=== PATIENT | female | born 1955 | race Caucasian/White ===

== ENCOUNTER 2020-02-24 15:19 | Outpatient (CLI) | payer MEDICARE, SELFPAY ==
--- NOTE | ~2020-02-24 | CT_ITS ---
EXAMINATION: CTA brain DATE: 02/24/2020 16:06 INDICATION: Headache. TECHNIQUE: Computed tomographic angiography (CTA) of the head was performed without and with 100 mL O mnipaque-350 intravenous contrast. Automated exposure control and iterative reconstruction technique were employed. The dose-length product was 1124.14 mGy-cm. Maximum intensity projection 3D reconstru ctions were created. Volume-rendered 3D reconstructions of the intracranial arteries were created by the technologist on a separate workstation. COMPARISON: CTA head 10/06/2018 FINDINGS: There is chronic encephalomalacia in right temporal occipital region. There is an old lacun ar infarct in left caudate nucleus. There is a right-sided ventriculostomy tube with tip in body of l eft lateral ventricle. There is chronic encephalomalacia in right parietal lobe along the catheter. T here is no intracranial hemorrhage, acute infarction, or abnormal intracranial mass lesion. There is ex vacuo dilatation of right lateral ventricle. There is mild mucosal thickening in the paranasal sin uses. The orbits are normal. The mastoid air cells are normal. Left vertebral artery is dominant. The re is no significant stenosis of basilar artery. 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 There are changes of right-sided craniotomy. There is n o significant stenosis of the intracranial internal carotid arteries. There is a 3 mm saccular aneury sm of the cavernous portion of left internal carotid artery directed medially. There is a 5 mm saccul ar aneurysm of left middle cerebral artery. There is no significant stenosis of the anterior cerebral arteries. Anterior communicating artery is normal. Posterior communicating arteries are not identifi ed. IMPRESSION: 1. 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 2. 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 3. 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 4. Chronic encephalomalacia in right temporal occipital region and right parietal lobe. Old lacunar i nfarct in left caudate nucleus. Reviewed, dictated and finalized at location A. IMPRESSION: 1. 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 2. 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 3. 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 4. Chronic encephalomalacia in right temporal occipital region and right pariet al lobe. Old lacunar infarct in left caudate nucleus.
[2020-02-24 15:56] LABS: Estimated Glomerular Filt Rate > 60
== END 2020-02-24 15:20 | disposition home or self-care (01) ==
PROVIDERS: PCP Family Medicine; Visit Provider Psychiatry & Neurology Neurology
DX: R51.9 Headache, unspecified (principal); I67.1 Cerebral aneurysm, nonruptured
CPT/HCPCS: 70496; Q9967

== ENCOUNTER 2020-07-03 07:09 | Outpatient (CLI) | payer MEDICARE, SELFPAY ==
[2020-07-03 07:38] LABS: Basophils Percent Auto 0.6 % (0.2-1.2); Eosinophils Absolute Auto 0.2 K/mm3 (0-0.3); Eosinophils Percent Auto 3.6 % (0-4.4); Hematocrit 42.2 % (37.0-47.0); Hemoglobin 14.6 g/dL (12.0-15.0); Immature Granulocyte Absolute 0.01 K/mm3 (0.00-0.031); Immature Granulocyte Percent A 0.2 % (0-0.5); Lymphocytes Absolute Auto 1.67 K/mm3 (0.9-3.2); Lymphocytes Percent Auto 35.5 % (18.3-44.2); Mean Corpuscular HGB Conc 34.6 g/dl (32-36); Mean Corpuscular Hemoglobin 37.2 pg (26-34); Mean Corpuscular Volume 107.4 fl (80-100); Mean Platelet Volume 9.3 fl (7.4-10.4); Monocytes Absolute Auto 0.5 K/mm3 (0.1-0.6); Monocytes Percent Auto 11.1 % (2.6-8.5); Neutrophils Absolute Auto 2.3 K/mm3 (1.3-6.7); Platelet Count Result 121 k/mm3 (150-375); Red Blood Count 3.93 M/mm3 (4.2-5.4); Red Cell Distribution Width 12.8 % (11.5-14.5); White Blood Count 4.7 K/mm3 (4.5-10.0)
[2020-07-03 08:41] LABS: Alanine Aminotransferase 9 U/L (4-35); Alkaline Phosphatase 90 U/L (38-126); Anion Gap 2 mmol/L (8-16); Aspartate Amino Transferase 27 U/L (14-36); Bilirubin,Total 0.4 mg/dL (0.2-1.3); Blood Urea Nitrogen 17 mg/dL (7-17); Calcium 9.4 mg/dL (8.4-10.2); Carbon Dioxide 29 mmol/L (22-30); Chloride 111 mmol/L (98-107); Cholesterol 170 mg/dL (0-200); Estimated Glomerular Filt Rate > 60; Glucose 92 mg/dL (65-105); HDL Direct 65 mg/dL; Potassium 4.4 mmol/L (3.4-5.0); Sodium 142 mmol/L (137-145); Triglycerides 77 mg/dL (<150)
[2020-07-03 08:53] LABS: LDL Cholesterol Direct 83 mg/dL
== END 2020-07-03 07:10 | disposition home or self-care (01) ==
PROVIDERS: PCP Family Medicine; Visit Provider Family Medicine
DX: E78.5 Hyperlipidemia, unspecified (principal); I10 Essential (primary) hypertension; Z00.00 Encounter for general adult medical examination without abnormal findings
CPT/HCPCS: 36415; 80053; 80061; 84443; 85025

== ENCOUNTER → 2020-08-11 01:51 | Outpatient (CLI) | payer MEDICARE, SELFPAY ==
[2020-08-11 19:28] LABS: SARS-CoV-2 RNA PCR Negative
== END ==
PROVIDERS: PCP Family Medicine; Visit Provider Internal Medicine Gastroenterology
DX: Z01.812 Encounter for preprocedural laboratory examination (principal); Z20.822 Contact with and (suspected) exposure to COVID-19
CPT/HCPCS: C9803; U0003; U0005

== ENCOUNTER 2020-08-14 01:47 | Day surgery (SDC) | payer MEDICARE, SELFPAY ==
[2020-08-01 12:50] VITALS: BMI 18.8
--- NOTE | 2020-08-04 08:17 | SUR.PREOP ---
Spoke with Dr Storm and Dr De Leon about this patients health history. Both MD okayed for procedure. Spoke with patient- instructed to stop Plavix 5 days before.
[2020-08-14 09:22] VITALS: BP 147/71; PULSE 62; RESP 18; TEMP 36.3; O2SAT 97
[2020-08-14] MEDS: LACTATED RINGERS 1,000 ML 150 ML IV CONT (09:34)
--- NOTE | 2020-08-14 10:03 | WPDANESEPPF ---
Anes - Initial Pre Proc Eval Procedure: Operation Date: 08/14/20 10:30 Proposed Procedures p Screening Colonoscopy - Kendrick Storm MD Date/Time: 08/14/20 10:03 Surgeon: Kendrick Storm MD Pre Op Diagnosis: Neoplasm Screening Patient Data Age: 65 Gender: F Height: 5 ft 6 in Weight: 53.2 kg Last Vital Signs Temp 97.4 F L 08/14/20 09:22 Pulse 62 08/14/20 09:22 Resp 18 08/14/20 09:22 BP 147/71 H 08/14/20 09:22 Pulse Ox 97 08/14/20 09:22 Allergies Allergy/AdvReac Type Severity Reaction Status Date / Time prednisone Allergy Severe Dyspnea / Verified 08/14/20 09:20 SOB adhesive tape Allergy Unknown unknown Verified 08/14/20 09:20 latex Allergy Unknown Unknown Verified 08/14/20 09:20 Penicillins Allergy Unknown Unknown Verified 08/14/20 09:20 warfarin Allergy Unknown HEMMRHAGE Verified 08/14/20 09:20 ibuprofen AdvReac Unknown SHAKY Verified 08/14/20 09:20 Mushroom Allergy Mild HIVES Uncoded 06/07/20 14:16 Home Medications Medication Instructions Recorded Confirmed Type clopidogrel 75 mg tablet See Rx Instructions .ROUTE 09/13/19 08/14/20 Rx .COMPLEX #90 tablet simvastatin 80 mg tablet See Rx Instructions .ROUTE 03/20/20 08/01/20 Rx .COMPLEX #90 tablet losartan 25 mg tablet 25 mg PO DAILY 06/07/20 08/01/20 History sertraline 50 mg tablet 50 mg PO DAILY #90 tablet 07/19/20 08/01/20 Rx metoprolol succinate 25 mg PO DAILY 08/01/20 08/01/20 History umeclidinium 62.5 mcg/actuation See Rx Instructions .ROUTE 08/07/20 08/14/20 Rx blister powder for inhalation .COMPLEX #30 ea Patient hx anesthesia problems: none Family hx anesthesia problems: none PMFSH Past Medical History Medical History CAD in [place] artery Cerebral aneurysm Cerebrovascular accident (CVA) Chronic obstructive pulmonary disease (COPD) Depression Dyslipidemia Essential (primary) hypertension Heart attack History of hydrocephalus Lumbar spondylosis PAD (peripheral artery disease) Right renal artery stenosis Stroke Surgical History Surgical History Femoral-femoral bypass graft thrombosis, left 06/1997 H/O cerebral aneurysm repair (~10/2016) History of aortic valve replacement 1994 and 1997 History of appendectomy History of cerebral aneurysm repair 2016 History of coronary artery bypass graft 1994 History of hysterectomy 1980s S/P aorto-bifemoral bypass surgery 08/1997 S/P ACID BLOWER shunt 2016 Family History Family History Other Diabetes mellitus Family history of coronary artery disease Social History Social History Smoking packs per day: 39 Smoking cigarettes per day: 780.0 Years smoked: 46 Smoking pack-years: 1794.00 Smoking status: Current every day smoker Tobacco type: cigarettes Second hand tobacco smoke exposure: No Smoking end date: 05/26/16 Alcohol intake: never Substance use: current Living arrangements: with family Spiritual care concerns: No Anes - Eval Final PreProcedure Day of Procedure 08/14/20 10:03 Patient weight: normal Heart: regular rate and rhythm Lungs: clear to auscultation Airway: Mallampati scale class II Neurological: alert and oriented Last oral intake: >/= 8 hours ASA classification: IV Emergent: no Anesthetic plan: proceed Anesthesia type and monitoring: general GIVS and standard monitoring Informed Consent: The patient's anesthetic plan and its attendant risks and benefits were discussed with the patient/family/POA. Questions were solicited and answers provided to the satisfaction of the patient/family/POA.
--- NOTE | 2020-08-14 10:25 | PM.HPGS ---
History of Present Illness History of Present Illness Consent: Risks, benefits, and alternatives have been discussed and questions answered. Patient agrees to proceed with procedure. Chief complaint: Neoplasm Screening Narrative: Shobha Keita is a 65 year old female referred for colon cancer screening Review of Systems Review of Systems: All systems reviewed & are unremarkable except as noted in HPI and below PMFSH Past Medical History Medical History CAD in [place] artery Cerebral aneurysm Cerebrovascular accident (CVA) Chronic obstructive pulmonary disease (COPD) Depression Dyslipidemia Essential (primary) hypertension Heart attack History of hydrocephalus Lumbar spondylosis PAD (peripheral artery disease) Right renal artery stenosis Stroke Surgical History Surgical History Femoral-femoral bypass graft thrombosis, left 06/1997 H/O cerebral aneurysm repair (~10/2016) History of aortic valve replacement 1994 and 1997 History of appendectomy History of cerebral aneurysm repair 2016 History of coronary artery bypass graft 1994 History of hysterectomy 1980s S/P aorto-bifemoral bypass surgery 08/1997 S/P RIPPLER shunt 2016 Family History Family History Other Diabetes mellitus Family history of coronary artery disease Social History Social History (Updated 08/14/20 @ 10:26 by Kendrick Storm MD) Smoking packs per day: 1 Smoking cigarettes per day: 20.0 Years smoked: 46 Smoking pack-years: 46.00 Smoking status: Current every day smoker Tobacco type: cigarettes Second hand tobacco smoke exposure: No Smoking end date: 05/26/16 Alcohol intake: never Substance use: current Living arrangements: with family Spiritual care concerns: No Meds Home Medications and Allergies Home Medications Medication Instructions Recorded Confirmed Type clopidogrel 75 mg tablet See Rx Instructions .ROUTE 09/13/19 08/14/20 Rx .COMPLEX #90 tablet simvastatin 80 mg tablet See Rx Instructions .ROUTE 03/20/20 08/01/20 Rx .COMPLEX #90 tablet losartan 25 mg tablet 25 mg PO DAILY 06/07/20 08/01/20 History sertraline 50 mg tablet 50 mg PO DAILY #90 tablet 07/19/20 08/01/20 Rx metoprolol succinate 25 mg PO DAILY 08/01/20 08/01/20 History umeclidinium 62.5 mcg/actuation See Rx Instructions .ROUTE 08/07/20 08/14/20 Rx blister powder for inhalation .COMPLEX #30 ea Allergies Allergy/AdvReac Type Severity Reaction Status Date / Time prednisone Allergy Severe Dyspnea / Verified 08/14/20 09:20 SOB adhesive tape Allergy Unknown unknown Verified 08/14/20 09:20 latex Allergy Unknown Unknown Verified 08/14/20 09:20 Penicillins Allergy Unknown Unknown Verified 08/14/20 09:20 warfarin Allergy Unknown HEMMRHAGE Verified 08/14/20 09:20 ibuprofen AdvReac Unknown SHAKY Verified 08/14/20 09:20 Mushroom Allergy Mild HIVES Uncoded 06/07/20 14:16 Vital Signs Vital Signs - 24 hr 08/14/20 09:22 Temperature 36.3 C L Pulse Rate 62 Respiratory Rate 18 Blood Pressure 147/71 H Pulse Oximetry 97 Exam Resp: Auscultation: clear to auscultation bilaterally Cardio: Rate: regular rate Rhythm: regular rhythm GI: GI Palp: Yes Soft to palpation and No Tenderness to palpation present (GI) Assessment and Plan Assessment and plan (1) Colon cancer screening: Code(s): Z12.11 - Encounter for screening for malignant neoplasm of colon Status: Acute Assessment and Plan: Colonoscopy with possible biopsy or polypectomy or cautery or injection of substances.
[2020-08-14 11:00] VITALS: BP 122/71; PULSE 60; RESP 18; O2SAT 96
[2020-08-14 11:10] VITALS: BP 117/70; PULSE 58; RESP 20; O2SAT 95
[2020-08-14 11:20] VITALS: BP 136/78; PULSE 54; RESP 19; O2SAT 97
== END 2020-08-14 11:31 | disposition home or self-care (01) ==
PROVIDERS: PCP Family Medicine; Visit Provider Internal Medicine Gastroenterology
PROC: 0DJD8ZZ Inspection of Lower Intestinal Tract, Via Natural or Artificial Opening Endoscopic (ICD-10-PCS; CPT 45378; principal; 2020-08-14 10:30)
DX: Z12.11 Encounter for screening for malignant neoplasm of colon (principal); D12.4 Benign neoplasm of descending colon; D12.5 Benign neoplasm of sigmoid colon; I25.10 Atherosclerotic heart disease of native coronary artery without angina pectoris; J44.9 Chronic obstructive pulmonary disease, unspecified; I73.9 Peripheral vascular disease, unspecified; I25.2 Old myocardial infarction; I70.1 Atherosclerosis of renal artery; E78.5 Hyperlipidemia, unspecified; M47.816 Spondylosis without myelopathy or radiculopathy, lumbar region; F17.210 Nicotine dependence, cigarettes, uncomplicated; F32.9 Major depressive disorder, single episode, unspecified; Z95.2 Presence of prosthetic heart valve; Z86.73 Personal history of transient ischemic attack (TIA), and cerebral infarction without residual deficits; Z95.1 Presence of aortocoronary bypass graft
CPT/HCPCS: 45385; 88305; C9803; J2704; J3370; J7120; U0003; U0005

== ENCOUNTER 2021-07-30 07:03 | Outpatient (CLI) | payer MEDICARE, SELFPAY ==
--- NOTE | ~2021-07-30 | CT_ITS ---
EXAMINATION: CT lung screening DATE: 07/30/2021 07:41 INDICATION: Personal history of nicotine dependence, current smoker with 30 pack year history TECHNIQUE: Computed tomography (CT) of the chest was performed without intravenous contrast. The dose -length product (DLP) was 61.43 mGy-cm. Automated exposure control and iterative reconstruction techn Vigiglobeue were employed. COMPARISON: 07/01/2018 FINDINGS: There is mild emphysema. There are nodules measuring up to 2 mm in the right upper lobe. Th ere is scarring in the lung apices. No acute airspace opacities are identified. The heart size is nor mal. There are changes of prior cardiac surgery. Bilateral breast implants are noted. There is chroni c scarring in the left lower lobe. There are no pathologically enlarged thoracic lymph nodes. Punctat e calcifications of the pancreas are consistent with chronic pancreatitis. A ventricular shunt cathet er ends with its tip at the superior cavoatrial junction. There is mild thoracic spondylosis. IMPRESSION: 1. Lung-RADS category 2: Benign appearance or behavior. Continue annual screening with noncontrast lo w-dose chest CT in 12 months. Reviewed, dictated and finalized at location B. NCT HISTORY INSTRUCTOR IMPRESSION: 1. Lung-RADS category 2: Benign appearance or behavior. Continue annual screeni ng with noncontrast low-dose chest CT in 12 months.
== END 2021-07-30 07:04 | disposition home or self-care (01) ==
PROVIDERS: PCP Family Medicine; Visit Provider Family Medicine
DX: J44.9 Chronic obstructive pulmonary disease, unspecified (principal); Z12.2 Encounter for screening for malignant neoplasm of respiratory organs; Z87.891 Personal history of nicotine dependence
CPT/HCPCS: 71271

== ENCOUNTER 2021-10-18 09:41 | Observation (INO) | payer MEDICARE, SELFPAY ==
[2021-10-18] VITALS (56 sets, daily range): BP systolic 118–152; BP diastolic 29–95; PULSE 39–78; RESP 11–25; TEMP 36.2–36.8; O2SAT 89–97; BMI 17.6; BMI 17.9
--- NOTE | ~2021-10-18 | XR_ITS ---
EXAMINATION: XR chest 1V portable DATE: 10/18/2021 10:02 INDICATION: Chest pain TECHNIQUE: frontal view of the chest was obtained. COMPARISON: Chest radiograph dated 02/15/[address] dated 08/09/2021 FINDINGS: Mild right apical pleural-parenchymal scarring. Hyperexpansion of lungs, right greater than left with relative elevation of left hemidiaphragm. Increased lucency and some architectural distortion in the mid to upper lungs consistent with emphysema better appreciated on prior CT. No focal airspace opaci ties, pulmonary edema, pleural effusion or pneumothorax. The cardiomediastinal silhouette is normal. Median sternotomy wires, ostial markers and mediastinal surgical clips consistent with prior coronary artery bypass grafting. Bilateral breast implants. IMPRESSION: 1. Emphysema. No acute cardiopulmonary disease. Reviewed, dictated and finalized at location B.
--- NOTE | 2021-10-18 09:50 | ECG_ITS ---
Measurements Intervals [place] Rate: 62 P: 78 IA: 135 QRS: 47 QRSD: 101 T: 229 QT: 435 QTc: 443 Interpretive Statements SINUS RHYTHM POSSIBLE LEFT ATRIAL ENLARGEMENT LEFT VENTRICULAR HYPERTROPHY AND ST-T CHANGE ST-T WAVE ABNORMALITY IN ANTEROLAT/INF LEADS- CONSIDER ISCHEMIA BASELINE ARTIFACT- I, II, III, AVR, AVL, AVF, V3-V4 ABNORMAL ECG Electronically Signed On 10-18-2021 10:55:26 CDT by Conrad Fritz D.O.
[2021-10-18 10:19] LABS: Basophils Percent Auto 0.7 % (0.2-1.2); Eosinophils Absolute Auto 0.2 K/mm3 (0-0.3); Eosinophils Percent Auto 3.3 % (0-4.4); Hematocrit 35.9 % (37.0-47.0); Hemoglobin 12.2 g/dL (12.0-15.0); Immature Granulocyte Absolute 0.01 K/mm3 (0.00-0.031); Immature Granulocyte Percent A 0.2 % (0-0.5); Lymphocytes Absolute Auto 1.43 K/mm3 (0.9-3.2); Lymphocytes Percent Auto 31.5 % (18.3-44.2); Mean Corpuscular Hemoglobin 36.2 pg (26-34); Mean Corpuscular Volume 106.5 fl (80-100); Mean Platelet Volume 9.1 fl (7.4-10.4); Monocytes Absolute Auto 0.4 K/mm3 (0.1-0.6); Monocytes Percent Auto 9.3 % (2.6-8.5); Neutrophils Absolute Auto 2.5 K/mm3 (1.3-6.7); Platelet Count Result 130 k/mm3 (150-375); Red Blood Count 3.37 M/mm3 (4.2-5.4); Red Cell Distribution Width 13.3 % (11.5-14.5); White Blood Count 4.5 K/mm3 (4.5-10.0)
[2021-10-18] MEDS: ONDANSETRON INJ 4 MG/2 ML VIAL IV PUSH (10:19)
[2021-10-18] MEDS: MORPHINE SULFATE (*CRX) 2 MG/ML INJ IV PUSH (10:19)
[2021-10-18 10:31] LABS: INR 1.1; Prothrombin Time 13.5 Seconds (11.1-14.7)
[2021-10-18 10:41] LABS: Alanine Aminotransferase 9 U/L (6-35); Alkaline Phosphatase 81 U/L (38-126); Anion Gap 7 mmol/L (8-16); Aspartate Amino Transferase 28 U/L (14-36); Bilirubin,Total 0.4 mg/dL (0.2-1.3); Blood Urea Nitrogen 10 mg/dL (7-17); Calcium 9.1 mg/dL (8.4-10.2); Carbon Dioxide 23 mmol/L (22-30); Chloride 108 mmol/L (98-107); Estimated CRCL calculation 46 ml/min; Estimated Glomerular Filt Rate > 60; Glucose 123 mg/dL (65-110); Sodium 138 mmol/L (137-145)
[2021-10-18 10:51] LABS: Appearance Urine Clear (Clear); Bilirubin Urine Negative (Negative); Color Urine Yellow (Yellow); Glucose Urine UA Negative (Negative); Ketones Urine Negative (Negative); Leukocyte Esterase Ur Negative LEU/UL (Negative); Nitrate Urine Negative (Negative); Protein Urine Negative (Negative); Urobilinogen Urine 0.2 mg/dL (<2.0); pH Urine 6.5 (5.0-9.0)
[2021-10-18 10:53] LABS: NT Pro B Type Natriuretic Pept 1260 pg/mL (5-100); Troponin I < 0.012 ng/mL (0.000-0.034)
[2021-10-18 10:58] LABS: Bacteria Urine Trace /hpf; RBC Urine 0-2 /hpf (0-2); WBC Urine 0-3 /hpf
[2021-10-18 11:04] LABS: Add Urine Microscopic? YES; Blood Urine Trace-Intact (Negative)
--- NOTE | 2021-10-18 11:52 | ECG_ITS ---
Measurements Intervals [place] Rate: 46 P: 80 AL: 134 QRS: 49 QRSD: 102 T: 234 QT: 547 QTc: 479 Interpretive Statements SINUS BRADYCARDIA LEFT VENTRICULAR HYPERTROPHY WITH ST-T CHANGE ST-T WAVE ABNORMALITY IN ANTEROLAT/INF LEADS- CONSIDER ISCHEMIA BASELINE ARTIFACT- I, II, III, AVR, AVL, AVF ABNORMAL ECG Electronically Signed On 10-18-2021 11:59:17 CDT by Conrad Fritz D.O.
[2021-10-18 13:16] LABS: Troponin I 0.014 ng/mL (0.000-0.034)
--- NOTE | 2021-10-18 14:45 | ED.CHESTPAIN ---
HPI - Chest Pain General Chief Complaint: Chest Pain Stated Complaint: chest pain Time Seen by Provider: 10/18/21 09:42 Source: patient Mode of arrival: EMS Limitations: no limitations History of Present Illness HPI narrative: 66-year-old with aortic valve replacement, hypertension, CAD , CVA ,COPD here with complaints of left-sided chest pain from the time she woke up. Patient states that pain is pretty much confined to the left precordial area. She denies any shortness of breath, nausea or vomiting or diaphoresis with the pain. No history of fever or chills or cough. She states that she is scheduled to see Dr. Gold. complaint: chest pain Pertinent past history: coronary artery disease Onset (ago): day(s) (1) Timing of current episode: now resolved Prior episodes: Yes Onset: during rest Pain location: left chest Pain radiation: none Quality: heaviness Relieving factors: nitroglycerin Exacerbating factors: nothing Risk Factors Coronary artery disease risk factors: hypertension Thoracic aortic dissection risk factors: none Related Data Home Medications Medication Instructions Recorded Confirmed losartan 25 mg tablet 25 mg PO DAILY 06/07/20 07/03/21 clopidogrel 75 mg tablet 75 mg PO DAILY 12/26/20 07/03/21 bupropion HCl 150 mg tablet,12 hr 150 mg PO BID 07/03/21 07/03/21 sustained-release Allergies Allergy/AdvReac Type Severity Reaction Status Date / Time prednisone Allergy Severe Dyspnea / Verified 10/18/21 09:53 SOB adhesive tape Allergy Unknown unknown Verified 10/18/21 09:53 latex Allergy Unknown Unknown Verified 10/18/21 09:53 Penicillins Allergy Unknown Unknown Verified 10/18/21 09:53 warfarin Allergy Unknown HEMMRHAGE Verified 10/18/21 09:53 ibuprofen AdvReac Unknown SHAKY Verified 10/18/21 09:53 Mushroom Allergy Mild HIVES Uncoded 10/18/21 09:53 Review of Systems Review of Systems: All systems reviewed & are unremarkable except as noted in HPI and below Constitutional: Constitutional: Reports no additional constitutional complaints Eyes: Eyes: Reports no additional eye complaints ENT: Reports system reviewed and no additional complaints, except as documented Cardiovascular: Cardiovascular: Reports as per HPI Respiratory: Respiratory: Reports no additional respiratory complaints Gastrointestinal: Gastrointestinal: Reports no additional gastrointestinal complaints Musculoskeletal: Musculoskeletal: Reports no additional musculoskeletal complaints Integumentary/Breasts: Skin/Breast: Reports system reviewed and no additional complaints, except as docu Neurologic: Reports system reviewed and no additional complaints, except as documented [facility] Past Medical History Medical History CAD in [place] artery Cerebral aneurysm Cerebrovascular accident (CVA) Chronic obstructive pulmonary disease (COPD) Depression Dyslipidemia Essential (primary) hypertension Heart attack History of hydrocephalus Lumbar spondylosis OAB (overactive bladder) PAD (peripheral artery disease) Right renal artery stenosis Stroke Surgical History Surgical History Femoral-femoral bypass graft thrombosis, left 06/1997 H/O cerebral aneurysm repair (~10/2016) History of aortic valve replacement 1994 and 1997 History of appendectomy History of cerebral aneurysm repair 2016 History of coronary artery bypass graft 1994 History of hysterectomy 1980s S/P aorto-bifemoral bypass surgery 08/1997 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
[2021-10-18] MEDS: SODIUM CHLORIDE 0.9% IV 1,000 ML 75 ML IV CONT (15:18)
[2021-10-18 15:29] LABS: Magnesium 2.1 mg/dL (1.6-2.3)
--- NOTE | 2021-10-18 16:00 | PM.IMHP ---
H&P: HPI History of Present Illness Date/Time: Patient was placed observation status for expected length of stay less than 23 hours for management, will plan to re-evaluate tomorrow for improvement. 10/18/21 16:00 Chief Complaint: Chest pain Narrative: Ms. Keita is a 66-year-old female who presented emergency room with complaints of chest discomfort that occurred this morning. Patient states that she woke up and got out of bed and was walking to the kitchen noticed a squeezing sensation under her left breast that radiated up into her left jaw. Patient states that she did feel mildly short of breath and nauseated. Patient states her noticed that she is clammy, but she did not feel she was diaphoretic. Patient states that walking, deep breathing, and movement of her arms made the pain worse. Patient states that resting made the pain better. Patient denies any lightheadedness, dizziness, syncopal, or near syncopal episodes. Patient denies any vomiting. Patient states the pain is reproducible with palpation under her left breast. Upon evaluation in emergency room patient had 2 negative troponins and was going to go home, but it was also noted the patient had a heart rate in the 30s and 40s consistently. Patient denies any lightheadedness or dizziness upon standing. Patient does have a known history of hypertension, dyslipidemia, coronary artery disease, aortic valve replacement with porcine valve x2, peripheral treatable disease, CVA with residual right-sided blindness, repairs cerebral aneurysm, history of hydro fistula status post LATHE MACHINE OPERATOR shunt placement, and COPD. Patient does have a significant history of peripheral arterial disease with a history of fem-fem bypass with graft thrombus of the left and then aortobifemoral bypass. She does continue to smoke but she is cutting back. Review of Systems Review of Systems: A 12 point review of systems was completed patient all pertinent positive and negative per HPI the remainder are unremarkable. [facility] Past Medical History Medical History CAD in [place] artery Cerebral aneurysm Cerebrovascular accident (CVA) Chronic obstructive pulmonary disease (COPD) Depression Dyslipidemia Essential (primary) hypertension Heart attack History of hydrocephalus Lumbar spondylosis OAB (overactive bladder) PAD (peripheral artery disease) Right renal artery stenosis Stroke Surgical History Surgical History Femoral-femoral bypass graft thrombosis, left 06/1997 H/O cerebral aneurysm repair (~10/2016) History of aortic valve replacement 1994 and 1997 History of appendectomy History of cerebral aneurysm repair 2016 History of coronary artery bypass graft 1994 History of hysterectomy 1980s S/P aorto-bifemoral bypass surgery 08/1997 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 Family History Family History Other Diabetes mellitus Family history of coronary artery disease Social History Social History Smoking packs per day: 1 Smoking cigarettes per day: 20.0 Years smoked: 46 Smoking pack-years: 46.00 Tobacco type: cigarettes Second hand tobacco smoke exposure: No Smoking end date: 05/26/16 Alcohol intake: never Substance use: current Spiritual care concerns: No Meds Home Medications and Allergies Home Medications Medication Instructions Recorded Confirmed Type losartan 25 mg tablet 25 mg PO DAILY 06/07/20 07/03/21 History ipratropium 0.5 mg-albuterol 3 mg 3 ml inhalation Q4H PRN shortness 08/21/20 07/03/21 Rx (2.5 mg base)/3 mL nebulization of breath or wheezing #180 mL soln clopidogrel 75 mg tablet 75 mg PO DAILY 12/26/20 07/03/21 History oxybutynin chloride 10 mg 10 mg PO DAILY #90 tabs 05/21/21 07/03/21 Rx tablet,extended release 24 hr sertralin
--- NOTE | 2021-10-18 16:55 | ADMGEN ---
This patient, Shobha Keita, was admitted to IMU Room 213-01. Patient/family oriented to hospital policies and general routines including ID bracelet, bed and alarms, visiting hours, pain management, procedures, bathroom and other care routines, personal items, smoking policy, room service/diet, and visiting hours. Information on how to activate the Rapid Response Team has been discussed. Patient/Family are encouraged to report perceived risks to care and to ask questions if they do not understand what they are told or what they should do.
[2021-10-18] MEDS: ACETAMINOPHEN 325 MG TABLET 650 MG PO (18:07)
[2021-10-18 22:01] LABS: Troponin I 0.016 ng/mL (0.000-0.034)
[2021-10-19] VITALS (13 sets, daily range): BP systolic 134–167; BP diastolic 68–101; PULSE 39–70; RESP 18–20; TEMP 35.9–36.9; O2SAT 91–98; BMI 17.9
[2021-10-19] MEDS: SODIUM CHLORIDE 0.9% IV 1,000 ML 75 ML IV CONT (04:10)
[2021-10-19] MEDS: ACETAMINOPHEN 325 MG TABLET 650 MG PO ×2 (04:10)
[2021-10-19 05:02] LABS: Basophils Absolute Auto 0.1 K/mm3 (0.0-0.1); Basophils Percent Auto 0.9 % (0.2-1.2); Eosinophils Absolute Auto 0.2 K/mm3 (0-0.3); Eosinophils Percent Auto 2.9 % (0-4.4); Hematocrit 35.1 % (37.0-47.0); Hemoglobin 11.6 g/dL (12.0-15.0); Immature Granulocyte Absolute 0.01 K/mm3 (0.00-0.031); Immature Granulocyte Percent A 0.2 % (0-0.5); Immature Platelet Fraction Pct 3.3 % (0.9-11.2); Lymphocytes Absolute Auto 1.61 K/mm3 (0.9-3.2); Lymphocytes Percent Auto 29.2 % (18.3-44.2); Mean Corpuscular Hemoglobin 35.8 pg (26-34); Mean Corpuscular Volume 108.3 fl (80-100); Mean Platelet Volume 9.6 fl (7.4-10.4); Monocytes Absolute Auto 0.5 K/mm3 (0.1-0.6); Monocytes Percent Auto 9.8 % (2.6-8.5); Neutrophils Absolute Auto 3.1 K/mm3 (1.3-6.7); Platelet Count Result 139 k/mm3 (150-375); Red Blood Count 3.24 M/mm3 (4.2-5.4); Red Cell Distribution Width 13.2 % (11.5-14.5); White Blood Count 5.5 K/mm3 (4.5-10.0)
[2021-10-19 05:13] LABS: Anion Gap 5 mmol/L (8-16); Blood Urea Nitrogen 13 mg/dL (7-17); Calcium 8.4 mg/dL (8.4-10.2); Carbon Dioxide 22 mmol/L (22-30); Chloride 112 mmol/L (98-107); Estimated CRCL calculation 41 ml/min; Estimated Glomerular Filt Rate 56; Glucose 77 mg/dL (65-110); Potassium 4.4 mmol/L (3.4-5.0); Sodium 139 mmol/L (137-145)
[2021-10-19] MEDS: SIMVASTATIN 20 MG TABLET 80 MG PO (09:01)
[2021-10-19] MEDS: SERTRALINE HCL 50 MG TABLET PO (09:01)
[2021-10-19] MEDS: CLOPIDOGREL BISULFATE 75 MG TABLET PO (09:01)
[2021-10-19] MEDS: LOSARTAN POTASSIUM 25 MG TABLET PO (09:01)
[2021-10-19] MEDS: ENOXAPARIN 40 MG/0.4 ML SYRINGE SUB-Q (09:02)
[2021-10-19] MEDS: MORPHINE SULFATE (*CRX) 4 MG/ML INJ IV PUSH (09:08)
--- NOTE | 2021-10-19 11:02 | PM.CNCAR ---
Assessment and Plan Assessment and plan (1) Chest pain: Code(s): R07.9 - Chest pain, unspecified Status: Acute Plan This is a 66-year-old lady with extensive vascular and coronary disease as described above. She also has 2 previous aortic valve replacements in [place]. She entered the hospital with some chest pain that understandably created some concern. Acute coronary syndrome has been ruled out and now she is asymptomatic. She does have follow-up scheduled with my partner who sees her next week. I would have agreed with the plans yesterday afternoon to release her from the emergency room but because at times seeing her to become sinus bradycardic she was admitted to the hospital overnight. On telemetry there have been no arrhythmias of any clinical concern so I believe it is fine to release her at this time she will follow with my partner. She will likely be arranged for an ischemic workup probably with nuclear stress testing in the office as an outpatient. As she is clinically stable and there is no evidence of ACS she does not have to be kept in the hospital for this. Jerome Lindsay MD [facility] History of Present Illness History of Present Illness Consult date/time: 10/19/21 11:02 Consult reason: chest pain Reason For Visit: Chest Pain and Bradycardia Narrative: This is a 66-year-old woman who is unknown to me prior to this encounter. She is known to and follows with Dr. Gold in our office. He has been seeing this lady for several years. She apparently has a long history of coronary and vascular disease as well as valvular heart disease. She came to the emergency room here yesterday because of some chest discomfort. She was in her usual state of health home when in a sedentary state she began to experience some left inframammary pain that was mild in intensity it had a dull aching quality to it it then had some radiation up into the left side of the neck. She stated she has never experienced his symptoms like this in the past and given her history understandably she became concerned and came to the emergency room for evaluation. In the emergency department her electrocardiogram was found does show a sinus mechanism with some nonspecific ST and T-wave abnormalities. She was evaluated with several troponin level in the emergency room which were unremarkable. She was given a nitroglycerin tablet in the ambulance on the way to the hospital which alleviated her symptoms. She has not had any more symptoms since that time. The initial plan was to add allow the patient to go home from the hospital follow-up with my partner in the office where she has an appointment next week. Because she was at times bradycardic the ED staff were not comfortable discharging her and so she was thusly admitted. I have reviewed the electrocardiograms in the rhythm strips. When she was bradycardic her heart rate was in the 40s but the rhythm was normal without any evidence of AV node dysfunction. She has never had a history of syncope she has some occasional positional lightheadedness that has not been much of a problem for her. She is not having any exertional chest pain orthopnea or PND. She has an extensive history of coronary disease apparently dating back to 1994 when she underwent a 2 vessel coronary bypass operation as well as an aortic valve replacement in [place]. I do not have the details of surgical grafts. She had a 25 mm aortic valve bioprosthesis placed. Because of what she describes is leaking of the prosthesis she had a 2nd aortic valve replacement done in April of 2020 await that was a 23 mm [employer] bioprosthesis. She has done relatively well since then. This care was delivered in [place] in 2018 she moved to this area and became established with our practice. She also has a history of significant peripheral vascular disease having undergone aortic and aortobifem revascularization in [place]. She follows with the vas
--- NOTE | 2021-10-19 12:18 | PC.NURSE ---
Pt heart rate dropped fo low 40's, when to room to assess pt. Pt reports she is feeling short of breath. Reports she was short of breath when she first arrived but then was feeling better. Pt reports shortness of breath has just started. Miroslava RN notified. Dr. Lindsay to be notified of change in pt condition.
--- NOTE | 2021-10-19 16:51 | PM.DS ---
DS: Admitting Diagnosis Discharge Date 10/19/2021 Admitting Diagnosis Chest pain DS: Discharge Diagnosis Discharge Diagnosis (1) Chest pain: Code(s): R07.9 - Chest pain, unspecified Status: Acute Assessment and Plan: Patient's chest pain does have some typical and atypical features. Patient's pain is reproducible with palpation. Patient has had 2 negative troponins. Will have a 3rd 1 drawn. Cardiology has been consult and appreciate further recommendations. (2) Sinus bradycardia: Code(s): R00.1 - Bradycardia, unspecified Status: Acute Assessment and Plan: Patient's EKG does show sinus bradycardia and I do not have an old EKG to compare this to. Will have lying and standing blood pressure and heart rates performed to ensure the patient's heart rate does increase with standing. Patient may also benefit from ambulation to ensure that she does have increased heart rate with activity. Will also have a TSH with reflex checked. Patient is denying any signs or symptoms with her bradycardia. (3) Essential (primary) hypertension: Code(s): I10 - Essential (primary) hypertension Status: Acute Assessment and Plan: Will resume patient's home medications once verified home medication list and adjust medications accordingly for optimal blood pressure control. (4) Chronic obstructive pulmonary disease (COPD): Qualifiers: COPD type: unspecified COPD Qualified Code(s): J44.9 - Chronic obstructive pulmonary disease, unspecified Code(s): J44.9 - Chronic obstructive pulmonary disease, unspecified Status: Acute Assessment and Plan: Will resume patient's home COPD medications will to verified home medication list. DS: Summary Hospital Course Reason for hospitalization: Chest pain Narrative: Ms. Keita is a 66-year-old female who presented emergency room with complaints of chest discomfort that occurred this morning.? Patient states that she woke up and got out of bed and was walking to the kitchen noticed a squeezing sensation under her left breast that radiated up into her left jaw.? Patient states that she did feel mildly short of breath and nauseated.? Patient states her noticed that she is clammy, but she did not feel she was diaphoretic.? Patient states that walking, deep breathing, and movement of her arms made the pain worse.? Patient states that resting made the pain better.? Patient denies any lightheadedness, dizziness, syncopal, or near syncopal episodes.? Patient denies any vomiting.? Patient states the pain is reproducible with palpation under her left breast.? Upon evaluation in emergency room patient had 2 negative troponins and was going to go home, but it was also noted the patient had a heart rate in the 30s and 40s consistently.? Patient denies any lightheadedness or dizziness upon standing. Patient does have a known history of hypertension, dyslipidemia, coronary artery disease, aortic valve replacement with porcine valve x2, peripheral treatable disease, CVA with residual right-sided blindness, repairs cerebral aneurysm, history of hydro fistula status post [employer] shunt placement, and COPD.? Patient does have a significant history of peripheral arterial disease with a history of fem-fem bypass with graft thrombus of the left and then aortobifemoral bypass.? She does continue to smoke but she is cutting back. Hospital Course: patient was seen by Cardiology as patient has history of coronary artery disease and stent, acute coronary syndrome was ruled out and patient's symptom had resolved and clinically stable, airborne electronics analyst recommended to discharge the patient to follow up as outpatient in their clinic, patient remains clinically stable will discharge the patient today Time Spent with Patient Time attestation: Total time spent providing and/or coordinating discharge services: Patient was seen and examined at the time of the discharge Condition at disch
== END 2021-10-19 18:32 | disposition home or self-care (01) ==
LOC: ANHED 14:56 → ANHIMU 15:33
PROVIDERS: Nurse Practitioner Adult Health; Admitting Provider Internal Medicine; Emergency Provider Family Medicine; PCP Family Medicine; Visit Provider Family Medicine
DX: R07.9 Chest pain, unspecified (principal); R00.1 Bradycardia, unspecified; I10 Essential (primary) hypertension; I25.10 Atherosclerotic heart disease of native coronary artery without angina pectoris; J44.9 Chronic obstructive pulmonary disease, unspecified; E78.5 Hyperlipidemia, unspecified; F32.A Depression, unspecified; F17.210 Nicotine dependence, cigarettes, uncomplicated; Z95.2 Presence of prosthetic heart valve
CPT/HCPCS: 36415; 71045; 80048; 80053; 81001; 83735; 83880; 84443; 84484; 85025; 85055; 85610; 93005; 96361; 96372; 96374; 96375; 96376; 99285; A9270; G0378; J1650; J2270; J2405; J7030

== ENCOUNTER 2021-12-04 06:50 | Outpatient (CLI) | payer MEDICARE, SELFPAY ==
--- NOTE | ~2021-12-04 | CT_ITS ---
EXAMINATION: CTA abd aorta runoff DATE: 12/04/2021 08:03 INDICATION: Peripheral arterial disease. TECHNIQUE: Computed tomographic angiography (CTA) of the abdominal, pelvis, and both lower extremitie s was performed with 150 mL Omnipaque-350 intravenous contrast. Automated exposure control and iterat shreya reconstruction technique were employed. The dose-length product was 495.60 mGy-cm. Maximum intens ity projection 3D-reconstructions of the arteries were created by the technologist on a separate work station. COMPARISON: CTA 04/02/2018 FINDINGS: ABDOMINAL AORTA AND ITS BRANCHES: There is moderate stenosis of celiac axis and mild stenosis of superior mesenteric artery. There is m ild stenosis of the renal arteries and inferior mesenteric artery. There is mild stenosis of abdomina l aorta. PELVIC VASCULATURE: There is total occlusion of the pala common and external iliac arteries. There is an aortobifem byp ass graft with total occlusion of the right side of the graft. In the left inguinal region, there is a 4.9 x 4.1 cm hematoma around the graft. A patent graft extends from the left external iliac portion of this graft to the right side to the right superficial femoral artery. There is an old thrombosed femorofemoral bypass graft. RIGHT LOWER EXTREMITY VASCULATURE: There is total occlusion of origin of right profunda femoris. There is reconstitution of small arteri es in the profunda femoris distribution. There is no significant stenosis of right superficial femora l artery. There is mild stenosis of right popliteal artery. There is no significant stenosis of tibio peroneal trunk. There is mild stenosis of proximal right anterior tibial artery. There is 3 vessel ru noff on the right. LEFT LOWER EXTREMITY VASCULATURE: There is total occlusion of the origin of left profunda femoris with reconstitution. There is mild st enosis of distal superficial femoral artery. There is no significant stenosis of popliteal artery or tibioperoneal trunk. There is mild stenosis of proximal anterior tibial artery. There is three-vessel runoff on the left. ADDITIONAL FINDINGS: Breast implants are noted. The visualized portions of the lung bases demonstrate emphysema and mild a telectasis. No pleural effusion. The heart size is normal. No pericardial effusion. The liver, gallbl adder, spleen, and adrenal glands are normal. There are calcifications in the pancreas, consistent wi th chronic pancreatitis. There is cortical thinning of the kidneys. There are no dilated loops of bow el. There are no pathologically enlarged lymph nodes. There is no free intraperitoneal fluid. There i s mild lumbar spondylosis. IMPRESSION: 1. Patent grafts from abdominal aorta to the bilateral superficial femoral arteries. Total occlusion of the pala arteries bypassed by these grafts. Bilateral three-vessel runoff. 2. 4.9 x 4.1 cm hematoma around the graft in left inguinal region. Reviewed, dictated and finalized at location A. IMPRESSION: 1. Patent grafts from abdominal aorta to the bilateral superficial femoral art eries. Total occlusion of the pala arteries bypassed by these grafts. Bilater al three-vessel runoff. 2. 4.9 x 4.1 cm hematoma around the graft in left inguinal region.
[2021-12-04 07:29] LABS: Estimated Glomerular Filt Rate 56
== END 2021-12-04 06:51 | disposition home or self-care (01) ==
PROVIDERS: PCP Family Medicine; Visit Provider Internal Medicine Cardiovascular Disease
DX: I73.9 Peripheral vascular disease, unspecified (principal); S30.1XXA Contusion of abdominal wall, initial encounter
CPT/HCPCS: 75635; Q9967

== ENCOUNTER 2022-01-01 10:46 | Outpatient (CLI) | payer MEDICARE, SELFPAY ==
[2022-01-01 19:03] LABS: Basophils Absolute Auto 0.1 K/mm3 (0.0-0.1); Basophils Percent Auto 0.9 % (0.2-1.2); Eosinophils Absolute Auto 0.3 K/mm3 (0-0.3); Eosinophils Percent Auto 4.3 % (0-4.4); Hematocrit 40.1 % (37.0-47.0); Hemoglobin 13.1 g/dL (12.0-15.0); Immature Granulocyte Absolute 0.01 K/mm3 (0.00-0.031); Immature Granulocyte Percent A 0.2 % (0-0.5); Lymphocytes Percent Auto 34.2 % (18.3-44.2); Mean Corpuscular HGB Conc 32.7 g/dl (32-36); Mean Corpuscular Hemoglobin 35.7 pg (26-34); Mean Corpuscular Volume 109.3 fl (80-100); Mean Platelet Volume 9.7 fl (7.4-10.4); Monocytes Absolute Auto 0.7 K/mm3 (0.1-0.6); Monocytes Percent Auto 11.6 % (2.6-8.5); Neutrophils Absolute Auto 2.9 K/mm3 (1.3-6.7); Neutrophils Percent Auto 48.8 % (45.5-73.1); Platelet Count Result 127 k/mm3 (150-375); Red Blood Count 3.67 M/mm3 (4.2-5.4); Red Cell Distribution Width 13.6 % (11.5-14.5); White Blood Count 5.8 K/mm3 (4.5-10.0)
[2022-01-01 19:26] LABS: Alanine Aminotransferase 13 U/L (6-35); Albumin Level 4.3 g/dL (3.5-5.1); Alkaline Phosphatase 88 U/L (38-126); Anion Gap 7 mmol/L (8-16); Aspartate Amino Transferase 44 U/L (14-36); Bilirubin,Total 0.4 mg/dL (0.2-1.3); Blood Urea Nitrogen 9 mg/dL (7-17); Calcium 9.2 mg/dL (8.4-10.2); Carbon Dioxide 29 mmol/L (22-30); Chloride 105 mmol/L (98-107); Estimated Glomerular Filt Rate > 60; Glucose 102 mg/dL (65-110); Potassium 4.5 mmol/L (3.4-5.0); Sodium 141 mmol/L (137-145)
[2022-01-01 20:22] LABS: Acanthocytes 2+ (NORMAL); Platelet Estimate Decreased (Adequate)
[2022-01-01 20:23] LABS: Vitamin D 25 Hydroxy 80.2 ng/mL
== END 2022-01-01 10:47 | disposition home or self-care (01) ==
LOC: ANHGOSHLAB 10:47
PROVIDERS: PCP Family Medicine; Visit Provider Family Medicine
DX: F32.9 Major depressive disorder, single episode, unspecified (principal); E78.5 Hyperlipidemia, unspecified; I10 Essential (primary) hypertension; E55.9 Vitamin D deficiency, unspecified
CPT/HCPCS: 36415; 80053; 82306; 85025

== ENCOUNTER 2022-01-10 11:29 | Outpatient (CLI) | payer MEDICARE, SELFPAY ==
[2022-01-10 11:53] LABS: Basophils Percent Auto 0.5 % (0.2-1.2); Eosinophils Absolute Auto 0.3 K/mm3 (0-0.3); Eosinophils Percent Auto 4.8 % (0-4.4); Hematocrit 37.9 % (37.0-47.0); Hemoglobin 12.8 g/dL (12.0-15.0); Immature Granulocyte Absolute 0.01 K/mm3 (0.00-0.031); Immature Granulocyte Percent A 0.2 % (0-0.5); Lymphocytes Absolute Auto 1.74 K/mm3 (0.9-3.2); Mean Corpuscular HGB Conc 33.8 g/dl (32-36); Mean Corpuscular Hemoglobin 36.3 pg (26-34); Mean Corpuscular Volume 107.4 fl (80-100); Mean Platelet Volume 9.7 fl (7.4-10.4); Monocytes Absolute Auto 0.6 K/mm3 (0.1-0.6); Monocytes Percent Auto 10.1 % (2.6-8.5); Neutrophils Absolute Auto 3.5 K/mm3 (1.3-6.7); Neutrophils Percent Auto 56.4 % (45.5-73.1); Platelet Count Result 121 k/mm3 (150-375); Red Blood Count 3.53 M/mm3 (4.2-5.4); Red Cell Distribution Width 13.6 % (11.5-14.5); White Blood Count 6.2 K/mm3 (4.5-10.0)
[2022-01-10 12:04] LABS: Alanine Aminotransferase 11 U/L (6-35); Albumin Level 4.4 g/dL (3.5-5.1); Alkaline Phosphatase 97 U/L (38-126); Anion Gap 7 mmol/L (8-16); Aspartate Amino Transferase 31 U/L (14-36); Bilirubin,Total 0.4 mg/dL (0.2-1.3); Blood Urea Nitrogen 11 mg/dL (7-17); Calcium 9.3 mg/dL (8.4-10.2); Carbon Dioxide 29 mmol/L (22-30); Chloride 103 mmol/L (98-107); Estimated Glomerular Filt Rate 50; Glucose 103 mg/dL (65-110); Potassium 4.2 mmol/L (3.4-5.0); Sodium 139 mmol/L (137-145)
[2022-01-10 12:45] VITALS: PULSE 60; O2SAT 95
[2022-01-10 12:50] VITALS: PULSE 72; O2SAT 87
[2022-01-10 12:55] VITALS: PULSE 74; O2SAT 88
[2022-01-10 13:00] VITALS: PULSE 74; O2SAT 91
[2022-01-10 13:15] VITALS: PULSE 62; O2SAT 95
--- NOTE | 2022-01-10 13:31 | HOMEO2EVAL ---
Evaluation was performed at [facility] Home Oxygen Evaluation RC: Home Oxygen (O2) Evaluation Start: 01/10/22 13:28 Freq: Status: Active Protocol: RPE Activity Type Activity Date Activity User E-sign Co-sign Detail Recorded Client Recorded Date Recorded By Document 01/10/22 12:45 DJO [email or web address] 01/10/22 13:31 DJO Document 01/10/22 12:50 [email or web address] [email or web address] 01/10/22 13:31 DJO Document 01/10/22 12:55 [email or web address] [email or web address] 01/10/22 13:31 DJO Document 01/10/22 13:00 [email or web address] [email or web address] 01/10/22 13:31 DJO Document 01/10/22 13:15 [email or web address] [email or web address] 01/10/22 13:31 DJO 01/10/22 01/10/22 01/10/22 12:45 12:50 12:55 Home O2 Evaluation Test Phase Resting Exercise Exercise Oxygen Delivery Room Air Room Air Nasal Cannula Oxygen Flow Rate (L/min) 1 Pulse Oximetry (90-100 %) 95 87 L 88 L Pulse Rate (60-100 beats/min) 60 72 74 Activity Tolerance Rating of Perceived Dyspnea (PD) Ambulation Distance (feet) Ambulation Distance (meters) Treatment Charges O2 Evaluation - Outpatient 01/10/22 01/10/22 13:00 13:15 Home O2 Evaluation Test Phase Exercise Resting Oxygen Delivery Nasal Cannula Room Air Oxygen Flow Rate (L/min) 2 Pulse Oximetry (90-100 %) 91 95 Pulse Rate (60-100 beats/min) 74 62 Activity Tolerance Fair Rating of Perceived Dyspnea (PD) +3 Moderate Difficulty, But Can Continue Ambulation Distance (feet) 750 Ambulation Distance (meters) 228.58 Treatment Charges
--- NOTE | 2022-01-11 11:03 | P.PCNPFT_ITS ---
PFT Procedure Performed PFT Procedure Performed Spirometry with Pre/Post Bronchodilator Plethysmography (Lung Vol) Diffusing Cap (DLCO) Flow Vol Loop PFT Interpretation Lung volumes were measured with the body plethysmography method. The elevated FRC and RV are indicative of air trapping. The remaining lung volumes are unremarkable. Spirometry showed diminished expiratory flow rates and a diminished FEV1 to FVC ratio 54%, consistent with obstructive airway disease. Following administration of a bronchodilator, there was no significant increase in the expiratory flow rates. Lung diffusion capacity is severely reduced at 42% predicted. The flow-volume loop is consistent with obstructive airway disea se. Impression: Moderate obstructive airway disease with evidence of air trapping and no response to bronchodilators on this testing. Severely reduced lung diffusion capacity.
== END 2022-01-10 11:30 | disposition home or self-care (01) ==
PROVIDERS: PCP Family Medicine; Visit Provider Internal Medicine Pulmonary Disease
DX: Z01.812 Encounter for preprocedural laboratory examination (principal); R07.9 Chest pain, unspecified; R06.02 Shortness of breath; J44.9 Chronic obstructive pulmonary disease, unspecified; R06.00 Dyspnea, unspecified
CPT/HCPCS: 36415; 80053; 85025; 94060; 94618; 94726; 94729

== ENCOUNTER 2022-02-10 17:42 | Observation (INO) | payer MEDICARE, SELFPAY ==
[2022-02-10] VITALS (22 sets, daily range): BP systolic 130–168; BP diastolic 54–91; PULSE 50–71; RESP 16–21; TEMP 36.4–36.7; O2SAT 93–100; BMI 16.5
--- NOTE | ~2022-02-10 | XR_ITS ---
EXAMINATION: XR chest 1V portable Exam Date/Time: 02/10/2022 18:40 CDT HISTORY: CP, EXTENSIVE CARDIAC HX, HX COPD, HX HTN, CONFUSION Comparison: 10/18/2021. RESULT: Lines, tubes, and devices: Fractured small presumed old sternotomy wire. Remaining sternotomy wires are intact. Mediastinal vascular clips. Ostial markers. Bilateral breast augmentation. Lungs and pleura: Clear. Cardiomediastinal silhouette: Stable. Other: No acute osseous or upper abdominal finding. IMPRESSION: No acute cardiopulmonary process. Reviewed, dictated and finalized at location K.
--- NOTE | ~2022-02-10 | CT_ITS ---
EXAMINATION: CT brain wo con DATE: 02/10/2022 18:51 INDICATION: R facial numbness for 9 hours . TECHNIQUE: Computed tomography (CT) of the head was performed without intravenous contrast. The mA wa s adjusted according to patient size. Iterative reconstruction technique was employed. The dose-lengt h product was 681.00 mGy-cm. COMPARISON: 02/24/2020 FINDINGS: No acute intracranial hemorrhage or extra-axial fluid collection. No hydrocephalus, mass, or herniation. No acute ischemic infarct. Unremarkable dural venous sinus attenuation. No acute osseous abnormality. Right temporoparietal craniotomy. Right parietal approach DISTRIBUTOR CLEANER shunt, wit h expected catheter tract encephalomalacia, tip terminates in the left lateral ventricle body. Stable right mastoid fluid, remaining aerated spaces are clear. Stable postsurgical change in the right temporal lobe with surrounding encephalomalacia and ventricul omegaly. Old left caudate head lacunar infarct. Atherosclerotic intracranial calcification. Right-valerie ed aneurysm clip. IMPRESSION: No acute intracranial process. Reviewed, dictated and finalized at location K.
--- NOTE | ~2022-02-10 | XR_ITS ---
EXAMINATION: XR esophogram water soluble DATE: 02/11/2022 11:15 CDT INDICATION: Dysphagia TECHNIQUE: Thick barium contrast with gas effervescent crystals were administered orally. Fluoroscop ic images of the esophagus were obtained in various projections. The hypopharynx was also examined. T hereafter, overhead images of the thoracic esophagrus were performed. Fluroscopy time 0.5 minutes.Dap 0.702 FINDINGS: There is a possible filling defect in the region of the laryngopharynx near the piriform si nus. There is a Zenker's diverticulum. There is no hiatal hernia. No discreet episode of gastroesoph ageal reflux is seen during the course of this study. IMPRESSION: 1. Possible filling defect in the laryngopharynx near the piriform sinus. Recommend correlation with modified barium swallow or direct visualization.No significant obstruction to flow of contrast. 2: Small Zenker's diverticulum. Reviewed, dictated and finalized at location A. IMPRESSION: 1. Possible filling defect in the laryngopharynx near the piriform sinus. Juan mmend correlation with modified barium swallow or direct visualization.No signi ficant obstruction to flow of contrast. 2: Small Zenker's diverticulum.
--- NOTE | 2022-02-10 17:50 | ED.CHESTPAIN ---
HPI - Chest Pain General Chief Complaint: Chest Pain Stated Complaint: CP Time Seen by Provider: 02/10/22 17:45 History of Present Illness HPI narrative: Patient is a 66-year-old female with a history of CAD status post CABG, CVA, hyperlipidemia, hypertension, PVD status post multiple bypasses presenting with chest pain. Patient states that she woke up this morning and felt diaphoretic and short of breath. She initially did not think anything of it and was able to go to [employer] with her . While there, she felt like the left side of her face started to become numb. Several hours later, she developed substernal chest pressure. States that it feels like a squeezing pain. States that she is scheduled to get a heart cath in several weeks. Patient called EMS and was given aspirin and nitro. States she developed a headache following the nitro. She denies recent fevers, weakness, palpitations, abdominal pain, nausea or vomiting, diarrhea, leg swelling, dysuria. Related Data Home Medications Medication Instructions Recorded Confirmed clopidogrel 75 mg tablet 75 mg PO DAILY 12/26/20 02/10/22 carvedilol 12.5 mg tablet 12.5 mg PO Q12H 12/24/21 02/10/22 rosuvastatin 40 mg tablet 40 mg PO DAILY 12/24/21 02/10/22 umeclidinium 62.5 mcg-vilanterol 1 inh inhalation DAILY PRN 01/01/22 02/10/22 25 mcg/actuation powdr for Shortness Of Breath inhalation (Anoro Ellipta) cilostazol 100 mg tablet 100 mg PO BID 02/10/22 02/10/22 losartan 100 mg tablet 100 mg PO DAILY 02/10/22 02/10/22 Allergies Allergy/AdvReac Type Severity Reaction Status Date / Time prednisone Allergy Severe Dyspnea / Verified 02/10/22 18:08 SOB mushroom Allergy Mild Hives Verified 02/12/22 10:48 adhesive tape Allergy Unknown unknown Verified 02/10/22 18:08 latex Allergy Unknown Unknown Verified 02/10/22 18:08 Penicillins Allergy Unknown Unknown Verified 02/10/22 18:08 warfarin Allergy Unknown HEMMRHAGE Verified 02/10/22 18:08 ibuprofen AdvReac Unknown SHAKY Verified 02/10/22 18:08 Review of Systems Review of Systems: All systems reviewed & are unremarkable except as noted in HPI and below PMFSH Past Medical History Medical History (Updated 02/12/22 @ 11:40 by Austin Gonzalez MD) CAD in [place] artery Cerebral aneurysm Cerebrovascular accident (CVA) Chronic obstructive pulmonary disease (COPD) Depression Dyslipidemia Essential (primary) hypertension Heart attack History of hydrocephalus Lumbar spondylosis Non-cardiac chest pain Overactive bladder Peripheral arterial disease Right renal artery stenosis Vitamin D deficiency Surgical History Surgical History Femoral-femoral bypass graft thrombosis, left (06/1997) History of aortic valve replacement 1994 and 1997 History of aorto-femoral bypass (08/2017) History of appendectomy History of cerebral aneurysm repair (10/2016) History of coronary artery bypass graft (1994) History of hysterectomy 1980s History of ventriculoperitoneal shunting (2016) Family History Family History Mother Diabetes mellitus Family history of coronary artery disease CAD (coronary artery disease) Sibling CAD (coronary artery disease) Sibling Diabetes mellitus Sibling Cerebrovascular accident Social History Social History Social History: Surrogate medical decision maker: Saeid Keita, spouse. Code status: Full code. Smoking packs per day: 1 Smoking cigarettes per day: 20.0 Years smoked: 10 Smoking pack-years: 10.00 Smoking status: Current every day smoker Tobacco type: cigarettes Second hand tobacco smoke exposure: Yes Smoking end date: 05/26/16 Additional smoking assessment comments: Currently smokes 3 cigarettes a day. smokes. Alcohol intake: never Substance use: never Spiritual care concerns: No
--- NOTE | 2022-02-10 18:05 | ECG_ITS ---
Measurements Intervals [place] Rate: 58 P: 50 CO: 110 QRS: 62 QRSD: 110 T: -87 QT: 488 QTc: 482 Interpretive Statements SINUS BRADYCARDIA WITH SHORT CO INTERVAL VENTRICULAR PREMATURE COMPLEX INTRAVENTRICULAR CONDUCTION DELAY LEFT VENTRICULAR HYPERTROPHY AND ST-T CHANGE ST-T WAVE ABNORMALITY IN INF/LAT LEADS- CONSIDER ISCHEMIA BASELINE ARTIFACT- I, II, III, AVR, AVL, AVF, V1, V4 ABNORMAL ECG COMPARED TO ECG 10/18/2021 11:50:28 NO SIGNIFICANT CHANGES Electronically Signed On 02-11-2022 13:42:25 CDT by Conrad Fritz D.O.
[2022-02-10] MEDS: MORPHINE SULFATE (*CRX) 4 MG/ML INJ IV PUSH (19:22)
[2022-02-10 19:45] LABS: Basophils Percent Auto 0.7 % (0.2-1.2); Eosinophils Absolute Auto 0.2 K/mm3 (0-0.3); Hematocrit 33.6 % (37.0-47.0); Hemoglobin 11.8 g/dL (12.0-15.0); Immature Granulocyte Absolute 0.01 K/mm3 (0.00-0.031); Immature Granulocyte Percent A 0.2 % (0-0.5); Lymphocytes Absolute Auto 1.69 K/mm3 (0.9-3.2); Lymphocytes Percent Auto 38.7 % (18.3-44.2); Mean Corpuscular HGB Conc 35.1 g/dl (32-36); Mean Corpuscular Hemoglobin 36.6 pg (26-34); Mean Corpuscular Volume 104.3 fl (80-100); Mean Platelet Volume 9.2 fl (7.4-10.4); Monocytes Absolute Auto 0.5 K/mm3 (0.1-0.6); Monocytes Percent Auto 10.3 % (2.6-8.5); Neutrophils Percent Auto 45.1 % (45.5-73.1); Platelet Count Result 119 k/mm3 (150-375); Red Blood Count 3.22 M/mm3 (4.2-5.4); Red Cell Distribution Width 13.9 % (11.5-14.5); White Blood Count 4.4 K/mm3 (4.5-10.0)
[2022-02-10 19:55] LABS: Alanine Aminotransferase 16 U/L (6-35); Albumin Level 4.2 g/dL (3.5-5.1); Alkaline Phosphatase 98 U/L (38-126); Anion Gap 8 mmol/L (8-16); Aspartate Amino Transferase 31 U/L (14-36); Bilirubin,Total 0.6 mg/dL (0.2-1.3); Blood Urea Nitrogen 11 mg/dL (7-17); Calcium 9.3 mg/dL (8.4-10.2); Carbon Dioxide 24 mmol/L (22-30); Chloride 109 mmol/L (98-107); Estimated CRCL calculation 44 ml/min; Estimated Glomerular Filt Rate > 60; Glucose 108 mg/dL (65-110); Potassium 3.4 mmol/L (3.4-5.0); Prothrombin Time 12.9 Seconds (11.1-14.7); Sodium 141 mmol/L (137-145)
[2022-02-10 19:56] LABS: Partial Thromboplastin Time 29.8 SECONDS (22.3-36.8)
[2022-02-10 20:06] LABS: NT Pro B Type Natriuretic Pept 767 pg/mL (5-100); Troponin I 0.013 ng/mL (0.000-0.034)
--- NOTE | 2022-02-10 21:30 | PM.IMHP ---
H&P: HPI History of Present Illness Date/Time: 02/10/22 21:20 Chief Complaint: Chest pain. Narrative: This is a pleasant 66-year-old female smoker with a longstanding history of coronary and vascular disease, valvular heart disease, hypertension, dyslipidemia, COPD, and other comorbidities who presented to the ED via EMS from home for evaluation of chest pain. Upon waking this morning she was feeling nauseated, hot, and ?clammy? which she initially attributed to possible heartburn. Though symptoms improved and she went on about her day. She spent the afternoon running errands and while standing in the aisle at a local store she developed substernal chest pressure radiating somewhat to the left side of her chest accompanied by mild shortness of breath. She also had some numbness in her neck and face however that has since resolved. EMS was summoned and she was given aspirin and nitroglycerin on their arrival which seems to have helped somewhat. On arrival to the emergency department her troponin was within normal limits and has remained so. She is not having any significant discomfort at this time however she does mention that she has been having issues with swallowing and she wonders if her symptoms today are related to indigestion. She has been having issues swallowing both liquids and solids, occasionally coughing with swallowing though she has no concerns for aspiration. Of note she has been seeing Dr. Gold in the office for ongoing anginal symptoms and a fairly recent stress test with MPI showed a large area of ischemia for which she had a cardiac catheterization on 02/10/2022 (severe [place] multivessel coronary artery disease, bypass grafts not visualized, 70% stenosis in mid LAD at origin of diagonal, chronic total occlusion of mid left circumflex with collaterals). subsequent coronary CTA showed no patent bypass grafts. She has a cardiac catheterization scheduled for February for PCI of the mid LAD. Review of Systems Review of Systems: Twelve systems were reviewed. No syncope or near syncope. She has been having issues with dysphagia as detailed above, occasionally coughing with food and liquids. She does not have any concerns for aspiration. She has not had any nausea or vomiting. No pleuritic pain. No sensations of racing heart. No claudication. No vomiting. No melena or hematochezia. Except as documented, all other systems were reviewed and are negative. [facility] Past Medical History Medical History (Updated 02/11/22 @ 16:31 by Bita Barahona PA-C) CAD in [place] artery Cerebral aneurysm Cerebrovascular accident (CVA) Chronic obstructive pulmonary disease (COPD) Depression Dyslipidemia Essential (primary) hypertension Heart attack History of hydrocephalus Lumbar spondylosis Overactive bladder Peripheral arterial disease Right renal artery stenosis Vitamin D deficiency Surgical History Surgical History (Updated 02/11/22 @ 16:31 by Bita Barahona PA-C) Femoral-femoral bypass graft thrombosis, left (06/1997) History of aortic valve replacement 1994 and 1997 History of aorto-femoral bypass (08/2017) History of appendectomy History of cerebral aneurysm repair (10/2016) History of coronary artery bypass graft (1994) History of hysterectomy 1980s History of ventriculoperitoneal shunting (2016) Family History Family History Mother Diabetes mellitus Family history of coronary artery disease CAD (coronary artery disease) Sibling CAD (coronary artery disease) Sibling Diabetes mellitus Sibling Cerebrovascular accident Social History Social History Social History: Surrogate medical decision maker: Saeid Bossman, spouse. Code status: Full code. Smoking packs per day: 1 Smoking cigarettes per day: 20.0 Years smoked: 10 Smoking pack-years: 10.00 Smoking status: Current every d
--- NOTE | 2022-02-10 21:40 | PC.NURSE ---
This patient, Shobha Keita, was admitted to IMU Room 200-01 at 2130. Patient/family oriented to hospital policies and general routines including ID bracelet, bed and alarms, visiting hours, pain management, procedures, bathroom and other care routines, personal items, smoking policy, room service/diet, and visiting hours. Information on how to activate the Rapid Response Team has been discussed. Patient/Family are encouraged to report perceived risks to care and to ask questions if they do not understand what they are told or what they should do.
[2022-02-10 21:42] LABS: Troponin I 0.013 ng/mL (0.000-0.034)
[2022-02-11] VITALS (14 sets, daily range): BP systolic 111–154; BP diastolic 57–80; PULSE 50–82; RESP 14–20; TEMP 36.4–37.1; O2SAT 90–98
[2022-02-11 01:42] LABS: Troponin I 0.018 ng/mL (0.000-0.034)
[2022-02-11 02:29] LABS: Iron 103 ug/dL (37-170)
[2022-02-11 02:39] LABS: Percent Iron Saturation 37 % (20-50)
[2022-02-11 03:35] LABS: Free T4 Free Thyroxine Reflex 1.63 ng/dL (0.78-2.19)
[2022-02-11 03:40] LABS: Folic Acid 12.1 ng/mL (2.76->20)
[2022-02-11 04:17] LABS: Total Triiodothyronine (T3) 1.34 NG/ML (0.97-1.69)
[2022-02-11 05:47] LABS: Hematocrit 32.9 % (37.0-47.0); Hemoglobin 11.2 g/dL (12.0-15.0); Mean Corpuscular Hemoglobin 36.2 pg (26-34); Mean Corpuscular Volume 106.5 fl (80-100); Mean Platelet Volume 9.4 fl (7.4-10.4); Platelet Count Result 110 k/mm3 (150-375); Red Blood Count 3.09 M/mm3 (4.2-5.4); Red Cell Distribution Width 13.8 % (11.5-14.5); White Blood Count 4.2 K/mm3 (4.5-10.0)
[2022-02-11 05:55] LABS: Anion Gap 7 mmol/L (8-16); Blood Urea Nitrogen 9 mg/dL (7-17); Calcium 8.9 mg/dL (8.4-10.2); Carbon Dioxide 25 mmol/L (22-30); Chloride 108 mmol/L (98-107); Estimated CRCL calculation 47 ml/min; Estimated Glomerular Filt Rate > 60; Glucose 81 mg/dL (65-110); Potassium 3.1 mmol/L (3.4-5.0); Sodium 140 mmol/L (137-145)
[2022-02-11] MEDS: cilostazoL 100 MG TABLET PO ×2 (06:06→15:43)
[2022-02-11] MEDS: UMECLIDINIUM/VILANTEROL 62.5-25 MCG ELLIPTA 1 PUFF INHALATION (08:55)
[2022-02-11] MEDS: carvediloL 12.5 MG TABLET PO ×2 (09:59→19:59)
[2022-02-11] MEDS: ISOSORBIDE MONONITRATE 30 MG TAB.ER.24H PO ×2 (10:00→11:23)
[2022-02-11] MEDS: ROSUVASTATIN 10 MG TABLET 40 MG PO (10:00)
[2022-02-11] MEDS: LOSARTAN POTASSIUM 100 MG TABLET PO (10:00)
[2022-02-11] MEDS: SERTRALINE HCL 50 MG TABLET PO (10:00)
[2022-02-11] MEDS: CHOLECALCIFEROL 1,000 UNITS TABLET 2000 UNITS PO (10:00)
[2022-02-11] MEDS: CLOPIDOGREL BISULFATE 75 MG TABLET PO (10:00)
--- NOTE | 2022-02-11 11:01 | PM.CNCAR ---
Assessment and Plan Assessment and plan (1) Chest pain: Code(s): R07.9 - Chest pain, unspecified Status: Acute (2) Tobacco abuse: Code(s): Z72.0 - Tobacco use Status: Acute (3) Cerebrovascular accident (CVA): Qualifiers: CVA mechanism: unspecified Qualified Code(s): I63.9 - Cerebral infarction, unspecified Code(s): I63.9 - Cerebral infarction, unspecified Status: Acute (4) PAD (peripheral artery disease): Code(s): I73.9 - Peripheral vascular disease, unspecified Status: Acute (5) CAD in [place] artery: Code(s): I25.10 - Atherosclerotic heart disease of [place] coronary artery without angina pectoris Status: Acute (6) Dyslipidemia: Code(s): E78.5 - Hyperlipidemia, unspecified Status: Acute (7) Essential (primary) hypertension: Code(s): I10 - Essential (primary) hypertension Status: Acute (8) Chronic obstructive pulmonary disease (COPD): Qualifiers: COPD type: unspecified COPD Qualified Code(s): J44.9 - Chronic obstructive pulmonary disease, unspecified Code(s): J44.9 - Chronic obstructive pulmonary disease, unspecified Status: Acute (9) History of aortic valve replacement: Code(s): Z95.2 - Presence of prosthetic heart valve Status: Acute (10) History of coronary artery bypass graft: Code(s): Z95.1 - Presence of aortocoronary bypass graft Status: Acute (11) S/P aorto-bifemoral bypass surgery: Code(s): Z95.828 - Presence of other vascular implants and grafts Status: Acute Plan Start aspirin 81 mg, continue with Plavix and cilostazol. Up titrate Imdur for antianginal relief as tolerated. Continue statin. Continue beta-terry and losartan. Ambulate patient and assess for chest pain. Patient already has scheduled follow-up with Dr. Gold in [facility]iology [facility], with plans for staged PCI. History of Present Illness History of Present Illness Consult date/time: 02/11/22 11:01 Requesting physician: Kira Jackson MD Consult reason: chest pain Reason For Visit: chest pain Narrative: Patient is a 66-year-old female with a history of complex cardiovascular history. She has a history of bioprosthetic aortic valve replacement (#25 mm on 05-14-1995), with redo bioprosthetic aortic valve replacement with #23 mm [employer] on 05/11/2008, coronary artery disease status post CABG in 1994, peripheral vascular disease status post aorto bi femoral bypass, history of CVA, history of hydrocephalus status post ENGINE CLEANER shunt, cerebral aneurysm status post surgical repair complicated by vision loss, COPD, and tobacco dependence. Patient follows with Dr. Gold in Cardiology Clinic. Last seen in clinic on January 30, 2022. Due to an MPI showing a large area of ischemia, patient underwent cardiac catheterization on January 10, 2022 which showed severe [place] multivessel CAD, bypass grafts were not visualized, about 70% stenosis in the mid LAD at the origin of the diagonal branch, chronic total occlusion the mid left circumflex with left to left and [id number] collaterals. She then underwent coronary CTA which showed no patent bypass grafts. Patient has a follow-up appointment with Dr. Gold scheduled on February 20 and is scheduled for PCI of the mid LAD on February 28. Patient states that she was walking at [employer] yesterday when she developed substernal chest pressure around 10:00 a.m.. Chest pain lasted for few minutes before resolving and then had chest pain again when coming to the ED. Patient currently denies chest pain. Reports issues with difficulty swallowing. Patient reports full compliance with her medications as outpatient. Troponins have been negative thus far. ECG without ischemic changes. Review of Systems Review of Systems: All systems reviewed & are unremarkable except as noted in HPI and below [facility] Past Medical History Medical History (Reviewed 02/11/22
[2022-02-11] MEDS: ASPIRIN 81 MG ENTERIC TABLET PO (11:23)
--- NOTE | 2022-02-11 11:29 | ECG_ITS ---
Measurements Intervals Marine Rate: 53 P: 70 MI: 117 QRS: 25 QRSD: 108 T: 198 QT: 510 QTc: 480 Interpretive Statements SINUS BRADYCARDIA WITH SHORT MI INTERVAL VENTRICULAR PREMATURE COMPLEX ST-T WAVE ABNORMALITY IN ANTEROLAT/INF LEADS- CONSIDER ISCHEMIA BASELINE ARTIFACT- I, II, III, AVR, AVL, AVF, V3 ABNORMAL ECG COMPARED TO ECG 02/10/2022 18:05:33 NO SIGNIFICANT CHANGES Electronically Signed On 02-11-2022 16:53:53 CDT by Conrad Fritz D.O.
--- NOTE | 2022-02-11 11:33 | PM.IMPN ---
Progress Note: A&P Assessment and Plan (1) Chest pain: Qualifiers: Chest pain type: precordial pain Qualified Code(s): R07.2 - Precordial pain Code(s): R07.9 - Chest pain, unspecified Status: Acute Assessment and Plan: Known CAD disease with plans for coronary angiogram on 02/28/22 at [facility]. Serial troponin negative. Cardiology consulted and appreciate recommendations. Plan to optimize medical management and continue outpatient procedure. Continue plavix, statin, losartan and coreg. Increase Imdur to 60 mg daily. Add aspirin 81 mg daily (2) Dysphagia: Qualifiers: Dysphagia type: unspecified Qualified Code(s): R13.10 - Dysphagia, unspecified Code(s): R13.10 - Dysphagia, unspecified Status: Acute Assessment and Plan: c/o globus sensation. Esophagram abnormal. consult GI for evaluation Add protonix daily (3) Tobacco abuse: Code(s): Z72.0 - Tobacco use Status: Chronic Assessment and Plan: counseled to quit smoking. (4) Essential (primary) hypertension: Code(s): I10 - Essential (primary) hypertension Status: Chronic Assessment and Plan: Chronic, stable, coreg and losartan (5) Chronic obstructive pulmonary disease (COPD): Qualifiers: COPD type: unspecified COPD Qualified Code(s): J44.9 - Chronic obstructive pulmonary disease, unspecified Code(s): J44.9 - Chronic obstructive pulmonary disease, unspecified Status: Chronic Assessment and Plan: Not in acute exacerbation. continue PRN oxygen Continue anoro Ellipta Add mucinex and PRN duonebs. (6) Macrocytic anemia: Code(s): D53.9 - Nutritional anemia, unspecified Status: Chronic Assessment and Plan: B12 313, folate 12; Hgb 11.2 Add B12 supplement daily Iron panel within normal limits (7) PAD (peripheral artery disease): Code(s): I73.9 - Peripheral vascular disease, unspecified Status: Chronic Assessment and Plan: s/p aorto-fem bypass, L thrombosed fem-fem bypass Followed by vascular outpatient. Continue aspirin, plavix, cilostazole, statin, and antihypertensives. Counseled to quit smoking. Time Spent With Patient Time with patient: 15 - 25 minutes Subjective Date/time seen: 02/11/22 11:33 Patient is a 66 yo female with CAD s/p CABG and known blocked bypass grafts, PAD, stroke, and COPD. She presented to the ED for evaluation of chest pain, jaw numbness and globus sensation. She was admitted for cardiology and GI evaluation. She denies chest pain, jaw pain, abd pain, nausea, vomiting or dizziness. She reports her pain occurred yesterday after working in her garden. She thinks she over did it. She is a patient of Dr. Gandhi and has scheduled follow-up next week and plans for coronary angiogram on 02/28/22 at [facility]. Review of Systems Review of Systems: All systems reviewed & are unremarkable except as noted in HPI and below Exam Narrative: General: No acute distress. chronically-ill appearing adult female. O2 per nasal cannula. HEENT: Normocephalic, atraumatic. PERRL, EOMI. Sclera anicteric. Oral mucosa moist. Oropharynx clear. Neck: Supple. Bilateral bruits versus transmitted murmur. Respiratory: Respirations are nonlabored and she is speaking in full sentences. Lung sounds are diminished at the bases with scattered expiratory wheezing and rhonchi. Cardiovascular: Bradycardic with S1-S2. 2/6 systolic murmur heard throughout the precordium, best at the upper sternal borders radiating to the carotids. No tenderness to palpation over the chest wall. Gastrointestinal: Abdomen soft, nontender, and nondistended with positive bowel sounds. +bruit, no pulsations. Genitourinary: left groin protruding aneurysm +bruit and pulsations. Skin: Warm and dry. No rash or lesions on limited exam. Extremities: No cyanosis, clubbing, or casi
[2022-02-11] MEDS: diphenhydrAMINE HCl CAP 25 MG CAPSULE PO (19:59)
[2022-02-11] MEDS: ACETAMINOPHEN 325 MG TABLET PO (19:59)
[2022-02-12] VITALS (12 sets, daily range): BP systolic 109–153; BP diastolic 53–86; PULSE 70–89; RESP 18–20; TEMP 36.4–37.5; O2SAT 94–99; BMI 16.5
[2022-02-12 05:09] LABS: Hematocrit 32.2 % (37.0-47.0); Immature Platelet Fraction Pct 3.1 % (0.9-11.2); Mean Corpuscular HGB Conc 34.2 g/dl (32-36); Mean Corpuscular Hemoglobin 36.2 pg (26-34); Mean Corpuscular Volume 105.9 fl (80-100); Mean Platelet Volume 9.5 fl (7.4-10.4); Platelet Count Result 147 k/mm3 (150-375); Red Blood Count 3.04 M/mm3 (4.2-5.4); Red Cell Distribution Width 13.5 % (11.5-14.5); White Blood Count 8.6 K/mm3 (4.5-10.0)
[2022-02-12 05:13] LABS: Anion Gap 8 mmol/L (8-16); Blood Urea Nitrogen 14 mg/dL (7-17); Calcium 8.8 mg/dL (8.4-10.2); Carbon Dioxide 25 mmol/L (22-30); Chloride 104 mmol/L (98-107); Estimated CRCL calculation 35 ml/min; Estimated Glomerular Filt Rate 50; Glucose 108 mg/dL (65-110); Potassium 3.4 mmol/L (3.4-5.0); Sodium 137 mmol/L (137-145)
[2022-02-12] MEDS: cilostazoL 100 MG TABLET PO (05:20)
[2022-02-12 05:25] LABS: INR 1.2; Prothrombin Time 14.5 Seconds (11.1-14.7)
[2022-02-12 05:26] LABS: Partial Thromboplastin Time 30.7 SECONDS (22.3-36.8)
[2022-02-12] MEDS: UMECLIDINIUM/VILANTEROL 62.5-25 MCG ELLIPTA 1 PUFF INHALATION (08:06)
--- NOTE | 2022-02-12 09:39 | WPDANESEPPF ---
Anes - Initial Pre Proc Eval Procedure: Operation Date: 02/12/22 11:30 Proposed Procedures p Esophagogastroduodenoscopy - Austin Gonzalez MD Date/Time: 02/12/22 09:39 Surgeon: Ke Zapata MD Pre Op Diagnosis: chest pain Patient Data Age: 66 Gender: F Height: 1.7 m Weight: 48 kg Last Vital Signs Temp 36.9 C 02/12/22 08:24 Pulse 80 02/12/22 08:24 Resp 18 02/12/22 08:24 BP 129/75 02/12/22 08:24 Pulse Ox 95 02/12/22 08:24 O2 Del Method Nasal Cannula 02/12/22 08:08 O2 Flow Rate 2 02/12/22 08:08 Allergies Allergy/AdvReac Type Severity Reaction Status Date / Time prednisone Allergy Severe Dyspnea / Verified 02/10/22 18:08 SOB adhesive tape Allergy Unknown unknown Verified 02/10/22 18:08 latex Allergy Unknown Unknown Verified 02/10/22 18:08 Penicillins Allergy Unknown Unknown Verified 02/10/22 18:08 warfarin Allergy Unknown HEMMRHAGE Verified 02/10/22 18:08 ibuprofen AdvReac Unknown SHAKY Verified 02/10/22 18:08 Mushroom Allergy Mild HIVES Uncoded 02/10/22 18:08 Home Medications Medication Instructions Recorded Confirmed Type clopidogrel 75 mg tablet 75 mg PO DAILY 12/26/20 02/10/22 History sertraline 50 mg tablet 50 mg PO DAILY #90 tabs 05/21/21 02/10/22 Rx carvedilol 12.5 mg tablet 12.5 mg PO Q12H 12/24/21 02/10/22 History rosuvastatin 40 mg tablet 40 mg PO DAILY 12/24/21 02/10/22 History umeclidinium 62.5 mcg-vilanterol 1 inh inhalation DAILY PRN 01/01/22 02/10/22 History 25 mcg/actuation powdr for Shortness Of Breath inhalation (Anoro Ellipta) cholecalciferol (vitamin D3) 50 50 mcg PO DAILY #90 tabs 01/03/22 02/10/22 Rx mcg (2,000 unit) tablet cilostazol 100 mg tablet 100 mg PO BID 02/10/22 02/10/22 History isosorbide mononitrate 30 mg 30 mg PO DAILY 02/10/22 02/10/22 History tablet,extended release 24 hr losartan 100 mg tablet 100 mg PO DAILY 02/10/22 02/10/22 History Laboratory Tests 02/12/22 02/12/22 02/12/22 04:32 04:32 04:32 WBC 8.6 K/mm3 K/mm3 (4.5-10.0) RBC 3.04 M/mm3 L M/mm3 (4.2-5.4) Hgb 11.0 g/dL L g/dL (12.0-15.0) Hct 32.2 % L % (37.0-47.0) MCV 105.9 fl H fl (80-100) MCH 36.2 pg H pg (26-34) MCHC 34.2 g/dl g/dl (32-36) RDW 13.5 % % (11.5-14.5) Plt Count 147 k/mm3 L k/mm3 (150-375) MPV 9.5 fl fl (7.4-10.4) % Immature Plt Fraction 3.1 % % (0.9-11.2) PT 14.5 Seconds Seconds (11.1-14.7) INR 1.2 APTT 30.7 SECONDS SECONDS (22.3-36.8) Sodium 137 mmol/L mmol/L (137-145) Potassium 3.4 mmol/L mmol/L (3.4-5.0) Chloride 104 mmol/L mmol/L (98-107) Carbon Dioxide 25 mmol/L mmol/L (22-30) Anion Gap 8 mmol/L mmol/L (8-16) BUN 14 mg/dL D mg/dL (7-17) Creatinine 1.10 mg/dL H mg/dL (0.7-1.0) Estim Creat Clear Calc 35 ml/min ml/min Estimated GFR 50 L (59 - ) Glucose 108 mg/dL mg/dL (65-110) Calcium 8.8 mg/dL mg/dL (8.4-10.2) Patient hx anesthesia problems: none Family hx anesthesia problems: none Results Review: All pre-operative results and documents have been reviewed as part of the pre-operative evaluation. [facility] Past Medical History Medical History CAD in [place] artery Cerebral aneurysm Cerebrovascular accident (CVA) Chronic obstructive pulmonary disease (COPD) Depression Dyslipidemia Essential (primary) hypertension Heart attack History of hydrocephalus Lumbar spondylosis Overactive bladder Peripheral arterial disease Right renal artery stenosis Vitamin D deficiency Surgical History Surgical History Femoral-femoral bypass graft thrombosis, left (06/1997) History of aortic valve replacement 1994 and 1997 History of a
--- NOTE | 2022-02-12 09:42 | SUR.PREOP ---
Do not infuse IV potassium per Dr Sims. Orders to start post procedure.
[2022-02-12] MEDS: LACTATED RINGERS 1,000 ML 150 ML IV CONT (09:44)
--- NOTE | 2022-02-12 10:09 | SUR.PREOP ---
No antibiotics for heart valve replacement per Dr Hubbard.
--- NOTE | 2022-02-12 10:11 | WPDGICN ---
Assessment and Plan Assessment and plan (1) Dysphagia: Qualifiers: Dysphagia type: unspecified Qualified Code(s): R13.10 - Dysphagia, unspecified Code(s): R13.10 - Dysphagia, unspecified Status: Acute Assessment and Plan: will assess with egd given abnormal esophagram, if egd unremarkable probably she will need to see ENT as outpatient to assess oropharynx (2) CAD in [place] artery: Code(s): I25.10 - Atherosclerotic heart disease of [place] coronary artery without angina pectoris Status: Acute Assessment and Plan: seeing by cardiology (3) Chronic obstructive pulmonary disease (COPD): Qualifiers: COPD type: unspecified COPD Qualified Code(s): J44.9 - Chronic obstructive pulmonary disease, unspecified Code(s): J44.9 - Chronic obstructive pulmonary disease, unspecified Status: Chronic Assessment and Plan: unchanged (4) Non-cardiac chest pain: Code(s): R07.89 - Other chest pain Status: Acute Assessment and Plan: will do egd (5) Tobacco abuse: Code(s): Z72.0 - Tobacco use Status: Chronic Assessment and Plan: recently quit smoking (6) Peripheral arterial disease: Code(s): I73.9 - Peripheral vascular disease, unspecified Status: Acute GI Consult Note Consult date/time: 02/12/22 10:11 Reason for consult: dysphagia HPI: Shobha Keita is a 66 year old female with ?history of smoking with a longstanding history of COPD, coronary and vascular disease, valvular heart disease, hypertension, dyslipidemia here for chest pain after presented to the ED for evaluation of chest pain, jaw numbness and globus sensation. She was admitted for cardiology. She also has been dealing with dysphagia for almost 3 months, feeling like have to spit up saliva, never had EGD. No weight loss. Had esophagram that showed possible filling defect in the region of the laryngopharynx near the piriform sinus. There is a Zenker's diverticulum. There is no hiatal hernia Review of Systems Review of Systems: Twelve systems were reviewed. No syncope or near syncope. She has been having issues with dysphagia as detailed above, occasionally coughing with food and liquids. She does not have any concerns for aspiration. She has not had any nausea or vomiting. No pleuritic pain. No sensations of racing heart. No claudication. No vomiting. No melena or hematochezia. Except as documented, all other systems were reviewed and are negative. Constitutional: Constitutional: Denies fatigue Eyes: Eyes: Denies blurry vision ENT: Reports Normal hearing present Musculoskeletal: Musculoskeletal: Denies arthralgias Psychiatric: Psychiatric: Denies behavioral changes [facility] Past Medical History Medical History (Updated 02/12/22 @ 11:40 by Austin Gonzalez MD) CAD in [place] artery Cerebral aneurysm Cerebrovascular accident (CVA) Chronic obstructive pulmonary disease (COPD) Depression Dyslipidemia Essential (primary) hypertension Heart attack History of hydrocephalus Lumbar spondylosis Non-cardiac chest pain Overactive bladder Peripheral arterial disease Right renal artery stenosis Vitamin D deficiency Surgical History Surgical History Femoral-femoral bypass graft thrombosis, left (06/1997) History of aortic valve replacement 1994 and 1997 History of aorto-femoral bypass (08/2017) History of appendectomy History of cerebral aneurysm repair (10/2016) History of coronary artery bypass graft (1994) History of hysterectomy 1980s History of ventriculoperitoneal shunting (2016) Family History Family History Mother Diabetes mellitus Family history of coronary artery disease CAD (coronary artery disease) Sibling CAD (coronary artery disease) Sibling Diabetes mellitus Sibling Cerebrovascular accident So
[2022-02-12] MEDS: POTASSIUM CHLORIDE INJ 40 MEQ in SODIUM CHLORIDE 0.9% IV 500 ML 130 MEQ IVPB (12:00)
[2022-02-12] MEDS: carvediloL 12.5 MG TABLET PO (12:01)
[2022-02-12] MEDS: CLOPIDOGREL BISULFATE 75 MG TABLET PO (12:01)
[2022-02-12] MEDS: SERTRALINE HCL 50 MG TABLET PO (12:01)
[2022-02-12] MEDS: POTASSIUM CHLORIDE 20 MEQ PACKET (FOR LIQUID) 40 MEQ PO (12:01)
[2022-02-12] MEDS: PANTOPRAZOLE SODIUM IV 40 MG VIAL IV PUSH (12:02)
[2022-02-12] MEDS: LOSARTAN POTASSIUM 100 MG TABLET PO (12:02)
[2022-02-12] MEDS: ISOSORBIDE MONONITRATE 60 MG TAB.ER.24H PO (12:02)
[2022-02-12] MEDS: CHOLECALCIFEROL 1,000 UNITS TABLET 2000 UNITS PO (12:03)
[2022-02-12] MEDS: ASPIRIN 81 MG ENTERIC TABLET PO (12:03)
[2022-02-12] MEDS: ROSUVASTATIN 10 MG TABLET 40 MG PO (12:03)
--- NOTE | 2022-02-12 13:15 | PM.DS ---
DS: Admitting Diagnosis Discharge Date 02/12/2022 1448 Admitting Diagnosis Chest pain H/O CAD with CABG Dysphagia Tobacco dependence Hypertension, chronic DS: Discharge Diagnosis Discharge Diagnosis (1) Chest pain: Qualifiers: Chest pain type: precordial pain Qualified Code(s): R07.2 - Precordial pain Code(s): R07.9 - Chest pain, unspecified Status: Inactive Assessment and Plan: Known CAD disease with plans for coronary angiogram on 02/28/22 at [facility]. Serial troponin negative. Chest pain resolved. Cardiology consulted and no intervention this hospital stay recommended as patient needs specialized equipment not available at our facility. Plan to optimize medical management and continue outpatient procedure - Continue plavix, statin, losartan and coreg. Increase Imdur to 60 mg daily. Add aspirin 81 mg daily (2) Dysphagia: Qualifiers: Dysphagia type: unspecified Qualified Code(s): R13.10 - Dysphagia, unspecified Code(s): R13.10 - Dysphagia, unspecified Status: Acute Assessment and Plan: c/o globus sensation. Esophagram abnormal. GI consulted and EGD negative for stricture or stenosis. Continue protonix therapy (3) Tobacco abuse: Code(s): Z72.0 - Tobacco use Status: Chronic Assessment and Plan: counseled to quit smoking. (4) Essential (primary) hypertension: Code(s): I10 - Essential (primary) hypertension Status: Chronic Assessment and Plan: Chronic, stable, coreg and losartan (5) Chronic obstructive pulmonary disease (COPD): Qualifiers: COPD type: unspecified COPD Qualified Code(s): J44.9 - Chronic obstructive pulmonary disease, unspecified Code(s): J44.9 - Chronic obstructive pulmonary disease, unspecified Status: Chronic Assessment and Plan: Not in acute exacerbation. continue PRN oxygen Continue anoro Ellipta Added mucinex and PRN duonebs. (6) Macrocytic anemia: Code(s): D53.9 - Nutritional anemia, unspecified Status: Chronic Assessment and Plan: B12 313, folate 12; Hgb 11.2, MCV 106.5 and noted to be chronically elevated. Added B12 1000 mcg supplement daily Iron panel within normal limits (7) PAD (peripheral artery disease): Code(s): I73.9 - Peripheral vascular disease, unspecified Status: Chronic Assessment and Plan: s/p aorto-fem bypass, L thrombosed fem-fem bypass, no claudication Followed by vascular outpatient. Continue aspirin, plavix, cilostazole, statin, and antihypertensives. Counseled to quit smoking. (8) Aneurysm of left groin artery: Status: Chronic Assessment and Plan: pulsatile, +bruit, followed by Vascular Surgery, monitored without change DS: Summary Hospital Course Reason for hospitalization: chest pain Hospital Course: Shobha Keita is a 66-year-old female smoker with a longstanding history of coronary and peripheral artery disease, valvular heart disease, hypertension, dyslipidemia, COPD, and stroke, presented to the ED via EMS from home for evaluation of chest pain. Upon waking the morning of admission, she felt nauseated, hot, and ?clammy? which she initially attributed to possible heartburn. Though symptoms improved and she went on about her day, she spent the afternoon running errands and while standing in the aisle at a local store she developed substernal chest pressure radiating to the left side of her chest accompanied by mild shortness of breath and some facial/neck numbness, which resolved.? EMS gave her aspirin and nitroglycerin on their arrival. On arrival to the emergency department her troponin was within normal limits. She also reported having issues with swallowing. She was concerned her symptoms were related to indigestion, as well. She reported issues swallowing both liquids and solids, occasionally coughing with swallowing though she
--- NOTE | 2022-02-12 14:06 | PM.PNCARD ---
Progress Note: A&P Assessment and Plan (1) Peripheral arterial disease: Code(s): I73.9 - Peripheral vascular disease, unspecified Status: Acute (2) S/P aorto-bifemoral bypass surgery: Code(s): Z95.828 - Presence of other vascular implants and grafts Status: Acute (3) History of coronary artery bypass graft: Onset Date: 1994 Code(s): Z95.1 - Presence of aortocoronary bypass graft Status: Acute (4) History of aortic valve replacement: Code(s): Z95.2 - Presence of prosthetic heart valve Status: Acute (5) Chest pain: Qualifiers: Chest pain type: precordial pain Qualified Code(s): R07.2 - Precordial pain Code(s): R07.9 - Chest pain, unspecified Status: Acute (6) CAD in [place] artery: Code(s): I25.10 - Atherosclerotic heart disease of [place] coronary artery without angina pectoris Status: Acute (7) Cerebrovascular accident (CVA): Qualifiers: CVA mechanism: unspecified Qualified Code(s): I63.9 - Cerebral infarction, unspecified Code(s): I63.9 - Cerebral infarction, unspecified Status: Acute (8) Dyslipidemia: Code(s): E78.5 - Hyperlipidemia, unspecified Status: Acute (9) Essential (primary) hypertension: Code(s): I10 - Essential (primary) hypertension Status: Chronic (10) Chronic obstructive pulmonary disease (COPD): Qualifiers: COPD type: unspecified COPD Qualified Code(s): J44.9 - Chronic obstructive pulmonary disease, unspecified Code(s): J44.9 - Chronic obstructive pulmonary disease, unspecified Status: Chronic Plan Patient doing well without any further episodes of chest pain. Troponins were negative x 3, and ECGs without any ischemic changes. Patient tolerating increased dose of Imdur. -Continue DAPT (ASA + Plavix) -Continue beta terry -Continue Cilostazol -Continue Losartan -Continue high-intensity statin -Continue Imdur No further inpatient cardiac needs at this time. Okay for discharge from a cardiac standpoint. Patient to follow-up with Dr. Gold as scheduled. Subjective Date/time seen: 02/12/22 14:06 Interval history: Patient seen and examined this afternoon. No further episodes of chest pain. Ambulated around her room yesterday and did not get recurrence of chest pain. Review of Systems Review of Systems: All systems reviewed & are unremarkable except as noted in HPI and below Exam Const: General: comfortable and no acute distress Neck: Neck: no JVD Resp: Effort & Inspection: normal respiratory effort Auscultation: diminished lung sounds Cardio: Rate: regular rate Rhythm: regular rhythm Heart sounds: no murmurs Neuro: Speech: normal speech Psych: Mental Status: mental status grossly normal Objective Data Vital Signs Vital Signs: Vital Signs - 24 hr 02/11/22 16:00 02/11/22 16:00 02/11/22 19:59 Temperature 36.4 C L Pulse Rate 54 L 54 L 65 Respiratory Rate 16 Blood Pressure 112/64 Pulse Oximetry 95 Oxygen Delivery Oxygen Flow Rate 02/11/22 20:00 02/11/22 20:23 02/11/22 20:00 Temperature 36.5 C Pulse Rate 65 66 59 L Respiratory Rate 16 20 Blood Pressure 111/57 L Pulse Oximetry 95 94 Oxygen Delivery Nasal Cannula Oxygen Flow Rate 3 02/12/22 00:00 02/12/22 04:00 02/12/22 05:00 Temperature 37.5 C Pulse Rate 70 71 72 Respiratory Rate 20 Blood Pressure 109/53 L Pulse Oximetry 96 Oxygen Delivery Oxygen Flow Rate 02/12/22 08:08 02/12/22 08:24 02/12/22 09:40 Temperature 36.9 C 36.4 C Pulse Rate 89 80 71 Respiratory Rate 18 18 Blood Pressure 129/75 136/75 Pulse Oximetry 94 95 96 Oxygen Delivery Nasal Cannula Nasal Cannula Oxygen Flow Rate 2 2 02/12/22 08:00 02/12/22 10:19 02/12/22 10:29 Temperature Pulse Rate 72 86 76 Respiratory Rate 20 20 Blood Pressure 153/86 H 112/67 Pulse Oximetry 99 98 Oxygen Delivery Nasal Cannula Nasal
--- NOTE | 2022-02-12 14:29 | PCNSR ---
On 02/12/22, the student, Kaden Bacon, provided care and completed [employer] documentation on this patient. I have reviewed the student's documentation and agree with the findings.
--- NOTE | 2022-02-13 07:30 | WPDANESPN ---
Anes - Prog Note Post-Op Date/Time: 02/13/22 07:30 Cardiovascular status: normal Respiratory status: normal Airway patency: baseline Vital Signs: Last Vital Signs Temp 97.6 F 02/12/22 09:40 Pulse 75 02/12/22 12:01 Resp 20 02/12/22 10:39 BP 125/76 02/12/22 10:39 Pulse Ox 98 02/12/22 10:39 O2 Del Method Nasal Cannula 02/12/22 10:39 O2 Flow Rate 3 02/12/22 10:39 Pain Score (VAS): 0 I/O: Intake & Output 02/12/22 02/12/22 02/13/22 15:59 23:59 07:59 Intake Total 0 Balance 0 Laboratory Tests 02/12/22 04:32 02/12/22 04:32 Patient Feedback: Patient satisfied with anesthetic care.
== END 2022-02-12 16:30 | disposition home or self-care (01) ==
LOC: ANHED 20:55 → ANHIMU 02-11 00:46
PROVIDERS: Internal Medicine Gastroenterology; Physician Assistant; Admitting Provider Internal Medicine; Emergency Provider Emergency Medicine; PCP Family Medicine; Visit Provider Nurse Practitioner Family
PROC: 0DJ08ZZ Inspection of Upper Intestinal Tract, Via Natural or Artificial Opening Endoscopic (ICD-10-PCS; CPT 43235; principal; 2022-02-12 11:30)
DX: R07.9 Chest pain, unspecified (principal); R13.10 Dysphagia, unspecified; F17.210 Nicotine dependence, cigarettes, uncomplicated; J44.9 Chronic obstructive pulmonary disease, unspecified; D53.9 Nutritional anemia, unspecified; I73.9 Peripheral vascular disease, unspecified; I72.8 Aneurysm of other specified arteries; I25.10 Atherosclerotic heart disease of native coronary artery without angina pectoris; Z95.1 Presence of aortocoronary bypass graft; E78.5 Hyperlipidemia, unspecified; Z95.820 Peripheral vascular angioplasty status with implants and grafts; Z86.69 Personal history of other diseases of the nervous system and sense organs; Z98.2 Presence of cerebrospinal fluid drainage device; I10 Essential (primary) hypertension; I25.2 Old myocardial infarction; F32.A Depression, unspecified; I49.3 Ventricular premature depolarization; I45.4 Nonspecific intraventricular block; K22.5 Diverticulum of esophagus, acquired; Z95.2 Presence of prosthetic heart valve; R94.31 Abnormal electrocardiogram [ECG] [EKG]; Z86.73 Personal history of transient ischemic attack (TIA), and cerebral infarction without residual deficits; Z79.02 Long term (current) use of antithrombotics/antiplatelets; Z79.51 Long term (current) use of inhaled steroids; Z79.899 Other long term (current) drug therapy
CPT/HCPCS: 43239; 36415; 70450; 71045; 74220; 80048; 80053; 82607; 82728; 82746; 83540; 83550; 83735; 83880; 84439; 84443; 84480; 84484; 85025; 85027; 85055; 85610; 85730; 88305; 93005; 94640; 96374; 99285; A9270; C9113; G0378; J2001; J2270; J2704; J3480; J7040; J7120

== ENCOUNTER → 2022-02-25 00:04 | Outpatient (CLI) | payer MEDICARE, SELFPAY ==
[2022-02-25 11:56] LABS: SARS-CoV-2 RNA PCR Negative
== END ==
PROVIDERS: PCP Family Medicine; Visit Provider Internal Medicine Cardiovascular Disease
DX: R09.89 Other specified symptoms and signs involving the circulatory and respiratory systems (principal); Z20.822 Contact with and (suspected) exposure to COVID-19
CPT/HCPCS: C9803; U0003; U0005

== ENCOUNTER 2022-02-25 07:29 | Outpatient (CLI) | payer MEDICARE, SELFPAY ==
[2022-02-25 08:02] LABS: Basophils Percent Auto 0.6 % (0.2-1.2); Eosinophils Absolute Auto 0.2 K/mm3 (0-0.3); Eosinophils Percent Auto 4.7 % (0-4.4); Hematocrit 32.9 % (37.0-47.0); Hemoglobin 11.1 g/dL (12.0-15.0); Immature Granulocyte Absolute 0.01 K/mm3 (0.00-0.031); Immature Granulocyte Percent A 0.2 % (0-0.5); Lymphocytes Absolute Auto 1.51 K/mm3 (0.9-3.2); Lymphocytes Percent Auto 29.4 % (18.3-44.2); Mean Corpuscular HGB Conc 33.7 g/dl (32-36); Mean Corpuscular Hemoglobin 36.4 pg (26-34); Mean Corpuscular Volume 107.9 fl (80-100); Monocytes Absolute Auto 0.6 K/mm3 (0.1-0.6); Monocytes Percent Auto 10.7 % (2.6-8.5); Neutrophils Absolute Auto 2.8 K/mm3 (1.3-6.7); Neutrophils Percent Auto 54.4 % (45.5-73.1); Platelet Count Result 156 k/mm3 (150-375); Red Blood Count 3.05 M/mm3 (4.2-5.4); Red Cell Distribution Width 14.2 % (11.5-14.5); White Blood Count 5.1 K/mm3 (4.5-10.0)
[2022-02-25 08:06] LABS: Alanine Aminotransferase 16 U/L (6-35); Albumin Level 4.1 g/dL (3.5-5.1); Alkaline Phosphatase 90 U/L (38-126); Anion Gap 7 mmol/L (8-16); Aspartate Amino Transferase 31 U/L (14-36); Bilirubin,Total 0.4 mg/dL (0.2-1.3); Blood Urea Nitrogen 10 mg/dL (7-17); Calcium 9.2 mg/dL (8.4-10.2); Carbon Dioxide 26 mmol/L (22-30); Chloride 108 mmol/L (98-107); Estimated Glomerular Filt Rate 56; Glucose 124 mg/dL (65-110); Sodium 141 mmol/L (137-145)
[2022-02-25 08:44] LABS: Anisocytosis 1+ (NORMAL); Platelet Estimate Adequate (Adequate); Poikilocytosis 2+ (NORMAL)
[2022-02-25 08:45] LABS: Atypical Lymphocytes Present; Schistocytes 1+ (NORMAL)
== END 2022-02-25 07:30 | disposition home or self-care (01) ==
PROVIDERS: PCP Family Medicine; Visit Provider Internal Medicine Cardiovascular Disease
DX: R07.89 Other chest pain (principal)
CPT/HCPCS: 36415; 80053; 85025; C9803; U0003; U0005

== ENCOUNTER 2022-04-04 09:49 | Outpatient (CLI) | payer MEDICARE, SELFPAY ==
[2022-04-04 10:48] LABS: Alanine Aminotransferase 15 U/L (6-35); Albumin Level 4.4 g/dL (3.5-5.1); Alkaline Phosphatase 87 U/L (38-126); Anion Gap 8 mmol/L (8-16); Aspartate Amino Transferase 36 U/L (14-36); Bilirubin,Total 0.6 mg/dL (0.2-1.3); Blood Urea Nitrogen 8 mg/dL (7-17); Calcium 9.2 mg/dL (8.4-10.2); Carbon Dioxide 27 mmol/L (22-30); Chloride 103 mmol/L (98-107); Estimated Glomerular Filt Rate > 60; Glucose 109 mg/dL (65-110); Potassium 3.5 mmol/L (3.4-5.0); Sodium 138 mmol/L (137-145)
[2022-04-04 10:57] LABS: NT Pro B Type Natriuretic Pept 1340 pg/mL (5-100)
== END 2022-04-04 09:50 | disposition home or self-care (01) ==
PROVIDERS: PCP Family Medicine; Visit Provider Internal Medicine Cardiovascular Disease
DX: R06.02 Shortness of breath (principal); R60.9 Edema, unspecified
CPT/HCPCS: 36415; 80053; 83880

== ENCOUNTER 2022-05-03 13:03 | Outpatient (CLI) | payer MEDICARE, SELFPAY ==
[2022-05-03 14:26] LABS: Influenza A QL RT-PCR Negative (Negative); Influenza B QL RT-PCR Negative (Negative); RSV RNA, RT-PCR Negative (Negative); SARS-CoV-2 RNA PCR Positive
== END 2022-05-03 13:04 | disposition home or self-care (01) ==
PROVIDERS: PCP Family Medicine; Visit Provider Nurse Practitioner
DX: U07.1 COVID-19 (principal); R68.89 Other general symptoms and signs
CPT/HCPCS: 87637

== ENCOUNTER 2022-09-18 12:45 | Outpatient (CLI) | payer MEDICARE, SELFPAY ==
--- NOTE | ~2022-09-18 | CT_ITS ---
CT Scan of the Chest without Contrast: Clinical Indication: Lung cancer screening, current smoker Technique: Contiguous sections were acquired throughout the chest without intravenous contrast. Dose reduction technique was used on this scan by utilizing automated exposure control and iterative recon struction technique. The dose-length product (DLP) was 67.40 mGy-cm. COMPARISON: 07/30/2021, 07/01/2018 Findings: There is no evidence of any significant mediastinal, hilar or axillary lymphadenopathy. Small calcifi ed right paratracheal stripe lymph nodes are present. There is severe atherosclerotic calcifications of the aorta and coronary vessels. There is no evidence of pleural or pericardial effusion. Mild to moderate emphysema.. No pulmonary nodules or infiltrates are noted. Mild left basilar scarrin g is unchanged. Images through the upper abdomen reveal calcifications of the pancreatic head, consistent with chroni c pancreatitis. Impression: Lung RADS 1: Negative. 12 month follow-up screening CT advised. Mild to moderate emphysema. Extensive atherosclerotic calcifications, as above. Reviewed, dictated and finalized at location M. Impression: Lung RADS 1: Negative. 12 month follow-up screening CT advised. Mild to moderate emphysema. Extensive atherosclerotic calcifications, as above.
== END 2022-09-18 12:46 | disposition home or self-care (01) ==
PROVIDERS: PCP Family Medicine; Visit Provider Internal Medicine Pulmonary Disease
DX: Z12.2 Encounter for screening for malignant neoplasm of respiratory organs (principal); F17.210 Nicotine dependence, cigarettes, uncomplicated; J43.9 Emphysema, unspecified; I70.0 Atherosclerosis of aorta
CPT/HCPCS: 71271

== ENCOUNTER 2022-12-31 13:54 | Observation (INO) | payer MEDICARE, SELFPAY ==
[2022-12-31] VITALS (26 sets, daily range): BP systolic 130–194; BP diastolic 98–124; PULSE 62–93; RESP 15–28; TEMP 36.4–36.6; O2SAT 78–99; BMI 16.9
--- NOTE | ~2022-12-31 | CT_ITS ---
EXAMINATION: CT brain wo con DATE: 12/31/2022 14:58 INDICATION: Left hemiparesis. Headache. TECHNIQUE: Computed tomography (CT) of the head was performed without intravenous contrast. The mA wa s adjusted according to patient size. Iterative reconstruction technique was employed. The dose-lengt h product was 681.00 mGy-cm. COMPARISON: Head CT 02/10/2022 FINDINGS: There is chronic encephalomalacia in right temporal occipital region. There is a surgical c lip in right temporal occipital region. There are changes of right-sided craniotomy. There is a right parietal ventriculostomy catheter with tip in anterior body of left lateral ventricle. There is sash clamp operator pretty encephalomalacia in right parietal lobe around the catheter. There are old lacunar infarcts in th e left basal ganglia. There is an old infarct in the right thalamus. There is no intracranial hemorrh age, acute infarction, or abnormal intracranial mass lesion. There is ex vacuo dilatation of right la teral ventricle. There is a small osteoma in left ethmoid sinus. The orbits are normal. There is a sm all right mastoid effusion. IMPRESSION: 1. Chronic encephalomalacia involving the right temporo-occipital region and right parietal lobe. 2. Old infarcts involving the left basal ganglia and right thalamus. Reviewed, dictated and finalized at location A. IMPRESSION: 1. Chronic encephalomalacia involving the right temporo-occipital region and ri ght parietal lobe. 2. Old infarcts involving the left basal ganglia and right thalamus.
--- NOTE | ~2022-12-31 | CT_ITS ---
EXAMINATION: CTA brain carotid DATE: 12/31/2022 15:12 INDICATION: Left hemiparesis. TECHNIQUE: Computed tomographic angiography (CTA) of the head was performed with 100 mL Omnipaque-350 intravenous contrast. CTA of the neck was performed with intravenous contrast. Automated exposure co ntrol and iterative reconstruction technique were employed. The dose-length product was 1393.09 mGy-c m. Maximum intensity projection and volume rendered 3D-reconstructions were created by the [employer] on a separate workstation. COMPARISON: Head CT 02/10/2022, CTA head 02/24/2020 FINDINGS: HEAD CTA: There is chronic encephalomalacia in right temporal occipital region. There are changes of right-sided craniotomy. There is a right parietal ventriculostomy catheter with tip in anterior body of left lateral ventricle. There is chronic encephalomalacia in right parietal lobe around the cathet er. There are old lacunar infarcts in the left basal ganglia. There is an old infarct in the right th alamus. There is no intracranial hemorrhage, acute infarction, or abnormal intracranial mass lesion. There is ex vacuo dilatation of right lateral ventricle. There is a small osteoma in left ethmoid sin us. The orbits are normal. There is a small right mastoid effusion. Left vertebral artery is dominant . There is no significant stenosis of basilar artery or the posterior cerebral arteries. There is a s urgical clip adjacent to right posterior cerebral artery. There is a 6 x 4 mm residual aneurysm of ri ght posterior cerebral artery. There is a 3 mm aneurysm of the cavernous left internal carotid artery on its right side. There is no significant stenosis of the anterior or middle cerebral arteries. Ant erior communicating artery is normal. There is a 5 x 3 mm saccular aneurysm of left middle cerebral a rtery. Posterior communicating arteries are not identified. NECK CTA: Breast implants are noted. There is mild emphysema. There is mild scarring at the lung apic es. There are no pathologically enlarged lymph nodes. The shunt catheter enters right internal jugula r vein. 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 The shunt catheter tip is at the superior cavoatrial junction. There are calcifications around the catheter. There is no signific ant stenosis of the vertebral arteries. There is plaque in the proximal internal carotid arteries. Th ere is 0% stenosis of the proximal right internal carotid artery relative to normal distal artery lum en diameter (NASCET criteria). There is 0% stenosis of the proximal left internal carotid artery rela tive to normal distal artery lumen diameter. There is mild cervical and thoracic spondylosis. IMPRESSION: 1. Chronic encephalomalacia involving the right temporo-occipital region and right parietal lobe. 2. Old infarcts involving the left basal ganglia and right thalamus. 3. 6 x 4 mm residual aneurysm of right posterior cerebral artery, stable from 02/24/2020. 4. 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 5. 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 6. 0% stenosis of the proximal internal carotid arteries relative to normal distal artery lumen diam eters (NASCET criteria). Reviewed, dictated and finalized at location A. IMPRESSION: 1. Chronic encephalomalacia involving the right temporo-occipital region and ri ght parietal lobe. 2. Old infarcts involving the left basal ganglia and right thalamus. 3. 6 x 4 mm residual aneurysm of right posterior cerebral artery, stable from 1 . 4. 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 5. 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 6. 0% stenosis of the pr
--- NOTE | ~2022-12-31 | CT_ITS ---
EXAMINATION: CT brain wo con DATE: 01/03/2023 10:10 INDICATION: Stroke TECHNIQUE: Computed tomography (CT) of the head was performed without intravenous contrast. Sagittal and coronal reconstructions were performed. Automated exposure control and iterative reconstruction t echnique were employed. The dose-length product was 681.00 mGy-cm. COMPARISON: head CT and CT angiogram dated 12/31/[address] dated 08/17/2018 FINDINGS: Again seen is a region of encephalomalacia involving portions of the right temporal and occipital lob es which underlies a chronic left temporoparietal craniotomy with plate and screw fixation. Within th e region of encephalomalacia is a surgical clip. There is also small amount of encephalomalacia along the tract of a right parietal ventriculostomy catheter which crosses the septum pellucidum with dist al tip in the anterior body of the left lateral ventricle. Small old lacunar infarcts at the head of the left caudate nucleus and at the right thalamus. No acute intracranial hemorrhage, acute infarctio n or abnormal extra axial fluid collection. Ex vacuo dilation of the right lateral ventricle which ap pears unchanged since 08/17/2018. No mass/mass effect. Intracranial calcified cerebral atherosclerosis is noted. The orbits and mastoid air cells are normal. Small osteoma at the left ethmoid sinus. IMPRESSION: 1. Chronic right temporal occipital encephalomalacia with postoperative changes of a right temporopar ietal craniotomy and likely aneurysm clip within the region of encephalomalacia in the region of the right posterior cerebral artery. 2. Small old lacunar infarcts at the right thalamus and left basal ganglia. 3. Right parietal ventriculostomy catheter with distal tip in the anterior body of the left lateral v entricle. Reviewed, dictated and finalized at location B. IMPRESSION: 1. Chronic right temporal occipital encephalomalacia with postoperative changes of a right temporoparietal craniotomy and likely aneurysm clip within the flaquita on of encephalomalacia in the region of the right posterior cerebral artery. 2. Small old lacunar infarcts at the right thalamus and left basal ganglia. 3. Right parietal ventriculostomy catheter with distal tip in the anterior body of the left lateral ventricle.
--- NOTE | ~2022-12-31 | XR_ITS ---
EXAMINATION: XR chest 1V portable DATE: 12/31/2022 15:31 INDICATION: Left hemiparesis. TECHNIQUE: A single frontal view of the chest was obtained. COMPARISON: Chest single view 02/10/2022 FINDINGS: The lungs demonstrate lucencies and interstitial opacities, consistent with emphysema. No p leural effusion or pneumothorax. Cardiomegaly is noted. Median sternotomy wires and mediastinal surgi mariela clips are seen, likely from prior coronary artery bypass grafting. There is a ventriculoatrial sh unt with tip at superior cavoatrial junction. IMPRESSION: 1. Emphysema. 2. Cardiomegaly. Reviewed, dictated and finalized at location A.
--- NOTE | 2022-12-31 13:56 | ECG_ITS ---
Measurements Intervals [place] Rate: 68 P: 81 IL: 128 QRS: 28 QRSD: 116 T: 234 QT: 454 QTc: 485 Interpretive Statements SINUS RHYTHM WITH FREQUENT VENTRICULAR PREMATURE COMPLEXES POSSIBLE LEFT ATRIAL ENLARGEMENT [-0.1mV P WAVE IN V1/V2] MODERATE INTRAVENTRICULAR CONDUCTION DELAY [105+ ms QRS DURATION, 80+ ms Q/S IN V1/V2, NO Q AND 60+ ms R IN I/aVL/V5/V6] ST DEVIATION AND MODERATE T-WAVE ABNORMALITY, CONSIDER LATERAL ISCHEMIA [-0.1+ mV T WAVE IN I/aVL/V5/V6] ST DEVIATION AND MODERATE T-WAVE ABNORMALITY, CONSIDER INFERIOR ISCHEMIA [-0.1+ mV T WAVE IN II/aVF] ABNORMAL ECG COMPARED TO ECG 02/11/2022 13:11:47 SINUS RHYTHM NOW PRESENT INTRAVENTRICULAR CONDUCTION DELAY NOW PRESENT Electronically Signed On 12-31-2022 16:05:02 CDT by Ney Pickett M.D.
[2022-12-31 14:18] LABS: Basophils Absolute Auto 0.1 K/mm3 (0.0-0.1); Basophils Percent Auto 1.1 % (0.2-1.2); Eosinophils Absolute Auto 0.1 K/mm3 (0-0.3); Eosinophils Percent Auto 2.9 % (0-4.4); Hemoglobin 14.1 g/dL (12.0-15.0); Immature Granulocyte Absolute 0.02 K/mm3 (0.00-0.031); Immature Granulocyte Percent A 0.4 % (0-0.5); Immature Platelet Fraction Pct 5.3 % (0.9-11.2); Lymphocytes Absolute Auto 1.72 K/mm3 (0.9-3.2); Lymphocytes Percent Auto 37.7 % (18.3-44.2); Mean Corpuscular HGB Conc 33.6 g/dl (32-36); Mean Corpuscular Hemoglobin 36.3 pg (26-34); Mean Corpuscular Volume 108.2 fl (80-100); Mean Platelet Volume 9.9 fl (7.4-10.4); Monocytes Absolute Auto 0.5 K/mm3 (0.1-0.6); Monocytes Percent Auto 9.9 % (2.6-8.5); Neutrophils Absolute Auto 2.2 K/mm3 (1.3-6.7); Platelet Count Result 119 k/mm3 (150-375); Red Blood Count 3.88 M/mm3 (4.2-5.4); Red Cell Distribution Width 13.5 % (11.5-14.5); White Blood Count 4.6 K/mm3 (4.5-10.0)
[2022-12-31 14:28] LABS: Prothrombin Time 13.3 Seconds (11.1-14.7)
[2022-12-31 14:29] LABS: Partial Thromboplastin Time 25.9 SECONDS (22.3-36.8)
[2022-12-31 14:35] LABS: Alanine Aminotransferase 21 U/L (6-35); Albumin Level 4.3 g/dL (3.5-5.1); Alkaline Phosphatase 97 U/L (38-126); Anion Gap 4 mmol/L (8-16); Aspartate Amino Transferase 36 U/L (14-36); Bilirubin,Total 0.5 mg/dL (0.2-1.3); Blood Urea Nitrogen 13 mg/dL (7-17); Calcium 9.6 mg/dL (8.4-10.2); Carbon Dioxide 27 mmol/L (22-30); Chloride 104 mmol/L (98-107); Estimated CRCL calculation 46 ml/min; Estimated Glomerular Filt Rate > 60; Glucose 114 mg/dL (65-110); Lipase 134 U/L (23-300); Sodium 135 mmol/L (137-145)
[2022-12-31 14:41] LABS: Potassium 4.6 mmol/L (3.4-5.0); Troponin I 0.015 ng/mL (0.000-0.034)
--- NOTE | 2022-12-31 14:49 | ED.NEUROSD ---
HPI - Neuro Symptoms/Deficit General Chief Complaint: Neuro Symptoms/Deficit Stated Complaint: hypertension Time Seen by Provider: 12/31/22 14:47 History of Present Illness HPI Narrative: Patient is a 67-year-old female with history of CVA, cerebral aneurysm, hyperlipidemia presenting with left-sided weakness. Patient was made a stroke alert upon my evaluation. Patient reports that she was at her ENT around 1 PM today and they checked her blood pressure which was elevated. States that she noticed that she had some tingling around the right side of her mouth at this time. She was advised to come to the ER which she did. States that over the last hour she has noticed the left side of her body is weaker than normal. Last known normal approximately 1:30 PM. Reports a frontal headache but denies pain anywhere else. No vision or speech changes. Related Data Home Medications Medication Instructions Recorded Confirmed clopidogrel 75 mg tablet 75 mg PO DAILY 12/26/20 12/31/22 carvedilol 12.5 mg tablet 12.5 mg PO Q12H 12/24/21 12/31/22 rosuvastatin 40 mg tablet 40 mg PO DAILY 12/24/21 12/31/22 albuterol sulfate 90 mcg/actuation 2 inh inhalation Q4-6H PRN SOB 12/04/22 12/31/22 aerosol inhaler isosorbide mononitrate 60 mg 60 mg PO DAILY 12/04/22 12/31/22 tablet,extended release 24 hr Allergies Allergy/AdvReac Type Severity Reaction Status Date / Time Penicillins Allergy Severe SOB Verified 12/31/22 13:09 prednisone Allergy Severe Dyspnea / Verified 12/31/22 13:09 SOB adhesive tape Allergy Intermediate blisters Verified 12/31/22 13:09 latex Allergy Intermediate BLISTERS Verified 12/31/22 13:09 mushroom Allergy Mild Hives Verified 12/31/22 13:09 warfarin Allergy Unknown HEMMRHAGE Verified 12/31/22 13:09 ibuprofen AdvReac Intermediate SHAKY Verified 12/31/22 13:09 Review of Systems Review of Systems: All systems reviewed & are unremarkable except as noted in HPI and below PMFSH Past Medical History Medical History Cerebral aneurysm Cerebrovascular accident (CVA) Chronic obstructive pulmonary disease (COPD) Coronary artery disease Depression Dyslipidemia Essential (primary) hypertension Hydrocephalus Lumbar spondylosis Osteopenia Overactive bladder Peripheral vascular disease Right renal artery stenosis Tobacco dependence Vitamin D deficiency Surgical History Surgical History Femoral-femoral bypass graft thrombosis, left (06/1997) History of aortic valve replacement 1994 and 1997 History of aorto-femoral bypass (08/2017) History of appendectomy History of cerebral aneurysm repair (10/2016) History of coronary artery bypass graft (1994) History of coronary artery stent placement History of hysterectomy 1980s History of ventriculoperitoneal shunting (2016) Family History Family History Mother Diabetes mellitus Family history of coronary artery disease CAD (coronary artery disease) Sibling CAD (coronary artery disease) Sibling Diabetes mellitus Sibling Cerebrovascular accident Social History Social History Social History: Surrogate medical decision maker: Saeid Keita, spouse. Code status: Full code. Smoking packs per day: 1 Smoking cigarettes per day: 20.0 Years smoked: 50 Smoking pack-years: 50.00 Smoking status: Current every day smoker Tobacco type: cigarettes Second hand tobacco smoke exposure: Yes Smoking end date: 05/26/16 Additional smoking assessment comments: CURRENTLY SMOKES 2-3 A DAY DEPENDING ON HOW DEPRESSED SHE IS Alcohol intake: never Substance use: never Substance use type: does not use Lack of Transportation: No Lack of Food: Never True Current Housing: I Have Housing Concerned About Future Housing: No Difficulty Paying Gas/Electric
[2022-12-31 15:04] LABS: Glucose Point of Care 110 mg/dl (65-105)
--- NOTE | 2022-12-31 17:10 | PM.IMHP ---
H&P: HPI History of Present Illness Date/Time: 12/31/22 17:10 Chief Complaint: Elevated blood pressure, neurologic symptoms. Narrative: This is a 67-year-old female with history of stroke, cerebral aneurysms, coronary artery disease, peripheral vascular disease, hypertension, and hyperlipidemia who presented to the emergency department via private vehicle for evaluation of elevated blood pressure and neurologic symptoms. The patient provides the following history. She had appointment with ENT at 13:00 today and when she had her vitals checked her blood pressure was elevated though she could not recall the exact numbers. Sometime during the appointment she started to have tingling on the right side of her mouth and she was told to come to the ER for evaluation. Not long thereafter she developed weakness and ?heaviness? in the left leg. She reports having a mild frontal headache but has no other complaints. She specifically denies vertigo, visual changes, facial droop, and slurred speech however reports that her speech seemed a bit slurred yesterday. The tingling around the mouth has since resolved but the left leg still feels heavy. In the ED: Blood pressure has been as high as 194/110. Her remaining vital signs have been stable. Labs were significant for an MCV of 108.2, platelets 119, sodium 135, potassium 4.6, normal LFTs. Brain CT showed chronic encephalomalacia involving the right temporal occipital region and right parietal lobe and old infarcts involving the left basal ganglia and right thalamus. CTA of the head and neck showed 0% stenosis of the proximal internal carotid arteries bilaterally chronic encephalomalacia, old infarcts, and stable aneurysms compared to imaging from 02/24/2020. ED physician spoke with on-call neurologist. She is not a candidate for tPA due to her aneurysms. She requested the patient be admitted for observation and brain MRI. Review of Systems Review of Systems: Twelve systems were reviewed. She has had intermittent issues with dysphagia, mainly breads and meats, over the last couple of years. Last year it sounds as though she had an esophageal dilatation and more recently she has been having problems again. She was referred to ENT as it was not felt that her symptoms were due to a GI origin. Do she has a chronic cough related to COPD. No chest pain, palpitations, or sensations of racing heart. Except as documented, all other systems were reviewed and are negative. [facility] Past Medical History Medical History (Updated 12/31/22 @ 20:59 by Bita Barahona PA-C) Cerebral aneurysm Cerebrovascular accident (CVA) Chronic obstructive pulmonary disease (COPD) Coronary artery disease Depression Dyslipidemia Essential (primary) hypertension Hydrocephalus Lumbar spondylosis Osteopenia Overactive bladder Peripheral vascular disease Right renal artery stenosis Tobacco dependence Vitamin D deficiency Surgical History Surgical History (Updated 12/31/22 @ 17:19 by Bita Barahona PA-C) Femoral-femoral bypass graft thrombosis, left (06/1997) History of aortic valve replacement 1994 and 1997 History of aorto-femoral bypass (08/2017) History of appendectomy History of cerebral aneurysm repair (10/2016) History of coronary artery bypass graft (1994) History of coronary artery stent placement History of hysterectomy 1980s History of ventriculoperitoneal shunting (2016) Family History Family History Mother Diabetes mellitus Family history of coronary artery disease CAD (coronary artery disease) Sibling CAD (coronary artery disease) Sibling Diabetes mellitus Sibling Cerebrovascular accident Social History Social History Social History: Surrogate medical decision maker: Saeid Keita, spouse. Code status: Full code. Smoking packs per day: 1 Smoking cigarettes per day:
--- NOTE | 2022-12-31 18:34 | ADMGEN ---
This patient, Shobha Keita, was admitted to Medical Room 256-. Patient/family oriented to hospital policies and general routines including ID bracelet, bed and alarms, visiting hours, pain management, procedures, bathroom and other care routines, personal items, smoking policy, room service/diet, and visiting hours. Information on how to activate the Rapid Response Team has been discussed. Patient/Family are encouraged to report perceived risks to care and to ask questions if they do not understand what they are told or what they should do.
[2022-12-31 21:00] LABS: Troponin I 0.031 ng/mL (0.000-0.034)
[2022-12-31] MEDS: carvediloL 12.5 MG TABLET PO (22:39)
[2023-01-01] VITALS (13 sets, daily range): BP systolic 134–166; BP diastolic 86–95; PULSE 54–76; RESP 16–18; TEMP 36.1–37.2; O2SAT 94–97; BMI 17.1
--- NOTE | 2023-01-01 | ECHO_ITS ---
Patient Info Name: Shobha Keita Age: 67 years : 1955 Gender: Female Ht: 67 in Wt: 109 lbs BSA: 1.51 m2 HR: 73 bpm Heart Rhythm: Sinus Rhythm Technical Quality: Good Exam Date: 01/01/2023 12:17 PM Exam Location: [facility] Patient Status: Inpatient Admit Date: 12/31/2022 Staff Ordering Physician: Cassy Strong APRN [employer] Crewman: Aylin Rodriguez RDCS Attending Provider: Jerome Hidalgo MD Referring Physician: Ligia SANDOVAL; Exam Type: CA echo doppler color flow Study Info Indications - CVA Complete two-dimensional, color flow and Doppler transthoracic echocardiogram is performed. Summary 1. Complete two-dimensional, color flow and Doppler transthoracic echocardiogram is performed. 2. Left ventricular chamber dimension is moderately enlarged. 3. There is mildly increased left ventricular wall thickness. 4. Left ventricular systolic function is moderately reduced, estimated at 30-35%. 5. The left ventricular diastolic function is grade I diastolic dysfunction. 6. Right ventricular chamber dimension is normal. 7. Right ventricular systolic function is reduced. 8. Left atrial chamber dimension is moderately enlarged. 9. There is mild to moderate mitral valve regurgitation. 10. There is mild tricuspid valve regurgitation. Left Ventricle Left ventricular chamber dimension is moderately enlarged. Left ventricular systolic function is moderately reduced, estimated at 30-35%. There is mildly increased left ventricular wall thickness. The left ventricular diastolic function is grade I diastolic dysfunction. Right Ventricle Right ventricular chamber dimension is normal. Right ventricular systolic function is reduced. Left Atria Left atrial chamber dimension is moderately enlarged. Right Atria Right atrial chamber dimension is normal. Atrial Septum Intact interatrial septum visualized by color flow imaging. Aortic Valve Aortic valve bioprosthesis is not well visualized. No aortic regurgitation. Pulmonic Valve The pulmonic valve is not well visualized. Mitral Valve There is mild to moderate mitral valve regurgitation. The mitral valve annulus is moderately calcified. Tricuspid Valve There is mild tricuspid valve regurgitation. Pericardium/Pleural There is no pericardial effusion. Inferior Vena Cava Normal inferior vena cava with >50% collapse upon inspiration consistent with normal right atrial pressure, 3 mmHg. Aorta The aortic root size at the sinus of Valsalva is normal. Left Ventricular Outflow Tract Name Value Normal LVOT 2D LVOT Diameter 1.6 cm LVOT Doppler LVOT Peak Gradient 3 mmHg LVOT Mean Gradient 2 mmHg LVOT VTI 21 cm LVOT VTI/AV VTI Ratio 0.5 LVOT Stroke Volume 43 ml LVOT CO 2.5 l/min LVOT CI 1.7 l/min/m2 Pulmonic Valve Name Value Normal RVOT Doppler
--- NOTE | 2023-01-01 07:42 | PM.IMPN ---
Progress Note: A&P Assessment and Plan (1) Neurological symptoms: Code(s): R29.90 - Unspecified symptoms and signs involving the nervous system Status: Acute Assessment and Plan: Oral-facial numbness and tingling with left leg weakness -neuro consult with recommendations of plavix, ASA, and MRI -MCV elevated, ordered B12 which was normal -Concerns for CVA -NIH on admission? NIH today at bedside assessment is 5 (2) Hypertension: Code(s): I10 - Essential (primary) hypertension Status: Acute Assessment and Plan: HTN 194/110 mm hg -allow for permissive HTN 24 hours post CVA (3) Peripheral vascular disease: Code(s): I73.9 - Peripheral vascular disease, unspecified Status: Acute Assessment and Plan: No acute issues. Continue aspirin, clopidogrel, and rosuvastatin. (4) Chronic obstructive pulmonary disease (COPD): Qualifiers: COPD type: unspecified COPD Qualified Code(s): J44.9 - Chronic obstructive pulmonary disease, unspecified Code(s): J44.9 - Chronic obstructive pulmonary disease, unspecified Status: Chronic Assessment and Plan: No evidence of acute exacerbation. Continue maintenance inhalers and p.r.n. nebulizers. Use 2 L nc as needed at home (5) Tobacco dependence: Code(s): F17.200 - Nicotine dependence, unspecified, uncomplicated Status: Acute Assessment and Plan: Smoking cessation is imperative and was discussed. She reports that she is down to just a few cigarettes a day, does not seem motivated to quit. She declines need for nicotine patch at this time. (6) EXHIBIT BUILDER (ventriculoperitoneal) shunt status: Code(s): Z98.2 - Presence of cerebrospinal fluid drainage device Status: Acute Assessment and Plan: Right sided EXHIBIT BUILDER shunt present. Patient states she has had for 20 years. Unsure of cause of hydrocephalus Plan -MRI pending -Neuro consult and recommendations are appreciated -Plavix and ASA started -NIH 5 Subjective Date/time seen: 01/01/23 07:42 Interval history: HPI obtained from chart: This is a 67-year-old female with history of stroke, cerebral aneurysms, coronary artery disease, peripheral vascular disease, hypertension, and hyperlipidemia who presented to the emergency department via private vehicle for evaluation of elevated blood pressure and neurologic symptoms.? The patient provides the following history. She had appointment with ENT at 13:00 today and when she had her vitals checked her blood pressure was elevated though she could not recall the exact numbers. Sometime during the appointment she started to have tingling on the right side of her mouth and she was told to come to the ER for evaluation. Not long thereafter she developed weakness and ?heaviness? in the left leg. She reports having a mild frontal headache but has no other complaints. She specifically denies vertigo, visual changes, facial droop, and slurred speech however reports that her speech seemed a bit slurred yesterday. The tingling around the mouth has since resolved but the left leg still feels heavy. In the ED: Blood pressure has been as high as 194/110. Her remaining vital signs have been stable. Labs were significant for an MCV of 108.2, platelets 119, sodium 135, potassium 4.6, normal LFTs. Brain CT showed chronic encephalomalacia involving the right temporal occipital region and right parietal lobe and old infarcts involving the left basal ganglia and right thalamus. CTA of the head and neck showed 0% stenosis of the proximal internal carotid arteries bilaterally chronic encephalomalacia, old infarcts, and stable aneurysms compared to imaging from 02/24/2020. ED physician spoke with on-call neurologist. She is not a candidate for tPA due to her aneurysms. She requested the patient be admitted for observation and brain MRI. Interval Hx: 01/01: This is a pleasant 67-year-old female who
[2023-01-01] MEDS: ROSUVASTATIN 10 MG TABLET 40 MG PO (07:47)
[2023-01-01] MEDS: ASPIRIN 81 MG ENTERIC TABLET PO (07:47)
[2023-01-01] MEDS: PANTOPRAZOLE 40 MG TABLET PO (07:48)
[2023-01-01] MEDS: SERTRALINE HCL 50 MG TABLET PO (07:48)
[2023-01-01] MEDS: carvediloL 12.5 MG TABLET PO ×2 (07:48→20:52)
[2023-01-01] MEDS: CLOPIDOGREL BISULFATE 75 MG TABLET PO (07:48)
[2023-01-01] MEDS: ISOSORBIDE MONONITRATE 60 MG TAB.ER.24H PO (07:48)
[2023-01-01] MEDS: UMECLIDINIUM/VILANTEROL 62.5-25 MCG ELLIPTA 1 PUFF INHALATION (08:16)
[2023-01-01 08:34] LABS: Basophils Absolute Auto 0.1 K/mm3 (0.0-0.1); Basophils Percent Auto 1.2 % (0.2-1.2); Eosinophils Absolute Auto 0.1 K/mm3 (0-0.3); Eosinophils Percent Auto 2.9 % (0-4.4); Hemoglobin 14.2 g/dL (12.0-15.0); Immature Granulocyte Absolute 0.01 K/mm3 (0.00-0.031); Immature Granulocyte Percent A 0.2 % (0-0.5); Immature Platelet Fraction Pct 4.8 % (0.9-11.2); Lymphocytes Absolute Auto 1.31 K/mm3 (0.9-3.2); Mean Corpuscular HGB Conc 34.6 g/dl (32-36); Mean Corpuscular Hemoglobin 36.2 pg (26-34); Mean Corpuscular Volume 104.6 fl (80-100); Mean Platelet Volume 9.8 fl (7.4-10.4); Monocytes Absolute Auto 0.4 K/mm3 (0.1-0.6); Neutrophils Absolute Auto 2.2 K/mm3 (1.3-6.7); Neutrophils Percent Auto 54.7 % (45.5-73.1); Platelet Count Result 108 k/mm3 (150-375); Red Blood Count 3.92 M/mm3 (4.2-5.4); Red Cell Distribution Width 13.4 % (11.5-14.5); White Blood Count 4.1 K/mm3 (4.5-10.0)
[2023-01-01 08:42] LABS: Alanine Aminotransferase 21 U/L (6-35); Alkaline Phosphatase 89 U/L (38-126); Anion Gap 7 mmol/L (8-16); Aspartate Amino Transferase 33 U/L (14-36); Bilirubin,Total 0.6 mg/dL (0.2-1.3); Blood Urea Nitrogen 14 mg/dL (7-17); Calcium 9.6 mg/dL (8.4-10.2); Carbon Dioxide 26 mmol/L (22-30); Chloride 105 mmol/L (98-107); Estimated CRCL calculation 43 ml/min; Estimated Glomerular Filt Rate > 60; Glucose 107 mg/dL (65-110); Potassium 4.1 mmol/L (3.4-5.0); Sodium 138 mmol/L (137-145)
--- NOTE | 2023-01-01 09:02 | WPDNEURCNPN ---
Assessment and Plan Assessment and plan (1) Acute stroke due to ischemia: Code(s): I63.9 - Cerebral infarction, unspecified Status: Acute (2) Tobacco dependence: Code(s): F17.200 - Nicotine dependence, unspecified, uncomplicated Status: Acute (3) Hypertension: Code(s): I10 - Essential (primary) hypertension Status: Acute (4) Essential (primary) hypertension: Code(s): I10 - Essential (primary) hypertension Status: Chronic (5) CAD in augustine artery: Code(s): I25.10 - Atherosclerotic heart disease of augustine coronary artery without angina pectoris Status: Acute Plan Shobha Keita is a 67 year old female with a past medical history of prior stroke, CAD, COPD, HLD, HTN, PAD, chronic smoker, and multiple intracerebral aneurysms presenting due to the left sided weakness. Concern is highest for acute stroke. She has had a prior stroke with similar symptoms, so stroke recrudescence is also a possibility, triggered by elevated blood pressure on day of presentation. She did not receive tPA due to multiple cerebral aneurysms. - Check MRI brain w/o contrast - Check LDL and HA1c - Surface echocardiogram - Depending on distribution of stroke, she may need more detailed cardiac testing - Continue Aspirin and Plavix for now Consult date: 01/01/23 Reason for consult: Left sided weakness HPI: Shobha Keita is a 67 year old female with a past medical history of prior stroke, CAD, COPD, HLD, HTN, PAD, chronic smoker, and multiple intracerebral aneurysms presenting due to the left sided weakness. Patient's last known well was approximately 1330 on 12/31/22. Per patient her blood pressure was elevated at her ENT appointment on that day. During the appointment she also started having tingling on the right side of the house. She presented to [place] ED a few hours afterwards. EKG showed sinus rhythm. Blood pressure was elevated to 194/110. CT head showed no acute changes but did show chronic encephalomalacia in the R tempero-occipital region, R parietal region, left basal ganglia, and R thalamus. CTA brain carotid did not reveal any significant intracranial or carotid stenosis, she had several stable intracranial aneurysms that are stable from February 2020. She was not a tPA candidate due to the aneurysms. Patient already takes aspirin and plavix. She is also on Rosuvastatin 40mg daily. There is no recent A1c or LDL level. Patient reports that her last stroke was in 2017. She reports that she also had an MT at that time. This all occured at the time of cerebral aneurysm repair. Her deficits from that stroke was left sided weakness and blurriness of her vision. She reports that the tingling in the right face has resolved. The weakness in her left leg has improved as well. She currently smokes 4 cigarettes per day (which is a reduction from 2 ppd) Review of Systems Constitutional: Constitutional: Denies chills, Denies fever(s) and Denies weight loss Eyes: Eyes: Reports blurry vision, Denies diplopia and Denies loss of vision ENT: Denies dizziness, Denies hearing loss and Denies tinnitus Cardiovascular: Cardiovascular: Denies chest pain, Denies syncope and Denies dyspnea Respiratory: Respiratory: Reports cough, Reports dyspnea and Denies wheezing Gastrointestinal: Gastrointestinal: Denies abdominal pain, Denies change in bowel habits, Reports constipation and Denies vomiting Genitourinary: Genitourinary: Denies urinary incontinence Comments: stress incontinence Musculoskeletal: Musculoskeletal: Denies arthralgias and Denies joint swelling Integumentary/Breasts: Skin/Breast: Denies new lesions and Denies rash Neurologic: Reports as per HPI, Denies dizziness, Denies syncope and Denies loss of vision Psychiatric: Psychiatric: Reports anxiety and Reports depression Endocrine: Endocrine: Denies cold intolerance and Denies heat intolerance Hematologic/Lymphatic: Hematologic/Lymphatic: Denies
[2023-01-01 11:37] LABS: Magnesium 1.9 mg/dL (1.6-2.3)
[2023-01-02] VITALS (14 sets, daily range): BP systolic 145–167; BP diastolic 86–98; PULSE 58–87; RESP 16–18; TEMP 36.2–36.7; O2SAT 92–96
--- NOTE | 2023-01-02 | ECHO_ITS ---
Patient Info Name: Shobha Keita Age: 67 years : 1955 Gender: Female Ht: 67 in Wt: 109 lbs BSA: 1.51 m2 HR: 63 bpm BP: 152 / 86 mmHg Technical Quality: Good Exam Date: 01/02/2023 10:08 AM Exam Location: [facility] Patient Status: Inpatient Admit Date: 12/31/2022 Staff Ordering Physician: Jerome Hidalgo MD Pattern Keeper: Sharon Tay RDCS Attending Provider: Jerome Hidalgo MD Referring Physician: Rocky LEONE; Exam Type: CA echo limited w bubble study Study Info Indications - NEURO SYMPTOMS Limited two-dimensional transthoracic echocardiogram is performed with agitated saline. Contrast/Agitated Saline Contrast/Ag. Saline: Agitated Saline Amount: 20.00 ml Administered By: Jeff Dillard RN Existing IV Access: Yes IV Access Condition: patent with no signs of infiltration Summary 1. Possible tiny PFO and noted by agitated saline imaging. A Right to left shunt with a scant number of bubbles were noted several cardiac cycles and not seen with Valsalva. This is consistent either with a small PFO versus pulmonary AVM. Atrial Septum Possible tiny PFO and noted by agitated saline imaging. A Right to left shunt with a scant number of bubbles were noted several cardiac cycles and not seen with Valsalva. This is consistent either with a small PFO versus pulmonary AVM. Report Signatures
[2023-01-02] MEDS: ACETAMINOPHEN 500 MG TABLET 1000 MG PO ×2 (02:15→20:33)
[2023-01-02 05:29] LABS: Basophils Percent Auto 0.4 % (0.2-1.2); Eosinophils Percent Auto 0.4 % (0-4.4); Hematocrit 38.2 % (37.0-47.0); Hemoglobin 13.3 g/dL (12.0-15.0); Immature Granulocyte Absolute 0.03 K/mm3 (0.00-0.031); Immature Granulocyte Percent A 0.4 % (0-0.5); Immature Platelet Fraction Pct 5.6 % (0.9-11.2); Lymphocytes Absolute Auto 1.32 K/mm3 (0.9-3.2); Lymphocytes Percent Auto 18.2 % (18.3-44.2); Mean Corpuscular HGB Conc 34.8 g/dl (32-36); Mean Corpuscular Hemoglobin 36.3 pg (26-34); Mean Corpuscular Volume 104.4 fl (80-100); Mean Platelet Volume 10.5 fl (7.4-10.4); Monocytes Absolute Auto 0.7 K/mm3 (0.1-0.6); Monocytes Percent Auto 9.4 % (2.6-8.5); Neutrophils Absolute Auto 5.2 K/mm3 (1.3-6.7); Neutrophils Percent Auto 71.2 % (45.5-73.1); Platelet Count Result 104 k/mm3 (150-375); Red Blood Count 3.66 M/mm3 (4.2-5.4); Red Cell Distribution Width 13.3 % (11.5-14.5); White Blood Count 7.3 K/mm3 (4.5-10.0)
[2023-01-02 05:38] LABS: Alanine Aminotransferase 17 U/L (6-35); Albumin Level 3.7 g/dL (3.5-5.1); Alkaline Phosphatase 79 U/L (38-126); Anion Gap 7 mmol/L (8-16); Aspartate Amino Transferase 31 U/L (14-36); Bilirubin,Total 0.7 mg/dL (0.2-1.3); Blood Urea Nitrogen 23 mg/dL (7-17); Calcium 9.1 mg/dL (8.4-10.2); Carbon Dioxide 22 mmol/L (22-30); Chloride 107 mmol/L (98-107); Cholesterol 142 mg/dL (0-200); Estimated CRCL calculation 39 ml/min; Estimated Glomerular Filt Rate 56; Glucose 108 mg/dL (65-110); HDL Direct 59 mg/dL; Magnesium 1.9 mg/dL (1.6-2.3); Potassium 3.6 mmol/L (3.4-5.0); Sodium 136 mmol/L (137-145); Triglycerides 70 mg/dL (<150)
[2023-01-02 05:41] LABS: Hemoglobin A1C 5.9 % (<5.7)
[2023-01-02 05:49] LABS: LDL Cholesterol Direct 65 mg/dL
[2023-01-02 05:55] LABS: INR 1.1; Partial Thromboplastin Time 31.7 SECONDS (22.3-36.8); Prothrombin Time 15.1 Seconds (11.1-14.7)
[2023-01-02] MEDS: UMECLIDINIUM/VILANTEROL 62.5-25 MCG ELLIPTA 1 PUFF INHALATION (07:15)
--- NOTE | 2023-01-02 08:11 | PM.IMPN ---
Progress Note: A&P Assessment and Plan (1) Neurological symptoms: Code(s): R29.90 - Unspecified symptoms and signs involving the nervous system Status: Acute Assessment and Plan: Oral-facial numbness and tingling with left leg weakness -neuro consult with recommendations of plavix, ASA, and MRI. MRI has not yet been completed due to difficulty with obtaining records regarding patient's surgical history. Apparently her clinic had closed so primary nurse was trying to get records from the surgeon who placed her SETTLEMENT CLERK shunt. -MCV elevated, ordered B12 which was normal -Concerns for CVA -NIH 01/02 assessment is 5 (2) Hypertension: Code(s): I10 - Essential (primary) hypertension Status: Acute Assessment and Plan: More controlled now. SBP 150's. Hydralazine for SBP > 180 mm hg ECHO repeat with bubble study ordered (3) Peripheral vascular disease: Code(s): I73.9 - Peripheral vascular disease, unspecified Status: Acute Assessment and Plan: Continue aspirin, clopidogrel, and rosuvastatin. Lipid panel completed.Triglycerides 70, Total 142, LDL 65, HDL 59 Hgb A1C 5.9% (4) Chronic obstructive pulmonary disease (COPD): Qualifiers: COPD type: unspecified COPD Qualified Code(s): J44.9 - Chronic obstructive pulmonary disease, unspecified Code(s): J44.9 - Chronic obstructive pulmonary disease, unspecified Status: Chronic Assessment and Plan: No evidence of acute exacerbation. Continue maintenance inhalers and p.r.n. nebulizers. Use 2 L nc as needed at home (5) Tobacco dependence: Code(s): F17.200 - Nicotine dependence, unspecified, uncomplicated Status: Acute Assessment and Plan: Smoking cessation is imperative and was discussed. She reports that she is down to just a few cigarettes a day, does not seem motivated to quit. She declines need for nicotine patch at this time. (6) SETTLEMENT CLERK (ventriculoperitoneal) shunt status: Code(s): Z98.2 - Presence of cerebrospinal fluid drainage device Status: Acute Assessment and Plan: Right sided SETTLEMENT CLERK shunt present. Patient states she has had for 20 years. Unsure of cause of hydrocephalus Plan -MRI pending, Bubble study pending -Neuro consult and recommendations are appreciated -Plavix and ASA started, already on statin Subjective Date/time seen: 01/02/23 08:11 Interval history: HPI obtained from chart: This is a 67-year-old female with history of stroke, cerebral aneurysms, coronary artery disease, peripheral vascular disease, hypertension, and hyperlipidemia who presented to the emergency department via private vehicle for evaluation of elevated blood pressure and neurologic symptoms.? The patient provides the following history. She had appointment with ENT at 13:00 today and when she had her vitals checked her blood pressure was elevated though she could not recall the exact numbers. Sometime during the appointment she started to have tingling on the right side of her mouth and she was told to come to the ER for evaluation. Not long thereafter she developed weakness and ?heaviness? in the left leg. She reports having a mild frontal headache but has no other complaints. She specifically denies vertigo, visual changes, facial droop, and slurred speech however reports that her speech seemed a bit slurred yesterday. The tingling around the mouth has since resolved but the left leg still feels heavy. In the ED: Blood pressure has been as high as 194/110. Her remaining vital signs have been stable. Labs were significant for an MCV of 108.2, platelets 119, sodium 135, potassium 4.6, normal LFTs. Brain CT showed chronic encephalomalacia involving the right temporal occipital region and right parietal lobe and old infarcts involving the left basal ganglia and right thalamus. CTA of the head and neck showed 0% stenosis of the proximal internal carotid arteri
[2023-01-02] MEDS: CLOPIDOGREL BISULFATE 75 MG TABLET PO (08:27)
[2023-01-02] MEDS: SERTRALINE HCL 50 MG TABLET PO (08:27)
[2023-01-02] MEDS: PANTOPRAZOLE 40 MG TABLET PO (08:27)
[2023-01-02] MEDS: ASPIRIN 81 MG ENTERIC TABLET PO (08:28)
[2023-01-02] MEDS: ROSUVASTATIN 10 MG TABLET 40 MG PO (08:28)
[2023-01-02] MEDS: carvediloL 12.5 MG TABLET PO ×2 (08:28→20:30)
[2023-01-02] MEDS: ISOSORBIDE MONONITRATE 60 MG TAB.ER.24H PO (08:28)
[2023-01-03] VITALS (11 sets, daily range): BP systolic 159–168; BP diastolic 82–94; PULSE 57–74; RESP 17–20; TEMP 36.4–36.8; O2SAT 93–96
--- NOTE | 2023-01-03 02:34 | PC.NURSE ---
01/02/23 at 0600: reviewed all charting and documentation by natalia fuentes
[2023-01-03 05:26] LABS: Alanine Aminotransferase 15 U/L (6-35); Albumin Level 3.6 g/dL (3.5-5.1); Alkaline Phosphatase 75 U/L (38-126); Anion Gap 4 mmol/L (8-16); Aspartate Amino Transferase 26 U/L (14-36); Bilirubin,Total 0.7 mg/dL (0.2-1.3); Blood Urea Nitrogen 25 mg/dL (7-17); Carbon Dioxide 23 mmol/L (22-30); Chloride 106 mmol/L (98-107); Estimated CRCL calculation 42 ml/min; Estimated Glomerular Filt Rate > 60; Glucose 94 mg/dL (65-110); Potassium 3.6 mmol/L (3.4-5.0); Sodium 133 mmol/L (137-145)
[2023-01-03 06:12] LABS: Basophils Percent Auto 0.5 % (0.2-1.2); Eosinophils Absolute Auto 0.1 K/mm3 (0-0.3); Eosinophils Percent Auto 1.5 % (0-4.4); Hematocrit 37.8 % (37.0-47.0); Immature Granulocyte Absolute 0.02 K/mm3 (0.00-0.031); Immature Granulocyte Percent A 0.3 % (0-0.5); Immature Platelet Fraction Pct 6.7 % (0.9-11.2); Lymphocytes Percent Auto 26.7 % (18.3-44.2); Mean Corpuscular HGB Conc 34.4 g/dl (32-36); Mean Corpuscular Hemoglobin 36.1 pg (26-34); Mean Platelet Volume 10.9 fl (7.4-10.4); Monocytes Absolute Auto 0.6 K/mm3 (0.1-0.6); Monocytes Percent Auto 9.8 % (2.6-8.5); Neutrophils Absolute Auto 3.7 K/mm3 (1.3-6.7); Neutrophils Percent Auto 61.2 % (45.5-73.1); Platelet Count Result 102 k/mm3 (150-375); Red Cell Distribution Width 13.2 % (11.5-14.5)
[2023-01-03] MEDS: carvediloL 12.5 MG TABLET PO (08:28)
[2023-01-03] MEDS: CLOPIDOGREL BISULFATE 75 MG TABLET PO (08:28)
[2023-01-03] MEDS: SERTRALINE HCL 50 MG TABLET PO (08:28)
[2023-01-03] MEDS: ISOSORBIDE MONONITRATE 60 MG TAB.ER.24H PO (08:28)
[2023-01-03] MEDS: PANTOPRAZOLE 40 MG TABLET PO (08:28)
[2023-01-03] MEDS: ROSUVASTATIN 10 MG TABLET 40 MG PO (08:28)
[2023-01-03] MEDS: ASPIRIN 81 MG ENTERIC TABLET PO (08:28)
[2023-01-03] MEDS: UMECLIDINIUM/VILANTEROL 62.5-25 MCG ELLIPTA 1 PUFF INHALATION (08:42)
--- NOTE | 2023-01-03 08:43 | PM.IMPN ---
Progress Note: A&P Assessment and Plan (1) Neurological symptoms: Code(s): R29.90 - Unspecified symptoms and signs involving the nervous system Status: Acute Assessment and Plan: Oral-facial numbness and tingling with left leg weakness -neuro consult with recommendations of plavix, ASA, and MRI. MRI has not yet been completed due to difficulty with obtaining records regarding patient's surgical history. Apparently her clinic had closed so primary nurse was trying to get records from the surgeon who placed her CAREER PLACEMENT SPECIALIST shunt. -MCV elevated, ordered B12 which was normal -Concerns for CVA -NIH 01/02 assessment is 5 (2) Hypertension: Code(s): I10 - Essential (primary) hypertension Status: Acute Assessment and Plan: More controlled now. SBP 150's. Hydralazine for SBP > 180 mm hg ECHO repeat with bubble study ordered. Possible tiny PFO. (3) Peripheral vascular disease: Code(s): I73.9 - Peripheral vascular disease, unspecified Status: Acute Assessment and Plan: Continue aspirin, clopidogrel, and rosuvastatin. Lipid panel completed.Triglycerides 70, Total 142, LDL 65, HDL 59 Hgb A1C 5.9% (4) Chronic obstructive pulmonary disease (COPD): Qualifiers: COPD type: unspecified COPD Qualified Code(s): J44.9 - Chronic obstructive pulmonary disease, unspecified Code(s): J44.9 - Chronic obstructive pulmonary disease, unspecified Status: Chronic Assessment and Plan: No evidence of acute exacerbation. Continue maintenance inhalers and p.r.n. nebulizers. Use 2 L nc as needed at home (5) Tobacco dependence: Code(s): F17.200 - Nicotine dependence, unspecified, uncomplicated Status: Acute Assessment and Plan: Smoking cessation is imperative and was discussed. She reports that she is down to just a few cigarettes a day, does not seem motivated to quit. She declines need for nicotine patch at this time. (6) CAREER PLACEMENT SPECIALIST (ventriculoperitoneal) shunt status: Code(s): Z98.2 - Presence of cerebrospinal fluid drainage device Status: Acute Assessment and Plan: Right sided CAREER PLACEMENT SPECIALIST shunt present. Patient states she has had for 20 years. Unsure of cause of hydrocephalus Plan -MRI unable to be completed -Follow up with PCP and neuro outpatient -Plavix and ASA started, already on statin -Discharge today after working with therapy Subjective Date/time seen: 01/03/23 08:43 Interval history: HPI obtained from chart: This is a 67-year-old female with history of stroke, cerebral aneurysms, coronary artery disease, peripheral vascular disease, hypertension, and hyperlipidemia who presented to the emergency department via private vehicle for evaluation of elevated blood pressure and neurologic symptoms.? The patient provides the following history. She had appointment with ENT at 13:00 today and when she had her vitals checked her blood pressure was elevated though she could not recall the exact numbers. Sometime during the appointment she started to have tingling on the right side of her mouth and she was told to come to the ER for evaluation. Not long thereafter she developed weakness and ?heaviness? in the left leg. She reports having a mild frontal headache but has no other complaints. She specifically denies vertigo, visual changes, facial droop, and slurred speech however reports that her speech seemed a bit slurred yesterday. The tingling around the mouth has since resolved but the left leg still feels heavy. In the ED: Blood pressure has been as high as 194/110. Her remaining vital signs have been stable. Labs were significant for an MCV of 108.2, platelets 119, sodium 135, potassium 4.6, normal LFTs. Brain CT showed chronic encephalomalacia involving the right temporal occipital region and right parietal lobe and old infarcts involving the left basal ganglia and right thalamus. CTA of the head and neck showed 0%
--- NOTE | 2023-01-03 08:52 | PM.DS ---
DS: Admitting Diagnosis Discharge Date January 03 Admitting Diagnosis Acute stroke due to ischemia DS: Discharge Diagnosis Discharge Diagnosis (1) Neurological symptoms: Code(s): R29.90 - Unspecified symptoms and signs involving the nervous system Status: Acute Assessment and Plan: Oral-facial numbness and tingling with left leg weakness -neuro consult with recommendations of plavix, ASA, and MRI. MRI has not yet been completed due to difficulty with obtaining records regarding patient's surgical history. Apparently her clinic had closed so primary nurse was trying to get records from the surgeon who placed her KINDERGARTEN TUTOR shunt. -MCV elevated, ordered B12 which was normal -Concerns for CVA -NIH 01/02 assessment is 5 (2) Hypertension: Code(s): I10 - Essential (primary) hypertension Status: Acute Assessment and Plan: More controlled now. SBP 150's. Hydralazine for SBP > 180 mm hg ECHO repeat with bubble study ordered. Possible tiny PFO. (3) Peripheral vascular disease: Code(s): I73.9 - Peripheral vascular disease, unspecified Status: Acute Assessment and Plan: Continue aspirin, clopidogrel, and rosuvastatin. Lipid panel completed.Triglycerides 70, Total 142, LDL 65, HDL 59 Hgb A1C 5.9% (4) Chronic obstructive pulmonary disease (COPD): Qualifiers: COPD type: unspecified COPD Qualified Code(s): J44.9 - Chronic obstructive pulmonary disease, unspecified Code(s): J44.9 - Chronic obstructive pulmonary disease, unspecified Status: Chronic Assessment and Plan: No evidence of acute exacerbation. Continue maintenance inhalers and p.r.n. nebulizers. Use 2 L nc as needed at home (5) Tobacco dependence: Code(s): F17.200 - Nicotine dependence, unspecified, uncomplicated Status: Acute Assessment and Plan: Smoking cessation is imperative and was discussed. She reports that she is down to just a few cigarettes a day, does not seem motivated to quit. She declines need for nicotine patch at this time. (6) KINDERGARTEN TUTOR (ventriculoperitoneal) shunt status: Code(s): Z98.2 - Presence of cerebrospinal fluid drainage device Status: Acute Assessment and Plan: Right sided KINDERGARTEN TUTOR shunt present. Patient states she has had for 20 years. Unsure of cause of hydrocephalus Plan -MRI unable to be completed -Follow up with PCP and neuro outpatient -Plavix and ASA started, already on statin -Discharge today after working with therapy DS: Summary Hospital Course Hospital Course: Interval history: HPI obtained from chart: This is a 67-year-old female with history of stroke, cerebral aneurysms, coronary artery disease, peripheral vascular disease, hypertension, and hyperlipidemia who presented to the emergency department via private vehicle for evaluation of elevated blood pressure and neurologic symptoms.? The patient provides the following history. She had appointment with ENT at 13:00 today and when she had her vitals checked her blood pressure was elevated though she could not recall the exact numbers. Sometime during the appointment she started to have tingling on the right side of her mouth and she was told to come to the ER for evaluation. Not long thereafter she developed weakness and ?heaviness? in the left leg. She reports having a mild frontal headache but has no other complaints. She specifically denies vertigo, visual changes, facial droop, and slurred speech however reports that her speech seemed a bit slurred yesterday. The tingling around the mouth has since resolved but the left leg still feels heavy. In the ED: Blood pressure has been as high as 194/110. Her remaining vital signs have been stable. Labs were significant for an MCV of 108.2, platelets 119, sodium 135, potassium 4.6, normal LFTs. Brain CT showed chronic encephalomalacia involving the right temporal occipital region and rig
== END 2023-01-03 17:00 | disposition home health service (06) ==
LOC: ANHED 14:47 → ANH2MED 17:44
PROVIDERS: Emergency Medicine; Nurse Practitioner Acute Care; Admitting Provider Chiropractor; Emergency Provider Emergency Medicine; PCP Family Medicine; Visit Provider Student in an Organized Health Care Education/Training Program
DX: R53.1 Weakness (principal); R20.2 Paresthesia of skin; R29.706 NIHSS score 6; E78.5 Hyperlipidemia, unspecified; J44.9 Chronic obstructive pulmonary disease, unspecified; I25.10 Atherosclerotic heart disease of native coronary artery without angina pectoris; I10 Essential (primary) hypertension; I73.9 Peripheral vascular disease, unspecified; G91.9 Hydrocephalus, unspecified; E55.9 Vitamin D deficiency, unspecified; F32.A Depression, unspecified; M47.816 Spondylosis without myelopathy or radiculopathy, lumbar region; Z95.4 Presence of other heart-valve replacement; Z95.1 Presence of aortocoronary bypass graft; Z95.5 Presence of coronary angioplasty implant and graft; F17.210 Nicotine dependence, cigarettes, uncomplicated; Z86.73 Personal history of transient ischemic attack (TIA), and cerebral infarction without residual deficits; Z79.02 Long term (current) use of antithrombotics/antiplatelets; Z79.51 Long term (current) use of inhaled steroids; Z98.2 Presence of cerebrospinal fluid drainage device; Z79.899 Other long term (current) drug therapy
CPT/HCPCS: 36415; 70450; 70496; 70498; 71045; 80053; 80061; 82948; 83036; 83690; 83735; 84484; 85025; 85055; 85610; 85730; 93005; 93306; 93308; 94640; 96375; 97161; 99285; A9270; G0378; Q9967

== ENCOUNTER 2023-05-14 12:40 | Observation (INO) | payer MEDICARE, SELFPAY ==
[2023-05-14] VITALS (30 sets, daily range): BP systolic 114–161; BP diastolic 64–123; PULSE 42–77; RESP 10–48; TEMP 36.2–36.6; O2SAT 77–100; BMI 17.6
--- NOTE | ~2023-05-14 | US_ITS ---
EXAMINATION: US venous doppler LE DATE: 05/16/2023 11:47 INDICATION: Lower limb swelling TECHNIQUE: Grayscale ultrasound images without and with compression and Doppler ultrasound images of the bilateral lower extremity veins were obtained. COMPARISON: CT dated 12/04/2021 FINDINGS: The visualized portions of right common femoral vein, profunda (deep) femoral vein, femoral vein, pop liteal vein, posterior tibial veins, peroneal veins, gastrocnemius vein and greater saphenous vein ou tflow are patent. The visualized portions of left common femoral vein, profunda femoral vein, femoral vein, popliteal v ein, posterior tibial veins, peroneal veins, gastrocnemius vein and greater saphenous vein outflow ar e patent. Again seen is a large thrombosed saccular aneurysm arising from the left common femoral art guero which measures 5.5 x 4.9 x 4.7 cm. IMPRESSION: 1. No deep venous thrombosis in either lower limb. 2. Chronic 5.5 x 4.9 x 4.7 cm thrombosed saccular aneurysm arising from the right common femoral patience ry. Reviewed, dictated and finalized at location A. TREATER HELPER IMPRESSION: 1. No deep venous thrombosis in either lower limb. 2. Chronic 5.5 x 4.9 x 4.7 cm thrombosed saccular aneurysm arising from the rig ht common femoral artery.
--- NOTE | ~2023-05-14 | XR_ITS ---
EXAMINATION: XR chest 1V portable INDICATION: Left-sided weakness TECHNIQUE: Portable AP chest at 1352 hours COMPARISON: 12/31/2022 FINDINGS: The lungs are free of acute opacities. No pleural effusion or pneumothorax. Cardiomegaly is noted. Median sternotomy wires and mediastinal surgical clips are seen, likely from prior coronary a rtery bypass grafting. There is a ventriculoatrial shunt with its tip ending at the superior cavoatri al junction. IMPRESSION: 1. No acute cardiopulmonary abnormality. Reviewed, dictated and finalized at location B. AID
--- NOTE | ~2023-05-14 | CT_ITS ---
EXAMINATION: CTA brain carotid DATE: 05/14/2023 14:38 INDICATION: Left hemiparesis. Cerebral vascular accident. TECHNIQUE: Computed tomographic angiography (CTA) of the head was performed without and with 100 mL O mnipaque-350 intravenous contrast. CTA of the neck was performed with intravenous contrast. Automated exposure control and iterative reconstruction technique were employed. The dose-length product was 1 757.66 mGy-cm. Maximum intensity projection and volume rendered 3D-reconstructions were created by primitivo nesbitt technologist on a separate workstation. COMPARISON: Head CT 01/03/2023, CTA 02/24/20 FINDINGS: HEAD CTA: There are changes of right-sided craniotomy. There is chronic encephalomalacia involving ri ght temporal occipital region. There are scattered areas of low attenuation in the cerebral white mat ter. There are old infarcts involving the right thalamus and left basal ganglia. There is chronic enc ephalomalacia along a right parietal ventriculostomy catheter with tip in the anterior body of left l ateral ventricle. There is no intracranial hemorrhage, acute infarction, or abnormal intracranial mas s lesion. There is ex vacuo dilatation of right lateral ventricle. The orbits are normal. There is mi ld mucosal thickening in the paranasal sinuses. There is a small right mastoid effusion. Left vertebr al artery is dominant. There is a 6 x 5 mm saccular aneurysm of right posterior cerebral artery with adjacent aneurysm clip. There is no significant stenosis of the intracranial internal carotid arterie s. There is a 3 mm saccular aneurysm of the cavernous segment of left internal carotid artery. There is no significant stenosis of the anterior or middle cerebral arteries. There is a fusiform aneurysm of right M1 middle cerebral artery with diameter of 3.6 mm. There is a 4 mm saccular aneurysm of left M1 middle cerebral artery. Anterior communicating artery is normal. The posterior communicating patience melba are normal. NECK CTA: There is mild emphysema. There is mild scarring at the lung apices. There is mucous in the mainstem bronchi. There are no pathologically enlarged lymph nodes. There is no significant stenosis of the vertebral arteries. There is plaque in the proximal internal carotid arteries. There is 0% nikia nosis of the proximal right internal carotid artery relative to normal distal artery lumen diameter ( NASCET criteria). There is 0% stenosis of the proximal left internal carotid artery relative to arielle l distal artery lumen diameter. There is moderate cervical spondylosis. IMPRESSION: 1. Chronic encephalomalacia involving right temporal occipital region and right parietal lobe. Old in farcts involving right thalamus in the left basal ganglia. 2. Mild nonspecific cerebral white matter disease, which likely represents chronic small vessel ische john disease. 3. Stable 6 x 5 mm saccular aneurysm of right posterior cerebral artery with adjacent aneurysm clip. 4. 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 5. 3.6 cm fusiform aneurysm of right M1 middle cerebral artery. 6. Stable 4 mm saccular aneurysm of left M1 middle cerebral artery. 7. 0% stenosis of the proximal internal carotid arteries relative to normal distal artery lumen diame ters (NASCET criteria). Reviewed, dictated and finalized at location E. MACHINE OPERATOR IMPRESSION: 1. Chronic encephalomalacia involving right temporal occipital region and right parietal lobe. Old infarcts involving right thalamus in the left basal ganglia . 2. Mild nonspecific cerebral white matter disease, which likely represents clearance coordinator pretty small vessel ischemic disease. 3. Stable 6 x 5 mm saccular aneurysm of right posterior cerebral artery with ad jacent aneurysm clip. 4. Stable 3 mm saccular aneurysm of left cavernous internal carotid art
--- NOTE | 2023-05-14 13:06 | ECG_ITS ---
Measurements Intervals [place] Rate: 46 P: 93 NV: 140 QRS: 52 QRSD: 112 T: 212 QT: 479 QTc: 422 Interpretive Statements SINUS BRADYCARDIA BASELINE ARTIFACT MODERATE INTRAVENTRICULAR CONDUCTION DELAY [110+ ms QRS DURATION] ST DEVIATION AND MODERATE T-WAVE ABNORMALITY, CONSIDER ANTEROLATERAL ISCHEMIA [-0.1+ mV T WAVE IN V3-V6] ST DEVIATION AND MODERATE T-WAVE ABNORMALITY, CONSIDER INFERIOR ISCHEMIA [-0.1+ mV T WAVE IN II/aVF] ABNORMAL ECG COMPARED TO ECG 12/31/2022 14:00:02 HEART RATE HAS DECREASED Electronically Signed On 05-14-2023 16:05:45 SENIOR BILLING CONSULTANT by Tree Hay M.D.
--- NOTE | 2023-05-14 13:07 | ED.GENADULT ---
HPI - General Adult General Chief complaint: Neuro Symptoms/Deficit Stated complaint: cva? Time Seen by Provider: 05/14/23 12:56 History of Present Illness HPI narrative: 67-year-old female history of CVA present to the emergency department for evaluation of left-sided weakness. Patient states yesterday during the day she did notice some left-sided weakness and some tingling in her left hand. Patient states symptoms worsened as she was going to bed last night. Will patient woke up this morning she reported the symptoms were still there. Patient now complains of tingling in her left face decreased sensation in her left arm weakness of the left arm and weakness of the left leg. Patient is currently a smoker does have a prior history of CVA. Patient states she had a stroke back in December but had no residual deficit. Patient also has a history of open heart surgery back in 1994. Related Data Home Medications Medication Instructions Recorded Confirmed clopidogrel 75 mg tablet 75 mg PO DAILY 12/26/20 03/24/23 carvedilol 12.5 mg tablet 12.5 mg PO Q12H 12/24/21 03/24/23 rosuvastatin 40 mg tablet 40 mg PO DAILY 12/24/21 03/24/23 albuterol sulfate 90 mcg/actuation 2 inh inhalation Q4-6H PRN SOB 12/04/22 03/24/23 aerosol inhaler isosorbide mononitrate 60 mg 60 mg PO DAILY 12/04/22 03/24/23 tablet,extended release 24 hr losartan 100 mg tablet 100 mg PO DAILY 03/24/23 03/24/23 sertraline 50 mg tablet 50 mg PO .QOD 03/24/23 03/24/23 Allergies Allergy/AdvReac Type Severity Reaction Status Date / Time Penicillins Allergy Severe SOB Verified 05/14/23 18:41 prednisone Allergy Severe Dyspnea / Verified 05/14/23 18:41 SOB adhesive tape Allergy Intermediate blisters Verified 05/14/23 18:41 latex Allergy Intermediate BLISTERS Verified 05/14/23 18:41 mushroom Allergy Mild Hives Verified 05/14/23 13:44 warfarin Allergy Unknown HEMMRHAGE Verified 05/14/23 18:41 ibuprofen AdvReac Intermediate SHAKY Verified 05/14/23 18:41 Review of Systems Review of Systems: All systems reviewed & are unremarkable except as noted in HPI and below PMFSH Past Medical History Medical History Cerebral aneurysm Cerebrovascular accident (CVA) Chronic obstructive pulmonary disease (COPD) Coronary artery disease Depression Dyslipidemia Essential (primary) hypertension Hydrocephalus Lumbar spondylosis Osteopenia Overactive bladder Peripheral vascular disease Right renal artery stenosis Tobacco dependence Vitamin D deficiency Surgical History Surgical History Femoral-femoral bypass graft thrombosis, left (06/1997) History of aortic valve replacement 1994 and 1997 History of aorto-femoral bypass (08/2017) History of appendectomy History of cerebral aneurysm repair (10/2016) History of coronary artery bypass graft (1994) History of coronary artery stent placement History of hysterectomy 1980s History of ventriculoperitoneal shunting (2016) Family History Family History Mother Diabetes mellitus CAD (coronary artery disease) Family history of coronary artery disease Sibling CAD (coronary artery disease) Sibling Diabetes mellitus Sibling Cerebrovascular accident Son Alcoholism in family Social History Social History Social History: Surrogate medical decision maker: Saeid Keita, spouse. Code status: Full code. Smoking packs per day: 0.5 Smoking cigarettes per day: 10.0 Years smoked: 50 Smoking pack-years: 25.00 Smoking status: Current every day smoker Tobacco type: cigarettes Second hand tobacco smoke exposure: Yes Smoking end date: 05/26/16 Additional smoking assessment comments: CURRENTLY SMOKES 2-3 A DAY DEPENDING ON HOW DEPRESSED SHE IS Alcohol intake: never Substance use: ne
[2023-05-14 13:40] LABS: Basophils Absolute Auto 0.1 K/mm3 (0.0-0.1); Basophils Percent Auto 1.1 % (0.2-1.2); Eosinophils Absolute Auto 0.2 K/mm3 (0-0.3); Eosinophils Percent Auto 4.4 % (0-4.4); Hematocrit 42.2 % (37.0-47.0); Hemoglobin 13.8 g/dL (12.0-15.0); Immature Granulocyte Absolute 0.01 K/mm3 (0.00-0.031); Immature Granulocyte Percent A 0.2 % (0-0.5); Immature Platelet Fraction Pct 3.9 % (0.9-11.2); Lymphocytes Percent Auto 41.8 % (18.3-44.2); Mean Corpuscular HGB Conc 32.7 g/dl (32-36); Mean Corpuscular Hemoglobin 35.8 pg (26-34); Mean Corpuscular Volume 109.3 fl (80-100); Monocytes Absolute Auto 0.4 K/mm3 (0.1-0.6); Monocytes Percent Auto 9.2 % (2.6-8.5); Neutrophils Percent Auto 43.3 % (45.5-73.1); Platelet Count Result 103 k/mm3 (150-375); Red Blood Count 3.86 M/mm3 (4.2-5.4); Red Cell Distribution Width 13.4 % (11.5-14.5); White Blood Count 4.6 K/mm3 (4.5-10.0)
[2023-05-14 13:50] LABS: Prothrombin Time 13.6 Seconds (11.1-14.7)
[2023-05-14 13:51] LABS: Partial Thromboplastin Time 29.5 SECONDS (22.3-36.8)
[2023-05-14 13:53] LABS: Alanine Aminotransferase 14 U/L (6-35); Albumin Level 4.5 g/dL (3.5-5.1); Alkaline Phosphatase 113 U/L (38-126); Anion Gap 8 mmol/L (8-16); Aspartate Amino Transferase 28 U/L (14-36); Bilirubin,Total 0.5 mg/dL (0.2-1.3); Blood Urea Nitrogen 13 mg/dL (7-17); Calcium 9.3 mg/dL (8.4-10.2); Carbon Dioxide 24 mmol/L (22-30); Chloride 107 mmol/L (98-107); Estimated CRCL calculation 32 ml/min; Estimated Glomerular Filt Rate 45; Glucose 113 mg/dL (65-110); Potassium 4.2 mmol/L (3.4-5.0); Sodium 139 mmol/L (137-145)
[2023-05-14 14:05] LABS: Troponin I < 0.012 ng/mL (0.000-0.034)
--- NOTE | 2023-05-14 18:08 | PM.IMHP ---
H&P: HPI History of Present Illness Date/Time: 05/14/23 20:00 Chief Complaint: Left-sided tingling. Narrative: This is a 67-year-old female smoker with history of stroke, cerebral aneurysms, coronary artery disease, peripheral vascular disease, hypertension, and hyperlipidemia who presented to the emergency department via private vehicle from home for evaluation of left-sided tingling. The patient provides the following history. Yesterday afternoon she noticed mild left-sided weakness and tingling in her left hand and a seemed to be a bit worse when she went to bed last night. When she got up this morning she noticed tingling throughout the left side including her face, arm, and leg with some weakness in the extremities. She told her about her symptoms and he made her come in for evaluation. She denies vertigo, visual changes, facial droop, and difficulty speaking and swallowing. She was afebrile on arrival to the emergency department and blood pressures have been stable. Her creatinine is a bit elevated from baseline though the remainder of her labs appear stable. CTA of the head and neck did not show any acute findings and noted 0% stenosis of the proximal internal carotid arteries as well as several, stable aneurysms. ED physician spoke with the on-call neurologist, Dr. Menjivar, and he recommends admitting the patient for close monitoring and neurology consultation. At the time my evaluation she still have some tingling in the left side of the face but that is improving. Left arm is still a bit weak with some tingling as well. Left leg seems to have improved. She denies vertigo, visual changes, facial droop, and difficulty speaking and swallowing. Review of Systems Review of Systems: Twelve systems were reviewed and are negative except for as per HPI. [facility] Past Medical History Medical History Cerebral aneurysm Cerebrovascular accident (CVA) Chronic obstructive pulmonary disease (COPD) Coronary artery disease Depression Dyslipidemia Essential (primary) hypertension Hydrocephalus Lumbar spondylosis Osteopenia Overactive bladder Peripheral vascular disease Right renal artery stenosis Tobacco dependence Vitamin D deficiency Surgical History Surgical History Femoral-femoral bypass graft thrombosis, left (06/1997) History of aortic valve replacement 1994 and 1997 History of aorto-femoral bypass (08/2017) History of appendectomy History of cerebral aneurysm repair (10/2016) History of coronary artery bypass graft (1994) History of coronary artery stent placement History of hysterectomy 1980s History of ventriculoperitoneal shunting (2016) Family History Family History Mother Diabetes mellitus CAD (coronary artery disease) Family history of coronary artery disease Sibling CAD (coronary artery disease) Sibling Diabetes mellitus Sibling Cerebrovascular accident Son Alcoholism in family Social History Social History Social History: Surrogate medical decision maker: Saeid Keita, spouse. Code status: Full code. Smoking packs per day: 0.5 Smoking cigarettes per day: 10.0 Years smoked: 50 Smoking pack-years: 25.00 Smoking status: Current every day smoker Tobacco type: cigarettes Second hand tobacco smoke exposure: Yes Smoking end date: 05/26/16 Additional smoking assessment comments: CURRENTLY SMOKES 2-3 A DAY DEPENDING ON HOW DEPRESSED SHE IS Alcohol intake: never Substance use: never Substance use type: does not use Do You Feel Safe in your Home?: Yes Lack of Transportation: YES Lack of Food: Never True Current Housing: I Have Housing Concerned About Future Housing: No Difficulty Paying Gas/Electric Bills: No Difficulty Paying for Meds:
--- NOTE | 2023-05-14 18:30 | ADMGEN ---
This patient, Shobha Keita, was admitted to [facility] Surg Room 314-01. Patient/family oriented to hospital policies and general routines including ID bracelet, bed and alarms, visiting hours, pain management, procedures, bathroom and other care routines, personal items, smoking policy, room service/diet, and visiting hours. Information on how to activate the Rapid Response Team has been discussed. Patient/Family are encouraged to report perceived risks to care and to ask questions if they do not understand what they are told or what they should do.
[2023-05-15] VITALS (9 sets, daily range): BP systolic 116–135; BP diastolic 50–64; PULSE 42–91; RESP 16–18; TEMP 36.4–37; O2SAT 96–97; BMI 17.6
[2023-05-15] MEDS: ACETAMINOPHEN 325 MG TABLET 650 MG PO ×2 (05:28→21:51)
[2023-05-15 06:14] LABS: Anion Gap 6 mmol/L (8-16); Blood Urea Nitrogen 12 mg/dL (7-17); Calcium 9.3 mg/dL (8.4-10.2); Carbon Dioxide 20 mmol/L (22-30); Chloride 110 mmol/L (98-107); Estimated CRCL calculation 36 ml/min; Estimated Glomerular Filt Rate 50; Glucose 87 mg/dL (65-110); Potassium 3.9 mmol/L (3.4-5.0); Sodium 136 mmol/L (137-145)
--- NOTE | 2023-05-15 09:36 | WPDNEURCNPN ---
Assessment and Plan Assessment and plan (1) Left-sided weakness: Code(s): R53.1 - Weakness Status: Acute (2) Intracerebral aneurysm: Code(s): I67.1 - Cerebral aneurysm, nonruptured Status: Acute (3) Tobacco dependence: Code(s): F17.200 - Nicotine dependence, unspecified, uncomplicated Status: Acute (4) Cerebrovascular accident (CVA): Qualifiers: CVA mechanism: unspecified Qualified Code(s): I63.9 - Cerebral infarction, unspecified Code(s): I63.9 - Cerebral infarction, unspecified Status: Acute (5) Tobacco abuse: Code(s): Z72.0 - Tobacco use Status: Chronic Plan Shobha Keita is a 67 year old female with a history of cerebral aneurysms, chronic smoking, COPD, CAD, HLD, HTN, PAD presenting for evaluation of left sided paraesthesias and weakness. She has had similar presentation in the past year. Unfortunately MRI cannot be done due to aneurysm clips. She has old strokes in R temporal/occipital lobe, R parietal lobe, and R thalamus -- all of which could be the cause of her symptoms, possibly due to stroke recrudescence. The symptoms she presented with this time around are very similar to her symptoms from December of this year. Therefore concern for a new acute stroke is lower. During last admission, echo with bubble study showed possible small PFO. On CTA brain/carotid there is new 3.6cm fusiform aneurysm in the M1 segment of R MCA which is new from CTA done in December 2022. - Check UA -- could be stroke recrudesce; reporting increased urinary frequency - Given new aneurysm from prior imaging, and size, recommend Neurosurgery consult - possible, small PFO noted on prior echo, could be related to prior strokes? - obtain lower extremity Doppler - consult Cardiology -- will defer to them regarding need for repeat TTE vs NA - Continue Aspirin 81mg daily - Continue Rosuvastatin 40mg daily - Discussed importance of smoking cessation Consult date: 05/15/23 Reason for consult: L sided numbness/weakness HPI: Shobha Keita is a 67 year old female with a history of cerebral aneurysms, chronic smoking, COPD, CAD, HLD, HTN, PAD presenting for evaluation of left sided paraesthesias and weakness. Patient first noted left sided weakness and tingling on 12 AM, which worsened throughout the day. She woke up the following day and due to persistent symptoms, came to [place] ED. In the ED her NIH score was 7 for L sided weakness and numbness. CT head showed chronic encephalomalacia in the right temporal/occipital lobe, right parietal lobe, and old infarcts in the right thalamus and left basal ganglia. These findings were present on her CT head from December 2022. CTA brain/carotid showed several cerebral aneurysms -- in R CONSOLIDATION ACCOUNTANT with aneurysm clip, L cavernous ICA, left M1 segment of MCA, all of which appears to be stable from prior imaging. The only new finding was 3.6cm fusiform aneurysm of R M1 segment of MCA. Patient cannot have MRI brain because of aneurysm clips. Of note, patient presented to [place] in December for similar symptoms of L sided weakness/paraesthesias. She could not get MRI brain due to same reason as above. Her LDL was 65 and A1c was 5.9. She has a a surface echocardiogram with bubble study that showed possible small PFO. Her current home medications include Plavix 75mg daily and Rosuvastatin 40mg daily. Patient reports that the symptoms that occured on day of presentation are very similar to her admission back in December 2022. She still has some paraesthesias in the left face and left hand, but otherwise feels that her strength is back to her baseline. She is still smoking 3-4 cigarettes per day. She does take baby aspirin in addition to plavix. She denies any dysuria but does have increased urinary frequency over the past week. Review of Systems Review of Systems: All systems reviewed & are unremarkable except as noted in HPI and below PMFSH Past Medical History Medica
--- NOTE | 2023-05-15 13:25 | PCCCNOTE ---
On 05/15/23, the student, [Melissa Salmon], provided care and completed [facility] documentation on this patient. I have reviewed the student's documentation and agree with the findings.
--- NOTE | 2023-05-15 15:42 | PM.IMPN ---
Progress Note: A&P Assessment and Plan (1) Left-sided weakness: Code(s): R53.1 - Weakness Status: Acute (2) Intracerebral aneurysm: Code(s): I67.1 - Cerebral aneurysm, nonruptured Status: Acute (3) Hypertension: Code(s): I10 - Essential (primary) hypertension Status: Acute (4) Chronic obstructive pulmonary disease (COPD): Qualifiers: COPD type: unspecified COPD Qualified Code(s): J44.9 - Chronic obstructive pulmonary disease, unspecified Code(s): J44.9 - Chronic obstructive pulmonary disease, unspecified Status: Chronic (5) Tobacco dependence: Code(s): F17.200 - Nicotine dependence, unspecified, uncomplicated Status: Acute Plan The patient presented to the emergency department for evaluation of left-sided tingling and weakness which began the night before. She was not a candidate for tPA. Her symptoms seem to have improved today. CTA head/neck noted. Appears to be a new fusiform aneurysm right M1 MCA with diameter 3.6mm. Plan for Neurosurgery consult. No MRI given she has clips. Recent echo also showing possible tiny PFO. Cards consulted. Continue tele. Continue Asa, Plavix and Crestor. She was educated about the beenfits of smoking cesation. Subjective Date/time seen: 05/15/23 15:42 Interval history: 67yo female with CVA, cerebral aneurysms s/p coiling, CAD, PVD and HTN here for left UE and facial tingling. Patient feeling better today. Majority symptoms have resolved although she still has slight tingling around left side of her mouth and mild tingling in her fingers. Her left lower extremity was not affected. She was up walking with a walker earlier today. Exam Narrative: AF 98.6 116/50 57 16 97% ra Gen - NARD Chest -few scattered rhonchi otherwise clear CV - RRR S1/S2. Tele showing bradycardia around 50 Abd - Soft, NT/ND, Positive BS. large left inguinal mass related to her bypass Ext - No pedal edema Neuro - Alert and appropriate. Speech slightly dysarthric at times. TUBBS Psych - Nml mood and affect Skin - Warm and dry Objective Data Vital Signs Vital Signs: Vital Signs - 24 hr 05/14/23 15:45 05/14/23 16:00 05/14/23 16:02 Temperature Pulse Rate 55 L 51 L 54 L Respiratory Rate 19 25 H 15 Blood Pressure 129/104 H Pulse Oximetry Oxygen Delivery 05/14/23 18:10 05/14/23 18:32 05/14/23 20:34 Temperature 97.3 F L 97.2 F L Pulse Rate 46 L 48 L 55 L Respiratory Rate 16 16 16 Blood Pressure 152/85 H 158/79 H 136/64 Pulse Oximetry 99 93 Oxygen Delivery 05/14/23 20:00 05/14/23 20:00 05/15/23 00:00 Temperature Pulse Rate 62 59 L Respiratory Rate Blood Pressure Pulse Oximetry Oxygen Delivery Room Air 05/15/23 04:00 05/15/23 05:11 05/15/23 08:00 Temperature 97.6 F Pulse Rate 59 L 91 Respiratory Rate 16 Blood Pressure 130/64 Pulse Oximetry 96 Oxygen Delivery Room Air 05/15/23 08:00 05/15/23 12:00 05/15/23 14:00 Temperature 98.6 F Pulse Rate 50 L 45 L 57 L Respiratory Rate 16 Blood Pressure 116/50 L Pulse Oximetry 97 Oxygen Delivery Intake/Output Intake/Output: Intake & Output 05/12/23 05/13/23 05/14/23 05/15/23 23:59 23:59 23:59 23:59 Intake Total 480 Output Total 0 Balance 480 Meds/Results Medications: Active Medications Generic Name Dose Route Start Last Admin Trade Name Freq PRN Reason Stop Dose Admin Acetaminophen 650 mg 05/15/23 00:05 05/15/23 05:28 Acetaminophen 325 Mg Tablet PO 650 mg Q6H PRN Administration Mild Pain (1-3) or Fever Ondansetron HCl 4 mg 05/14/23 15:55 Ondansetron Inj 4 Mg/2 Ml Vial IV PUSH Q4H PRN Nausea Radiology Results: ITS Impressions Chest X-Ray 05/14/23 14:04 IMPRESSION: 1. No acute cardiopulmonary abnormality. Head/Neck CTA 05/14/23 14:59 IMPRESSION: 1. Chronic encephalomalacia involving right temporal occipital regio
[2023-05-15] MEDS: CLOPIDOGREL BISULFATE 75 MG TABLET PO (16:57)
[2023-05-15] MEDS: ASPIRIN 81 MG ENTERIC TABLET PO (16:57)
[2023-05-15] MEDS: SACUBITRIL/VALSARTAN 49-51 MG TABLET 1 TABLET PO (21:51)
[2023-05-15] MEDS: carvediloL 12.5 MG TABLET PO (21:51)
[2023-05-16] VITALS (11 sets, daily range): BP systolic 114–158; BP diastolic 67–81; PULSE 41–87; RESP 16–20; TEMP 36.7–36.8; O2SAT 91–99
[2023-05-16] MEDS: PANTOPRAZOLE 40 MG TABLET PO (08:14)
[2023-05-16] MEDS: ASPIRIN 81 MG ENTERIC TABLET PO (08:14)
[2023-05-16] MEDS: ISOSORBIDE MONONITRATE 60 MG TAB.ER.24H PO (08:14)
[2023-05-16] MEDS: ROSUVASTATIN 10 MG TABLET 40 MG PO (08:15)
[2023-05-16] MEDS: LOSARTAN POTASSIUM 100 MG TABLET PO (08:15)
[2023-05-16] MEDS: carvediloL 12.5 MG TABLET PO ×2 (08:15→21:31)
[2023-05-16] MEDS: SACUBITRIL/VALSARTAN 49-51 MG TABLET 1 TABLET PO ×2 (08:15→21:31)
[2023-05-16] MEDS: EMPAGLIFLOZIN 10 MG TABLET PO (08:15)
[2023-05-16] MEDS: CLOPIDOGREL BISULFATE 75 MG TABLET PO (08:15)
--- NOTE | 2023-05-16 09:26 | WPDNEUROPN ---
Progress Note: A&P Assessment and Plan (1) Left-sided weakness: Code(s): R53.1 - Weakness Status: Acute (2) Cerebrovascular accident (CVA): Qualifiers: CVA mechanism: unspecified Qualified Code(s): I63.9 - Cerebral infarction, unspecified Code(s): I63.9 - Cerebral infarction, unspecified Status: Acute (3) Tobacco dependence: Code(s): F17.200 - Nicotine dependence, unspecified, uncomplicated Status: Acute (4) Hypertension: Code(s): I10 - Essential (primary) hypertension Status: Acute (5) Intracerebral aneurysm: Code(s): I67.1 - Cerebral aneurysm, nonruptured Status: Acute (6) PFO (patent foramen ovale): Code(s): Q21.12 - Patent foramen ovale Status: Acute Plan Shobha Keita is a 67 year old female with a history of cerebral aneurysms, chronic smoking, COPD, CAD, HLD, HTN, PAD presenting for evaluation of left sided paraesthesias and weakness. She has had similar presentation in the past year. Unfortunately MRI cannot be done due to aneurysm clips. She has old strokes in R temporal/occipital lobe, R parietal lobe, and R thalamus -- all of which could be the cause of her symptoms, possibly due to stroke recrudescence. The symptoms she presented with this time around are very similar to her symptoms from December of this year. Therefore concern for a new acute stroke is lower. During last admission, echo with bubble study showed possible small PFO. On CTA brain/carotid there is new 3.6cm fusiform aneurysm in the M1 segment of R MCA which is new from CTA done in December 2022. - Consider checking UA -- could be stroke recrudesce; reporting increased urinary frequency - Given new aneurysm from prior imaging, and size, recommend Neurosurgery consult - possible, small PFO noted on prior echo, could be related to prior strokes? - consider lower extremity Doppler - consult Cardiology -- will defer to them regarding need for repeat TTE vs NA - Continue Aspirin 81mg daily - Continue Rosuvastatin 40mg daily - Discussed importance of smoking cessation Subjective Date/time seen: 05/16/23 09:26 Interval history: Shobha Keita is a 67 year old female with a history of cerebral aneurysms, chronic smoking, COPD, CAD, HLD, HTN, PAD presenting for evaluation of left sided paraesthesias and weakness. Patient first noted left sided weakness and tingling on 12/ AM, which worsened throughout the day. She woke up the following day and due to persistent symptoms, came to [facility] ED. In the ED her NIH score was 7 for L sided weakness and numbness. CT head showed chronic encephalomalacia in the right temporal/occipital lobe, right parietal lobe, and old infarcts in the right thalamus and left basal ganglia. These findings were present on her CT head from December 2022.? CTA brain/carotid showed several cerebral aneurysms -- in R [employer] with aneurysm clip, L cavernous ICA, left M1 segment of MCA, all of which appears to be stable from prior imaging. The only new finding was 3.6cm fusiform aneurysm of R M1 segment of MCA. Patient cannot have MRI brain because of aneurysm clips. Of note, patient presented to [facility] in December for similar symptoms of L sided weakness/paraesthesias. She could not get MRI brain due to same reason as above. Her LDL was 65 and A1c was 5.9. She has a a surface echocardiogram with bubble study that showed possible small PFO. Her current home medications include Plavix 75mg daily and Rosuvastatin 40mg daily. Patient reports that the symptoms that occurred on day of presentation are very similar to her admission back in December 2022. She still has some paraesthesias in the left face and left hand, but otherwise feels that her strength is back to her baseline. She is still smoking 3-4 cigarettes per day. She does take baby aspirin in addition to Plavix. She denies any dysuria but does have increased urinary frequency over the past week. Patient reports feeling better,
--- NOTE | 2023-05-16 11:04 | PM.IMPN ---
Progress Note: A&P Assessment and Plan (1) Left-sided weakness: Code(s): R53.1 - Weakness Status: Acute (2) Intracerebral aneurysm: Code(s): I67.1 - Cerebral aneurysm, nonruptured Status: Acute (3) Hypertension: Code(s): I10 - Essential (primary) hypertension Status: Acute (4) Chronic obstructive pulmonary disease (COPD): Qualifiers: COPD type: unspecified COPD Qualified Code(s): J44.9 - Chronic obstructive pulmonary disease, unspecified Code(s): J44.9 - Chronic obstructive pulmonary disease, unspecified Status: Chronic (5) Tobacco dependence: Code(s): F17.200 - Nicotine dependence, unspecified, uncomplicated Status: Acute Plan The patient presented to the emergency department for evaluation of left-sided tingling and weakness which began the night before. She was not a candidate for tPA. Her symptoms have almost completely resolved. CTA head/neck showing a chronic encephalomalacia involving the right temporal occipital and right parietal lobe with old CVA right thalamus and left basal ganglia. Stable 6mm right posterior cerebral artery with adjacent clip, stable 4mm left M1 MCA and stable 3mm left cavernous ICA saccular aneurysms. New 3.6mm fusiform aneurysm right M1 MCA. Plan for Neurosurgery consult. No MRI given she has clips. Recent echo also showing possible tiny PFO. Cards consulted. Continue tele. Continue home meds of ASA, Plavix and Crestor. No urinary symptoms but will check UA to exclude UTI. Check LE venous doppler to assess for possible paradoxical embolism. She was educated about the benefits of smoking cesstion. Home soon if okay with other. Subjective Date/time seen: 05/16/23 11:04 Interval history: 67yo female with CVA, cerebral aneurysms s/p coiling, CAD, PVD and HTN here for left UE and facial tingling. Facial symptoms have resolved. Minimal left finger tip tingling. NO CP or SOB. No dysuria or heamturia. No n/v. Exam Narrative: AF 98.2 148/67 64 20 96% ra Gen - NARD Chest - CTA bilaterally CV - RRR S1/S2. Tele showing bradycardia around 45 overnight and PVCs Abd - Soft, NT/ND, Positive BS. large left inguinal mass with pulse related to her bypass Ext - No pedal edema Psych - Nml mood and affect Skin - Warm and dry Objective Data Vital Signs Vital Signs: Vital Signs - 24 hr 05/15/23 12:00 05/15/23 14:00 05/15/23 16:00 Temperature 98.6 F Pulse Rate 45 L 57 L 42 L Respiratory Rate 16 Blood Pressure 116/50 L Pulse Oximetry 97 Oxygen Delivery 05/15/23 22:00 05/15/23 20:00 05/15/23 20:00 Temperature 98.1 F Pulse Rate 56 L 57 L Respiratory Rate 18 Blood Pressure 135/60 Pulse Oximetry 96 Oxygen Delivery Room Air 05/16/23 04:00 05/16/23 06:00 05/16/23 08:15 Temperature 98.2 F Pulse Rate 41 L 63 64 Respiratory Rate 20 Blood Pressure 148/67 H Pulse Oximetry 96 Oxygen Delivery 05/16/23 08:00 Temperature Pulse Rate Respiratory Rate Blood Pressure Pulse Oximetry Oxygen Delivery Room Air Intake/Output Intake/Output: Intake & Output 05/13/23 05/14/23 05/15/23 05/16/23 23:59 23:59 23:59 23:59 Intake Total 730 100 Output Total 0 Balance 730 100 Meds/Results Medications: Active Medications Generic Name Dose Route Start Last Admin Trade Name Freq PRN Reason Stop Dose Admin Acetaminophen 650 mg 05/15/23 00:05 05/15/23 21:51 Acetaminophen 325 Mg Tablet PO 650 mg Q6H PRN Administration Mild Pain (1-3) or Fever Albuterol 2 puff 05/15/23 15:42 Albuterol Sulfate (*Sp) Aerosol 1 Puff INHALATION Q4-6H PRN Shortness Of Breath Aspirin 81 mg 05/15/23 15:50 05/16/23 08:14 Aspirin 81 Mg Enteric Tablet PO 81 mg QAM KANE Administration Carvedilol 12.5 mg 05/15/23 21:00 05/16/23 08:15 Carvedilol 12.5 Mg Tablet PO 12.5 mg Q12HR KANE Administration Clopidogrel Bisulfate 75 mg
[2023-05-16] MEDS: UMECLIDINIUM/VILANTEROL 62.5-25 MCG ELLIPTA 1 PUFF INHALATION (20:15)
[2023-05-17] VITALS: PULSE 64
[2023-05-17 04:00] VITALS: PULSE 49
[2023-05-17 06:00] VITALS: BP 130/66; PULSE 59; RESP 16; TEMP 36.5; O2SAT 94
[2023-05-17 06:18] LABS: Appearance Urine Clear (Clear); Bacteria Urine None Seen /hpf; Bilirubin Urine Negative (Negative); Blood Urine 1+ (Negative); Color Urine Yellow (Yellow); Glucose Urine UA 3+ mg/dL (Negative); Ketones Urine Negative (Negative); Leukocyte Esterase Ur Negative LEU/UL (Negative); Nitrate Urine Negative (Negative); Non Pathogenic Casts 0-2; Protein Urine Trace mg/dL (Negative); Specific Grav Ur 1.022 (1.001-1.035); Squamous Epithelial Cell Urine None seen /hpf (Few); WBC Urine 0-5 /hpf; pH Urine 7.5 (5.0-9.0)
[2023-05-17 07:00] LABS: Add Urine Microscopic? YES
[2023-05-17 08:00] VITALS: PULSE 56
[2023-05-17] MEDS: PANTOPRAZOLE 40 MG TABLET PO (08:50)
[2023-05-17] MEDS: ROSUVASTATIN 10 MG TABLET 40 MG PO (08:50)
[2023-05-17] MEDS: SERTRALINE HCL 50 MG TABLET PO (08:50)
[2023-05-17] MEDS: ASPIRIN 81 MG ENTERIC TABLET PO (08:50)
[2023-05-17] MEDS: ISOSORBIDE MONONITRATE 60 MG TAB.ER.24H PO (08:50)
[2023-05-17] MEDS: carvediloL 12.5 MG TABLET PO (08:50)
[2023-05-17] MEDS: LOSARTAN POTASSIUM 100 MG TABLET PO (08:51)
[2023-05-17] MEDS: CLOPIDOGREL BISULFATE 75 MG TABLET PO (08:51)
[2023-05-17] MEDS: EMPAGLIFLOZIN 10 MG TABLET PO (08:51)
[2023-05-17] MEDS: SACUBITRIL/VALSARTAN 49-51 MG TABLET 1 TABLET PO (08:51)
[2023-05-17 12:00] VITALS: PULSE 77
[2023-05-17 16:00] VITALS: PULSE 60
--- NOTE | 2023-05-17 16:52 | PM.DS ---
DS: Admitting Diagnosis Discharge Date Left sided numbness. Admitting Diagnosis Left-sided tingling DS: Discharge Diagnosis Discharge Diagnosis (1) Tingling of left arm and left side of face: Code(s): R20.2 - Paresthesia of skin Status: Acute (2) Left-sided weakness: Code(s): R53.1 - Weakness Status: Acute (3) Intracerebral aneurysm: Code(s): I67.1 - Cerebral aneurysm, nonruptured Status: Acute (4) Hypertension: Code(s): I10 - Essential (primary) hypertension Status: Acute (5) Chronic obstructive pulmonary disease (COPD): Qualifiers: COPD type: unspecified COPD Qualified Code(s): J44.9 - Chronic obstructive pulmonary disease, unspecified Code(s): J44.9 - Chronic obstructive pulmonary disease, unspecified Status: Chronic (6) Tobacco dependence: Code(s): F17.200 - Nicotine dependence, unspecified, uncomplicated Status: Acute (7) PFO (patent foramen ovale): Code(s): Q21.12 - Patent foramen ovale Status: Acute DS: Summary Hospital Course Reason for hospitalization: 67yo female with CVA, cerebral aneurysms s/p coiling, CAD, PVD and HTN here for left UE and facial tingling. Please see H&P for details. Hospital Course: The patient presented to the emergency department for evaluation of left-sided tingling and weakness which began the night before. She was not a candidate for tPA. Neurology consulted and appreciate their input. CTA head/neck showing a chronic encephalomalacia involving the right temporal occipital and right parietal lobe with old CVA right thalamus and left basal ganglia. Stable 6mm right posterior cerebral artery with adjacent clip, stable 4mm left M1 MCA and stable 3mm left cavernous ICA saccular aneurysms. New 3.6mm fusiform aneurysm right M1 MCA. Consulted Neurosurgery who recommended patient return to [facility] for evaluation. No MRI could be performed given she has clips. A recent echo was showing possible tiny PFO. Cardiology consulted but did not feel the patient needed any further workup. Lower extremity venoous dopplers were negative for DVT but did show chronic 5.5cm thrombosed saccular aneurysm arising from the left common femoral artery. She ws monitored on telemetry but acute process. We continued her home ASA, Plavix and Crestor. She did well. She was educated about the benefits of smoking cessation. Her symptoms have almost completely resolved. She was able to be discharged home on 05/17/23. Status at Discharge Cognitive/behavioral status at discharge: stable Time Spent with Patient Time attestation: Total time spent providing and/or coordinating discharge services: 35 minutes Time spent: Greater than 30 minutes Exam Narrative: AF 97.7 130/66 59 16 94% ra Gen - NARD Chest - CTA bilaterally CV - RRR S1/S2. Tele showing no signifincat dysrhythmias Abd - Soft, NT/ND, Positive BS. Ext - No pedal edema Psych - Nml mood and affect Skin - Warm and dry DS: Data Data Completed and Pending Labs on day of discharge: Labs from last 24 hours 05/17/23 06:00 Urine Color Yellow Urine Appearance Clear Urine pH 7.5 Ur Specific [place] 1.022 Urine Protein Trace Urine Glucose (UA) 3+ H Urine Ketones Negative Ur Blood (Man) 1+ H Urine Nitrate Negative Urine Bilirubin Negative Urine Urobilinogen 1.0 Leukocyte Esterase Rfl Negative Urine RBC 11-20 H Urine WBC 0-5 Ur Squamous Epith Cells None seen Urine Bacteria None seen Urine Casts 0-2 Discharge Plan Discharge Attending physician on discharge: Helio Zapata Consulting providers: Porfirio Menjivar; Tiffany Shin; Masood Hines Discharging Clinician: Helio Zapata Anticipated Discharge Date/Time: 05/17/23 17:02 Patient Disposition: Home, Self-Care Activity: as tolerated Diet: heart healthy Discharge Instructions: Take precautions to avoid falls. Rise slowly
--- NOTE | 2023-05-17 16:54 | PM.CNCAR ---
Assessment and Plan Assessment and plan (1) Tingling of left arm and left side of face: Code(s): R20.2 - Paresthesia of skin Status: Acute Assessment and Plan: Poossible TIA vs recrudsence of old strokes. --Cont dual antiplatelet tx, high dose statin therapy rosuvastatin 40 mg daily. (2) PFO (patent foramen ovale): Code(s): Q21.12 - Patent foramen ovale Status: Acute Assessment and Plan: Possible very small PFO. Generally not the cause of strokes in older people. This sounds like a very small PFO, if there is a PFO at all, with no high risk features such as a large shunt, or atrial septal aneurysm. I think it is very unlikely that the PFO is contributing to her stroke symptoms. --no further testing recommended (3) Intracerebral aneurysm: Code(s): I67.1 - Cerebral aneurysm, nonruptured Status: Acute (4) Hypertension: Code(s): I10 - Essential (primary) hypertension Status: Acute Assessment and Plan: Blood pressure somewhat on the high side, follow-up with outpatient (5) Cerebrovascular accident (CVA): Qualifiers: CVA mechanism: unspecified Qualified Code(s): I63.9 - Cerebral infarction, unspecified Code(s): I63.9 - Cerebral infarction, unspecified Status: Acute Assessment and Plan: History of strokes and TIAs with chronic infarcts bilaterally. (6) CAD in [place] artery: Code(s): I25.10 - Atherosclerotic heart disease of [place] coronary artery without angina pectoris Status: Acute Assessment and Plan: History of CAD, left main stenting, ischemic cardiomyopathy with EF of 45% in March 2022 and 30-35% in December 2022. Appears euvolemic and not in failure. --continue nitrates, losartan, rosuvastatin, Entresto, carvedilol, dual anti-platelet therapy --follow-up with Dr. Gold (7) Tobacco abuse: Code(s): Z72.0 - Tobacco use Status: Chronic Assessment and Plan: Patient has decided to quit smoking and I congratulated her (8) Bioprosthetic aortic valve replacement during current hospitalization: Code(s): Z95.3 - Presence of xenogenic heart valve Status: Acute Assessment and Plan: History of bioprosthetic AVR with a redo, followed by Dr. Gold. History of Present Illness History of Present Illness Consult date/time: 05/17/23 16:54 Reason For Visit: Left Sided Weakness Narrative: Shobha Keita is a 67-year-old female whom I was asked to see at the request of Dr. Zapata for my advice and opinion regarding her possible TIA and possible PFO, in consultation. She has history of prior strokes, cerebral aneurysms, hypertension, active tobacco use, bioprosthetic aortic valve replacement with a redo in 2007, CAD possible CABG in 1994, complex PCI of the Left anterior descending and left main in February 2022, peripheral vascular disease. She is followed by Dr. Gold in our office. He recommends long-term dual anti-platelet therapy because of the multiple stents including left main stenting, continue with high-dose statin therapy and tobacco cessation. In December when she had a TIA and echo bubble study showed a possible small PFO with a scant amount of bubbles noted after several cardiac cycles, consistent with either small PFO or pulmonary AVM. Her echos have not shown any atrial septal aneurysm. Patient was admitted with numbness of her left face and left arm which she has had before, possible TIA versus recrudescence of her prior stroke symptoms. Her symptoms have nearly completely resolved. Her neurologist is wondering if the PFO may be contributing to her TIAs and strokes. The patient states that she has decided to quit smoking completely. She is not having any anginal symptoms. She does have some chronic GERMAN. No edema. Review of Systems Constitutional: Constitutional: Denies fever(s) Eyes: Eyes: Reports blurry vision Comments: The patient has lost much
== END 2023-05-17 18:10 | disposition home or self-care (01) ==
LOC: ANHED 13:07 → ANH3MEDSUR 20:19
PROVIDERS: Physician Assistant; Admitting Provider Hospitalist; Emergency Provider Emergency Medicine; PCP Family Medicine; Visit Provider Internal Medicine
DX: I63.9 Cerebral infarction, unspecified (principal); G81.94 Hemiplegia, unspecified affecting left nondominant side; R29.707 NIHSS score 7; I72.4 Aneurysm of artery of lower extremity; I67.1 Cerebral aneurysm, nonruptured; Q21.12 Patent foramen ovale; G93.89 Other specified disorders of brain; R90.82 White matter disease, unspecified; J44.9 Chronic obstructive pulmonary disease, unspecified; I25.10 Atherosclerotic heart disease of native coronary artery without angina pectoris; Z95.1 Presence of aortocoronary bypass graft; F32.A Depression, unspecified; E78.5 Hyperlipidemia, unspecified; I10 Essential (primary) hypertension; I73.9 Peripheral vascular disease, unspecified; R94.31 Abnormal electrocardiogram [ECG] [EKG]; M85.80 Other specified disorders of bone density and structure, unspecified site; M79.89 Other specified soft tissue disorders; N32.81 Overactive bladder; E55.9 Vitamin D deficiency, unspecified; Z95.820 Peripheral vascular angioplasty status with implants and grafts; Z86.73 Personal history of transient ischemic attack (TIA), and cerebral infarction without residual deficits; Z79.02 Long term (current) use of antithrombotics/antiplatelets; Z79.51 Long term (current) use of inhaled steroids; Z79.899 Other long term (current) drug therapy; F17.210 Nicotine dependence, cigarettes, uncomplicated; Z82.49 Family history of ischemic heart disease and other diseases of the circulatory system
CPT/HCPCS: 36415; 70496; 70498; 71045; 80048; 80053; 81001; 82607; 84484; 85025; 85055; 85610; 85730; 93005; 93970; 94640; 99285; A9270; G0378; Q9967

== ENCOUNTER 2023-09-22 10:53 | Outpatient (CLI) | payer MEDICARE, SELFPAY ==
--- NOTE | ~2023-09-22 | CT_ITS ---
CT Scan of the Chest without Contrast: Clinical Indication: Lung cancer screening, nicotine dependence Technique: Contiguous sections were acquired throughout the chest without intravenous contrast. Dose reduction technique was used on this scan by utilizing automated exposure control and iterative recon struction technique. The dose-length product (DLP) was 62.28 mGy-cm. COMPARISON: 09/18/2022 Findings: There is no evidence of any significant mediastinal, hilar or axillary lymphadenopathy. There are ext ensive atherosclerotic calcifications of the aorta and coronary arteries. There is no evidence of pleural or pericardial effusion. The lungs are clear. No pulmonary nodules or infiltrates are noted. Mild emphysema present. Images through the upper abdomen reveal pancreatic calcifications, consistent with chronic pancreatit is.. Impression: Lung RADS 1: Negative. 12 month follow-up screening CT advised. Mild emphysema. Reviewed, dictated and finalized at [facility]. Impression: Lung RADS 1: Negative. 12 month follow-up screening CT advised. Mild emphysema.
== END 2023-09-22 10:54 | disposition home or self-care (01) ==
LOC: ANHIMG 10:56
PROVIDERS: PCP Family Medicine; Visit Provider Internal Medicine Pulmonary Disease
DX: Z12.2 Encounter for screening for malignant neoplasm of respiratory organs (principal); J43.9 Emphysema, unspecified; Z87.891 Personal history of nicotine dependence
CPT/HCPCS: 71271

== ENCOUNTER 2023-10-18 08:33 | Outpatient (CLI) | payer MEDICARE, SELFPAY ==
--- NOTE | ~2023-10-18 | XR_ITS ---
EXAMINATION: XR chest 2V DATE: 10/18/2023 08:45 INDICATION: Cough, unspecified. TECHNIQUE: Frontal and lateral views of the chest were obtained. COMPARISON: Chest single view 05/14/2023, chest CT 09/22/2023 FINDINGS: The lungs are hyperexpanded, consistent with emphysema. No pleural effusion or pneumothorax . The heart size is normal. Median sternotomy wires and mediastinal surgical clips are seen, likely f rom prior coronary artery bypass grafting. Breast implants are noted. There is a right-sided ventricu loatrial shunt with surrounding calcifications. IMPRESSION: 1. Emphysema. Reviewed, dictated and finalized at location A. IMPRESSION: 1. Emphysema.
[2023-10-18 09:40] LABS: Hemoglobin A1C 5.9 % (<5.7)
[2023-10-18 09:42] LABS: Cholesterol 158 mg/dL (0-200); HDL Direct 55 mg/dL; Triglycerides 106 mg/dL (<150)
[2023-10-18 09:54] LABS: LDL Cholesterol Direct 79 mg/dL
== END 2023-10-18 08:34 | disposition home or self-care (01) ==
LOC: ANHIMG 08:37
PROVIDERS: PCP Family Medicine; Visit Provider Family Medicine
DX: J43.9 Emphysema, unspecified (principal); E78.5 Hyperlipidemia, unspecified; I10 Essential (primary) hypertension; R73.03 Prediabetes; Z79.899 Other long term (current) drug therapy; R05.9 Cough, unspecified
CPT/HCPCS: 36415; 71046; 80061; 83036; 84443

== ENCOUNTER 2024-01-02 12:35 | Outpatient (CLI) | payer MEDICARE, SELFPAY ==
[2024-01-02 13:15] LABS: Alveolar/Arterial O2 Gradient 43.6 mmHg; Base Excess ABG 0.5 mEq/l (+/-2.0); Carboxyhemoglobin 8.6 % THb (0-2.0); Fractional Inspired Oxygen 21 %; HCO3 ABG 23.3 mEq/l (22.0-26.0); Methemoglobin ABG 0.3 %THb (0-1.5); Oxygen Content ABG 16.5 %vol (16.0-22.0); Oxygen Saturation ABG 94.8 % (95.0-100.0); PCO2 ABG 32.2 mmHg (35.0-45.0); PO2 ABG 67.6 mmHg (80.0-100.0); PO2 FiO2 Ratio Arterial Blood 3.22 %; Reduced Hemoglobin 5.4 %THb (0-5.0); Total Hemoglobin 13.7 g/dL (12.0-18.0); pH ABG 7.478 (7.350-7.450)
[2024-01-02 13:21] LABS: Oxyhemoglobin 85.7 % THb (90.0-100.0)
[2024-01-02 13:22] LABS: Device ROOM AIR; Modified Allen's Test Pass; Site Drawn RIGHT RADIAL
--- NOTE | 2024-01-02 15:08 | WPDSIXMINUTE ---
Six Minute Walk Procedure Procedure Performed Pulmonary Stress Test (6 min walk) Six Minute Walk Six Minute Walk: This is a 6 minute walk test. The test was performed and interpreted in accordance with the 2014 ERS/ATS task force guidelines. Of note, patient had leg weakness and pain at the end of the study. Findings: The patient's resting room air oxygen saturation measured by pulse oximetry was 97% and heart rate was 65 bpm. Patient ambulated for 213 meters and oxygen saturation remained 94%. Heart rate at the end of the study was 80 bpm. The patient did not qualify for supplemental oxygen at rest or with ambulation. There are no prior studies for comparison.
--- NOTE | 2024-01-02 15:09 | WPDPFTINT ---
PFT Procedure Performed PFT Procedure Performed Spirometry with Pre/Post Bronchodilator Plethysmography (Lung Vol) Diffusing Cap (DLCO) Flow Vol Loop PFT Interpretation This is a pulmonary function test with pre and post-bronchodilator spirometry, plethysmography, diffusing capacity and rest room air arterial blood gas. The test was performed and results interpreted in accordance with the 2019 and 2005 ATS/ERS Task Force guidelines respectively using the Global Lung Function Initiative-2012 reference equations. Patient demonstrated good effort and cooperation. Reproducibility criteria were met. The quality of the pre bronchodilator spirometry maneuver was Grade A and post bronchodilator spirometry maneuver was Grade B. Findings: Spirometry: There is decreased maximal expiratory airflow at all lung volumes with concave expiratory flow tracing. The contour the inspiratory flow tracing is normal. The pre bronchodilator FVC is 2.61 L, 81% predicted. The pre bronchodilator FEV1 is 1.16 L, 46% predicted. The pre bronchodilator FEV1: FVC ratio is 44%. The post bronchodilator FVC is 2.60 L, representing no change. The post bronchodilator FEV1 is 1.21 L, representing a 5% increase. The post bronchodilator FEV1: FVC ratio is 46%. Plethysmography: The total lung capacity is 6.56 L, 122% predicted. The functional residual capacity is 4.30 L, 140% predicted. The residual volume is 3.95 L, 178% predicted. the residual volume: Total lung capacity ratio 60%. Diffusing capacity: The diffusing capacity unadjusted for hemoglobin and carboxyhemoglobin is 6.0, 27% predicted. The diffusing capacity adjusted for alveolar volume is 1.62, 38% predicted. Rest room air arterial blood gas: pH 7.48, PaCO2 32, PaO2 68, oxygen saturation 95%. Carboxyhemoglobin 8.6%, Oxyhemoglobin 86% In comparison to previous pulmonary function testing performed on 01/10/2022 the post bronchodilator FVC is unchanged from 3.05 L to 2.60 L. The post bronchodilator FEV1 is decreased from 1.69 L to 1.21 L. The total lung capacity is unchanged from 6.68 L to 6.56 L. The functional residual capacity is unchanged from 4.13 L to 4.30 L. The residual volume is unchanged from 3.72 L to 3.95 L. The diffusing capacity unadjusted for hemoglobin and carboxyhemoglobin is decreased from 9.3 to 6.0. The diffusing capacity adjusted for alveolar volume has decreased from 2.30 to 1.62 Impression: There is a severe obstructive abnormality. There is no significant improvement after inhaling a single dose of albuterol. The increase in residual volume to total lung volume ratio is consistent with hyperinflation from an obstructive abnormality. The diffusing capacity unadjusted for hemoglobin and carboxyhemoglobin is severely decreased and remains severely decreased when adjusted for alveolar volume. rest room air arterial blood gas demonstrates an uncompensated respiratory alkalosis with PaO2 below the lower limit of normal but not low enough to qualify for supplemental oxygen. In comparison to prior pulmonary function testing on 01/02/2024 there has been a greater than anticipated time dependent decrease in the FEV1 and diffusing capacity with no significant change in the FVC, total lung capacity, functional residual capacity or residual volume. Clinical correlation is recommended.
== END 2024-01-02 12:36 | disposition home or self-care (01) ==
LOC: ANHPFT 12:38
PROVIDERS: PCP Family Medicine; Visit Provider Internal Medicine Pulmonary Disease
DX: J44.9 Chronic obstructive pulmonary disease, unspecified (principal); R94.2 Abnormal results of pulmonary function studies
CPT/HCPCS: 36600; 82375; 82805; 83050; 94060; 94618; 94726; 94729

== ENCOUNTER 2024-05-03 10:43 | Observation (INO) | payer MEDICARE, SELFPAY ==
[2024-05-03] VITALS (24 sets, daily range): BP systolic 146–189; BP diastolic 84–123; PULSE 60–87; RESP 16–23; TEMP 35.7–36.9; O2SAT 93–100
--- NOTE | ~2024-05-03 | CT_ITS ---
CTA chest abdomen pelvis Ordering provider: Mark Campbell MD History: . chest/back pain. Significant vascular hx . Comparison: July 24, 2023 Technique: CT angiogram chest, abdomen and pelvis was performed following timed intravenous injection of contrast. Thin slice axial images and reformatted coronal images were obtained. Three dimensional reformatted images of the chest were also obtained using a [employer] workstation. Radiation reduction t echnique utilized.The dose-length product was 264.33 mGy-cm. 100 mL Omnipaque 350 was given IV. FINDINGS: CHEST: --THORACIC AORTA: Mild atheromatous disease. No aneurysm, dissection or mediastinal hematoma. Postoperative changes in the mediastinum. --GREAT VESSELS: Atherosclerotic changes. --PULMONARY ARTERIES: No pulmonary embolus. --VISUALIZED THORACIC INLET: Normal. --MEDIASTINUM: Coronary arteries: Mild atheromatous disease. Heart/other: The heart is not enlarged. Lymph nodes: No mediastinal or hilar adenopathy. Dilated esophagus with fluid suggestive of reflux esophagitis. --LUNGS: No pulmonary nodules or masses. No infiltrates or effusions. No pneumothorax. Emphysematous changes. --MUSCULOSKELETAL: Superficial soft tissues: Soft tissue density most likely a hematoma is seen in the left inguinal are a measuring 5.5 x 5 cm. No extravasation seen at this time. Patent Bifem shunt is seen. The superficial soft tissues are normal. Bilateral breast implants. Bones: Age appropriate degenerative changes of the spine. ABDOMEN/PELVIS: --MUSCULOSKELETAL: Bones: Age appropriate degenerative changes of the spine. Superficial soft tissues: The superficial soft tissues are normal. --UPPER ABDOMINAL ORGANS: Liver: Normal. Gallbladder: Not well demonstrated most likely contracted. Spleen: Normal. Stomach/duodenum: Slightly thickened wall. Evaluation for gastritis advised. Pancreas: Slightly prominent pancreatic duct. Possible stone or recent in the proximal duct is noted Adrenals: Normal. Kidneys: Thin cortex is seen in the upper pole of the left kidney compared to the lower pole which ma y be vascular or inflammatory.. --PELVIC ORGANS: The bladder is normal. No bladder stones. --BOWEL AND MESENTERY: Colon: No evidence of diverticulitis. Fecal material is loaded in the colon suggestive of constipatio n.. Appendix is not demonstrated. Small Bowel: Normal. No obstruction. Peritoneum/mesentery: No free air or free fluid. No mesenteric lymphadenopathy. --RETROPERITONEUM: No retroperitoneal lymphadenopathy. --ARTERIES: ABDOMINAL AORTA: Mild atheromatous disease. No aneurysm or dissection. [Dilatation in the inferior aorta which measures 2.3 x 2.4 cm is noted. RENAL ARTERIES: Atherosclerotic changes. CELIAC AXIS: Atherosclerotic changes. SMA: Atherosclerotic changes at the origin SELINA: Atherosclerotic changes. ILIAC AND VISUALIZED FEMORAL ARTERIES: Bilateral Occlusion with a shunt seen extending to the left femoral artery. Slight dilatation of the proximal left femur Measuring 1.8 cm. MESENTERIC ARTERIES: Normal. IMPRESSION: CHEST: 1. No evidence of aneurysm or dissection. 2. No acute cardiopulmonary pathology. 3. Dilated esophagus with fluid content suggestive of reflux. ABDOMEN/PELVIS: 1. No evidence of appendicitis, diverticulitis or intestinal obstruction. 2. Constipation. 3. Thin cortex seen in the left kidney upper pole suggestive of vascular versus infectious process. 4. 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 Bifemoral shunt is also noted. 5. Slight dilatation of the proximal left femur with thrombosed pseudoaneurysm or hematoma seen in t he area of the left common femoral artery measuring 5 x 5.5 cm.. Reviewed, dictated and finalized at location A. PRESS OPERATOR IMPRESSION: CHEST: 1. No evidence of aneurysm or dissection. 2. No acute cardiopulmonary pathology. 3. Dilated esophagus with fluid content suggestive of reflux. ABDOMEN/PELVIS: 1. No evidence of appendicitis, diverticulitis or intestinal obstruction. 2. Constipation. 3. Thin cortex seen in the left kidney upper pole suggestive of vascular versu s infectious process. 4. 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 B ifemoral shunt is also noted. 5. Slight dilatation of the proximal left femur with thrombosed pseudoaneurysm or hematoma seen in the area of the left common femoral artery measuring 5 x 5 .5 cm..
--- NOTE | ~2024-05-03 | XR_ITS ---
XR chest 2V Ordering provider: Manuel Beavers MD History: 68 years Female with . chest pain . Comparison: October 18, 2023 FINDINGS: A right central line with possible kinking. Oblique view for clarification advised. MEDIASTINUM: The cardiac silhouette is not enlarged. Postoperative changes in the mediastinum. LUNGS: No infiltrates, effusions or pneumothorax. Emphysematous changes of the lungs. OTHER: No free air under the diaphragm. Degenerative changes of the spine. IMPRESSION: No acute cardiopulmonary pathology. Reviewed, dictated and finalized at location A. DING MACHINE TENDER
--- NOTE | 2024-05-03 10:44 | ECG_ITS ---
Test Date: 2024-05-03 10:56:33 Measurements Intervals [place] Rate: 80 P: 85 MS: 141 QRS: 48 QRSD: 106 T: 169 QT: 405 QTc: 468 Interpretive Statements SINUS RHYTHM WITH OCCASIONAL VENTRICULAR PREMATURE COMPLEXES POSSIBLE LEFT ATRIAL ENLARGEMENT [-0.1mV P WAVE IN V1/V2] ST DEVIATION AND MODERATE T-WAVE ABNORMALITY, CONSIDER LATERAL ISCHEMIA [-0.1+ mV T WAVE IN I/aVL/V5/V6] ST DEVIATION AND MODERATE T-WAVE ABNORMALITY, CONSIDER INFERIOR ISCHEMIA [-0.1+ mV T WAVE IN II/aVF] No previous ECG available for comparison Electronically Signed On 05-03-2024 12:57:02 GRADUATE NURSE by Jameson Kohler M.D.
[2024-05-03 11:13] LABS: Basophils Absolute Auto 0.1 K/mm3 (0.0-0.1); Eosinophils Absolute Auto 0.1 K/mm3 (0-0.3); Eosinophils Percent Auto 2.9 % (0-4.4); Hemoglobin 13.7 g/dL (12.0-15.0); Immature Granulocyte Absolute 0.01 K/mm3 (0.00-0.031); Immature Granulocyte Percent A 0.2 % (0-0.5); Immature Platelet Fraction Pct 3.2 % (0.9-11.2); Lymphocytes Absolute Auto 1.12 K/mm3 (0.9-3.2); Lymphocytes Percent Auto 23.4 % (18.3-44.2); Mean Corpuscular HGB Conc 34.3 g/dl (32-36); Mean Corpuscular Hemoglobin 36.1 pg (26-34); Mean Corpuscular Volume 105.5 fl (80-100); Mean Platelet Volume 9.5 fl (7.4-10.4); Monocytes Absolute Auto 0.5 K/mm3 (0.1-0.6); Monocytes Percent Auto 11.1 % (2.6-8.5); Neutrophils Absolute Auto 2.9 K/mm3 (1.3-6.7); Neutrophils Percent Auto 61.4 % (45.5-73.1); Platelet Count Result 128 k/mm3 (150-375); Red Blood Count 3.79 M/mm3 (4.2-5.4); Red Cell Distribution Width 13.8 % (11.5-14.5); White Blood Count 4.8 K/mm3 (4.5-10.0)
[2024-05-03 11:23] LABS: Alanine Aminotransferase 12 U/L (6-35); Albumin Level 4.6 g/dL (3.5-5.1); Alkaline Phosphatase 108 U/L (38-126); Anion Gap 7 mmol/L (4-12); Aspartate Amino Transferase 31 U/L (14-36); Bilirubin,Total 0.6 mg/dL (0.2-1.3); Blood Urea Nitrogen 21 mg/dL (7-17); Calcium 9.7 mg/dL (8.4-10.2); Carbon Dioxide 30 mmol/L (22-30); Chloride 103 mmol/L (98-107); Estimated CRCL calculation 29 ml/min; Estimated Glomerular Filt Rate 45; Glucose 122 mg/dL (65-110); Lipase 193 U/L (23-300); Partial Thromboplastin Time 28.5 Seconds (22.3-36.8); Potassium 3.5 mmol/L (3.4-5.0); Prothrombin Time 13.4 Seconds (11.1-14.7); Sodium 140 mmol/L (137-145)
[2024-05-03 11:33] LABS: Troponin I < 0.012 ng/mL (0.000-0.034)
--- NOTE | 2024-05-03 12:34 | ED.CHESTPAIN ---
HPI - Chest Pain General Chief Complaint: Chest Pain Stated Complaint: CP Time Seen by Provider: 05/03/24 12:00 History of Present Illness HPI narrative: 68-year-old female with significant past medical history including COPD, CABG history, aortic valve replacement, peripheral arterial disease with multiple stents and vascular surgical interventions. patient presents to the emergency department today with sudden onset chest discomfort radiating towards her back as well as towards her neck. She describes a choking sensation with the pain going towards the top of her chest into the neck. She states that she was not doing anything particularly strenuous and was sitting at her dining room table when the pain was sudden in onset. She describes difficulty catching her breath but no difficulty swallowing. Endorses nausea and vomiting since this morning and pain got progressively more intense prompting her to seek evaluation. She states that she does have COPD and recently had decreased pulmonary function testing by her boiler operator helper but does not feel like this is related. Denies any headache, vision changes, abdominal pain, diarrhea, constipation, weakness, fatigue. Related Data Home Medications Medication Instructions Recorded Confirmed clopidogrel 75 mg tablet 75 mg PO DAILY 12/26/20 03/22/24 carvedilol 12.5 mg tablet 12.5 mg PO BID 12/24/21 03/22/24 rosuvastatin 40 mg tablet 40 mg PO DAILY 12/24/21 03/22/24 empagliflozin 10 mg tablet 10 mg PO DAILY 05/14/23 03/22/24 (Jardiance) sacubitril 49 mg-valsartan 51 mg 1 tablet PO BID 05/14/23 03/22/24 tablet (Entresto) benzonatate 100 mg capsule 100 mg PO BID PRN 03/22/24 03/22/24 Allergies Allergy/AdvReac Type Severity Reaction Status Date / Time Penicillins Allergy Severe SOB Verified 05/03/24 12:14 prednisone Allergy Severe Dyspnea / Verified 05/03/24 12:14 SOB adhesive tape Allergy Intermediate blisters Verified 05/03/24 12:14 latex Allergy Intermediate BLISTERS Verified 05/03/24 12:14 mushroom Allergy Mild Hives Verified 05/03/24 12:14 warfarin Allergy Unknown HEMMRHAGE Verified 05/03/24 12:14 ibuprofen AdvReac Intermediate SHAKY Verified 05/03/24 12:14 NSAIDS (Non-Steroidal AdvReac Intermediate Unknown Verified 05/03/24 12:14 Anti-Inflamma Review of Systems Review of Systems: as reviewed above in [facility] Past Medical History Medical History Cerebral aneurysm Cerebrovascular accident (CVA) Chronic obstructive pulmonary disease (COPD) Coronary artery disease Depression Dyslipidemia Essential (primary) hypertension Hydrocephalus Lumbar spondylosis Osteopenia Overactive bladder Peripheral vascular disease Right renal artery stenosis Tobacco dependence Vitamin D deficiency Surgical History Surgical History Bioprosthetic aortic valve replacement during current hospitalization Femoral-femoral bypass graft thrombosis, left (06/1997) History of aortic valve replacement 1994 and 1997 History of aorto-femoral bypass (08/2017) History of appendectomy History of cerebral aneurysm repair (10/2016) History of coronary artery bypass graft (1994) History of coronary artery stent placement History of hysterectomy 1980s History of ventriculoperitoneal shunting (2016) Family History Family History Mother Diabetes mellitus CAD (coronary artery disease) Family history of coronary artery disease Sibling CAD (coronary artery disease) Sibling Diabetes mellitus Sibling Cerebrovascular accident Son Alcoholism in family Social History Social History Social History: Surrogate medical decision maker: Saeid Keita, spouse. Code status: Full code. Smoking packs per day: 0.5 Smoking cigarettes per day: 10.0 Years smoked: 50 Smoking pack-years: 25.00 Smoking status: Current every day smoker Tobacco type: cigarettes Second hand tobacco smoke exposure: Yes Smoking end date: 05/26/16 Additional smoking assessment comments: CURRENTLY SMOKES 2-3 A DAY DEPENDING ON HOW DEPRESSED SHE IS Alcohol intake: never Substance use: never Substance use type: does not use Do You Feel Safe in your Home?: Yes Lack of Transportation: YES Lack of Food: Never True Current Housing: I Have Housing Concerned About Future Housing: No Difficulty Paying Gas/Electric Bills: No Difficulty Paying for Meds: YES Currently Unemployed: No Education: Decline to Answer Difficulty w/ Childcare or Family Care: YES Living arrangements: with family Occupation/Education: retired Spiritual care concerns: No Exam Narrative: GENERAL: thin and frail but overall not any acute distress, answers questions appropriately HEAD: [Normocephalic, atraumatic.] EYES: [PERRLA and EOMI.] ENT: Nares clear, no rhinorrhea or epistaxis. Mucous membranes moist. NECK: Supple. CHEST: Very coarse breath sounds bilaterally, no respiratory distress or accessory muscle use HEART: [Regular rate and rhythm]. No murmur heard. [Normal peripheral pulses.] ABDOMEN: soft nondistended, nontender abdomen, no signs of peritonitis. Large superficial masses in the inguinal regions they are nontender, patient states that they are from previous vascular interventions and bypass surgery, no palpable thrill or any overlying skin changes noted EXTREMITIES: Normal range of motion. [No edema.] SKIN: Warm, dry, no rash. NEURO: [No focal deficits]. Alert and oriented [x3.] PSYCH: [Normal mood and affect.] Course Vital Signs Vital signs: Vital Signs Temperature 36.1 C L 05/03/24 10:45 Pulse Rate 84 05/03/24 10:45 Respiratory Rate 20 05/03/24 10:45 Blood Pressure 189/123 H 05/03/24 10:45 Pulse Oximetry 96 05/03/24 10:45 Oxygen Delivery Room Air 05/03/24 10:45 Temperature 36.9 C 05/03/24 12:58 Pulse Rate 78 05/03/24 13:07 Respiratory Rate 20 05/03/24 12:58 Blood Pressure 181/99 H 05/03/24 12:58 Pulse Oximetry 96 05/03/24 12:58 Oxygen Delivery Room Air 05/03/24 12:15 MDM - Chest Pain MDM Narrative Medical decision making narrative: 68-year-old female with extensive medical history including COPD, CABG history, aortic valve replacement, peripheral arterial disease with multiple vascular interventions including bypass grafting. patient presents today with sudden onset chest pain radiating towards her neck and back. Patient was at her dining room table when this happened Spontaneously, not associated with any exertion. She describes shortness of breath associated with pain. She is noted to be markedly hypertensive with a blood pressure 189/123. Patient did take her many medications. She is not any acute distress but does have a thin and frail appearance. is able speak in full sentences. Has very coarse breath sounds bilaterally, no signs of peripheral edema. differential is broad includes ACS, acute aortic syndrome, pulmonary embolism, pneumonia, pneumothorax, bronchitis. Given patient's significant vascular history and risk factors a CT angiography of her chest abdomen pelvis was ordered additional cardiac workup with serial troponins, chest x-ray, EKG and basic laboratory assessment. She was given morphine for analgesia and reassess frequently. workup revealed no leukocytosis, anemia or any platelets lower than her baseline. She normally is somewhat thrombocytopenic. Electrolyte panel within normal limits, BUN and creatinine mildly elevated but in line with normal CKD. Glucose 122. LFTs within normal limits. BNP elevated 4004 and 70, initial troponin negative, 2nd troponin with a slight deltoid 0.017. Patient was re-evaluated still having some ongoing chest discomfort. Her CT angiography was independently reviewed and I do appreciate a fluid-filled dilated esophagus consistent esophagitis versus reflux. she is provided Maalox Pepcid for this. Her CT angiography showed no aneurysms or dissections in the chest, no acute cardiopulmonary process, reflux and fluid-filled esophagus. The abdomen pelvis shows no evidence of appendicitis, diverticulitis or intestinal obstruction. Constipation is seen. 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 By femoral shunt noted. the femoral artery on the left side does have an area of dilatation and pseudoaneurysm that is thrombosed. This is known to the patient and she was told that was previously that is was too dangerous to intervene upon by her merchandise marker Dr. Gold. She has no complaints at the time in this area. patient states that she is already well aware of the vasculature issues in her left femoral area and aware that no operations are planned per her regular doctor. patient was re-evaluated and still having some ongoing chest discomfort albeit improved. At this time given her elevated heart score ongoing chest discomfort would be beneficial to admit the patient for an observation. I discussed the case with the mid-level provider Maribell who is currently covering the hospitalist team. She reviewed the case and after we went over the imaging studies, assessment and plan of care going forward she was accepted to the step-down unit for cardiac observation. admit orders were placed as well as p.r.n. medications. Medical Records Data Attestation: I reviewed the patient's medical records. Lab Data Attestation: I reviewed the patient's lab results. 05/03/24 11:00 05/03/24 11:00 Labs: Lab Results 05/03/24 05/03/24 Range/Units 11:00 13:40 WBC 4.8 (4.5-10.0) K/mm3 RBC 3.79 L (4.2-5.4) M/mm3 Hgb 13.7 (12.0-15.0) g/dL Hct 40.0 (37.0-47.0) % MCV 105.5 H (80-100) fl MCH 36.1 H (26-34) pg MCHC 34.3 (32-36) g/dl RDW 13.8 (11.5-14.5) % Plt Count 128 L (150-375) k/mm3 MPV 9.5 (7.4-10.4) fl Immature Gran % (Auto) 0.2 (0-0.5) % Neut % (Auto) 61.4 (45.5-73.1) % Lymph % (Auto) 23.4 (18.3-44.2) % [place] % (Auto) 11.1 H (2.6-8.5) % Eos % (Auto) 2.9 (0-4.4) % Baso % (Auto) 1.0 (0.2-1.2) % Lymph # (Auto) 1.12 (0.9-3.2) K/mm3 [place] # (Auto) 0.5 (0.1-0.6) K/mm3 Eos # (Auto) 0.1 (0-0.3) K/mm3 Baso # (Auto) 0.1 (0.0-0.1) K/mm3 Abs Immat Gran (auto) 0.01 (0.00-0.031) K/mm3 Absolute Neuts (auto) 2.9 (1.3-6.7) K/mm3 Absolute Nucleated RBC 0.000 (0.0-0.012) K/mm3 Nucleated RBC % 0.0 (0.0-0.2) % % Immature Plt Fraction 3.2 (0.9-11.2) % PT 13.4 (11.1-14.7) Seconds INR 1.0 APTT 28.5 (22.3-36.8) Seconds Sodium 140 (137-145) mmol/L Potassium 3.5 (3.4-5.0) mmol/L Chloride 103 (98-107) mmol/L Carbon Dioxide 30 (22-30) mmol/L Anion Gap 7 (4-12) mmol/L BUN 21 H (7-17) mg/dL Creatinine 1.20 H (0.7-1.0) mg/dL Estim Creat Clear Calc 29 ml/min Estimated GFR 45 L (59 - ) Glucose 122 H (65-110) mg/dL Calcium 9.7 (8.4-10.2) mg/dL Total Bilirubin 0.6 (0.2-1.3) mg/dL AST 31 (14-36) U/L ALT 12 (6-35) U/L Alkaline Phosphatase 108 (38-126) U/L Troponin I < 0.012 Pending (0.000-0.034) ng/mL NT-Pro-B Natriuret Pep 4470 H (19.9-100) pg/mL Total Protein 8.0 (6.3-8.2) g/dL Albumin 4.6 (3.5-5.1) g/dL Lipase 193 (23-300) U/L Imaging Data Attestation: I personally reviewed and interpreted this imaging study as follows: My impression: Impressions Chest X-Ray 05/03/24 11:21 IMPRESSION: No acute cardiopulmonary pathology. Chest/Abdomen/Pelvis CTA 05/03/24 12:36 IMPRESSION: CHEST: 1. No evidence of aneurysm or dissection. 2. No acute cardiopulmonary pathology. 3. Dilated esophagus with fluid content suggestive of reflux. ABDOMEN/PELVIS: 1. No evidence of appendicitis, diverticulitis or intestinal obstruction. 2. Constipation. 3. Thin cortex seen in the left kidney upper pole suggestive of vascular versus infectious process. 4. 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 Bifemoral shunt is also noted. 5. Slight dilatation of the proximal left femur with thrombosed pseudoaneurysm or hematoma seen in the area of the left common femoral artery measuring 5 x 5.5 cm.. Discharge Plan Discharge Clinical Impression: Chest pain, PAD (peripheral artery disease), COPD (chronic obstructive pulmonary disease), Esophagitis Patient Disposition: Still a Patient Condition: Stable Prescriptions: No Action clopidogrel 75 mg tablet 75 mg PO DAILY carvedilol 12.5 mg tablet 12.5 mg PO BID rosuvastatin 40 mg tablet 40 mg PO DAILY benzonatate 100 mg capsule 100 mg PO BID PRN albuterol sulfate 90 mcg/actuation HFA aerosol inhaler 2 inh inhalation Q4-6H PRN (Reason: SOB) Qty: 8.5 6RF ipratropium-albuterol 0.5 mg-3 mg(2.5 mg base)/3 mL solution for nebulization 3 ml inhalation Q4H PRN (Reason: shortness of breath or wheezing) Qty: 180 6RF guaifenesin 600 mg tablet extended release 12hr 1,200 mg PO BID Qty: 120 3RF umeclidinium-vilanterol 62.5-25 mcg/actuation blister with device 1 inh inhalation DAILY Qty: 60 6RF doxycycline monohydrate 100 mg capsule 100 mg PO BID Qty: 20 0RF Jardiance 10 mg tablet 10 mg PO DAILY Entresto 49-51 mg tablet 1 tablet PO BID aspirin 81 mg tablet,delayed release (DR/EC) 81 mg PO QAM Qty: 90 1RF pantoprazole 40 mg tablet,delayed release (DR/EC) 40 mg PO QAM Qty: 90 1RF amlodipine 10 mg tablet 10 mg PO DAILY Qty: 90 1RF hydrochlorothiazide 12.5 mg tablet 12.5 mg PO DAILY PRN (Reason: edema) Qty: 90 1RF tramadol 50 mg tablet 50 mg PO QHS PRN (Reason: pain) Qty: 90 1RF Follow-up/Referrals: Jean Miguel MD [Primary Care Provider] - Time of Disposition: 14:17 Quality HEART score for chest pain patients History: slightly suspicious ECG: non specific repolarization disturbance/LBTB/PM Age: > or = to 65 years Risk factors: > or = to 3 risk factors of atherosclerotic disease Troponin: < or = to 1x normal limit Heart score: 5
[2024-05-03 12:42] LABS: NT Pro B Type Natriuretic Pept 4470 pg/mL (19.9-100)
[2024-05-03] MEDS: MORPHINE SULFATE (*CRX) 4 MG/ML INJ IV PUSH (12:52)
--- NOTE | 2024-05-03 13:46 | ECG_ITS ---
Test Date: 2024-05-03 13:52:08 Measurements Intervals [facility] Rate: 66 P: 71 AR: 149 QRS: 60 QRSD: 105 T: 130 QT: 425 QTc: 446 Interpretive Statements SINUS RHYTHM POSSIBLE LEFT ATRIAL ENLARGEMENT [-0.1mV P WAVE IN V1/V2] ST DEVIATION AND MODERATE T-WAVE ABNORMALITY, CONSIDER LATERAL ISCHEMIA [-0.1+ mV T WAVE IN I/aVL/V5/V6] Compared to ECG 05/03/2024 10:56:33 Ventricular premature complex(es) no longer present T-wave abnormality still present Possible ischemia still present Electronically Signed On 05-03-2024 15:17:17 SEED CLEANER OPERATOR by Jameson Kohler M.D.
[2024-05-03 14:06] LABS: Troponin I 0.017 ng/mL (0.000-0.034)
[2024-05-03] MEDS: FAMOTIDINE 20 MG/2 ML VIAL IV PUSH ×2 (14:07→21:30)
[2024-05-03] MEDS: MAG HYDROX/AL HYDROX/SIMETH 30 ML UDC PO (14:07)
--- NOTE | 2024-05-03 14:44 | P.HP_ITS ---
H&P: HPI History of Present Illness Date/Time: 05/03/24 14:44 Chief Complaint: Chest Pain Narrative: Patient is a 68-year-old female who who presented to the emergency department with complaints of chest pain that had a sudden onset prior to arrival radiating towards her back to return back. Patient with an extensive cardiac history to include CABG, aortic valve replacement, and COPD. Patient denied any shortness of breath but endorsed nausea, vomiting radiating chest pain however denied any visual changes, dizziness, abdominal pain however weakness fever or chills. Review of Systems Review of Systems: All systems reviewed & are unremarkable except as noted in HPI and below PMFSH Past Medical History Medical History Cerebral aneurysm Cerebrovascular accident (CVA) Chronic obstructive pulmonary disease (COPD) Coronary artery disease Depression Dyslipidemia Essential (primary) hypertension Hydrocephalus Lumbar spondylosis Osteopenia Overactive bladder Peripheral vascular disease Right renal artery stenosis Tobacco dependence Vitamin D deficiency Surgical History Surgical History Bioprosthetic aortic valve replacement during current hospitalization Femoral-femoral bypass graft thrombosis, left (06/1997) History of aortic valve replacement 1994 and 1997 History of aorto-femoral bypass (08/2017) History of appendectomy History of cerebral aneurysm repair (10/2016) History of coronary artery bypass graft (1994) History of coronary artery stent placement History of hysterectomy 1980s History of ventriculoperitoneal shunting (2016) Family History Family History Mother Diabetes mellitus CAD (coronary artery disease) Family history of coronary artery disease Sibling CAD (coronary artery disease) Sibling Diabetes mellitus Sibling Cerebrovascular accident Son Alcoholism in family Social History Social History Social History: Surrogate medical decision maker: Saeid Keita, spouse. Code status: Full code. Smoking packs per day: 0.5 Smoking cigarettes per day: 10.0 Years smoked: 50 Smoking pack-years: 25.00 Smoking status: Current every day smoker Tobacco type: cigarettes Second hand tobacco smoke exposure: Yes Smoking end date: 05/26/16 Additional smoking assessment comments: CURRENTLY SMOKES 2-3 A DAY DEPENDING ON HOW DEPRESSED SHE IS Alcohol intake: never Substance use: never Substance use type: does not use Do You Feel Safe in your Home?: Yes Lack of Transportation: YES Lack of Food: Never True Current Housing: I Have Housing Concerned About Future Housing: No Difficulty Paying Gas/Electric Bills: No Difficulty Paying for Meds: YES Currently Unemployed: No Education: Decline to Answer Difficulty w/ Childcare or Family Care: YES Living arrangements: with family Occupation/Education: retired Spiritual care concerns: No Meds Home Medications and Allergies Home Medications Medication Instructions Recorded Confirmed Type clopidogrel 75 mg tablet 75 mg PO DAILY 12/26/20 03/22/24 History carvedilol 12.5 mg tablet 12.5 mg PO BID 12/24/21 03/22/24 History rosuvastatin 40 mg tablet 40 mg PO DAILY 12/24/21 03/22/24 History aspirin 81 mg tablet,delayed 81 mg PO QAM #90 tabs 11/18/22 03/22/24 Rx release empagliflozin 10 mg tablet 10 mg PO DAILY 05/14/23 03/22/24 History (Jardiance) sacubitril 49 mg-valsartan 51 mg 1 tablet PO BID 05/14/23 03/22/24 History tablet (Entresto) doxycycline monohydrate 100 mg 100 mg PO BID #20 caps 11/24/23 03/22/24 Rx capsule pantoprazole 40 mg tablet,delayed 40 mg PO QAM #90 tabs 12/04/23 03/22/24 Rx release amlodipine 10 mg tablet 10 mg PO DAILY #90 tabs 12/16/23 03/22/24 Rx guaifenesin 600 mg tablet, 1,200 mg PO BID #120 tabs 12/25/23 03/22/24 Rx extended release 12 hr umeclidinium 62.5 mcg-vilanterol 1 inh inhalation DAILY #60 ea 12/26/23 03/22/24 Rx 25 mcg/actuation powdr for inhalation hydrochlorothiazide 12.5 mg tablet 12.5 mg PO DAILY PRN edema #90 tabs 03/09/24 03/22/24 Rx albuterol sulfate 90 mcg/actuation 2 inh inhalation Q4-6H PRN SOB 03/22/24 03/22/24 Rx aerosol inhaler #8.5 grams benzonatate 100 mg capsule 100 mg PO BID PRN 10/28/24 10/28/24 History ipratropium 0.5 mg-albuterol 3 mg 3 ml inhalation Q4H PRN shortness 03/22/24 03/22/24 Rx (2.5 mg base)/3 mL nebulization of breath or wheezing #180 mL soln tramadol 50 mg tablet 50 mg PO QHS PRN pain #90 tabs 03/22/24 Rx Allergies Allergy/AdvReac Type Severity Reaction Status Date / Time Penicillins Allergy Severe SOB Verified 05/03/24 12:14 prednisone Allergy Severe Dyspnea / Verified 05/03/24 12:14 SOB adhesive tape Allergy Intermediate blisters Verified 05/03/24 12:14 latex Allergy Intermediate BLISTERS Verified 05/03/24 12:14 mushroom Allergy Mild Hives Verified 05/03/24 12:14 warfarin Allergy Unknown HEMMRHAGE Verified 05/03/24 12:14 ibuprofen AdvReac Intermediate SHAKY Verified 05/03/24 12:14 NSAIDS (Non-Steroidal AdvReac Intermediate Unknown Verified 05/03/24 12:14 Anti-Inflamma Vital Signs Vital Signs - 24 hr 05/03/24 10:45 05/03/24 12:15 05/03/24 12:17 Temperature 97.0 F L 98.2 F Pulse Rate 84 86 Respiratory Rate 20 20 Blood Pressure 189/123 H 177/87 H Pulse Oximetry 96 97 97 Oxygen Delivery Room Air Room Air 05/03/24 12:58 05/03/24 13:07 05/03/24 14:13 Temperature 98.4 F 96.3 F L Pulse Rate 87 78 76 Respiratory Rate 20 22 H Blood Pressure 181/99 H 164/106 H Pulse Oximetry 96 96 Oxygen Delivery Exam Narrative: * GENERAL: Alert and oriented x 3. No acute distress. * EYES: EOMI. No scleral icterus. PERRLA. * HEENT: Moist mucous membranes. * LUNGS: Clear to auscultation bilaterally. No accessory muscle use. * CARDIOVASCULAR: Regular rate and rhythm. No murmur. No JVD. S1-S2 * ABDOMEN: Soft, non tenderness and non-distended. No palpable masses. * EXTREMITIES: No edema. Non-tender * SKIN: No rashes or lesions. Skin warm, dry. * NEUROLOGIC: No focal neurological deficits. CN II-XII grossly intact * PSYCHIATRIC: Appropriate mood and affect. Good judgement and insight. No visual or auditory hallucinations. No suicidal or homicidal ideation. H&P: Results Labs Labs: Short CBC 05/03/24 Range/Units 11:00 WBC 4.8 (4.5-10.0) K/mm3 Hgb 13.7 (12.0-15.0) g/dL Hct 40.0 (37.0-47.0) % Plt Count 128 L (150-375) k/mm3 BMP 05/03/24 11:00 Sodium 140 Potassium 3.5 Chloride 103 Carbon Dioxide 30 BUN 21 H Creatinine 1.20 H Glucose 122 H Calcium 9.7 Cardiac Enzymes 05/03/24 05/03/24 Range/Units 11:00 13:40 Troponin I < 0.012 0.017 D (0.000-0.034) ng/mL Liver Function 05/03/24 Range/Units 11:00 Total Bilirubin 0.6 (0.2-1.3) mg/dL AST 31 (14-36) U/L ALT 12 (6-35) U/L Alkaline Phosphatase 108 (38-126) U/L Albumin 4.6 (3.5-5.1) g/dL Assessment and Plan Assessment and plan (1) Chest pain: Code(s): R07.9 - Chest pain, unspecified Status: Acute (2) PAD (peripheral artery disease): Code(s): I73.9 - Peripheral vascular disease, unspecified Status: Acute (3) COPD (chronic obstructive pulmonary disease): Code(s): J44.9 - Chronic obstructive pulmonary disease, unspecified Status: Acute (4) Esophagitis: Code(s): K20.90 - Esophagitis, unspecified without bleeding Status: Acute (5) Hypertension: Code(s): I10 - Essential (primary) hypertension Status: Acute (6) Occlusion of iliac artery: Code(s): I74.5 - Embolism and thrombosis of iliac artery Status: Acute
--- NOTE | 2024-05-03 15:45 | PM.IMHP ---
H&P: HPI History of Present Illness Date/Time: 05/03/24 16:00 Chief Complaint: Chest pain. 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 The patient provides the following history. Shortly after waking from sleep at about 06:30 she developed a squeezing sensation throughout the upper chest up into the left side of the neck associated with mild shortness of breath, nausea, and chills. The squeezing sensation did radiates somewhat through to the back. She went to the kitchen and tried to take her medications however she was unable to get them down as she began vomiting. With further questioning she reports having occasional heartburn and more recently she has been having difficulties swallowing breads and meats, feeling as though it gets stuck sometimes. It sounds as though she has had this before and possible esophageal dilatation. She denies syncope, near syncope, exertional chest pain, cough, abdominal pain, bloating, belching, hematemesis, melena, hematochezia, diarrhea, edema, calf pain, orthopnea, and paroxysmal nocturnal dyspnea. Of note, the patient has steadily lost weight without trying but reports having quite a bit of stress caring for her with Parkinson's and dementia. In the ED: Blood pressures have been running in the 160s 170 systolic but again she was unable to take her blood pressure medications this morning. The remainder of her vital signs are stable. Labs were significant for WBC count of 4.8, hemoglobin 13.7, MCV 105.5, BUN 21, creatinine 1.20, glucose 122, troponin less than 0.012, proBNP 4470, total protein 8.0, albumin 4.6. CTA of the chest, abdomen, and pelvis showed dilated esophagus with fluid content suggestive of reflux and constipation and other chronic findings were noted. She was given famotidine, morphine, ondansetron, and a GI cocktail and she is being admitted in this setting for further observation and workup. Review of Systems Review of Systems: 12 systems were reviewed and are negative except for as per HPI. [facility] Past Medical History Medical History (Updated 05/03/24 @ 22:47 by Bita Barahona PA-C) Cerebral aneurysm Cerebrovascular accident (CVA) Chronic obstructive pulmonary disease (COPD) Combined systolic and diastolic cardiac dysfunction Coronary artery disease Depression Dyslipidemia Essential (primary) hypertension Hydrocephalus Lumbar spondylosis Osteopenia Overactive bladder Patent foramen ovale Peripheral vascular disease Right renal artery stenosis Tobacco dependence Vitamin D deficiency Surgical History Surgical History Bioprosthetic aortic valve replacement during current hospitalization Femoral-femoral bypass graft thrombosis, left (06/1997) History of aortic valve replacement 1994 and 1997 History of aorto-femoral bypass (08/2017) History of appendectomy History of cerebral aneurysm repair (10/2016) History of coronary artery bypass graft (1994) History of coronary artery stent placement History of hysterectomy 1980s History of ventriculoperitoneal shunting (2016) Family History Family History Mother Diabetes mellitus CAD (coronary artery disease) Family history of coronary artery disease Sibling CAD (coronary artery disease) Sibling Diabetes mellitus Sibling Cerebrovascular accident Son Alcoholism in family Social History Social History Social History: Surrogate medical decision maker: Saeid Keita, spouse. Code status: Full code. Smoking packs per day: 0.5 Smoking cigarettes per day: 10.0 Years smoked: 50 Smoking pack-years: 25.00 Smoking status: Current every day smoker Tobacco type: cigarettes Second hand tobacco smoke exposure: Yes Smoking end date: 05/26/16 Additional smoking assessment comments: CURRENTLY SMOKES 2-3 A DAY DEPENDING ON HOW DEPRESSED SHE IS Alcohol intake: never Substance use: never Substance use type: does not use Do You Feel Safe in your Home?: Yes Lack of Transportation: YES Lack of Food: Never True Current Housing: I Have Housing Concerned About Future Housing: No Difficulty Paying Gas/Electric Bills: No Difficulty Paying for Meds: YES Currently Unemployed: No Education: Decline to Answer Difficulty w/ Childcare or Family Care: YES Living arrangements: with family Occupation/Education: retired Spiritual care concerns: No Meds Home Medications and Allergies Home Medications Medication Instructions Recorded Confirmed Type clopidogrel 75 mg tablet 75 mg PO DAILY 12/26/20 03/22/24 History carvedilol 12.5 mg tablet 12.5 mg PO BID 12/24/21 03/22/24 History rosuvastatin 40 mg tablet 40 mg PO DAILY 12/24/21 03/22/24 History aspirin 81 mg tablet,delayed 81 mg PO QAM #90 tabs 11/18/22 03/22/24 Rx release empagliflozin 10 mg tablet 10 mg PO DAILY 05/14/23 03/22/24 History (Jardiance) sacubitril 49 mg-valsartan 51 mg 1 tablet PO BID 05/14/23 03/22/24 History tablet (Entresto) doxycycline monohydrate 100 mg 100 mg PO BID #20 caps 11/24/23 03/22/24 Rx capsule pantoprazole 40 mg tablet,delayed 40 mg PO QAM #90 tabs 12/04/23 03/22/24 Rx release amlodipine 10 mg tablet 10 mg PO DAILY #90 tabs 12/16/23 03/22/24 Rx guaifenesin 600 mg tablet, 1,200 mg PO BID #120 tabs 12/25/23 03/22/24 Rx extended release 12 hr umeclidinium 62.5 mcg-vilanterol 1 inh inhalation DAILY #60 ea 12/26/23 03/22/24 Rx 25 mcg/actuation powdr for inhalation hydrochlorothiazide 12.5 mg tablet 12.5 mg PO DAILY PRN edema #90 tabs 03/09/24 03/22/24 Rx albuterol sulfate 90 mcg/actuation 2 inh inhalation Q4-6H PRN SOB 03/22/24 03/22/24 Rx aerosol inhaler #8.5 grams benzonatate 100 mg capsule 100 mg PO BID PRN 03/22/24 03/22/24 History ipratropium 0.5 mg-albuterol 3 mg 3 ml inhalation Q4H PRN shortness 03/22/24 03/22/24 Rx (2.5 mg base)/3 mL nebulization of breath or wheezing #180 mL soln tramadol 50 mg tablet 50 mg PO QHS PRN pain #90 tabs 03/22/24 Rx Allergies Allergy/AdvReac Type Severity Reaction Status Date / Time Penicillins Allergy Severe SOB Verified 05/03/24 12:14 prednisone Allergy Severe Dyspnea / Verified 05/03/24 12:14 SOB adhesive tape Allergy Intermediate blisters Verified 05/03/24 12:14 latex Allergy Intermediate BLISTERS Verified 05/03/24 12:14 mushroom Allergy Mild Hives Verified 05/03/24 12:14 warfarin Allergy Unknown HEMMRHAGE Verified 05/03/24 12:14 ibuprofen AdvReac Intermediate SHAKY Verified 05/03/24 12:14 NSAIDS (Non-Steroidal AdvReac Intermediate Unknown Verified 05/03/24 12:14 Anti-Inflamma Vital Signs Vital Signs - 24 hr 05/03/24 10:45 05/03/24 12:15 05/03/24 12:17 Temperature 97.0 F L 98.2 F Pulse Rate 84 86 Respiratory Rate 20 20 Blood Pressure 189/123 H 177/87 H Pulse Oximetry 96 97 97 Oxygen Delivery Room Air Room Air 05/03/24 12:58 05/03/24 13:07 05/03/24 14:13 Temperature 98.4 F 96.3 F L Pulse Rate 87 78 76 Respiratory Rate 20 22 H Blood Pressure 181/99 H 164/106 H Pulse Oximetry 96 96 Oxygen Delivery Exam Narrative: General:?Thin, chronically ill-appearing female sitting up in bed in no distress. Weight: 45.3 kg. BMI: 15.6. HEENT:??Normocephalic, atraumatic.? PERRL, EOMI. Sclera anicteric.?Tacky mucous membranes. Neck:??Supple. Respiratory:?Respirations are nonlabored.? Lung sounds are a bit diminished but are otherwise clear to auscultation. Cardiovascular:??Regular rate and rhythm with S1-S2. Systolic murmur at the upper sternal border. Gastrointestinal:??Abdomen is soft, flat, and nondistended with positive bowel sounds. She is mildly tender to deeper palpation epigastric region. There is a firm, raised circular area in the left groin which she states is chronic and is related to an aneurysm or pseudoaneurysm from prior femoral bypass. The area is not pulsatile, it is slightly tender to palpation chronically. Skin:??Warm and dry.? No rash or lesions on limited exam. Extremities:??No cyanosis, clubbing, or edema. Radial pulses palpable. Pedal pulses diminished, posterior tibialis pulses palpable. Feet are cool but perfused chronically. Neurological:??Alert and oriented.? Cranial nerves 2-12 are grossly intact. Mild weakness from previous stroke. Psychiatric:??Pleasant and cooperative with appropriate mood and affect. H&P: Results Labs Labs: Short CBC 05/03/24 Range/Units 11:00 WBC 4.8 (4.5-10.0) K/mm3 Hgb 13.7 (12.0-15.0) g/dL Hct 40.0 (37.0-47.0) % Plt Count 128 L (150-375) k/mm3 BMP 05/03/24 11:00 Sodium 140 Potassium 3.5 Chloride 103 Carbon Dioxide 30 BUN 21 H Creatinine 1.20 H Glucose 122 H Calcium 9.7 Cardiac Enzymes 05/03/24 05/03/24 Range/Units 11:00 13:40 Troponin I < 0.012 0.017 D (0.000-0.034) ng/mL Liver Function 05/03/24 Range/Units 11:00 Total Bilirubin 0.6 (0.2-1.3) mg/dL AST 31 (14-36) U/L ALT 12 (6-35) U/L Alkaline Phosphatase 108 (38-126) U/L Albumin 4.6 (3.5-5.1) g/dL Impressions Chest X-Ray 05/03/24 11:21 IMPRESSION: No acute cardiopulmonary pathology. Chest/Abdomen/Pelvis CTA 05/03/24 12:36 IMPRESSION: CHEST: 1. No evidence of aneurysm or dissection. 2. No acute cardiopulmonary pathology. 3. Dilated esophagus with fluid content suggestive of reflux. ABDOMEN/PELVIS: 1. No evidence of appendicitis, diverticulitis or intestinal obstruction. 2. Constipation. 3. Thin cortex seen in the left kidney upper pole suggestive of vascular versus infectious process. 4. 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 Bifemoral shunt is also noted. 5. Slight dilatation of the proximal left femur with thrombosed pseudoaneurysm or hematoma seen in the area of the left common femoral artery measuring 5 x 5.5 cm. Assessment and Plan Assessment and plan (1) Chest pain: Code(s): R07.9 - Chest pain, unspecified Status: Acute (2) Dysphagia: Code(s): R13.10 - Dysphagia, unspecified Status: Acute (3) Hypertension: Code(s): I10 - Essential (primary) hypertension Status: Acute (4) Peripheral vascular disease: Code(s): I73.9 - Peripheral vascular disease, unspecified Status: Acute (5) Weight loss: Code(s): R63.4 - Abnormal weight loss Status: Acute (6) Combined systolic and diastolic cardiac dysfunction: Code(s): I51.89 - Other ill-defined heart diseases Status: Acute Plan The patient presented to the emergency department for evaluation of chest pain as detailed in HPI. Labs, imaging, EKG, and all reports were personally reviewed. Initial troponin was normal however EKG did show ST-T deviation the lateral leads. She has significant risk factors and is being admitted to rule out acute coronary syndrome. Cardiology has been consulted for their input. Symptoms are a bit unusual for cardiac pain and may very well be due to a GI source given epigastric tenderness, findings of reflux on imaging, and dysphagia. She has slowly been losing weight, likely in part due to stress from caring for her , however must rule out other etiologies. GI has been consulted. Blood pressures have been running high though she was unable to take her medications this morning. Resume antihypertensives and continue to monitor blood pressures closely. Her volume status is euvolemic; avoid over-hydration and continue Entresto and other guideline directed medical therapy. Hold aspirin and clopidogrel tomorrow morning as she may need an EGD. CTA showed occlusion of the iliac arteries with left iliac and bifemoral shunts with no signs acute ischemic issue. Her home medications will be reviewed and resumed as appropriate. Findings and treatment plan were discussed with the patient. Questions were solicited and answered to satisfaction. The patient's medical management will be taken over by the hospitalist team in a.m. Quality VTE Prophylaxis VTE prophylaxis: mechanical ordered If No VTE Prophylaxis Answer both mechanical and pharmacologic: Reason no pharmacologic proph: medical contraindication (will likely need endoscopy) The patient has been admitted under observation status. Hospitalist [facility] Advance Care Plan I have confirmed that the patient's Advanced Care Plan is present, code status is documented, or surrogate decision maker is listed in patient medical record.: Yes Medication Reconciliation I have utilized all available resources to obtain, update and review the patients current medications (includes all prescriptions, OTC, herbals, cannabis, and nutritional supplements).: Yes
[2024-05-03 17:36] LABS: Troponin I 0.028 ng/mL (0.000-0.034)
[2024-05-04] VITALS (13 sets, daily range): BP systolic 129–183; BP diastolic 71–104; PULSE 58–93; RESP 12–20; TEMP 36.5–36.9; O2SAT 91–95; BMI 20.5
--- NOTE | 2024-05-04 00:12 | PC.NURSE ---
Admission report to [facility].
[2024-05-04] MEDS: SODIUM CHLORIDE 0.9% IV 1,000 ML 75 ML IV CONT (01:02)
--- NOTE | 2024-05-04 01:43 | ADMGEN ---
This patient, Shobha Keita, was admitted to IMU Room 205-01. Patient/family oriented to hospital policies and general routines including ID bracelet, bed and alarms, visiting hours, pain management, procedures, bathroom and other care routines, personal items, smoking policy, room service/diet, and visiting hours. Information on how to activate the Rapid Response Team has been discussed. Patient/Family are encouraged to report perceived risks to care and to ask questions if they do not understand what they are told or what they should do.
[2024-05-04] MEDS: amLODIPine BESYLATE 10 MG TABLET PO (02:40)
[2024-05-04] MEDS: carvediloL 12.5 MG TABLET PO ×2 (02:40→20:30)
[2024-05-04 07:13] LABS: Hematocrit 37.1 % (37.0-47.0); Hemoglobin 12.9 g/dL (12.0-15.0); Mean Corpuscular HGB Conc 34.8 g/dl (32-36); Mean Corpuscular Hemoglobin 36.9 pg (26-34); Mean Platelet Volume 10.1 fl (7.4-10.4); Platelet Count Result 107 k/mm3 (150-375); Red Cell Distribution Width 13.8 % (11.5-14.5); White Blood Count 5.5 K/mm3 (4.5-10.0)
[2024-05-04 08:02] LABS: Anion Gap 4 mmol/L (4-12); Blood Urea Nitrogen 18 mg/dL (7-17); Calcium 9.2 mg/dL (8.4-10.2); Carbon Dioxide 28 mmol/L (22-30); Chloride 104 mmol/L (98-107); Estimated CRCL calculation 46 ml/min; Estimated Glomerular Filt Rate 55; Glucose 83 mg/dL (65-110); Magnesium 2.3 mg/dL (1.6-2.3); Potassium 3.4 mmol/L (3.4-5.0); Sodium 136 mmol/L (137-145)
[2024-05-04] MEDS: UMECLIDINIUM/VILANTEROL 62.5-25 MCG ELLIPTA 1 PUFF INHALATION (08:40)
[2024-05-04] MEDS: EZETIMIBE 10 MG TABLET PO (08:56)
[2024-05-04] MEDS: ROSUVASTATIN 20 MG TABLET 40 MG PO (08:56)
[2024-05-04] MEDS: SPIRONOLACTONE 25 MG TABLET PO (08:56)
[2024-05-04] MEDS: FAMOTIDINE 20 MG/2 ML VIAL IV PUSH ×2 (08:57→20:31)
[2024-05-04] MEDS: ISOSORBIDE MONONITRATE 60 MG TAB.ER.24H PO (08:57)
[2024-05-04] MEDS: LOSARTAN POTASSIUM 100 MG TABLET PO (08:57)
[2024-05-04] MEDS: PANTOPRAZOLE SODIUM IV 40 MG VIAL IV PUSH ×2 (08:57→20:31)
[2024-05-04] MEDS: ONDANSETRON INJ 4 MG/2 ML VIAL IV PUSH (09:08)
--- NOTE | 2024-05-04 09:51 | P.CONGI_ITS ---
<Statement entered by Austin Gonzalez MD - 05/04/24 17:32> I, Austin Gonzalez MD, have provided a substantive portion of the care of this patient and discussed the patient with my Nurse Practitioner. I have reviewed any new relevant radiographic and laboratory results including medications. I agree with her documentation as noted below.?I personally performed the medical decision making and much of the history and exam for this encounter. briefly here with chest pain that has improved but still some abdominal pain but also having sensation of food getting stuck (EGD 2021 without major findings), colonoscopy 2020 with large polyps removed (due to have another one). Plan is egd and colonoscopy tomorrow Assessment and Plan Assessment and plan (1) Dysphagia: Qualifiers: Dysphagia type: other dysphagia Qualified Code(s): R13.19 - Other dysphagia Code(s): R13.10 - Dysphagia, unspecified Status: Acute (2) Weight loss: Code(s): R63.4 - Abnormal weight loss Status: Acute (3) Abnormal digestive system diagnostic imaging: Code(s): R93.3 - Abnormal findings on diagnostic imaging of other parts of digestive tract Status: Acute (4) Constipation: Qualifiers: Constipation type: chronic idiopathic constipation Qualified Code(s): K 59.04 - Chronic idiopathic constipation Code(s): K59.00 - Constipation, unspecified Status: Acute (5) Colon polyps: Qualifiers: Colon location: unspecified part of colon Colon polyp type: adenomatous Qualified Code(s): D12.6 - Benign neoplasm of colon, unspecified Code(s): K63.5 - Polyp of colon Status: Acute (6) Nausea and vomiting: Qualifiers: Vomiting type: bilious vomiting Qualified Code(s): R11.14 - Bilious vomiting Code(s): R11.2 - Nausea with vomiting, unspecified Status: Acute Plan 1. Dysphagia/nausea/vomiting/epigastric pain/abnormal imaging digestive: Last EGD 02/12/2022 was unremarkable. Patient reports symptoms of dysphagia with solids, food getting stuck, and pain in her throat since yesterday but has been having epigastric pain/spasm like sensation for 3-4 months. Patient has had a few episodes of vomiting in the hospital when given medications on an empty stomach. CTA chest showed dilated esophagus with fluid consistent with reflux. Prior esophagram showed Zenkers diverticulum. Patient was previously prescribed Protonix but has not been taking this. 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 DDX: Esophageal dysmotility vs stricture vs ring vs reflux vs eosinophilic esophagitis * Continue Protonix IV BID * Continue famotidine * clear liquid diet today * Plan for EGD tomorrow * NPO after midnight * continue supportive care with pain management and antiemetics * if EGD is unremarkable will consider swallow study 2. Constipation/hematochezia/personal Hx of colon polyps/weight loss: Last colonoscopy 08/14/2020 with polyps removed and 3 year repeat colonoscopy was recommended, patient overdue. Chronic constipation with BM every 2-3 days and bowel frequency improves with Miralax and high fiber diet. Denies straining BM's but admits to intermittent episodes of trace rectal bleeding. Denies any rectal bleeding since admission. Patient complains of weight loss stating that over the past 9 years her weight has slowly decreased from her previous baseline weight of 145 lbs, she states at her lowest she was at 98 lbs. Weight this admission at 145. Patient has been drinking Ensures in an attempt to maintain weight. 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 Was on Lovenox this admission but this was D/C. Labs showed Hgb 13, Hct 37, INR 1.0. Patient takes tramadol as needed but denies any other pain medication use which may be contributing to constipation. * Colonoscopy tomorrow * bowel prep to start this evening * further recs to follow endoscopy Thank you very much for allowing me to share in the care of this very nice patient. This report may have been done utilizing a voice recognition system. Attempts have been made to correct errors. However, there may be uncorrected grammatical, spelling, and recognition errors present. GI Consult Note Consult date/time: 05/04/24 09:51 Reason for consult: dysphagia HPI: This is a pleasant 68 year old female with a past medical surgical history of COPD, CABG in 1994, aortic valve replacement x2 most recent 1997, peripheral arterial disease with multiple stents in surgical intervention history, history of CVA, depression, HTN, OAB, personal history of colon polyps and hysterectomy she presents the the office today for evaluation of dysphagia. GI is being consulted for dysphagia. Patient reports that for the past 3 to 4 months she has been having epigastric pain that she Describes as a tightness or spasming sensation. Over the past day she has been having difficulty swallowing solid foods and liquids. She takes small bites but it always feels like the food is getting stuck. She denies this occurring with liquids. Yesterday morning she had an episode where she kept throwing up coffee. She reports feeling like someone was squeezing her in the throat at that time. She has had nausea and vomiting in the hospital when given her medications on an empty stomach. She reports having some pain in the epigastric area that she describes as a tight squeezing pain that is a 3 out of 10 in severity. This pain also began about 3 to 4 months ago. She denies any heartburn symptoms and is not on any reflux medications at home. She has noted a decrease in her appetite for the past 3 to 4 months and reports that she gets full quickly when eating. Her weight is down to 98 pounds from her usual of 145 pounds. She moved here from [place] 9 years ago. She has chronic constipation and has a bowel movement every 2 to 3 days and takes Miralax which helps. She denies any blood in her stool or black stools. She denies any trouble swallowing or pain with swallowing at the time of her last EGD in 2021. She is on Plavix and aspirin at home but does not take any NSAIDs. She does take Tylenol PM at night. She smokes 1 cigarette per day and does not drink alcohol. She denies any family history of GI cancers. ENDOSCOPY HISTORY: EGD: 02/12/[address] Hubbard for Dysphagia, chest pain, and abnormal abdominal x-ray Findings: The esophagus was examined and the mucosa was normal with normal Z-line and no ulcers or masses. No esophagitis, no hernia, no Otero's. I did not find any resistance when scope was advanced, no strictures or ring The Z-line was located 42 cm from the incisors The stomach at the body, cardia and fundus was examined and was normal with no ulcers or masses. No obvious gastritis. Multiple biopsies were taken The bulb and 2nd portion of duodenum was normal with no ulcers or masses Gross few of oropharynx unremarkable Bx Results: Stomach, biopsy: - No histopathologic abnormality - No active inflammation or H. pylori COLONOSCOPY: 08/14/[address] Storm for CRC screening Findings: there was 2 8 mm to 12 mm sessile polyps observed in the sigmoid colon. The appearance seemed adenomatous in nature. Multiple hot snare polypectomies were performed. The polyps were completely excised and retrieved. There were 2 7 mm to 8 mm sessile polyp observed in the descending colon. The appearance seemed benign in nature. Multiple hot snare polypectomies were performed. The polyps were completely excised and retrieved Three year repeat colonoscopy recommended Bx Results: A. SIGMOID COLON POLYPS x2, ENDOSCOPIC HOT SNARE POLYPECTOMY: - TUBULAR ADENOMA. - BENIGN POLYP. B. DESCENDING COLON POLYPS, ENDOSCOPIC HOT SNARE POLYPECTOMY: - TUBULAR ADENOMAS x2 LABS AND STOOL STUDIES: Labs this admission: Sodium 136, potassium 3.4, BUN 18, creatinine 1.00, GFR 55, WBC 6, HGB 13, HCT 37, MCV 106, platelets 107, INR 1.0, total bilirubin 0.6, AST 31, ALT 12, alkaline phosphatase 108, calcium 9.2, magnesium 2.3, troponins negative x3, BNP 4470 No recent stool studies available at today's visit IMAGING: CTA chest/abd/pelvis 05/03/2024 IMPRESSION: CHEST: 1. No evidence of aneurysm or dissection. 2. No acute cardiopulmonary pathology. 3. Dilated esophagus with fluid content suggestive of reflux. ABDOMEN/PELVIS: 1. No evidence of appendicitis, diverticulitis or intestinal obstruction. 2. Constipation. 3. Thin cortex seen in the left kidney upper pole suggestive of vascular versus infectious process. 4. 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 Bifemoral shunt is also noted. 5. Slight dilatation of the proximal left femur with thrombosed pseudoaneurysm or hematoma seen in the area of the left common femoral artery measuring 5 x 5.5 cm. Chest Xray 05/03/2024 IMPRESSION: No acute cardiopulmonary pathology. Review of Systems 2 Constitutional: Constitutional: Reports as per HPI ENT: Reports as per HPI Cardiovascular: Cardiovascular: Reports as per HPI, Denies chest pain and Denies dyspnea Respiratory: Respiratory: Reports cough and Denies dyspnea Gastrointestinal: Gastrointestinal: Reports as per HPI and Reports abdominal pain Comments: abdominal hernia lower abdomen Musculoskeletal: Musculoskeletal: Reports as per HPI Integumentary/Breasts: Skin/Breast: Reports as per HPI Psychiatric: Psychiatric: Reports as per HPI Endocrine: Endocrine: Reports no additional endocrine complaints Hematologic/Lymphatic: Hematologic/Lymphatic: Reports no additional hematologic/lymphatic complaints [facility] Past Medical History Medical History (Updated 05/04/24 @ 10:22 by Daisy Tobias APRN) Combined systolic and diastolic cardiac dysfunction Patent foramen ovale Tobacco dependence Peripheral vascular disease Coronary artery disease Hydrocephalus Osteopenia Overactive bladder Vitamin D deficiency Cerebrovascular accident (CVA) Cerebral aneurysm Chronic obstructive pulmonary disease (COPD) Depression Dyslipidemia Essential (primary) hypertension Lumbar spondylosis Right renal artery stenosis Surgical History Surgical History Bioprosthetic aortic valve replacement during current hospitalization History of coronary artery stent placement History of ventriculoperitoneal shunting (2016) History of aorto-femoral bypass (08/2017) History of cerebral aneurysm repair (10/2016) Femoral-femoral bypass graft thrombosis, left (06/1997) History of appendectomy History of hysterectomy 1980s History of coronary artery bypass graft (1994) History of aortic valve replacement 1994 and 1997 Family History Family History Mother Diabetes mellitus CAD (coronary artery disease) Family history of coronary artery disease Sibling CAD (coronary artery disease) Sibling Diabetes mellitus Sibling Cerebrovascular accident Son Alcoholism in family Social History Social History Social History: Surrogate medical decision maker: Saeid Keita, spouse. Code status: Full code. Smoking packs per day: 0.25 Smoking cigarettes per day: 5.0 Years smoked: 50 Smoking pack-years: 12.50 Smoking status: Current every day smoker Second hand tobacco smoke exposure: Yes Additional smoking assessment comments: CURRENTLY SMOKES 2-3 A DAY DEPENDING ON HOW DEPRESSED SHE IS Alcohol intake: never Substance use: never Substance use type: does not use Do You Feel Safe in your Home?: Yes Lack of Transportation: YES Lack of Food: Never True Current Housing: I Have Housing Concerned About Future Housing: No Difficulty Paying Gas/Electric Bills: No Difficulty Paying for Meds: YES Currently Unemployed: No Education: Decline to Answer Difficulty w/ Childcare or Family Care: YES Living arrangements: with family Occupation/Education: retired Spiritual care concerns: No Meds Home Medications and Allergies Home Medications ?Medication ?Instructions ?Recorded ?Confirmed ?Type clopidogrel 75 mg tablet 75 mg PO DAILY 12/26/20 05/03/24 History carvedilol 12.5 mg tablet 12.5 mg PO BID 12/24/21 05/03/24 History rosuvastatin 40 mg tablet 40 mg PO DAILY 12/24/21 05/03/24 History aspirin 81 mg tablet,delayed 81 mg PO QAM #90 tabs 11/18/22 05/03/24 Rx release doxycycline monohydrate 100 mg 100 mg PO BID #20 caps 11/24/23 05/03/24 Rx capsule amlodipine 10 mg tablet 10 mg PO DAILY #90 tabs 12/16/23 05/03/24 Rx guaifenesin 600 mg tablet, 1,200 mg (2 x 600 mg) PO BID #120 12/25/23 05/03/24 Rx extended release 12 hr tabs umeclidinium 62.5 mcg-vilanterol 1 inh inhalation DAILY #60 ea 12/26/23 05/03/24 Rx 25 mcg/actuation powdr for inhalation hydrochlorothiazide 12.5 mg tablet 12.5 mg PO DAILY PRN edema #90 tabs 03/09/24 05/03/24 Rx albuterol sulfate 90 mcg/actuation 2 inh inhalation Q4-6H PRN SOB 03/22/24 05/03/24 Rx aerosol inhaler #8.5 grams benzonatate 100 mg capsule 100 mg PO BID PRN Cough 03/22/24 05/03/24 History ipratropium 0.5 mg-albuterol 3 mg 3 ml inhalation Q4H PRN shortness 03/22/24 05/03/24 Rx (2.5 mg base)/3 mL nebulization of breath or wheezing #180 mL soln tramadol 50 mg tablet 50 mg PO QHS PRN pain #90 tabs 03/22/24 05/03/24 Rx ezetimibe 10 mg tablet 10 mg PO DAILY 05/03/24 05/03/24 History isosorbide mononitrate 60 mg 60 mg PO DAILY 05/03/24 05/04/24 History tablet,extended release 24 hr losartan 100 mg tablet 100 mg PO DAILY 05/03/24 05/03/24 History spironolactone 25 mg tablet 25 mg PO DAILY 05/03/24 05/04/24 History pantoprazole 40 mg tablet,delayed 40 mg PO HS 05/04/24 05/03/24 History release Allergies Allergy/AdvReac Type Severity Reaction Status Date / Time Penicillins Allergy Severe SOB Verified 05/04/24 00:05 prednisone Allergy Severe Dyspnea / Verified 05/04/24 00:05 SOB adhesive tape Allergy Intermediate blisters Verified 05/04/24 00:05 latex Allergy Intermediate BLISTERS Verified 05/04/24 00:05 mushroom Allergy Mild Hives Verified 05/04/24 00:05 warfarin Allergy Unknown HEMMRHAGE Verified 05/04/24 00:05 ibuprofen AdvReac Intermediate SHAKY Verified 05/04/24 00:05 NSAIDS (Non-Steroidal AdvReac Intermediate Unknown Verified 05/04/24 00:05 Anti-Inflamma Vital Signs Vital Signs - 24 hr 05/03/24 10:45 05/03/24 11:53 05/03/24 12:00 Temperature 97.0 F L Pulse Rate 84 75 77 Respiratory Rate 20 16 23 H Blood Pressure 189/123 H Pulse Oximetry 96 97 93 Oxygen Delivery Room Air 05/03/24 12:01 05/03/24 12:15 05/03/24 12:17 Temperature 98.2 F Pulse Rate 76 86 Respiratory Rate 18 20 Blood Pressure 148/117 H 177/87 H Pulse Oximetry 96 97 97 Oxygen Delivery Room Air 05/03/24 12:18 05/03/24 12:34 05/03/24 12:46 Temperature Pulse Rate 77 71 Respiratory Rate 20 18 Blood Pressure 177/87 H 164/116 H 182/100 H Pulse Oximetry 100 Oxygen Delivery 05/03/24 12:54 05/03/24 12:58 05/03/24 12:58 Temperature 98.4 F Pulse Rate 72 87 69 Respiratory Rate 21 H 20 19 Blood Pressure 176/114 H 181/99 H 181/99 H Pulse Oximetry 99 96 93 Oxygen Delivery 05/03/24 13:01 05/03/24 13:07 05/03/24 14:01 Temperature Pulse Rate 78 78 77 Respiratory Rate 18 17 Blood Pressure 175/101 H 172/107 H Pulse Oximetry 95 Oxygen Delivery 05/03/24 14:13 05/03/24 14:31 05/03/24 15:31 Temperature 96.3 F L Pulse Rate 76 68 65 Respiratory Rate 22 H 18 20 Blood Pressure 164/106 H 169/104 H 176/110 H Pulse Oximetry 96 Oxygen Delivery 05/03/24 16:01 05/03/24 16:30 05/03/24 17:01 Temperature Pulse Rate 60 64 64 Respiratory Rate 17 17 23 H Blood Pressure 172/95 H 167/100 H 149/86 H Pulse Oximetry 94 96 Oxygen Delivery 05/03/24 17:31 05/03/24 20:01 05/03/24 20:31 Temperature Pulse Rate 64 65 67 Respiratory Rate 17 18 17 Blood Pressure 159/94 H 158/105 H 146/100 H Pulse Oximetry Oxygen Delivery 05/03/24 21:01 05/04/24 01:06 05/04/24 01:30 Temperature Pulse Rate 66 62 62 Respiratory Rate 20 16 16 Blood Pressure 162/84 H 152/104 H Pulse Oximetry 95 95 Oxygen Delivery Room Air 05/04/24 01:30 05/04/24 01:30 05/04/24 02:00 Temperature 97.8 F Pulse Rate 62 64 67 Respiratory Rate 20 Blood Pressure 183/103 H Pulse Oximetry 94 Oxygen Delivery 05/04/24 08:00 Temperature 98.3 F Pulse Rate 71 Respiratory Rate 12 Blood Pressure 167/84 H Pulse Oximetry 95 Oxygen Delivery Exam 2 Const: General: cooperative, comfortable, no acute distress and well developed Orientation/consciousness: oriented to person, oriented to place, oriented to time and patient oriented x3 Other: very thin HENMT: Head: normal to inspection, normocephalic and atraumatic Mouth: Yes Normal oral and palatal mucosa present and Yes moist mucous membranes Eyes: General: appearance normal, both eyes and all related structures C onjunctivae: conjunctivae normal Sclera: sclerae normal Pupils: Equal, round and reactive pupils present Neck: Neck: normal visual inspection Chest: Chest palpation & inspection: normal inspection of the chest Resp: Effort & Inspection: normal respiratory effort and able to speak in complete sentences Auscultation: clear to auscultation bilaterally Cardio: Jugular venous distension: no JVD Rate: regular rate Rhythm: r egular rhythm Heart sounds: S1 normal heart sound present and S2 normal heart sound present GI: Inspection: normal to inspection GI Palp: Yes Soft to palpation and Yes No hepatosplenomegaly present Auscultation: normal bowel sounds Rectal Exam: deferred Skin: General skin exam: normal color and no rashes or lesions noted Neuro: General: oriented to person, oriented to place, oriented to time and patient oriented x3 Cranial nerves: Yes Equal, round and reactive pupils present Speech: normal speech Extrem: General: normal to inspection and no clubbing, cyanosis or edema Psych: Appearance: grossly normal and well kempt Affect: normal affect Results Labs 05/04/24 05:26 05/04/24 05:26 Labs: Short CBC 05/03/24 05/04/24 Range/Units 11:00 05:26 WBC 4.8 5.5 (4.5-10.0) K/mm3 Hgb 13.7 12.9 (12.0-15.0) g/dL Hct 40.0 37.1 (37.0-47.0) % Plt Count 128 L 107 L (150-375) k/mm3 BMP 05/03/24 05/04/24 11:00 05:26 Sodium 140 136 L Potassium 3.5 3.4 Chloride 103 104 Carbon Dioxide 30 28 BUN 21 H 18 H Creatinine 1.20 H 1.00 Glucose 122 H 83 Calcium 9.7 9.2 Cardiac Enzymes 05/03/24 05/03/24 05/03/24 Range/Units 11:00 13:40 17:03 Troponin I < 0.012 0.017 D 0.028 D (0.000-0.034) ng/mL Liver Function 05/03/24 Range/Units 11:00 Total Bilirubin 0.6 (0.2-1.3) mg/dL AST 31 (14-36) U/L ALT 12 (6-35) U/L Alkaline Phosphatase 108 (38-126) U/L Albumin 4.6 (3.5-5.1) g/dL
--- NOTE | 2024-05-04 10:08 | P.CONCA_ITS ---
Assessment and Plan Assessment and plan (1) CAD in [place] artery: Code(s): I25.10 - Atherosclerotic heart disease of [place] coronary artery without angina pectoris Status: Acute Assessment and Plan: Significant history of CAD as detailed in HPI. Her CAD is stable - she is not having any anginal symptoms. Her chest discomfort is atypical and she has been ruled out for MD with negative troponins. The description of her pain is more consistent with upper GI pathology perhaps esophagitis or esophageal spasm. She should continue with ASA, plavix, statin, Imdur. (2) Combined systolic and diastolic cardiac dysfunction: Code(s): I51.89 - Other ill-defined heart diseases Status: Acute Assessment and Plan: Does not appear to be in decompensated heart failure. (3) Essential (primary) hypertension: Code(s): I10 - Essential (primary) hypertension Status: Chronic Assessment and Plan: Blood pressure is at goal. Continue current medical regimen. (4) Nausea and vomiting: Qualifiers: Vomiting type: bilious vomiting Qualified Code(s): R11.14 - Bilious vomiting Code(s): R11.2 - Nausea with vomiting, unspecified Status: Acute Assessment and Plan: GI consulted and planning for EGD Plan Cardiology will sign off please call with questions. History of Present Illness History of Present Illness Consult date/time: 05/04/24 10:08 Requesting physician: Mark Campbell MD Consult reason: chest pain Reason For Visit: Chest Pain Narrative: Shobha Keita is a 68 year old female with complicated cardiac history including bioprosthetic aortic valve replacement in 1994, redo bio AVR in 2007, coronary artery disease status post CABG x2 in 1994, complex PCI to the left main and LAD in 2021, ischemic cardiomyopathy. This is a patient who follows in our office with Dr. Gold. Cardiology has been consulted for chest pain. Patient states she was sitting down when she experienced a sensation of tightness in her throat that radiated across her upper chest. She called EMS where in route she received full dose aspirin and nitroglycerin which relieved the tightness in her throat. She states she was unable to take her medications yesterday before this happened because she had some difficulty swallowing and vomited. She has not had recurrence of the throat pain/tightness since arriving at the hospital. Review of Systems 2 Review of Systems: All systems reviewed & are unremarkable except as noted in HPI and below [facility] Past Medical History Medical History Combined systolic and diastolic cardiac dysfunction Patent foramen ovale Tobacco dependence Peripheral vascular disease Coronary artery disease Hydrocephalus Osteopenia Overactive bladder Vitamin D deficiency Cerebrovascular accident (CVA) Cerebral aneurysm Chronic obstructive pulmonary disease (COPD) Depression Dyslipidemia Essential (primary) hypertension Lumbar spondylosis Right renal artery stenosis Surgical History Surgical History Bioprosthetic aortic valve replacement during current hospitalization History of coronary artery stent placement History of ventriculoperitoneal shunting (2016) History of aorto-femoral bypass (08/2017) History of cerebral aneurysm repair (10/2016) Femoral-femoral bypass graft thrombosis, left (06/1997) History of appendectomy History of hysterectomy 1980s History of coronary artery bypass graft (1994) History of aortic valve replacement 1994 and 1997 Family History Family History Mother Diabetes mellitus CAD (coronary artery disease) Family history of coronary artery disease Sibling CAD (coronary artery disease) Sibling Diabetes mellitus Sibling Cerebrovascular accident Son Alcoholism in family Social History Social History Social History: Surrogate medical decision maker: Saeid Keita, spouse. Code status: Full code. Smoking packs per day: 0.25 Smoking cigarettes per day: 5.0 Years smoked: 50 Smoking pack-years: 12.50 Smoking status: Current every day smoker Second hand tobacco smoke exposure: Yes Additional smoking assessment comments: CURRENTLY SMOKES 2-3 A DAY DEPENDING ON HOW DEPRESSED SHE IS Alcohol intake: never Substance use: never Substance use type: does not use Do You Feel Safe in your Home?: Yes Lack of Transportation: YES Lack of Food: Never True Current Housing: I Have Housing Concerned About Future Housing: No Difficulty Paying Gas/Electric Bills: No Difficulty Paying for Meds: YES Currently Unemployed: No Education: Decline to Answer Difficulty w/ Childcare or Family Care: YES Living arrangements: with family Occupation/Education: retired Spiritual care concerns: No Meds Home Medications and Allergies Home Medications ?Medication ?Instructions ?Recorded ?Confirmed ?Type clopidogrel 75 mg tablet 75 mg PO DAILY 12/26/20 05/03/24 History carvedilol 12.5 mg tablet 12.5 mg PO BID 12/24/21 05/03/24 History rosuvastatin 40 mg tablet 40 mg PO DAILY 12/24/21 05/03/24 History aspirin 81 mg tablet,delayed 81 mg PO QAM #90 tabs 11/18/22 05/03/24 Rx release doxycycline monohydrate 100 mg 100 mg PO BID #20 caps 11/24/23 05/03/24 Rx capsule amlodipine 10 mg tablet 10 mg PO DAILY #90 tabs 12/16/23 05/03/24 Rx guaifenesin 600 mg tablet, 1,200 mg (2 x 600 mg) PO BID #120 12/25/23 05/03/24 Rx extended release 12 hr tabs umeclidinium 62.5 mcg-vilanterol 1 inh inhalation DAILY #60 ea 12/26/23 05/03/24 Rx 25 mcg/actuation powdr for inhalation hydrochlorothiazide 12.5 mg tablet 12.5 mg PO DAILY PRN edema #90 tabs 03/09/24 05/03/24 Rx albuterol sulfate 90 mcg/actuation 2 inh inhalation Q4-6H PRN SOB 03/22/24 05/03/24 Rx aerosol inhaler #8.5 grams benzonatate 100 mg capsule 100 mg PO BID PRN Cough 03/22/24 05/03/24 History ipratropium 0.5 mg-albuterol 3 mg 3 ml inhalation Q4H PRN shortness 03/22/24 05/03/24 Rx (2.5 mg base)/3 mL nebulization of breath or wheezing #180 mL soln tramadol 50 mg tablet 50 mg PO QHS PRN pain #90 tabs 03/22/24 05/03/24 Rx ezetimibe 10 mg tablet 10 mg PO DAILY 05/03/24 05/03/24 History isosorbide mononitrate 60 mg 60 mg PO DAILY 05/03/24 05/04/24 History tablet,extended release 24 hr losartan 100 mg tablet 100 mg PO DAILY 05/03/24 05/03/24 History spironolactone 25 mg tablet 25 mg PO DAILY 05/03/24 05/04/24 History pantoprazole 40 mg tablet,delayed 40 mg PO HS 05/04/24 05/03/24 History release Allergies Allergy/AdvReac Type Severity Reaction Status Date / Time Penicillins Allergy Severe SOB Verified 05/04/24 00:05 prednisone Allergy Severe Dyspnea / Verified 05/04/24 00:05 SOB adhesive tape Allergy Intermediate blisters Verified 05/04/24 00:05 latex Allergy Intermediate BLISTERS Verified 05/04/24 00:05 mushroom Allergy Mild Hives Verified 05/04/24 00:05 warfarin Allergy Unknown HEMMRHAGE Verified 05/04/24 00:05 ibuprofen AdvReac Intermediate SHAKY Verified 05/04/24 00:05 NSAIDS (Non-Steroidal AdvReac Intermediate Unknown Verified 05/04/24 00:05 Anti-Inflamma Vital Signs Vital Signs - 24 hr 05/03/24 10:45 05/03/24 11:53 05/03/24 12:00 Temperature 36.1 C L Pulse Rate 84 75 77 Respiratory Rate 20 16 23 H Blood Pressure 189/123 H Pulse Oximetry 96 97 93 Oxygen Delivery Room Air 05/03/24 12:01 05/03/24 12:15 05/03/24 12:17 Temperature 36.8 C Pulse Rate 76 86 Respiratory Rate 18 20 Blood Pressure 148/117 H 177/87 H Pulse Oximetry 96 97 97 Oxygen Delivery Room Air 05/03/24 12:18 05/03/24 12:34 05/03/24 12:46 Temperature Pulse Rate 77 71 Respiratory Rate 20 18 Blood Pressure 177/87 H 164/116 H 182/100 H Pulse Oximetry 100 Oxygen Delivery 05/03/24 12:54 05/03/24 12:58 05/03/24 12:58 Temperature 36.9 C Pulse Rate 72 87 69 Respiratory Rate 21 H 20 19 Blood Pressure 176/114 H 181/99 H 181/99 H Pulse Oximetry 99 96 93 Oxygen Delivery 05/03/24 13:01 05/03/24 13:07 05/03/24 14:01 Temperature Pulse Rate 78 78 77 Respiratory Rate 18 17 Blood Pressure 175/101 H 172/107 H Pulse Oximetry 95 Oxygen Delivery 05/03/24 14:13 05/03/24 14:31 05/03/24 15:31 Temperature 35.7 C L Pulse Rate 76 68 65 Respiratory Rate 22 H 18 20 Blood Pressure 164/106 H 169/104 H 176/110 H Pulse Oximetry 96 Oxygen Delivery 05/03/24 16:01 05/03/24 16:30 05/03/24 17:01 Temperature Pulse Rate 60 64 64 Respiratory Rate 17 17 23 H Blood Pressure 172/95 H 167/100 H 149/86 H Pulse Oximetry 94 96 Oxygen Delivery 05/03/24 17:31 05/03/24 20:01 05/03/24 20:31 Temperature Pulse Rate 64 65 67 Respiratory Rate 17 18 17 Blood Pressure 159/94 H 158/105 H 146/100 H Pulse Oximetry Oxygen Delivery 05/03/24 21:01 05/04/24 01:06 05/04/24 01:30 Temperature Pulse Rate 66 62 62 Respiratory Rate 20 16 16 Blood Pressure 162/84 H 152/104 H Pulse Oximetry 95 95 Oxygen Delivery Room Air 05/04/24 01:30 05/04/24 01:30 05/04/24 02:00 Temperature 36.6 C Pulse Rate 62 64 67 Respiratory Rate 20 Blood Pressure 183/103 H Pulse Oximetry 94 Oxygen Delivery 05/04/24 08:00 Temperature 36.8 C Pulse Rate 71 Respiratory Rate 12 Blood Pressure 167/84 H Pulse Oximetry 95 Oxygen Delivery Exam 2 Const: General: comfortable, no acute distress, alert and awake O rientation/consciousness: patient oriented x3 HENMT: Head: normal to inspection Eyes: General: appearance normal, both eyes and all related structures P upils: Equal, round and reactive pupils present Neck: Neck: normal visual inspection, supple and no JVD Carotids: normal carotid upstroke Resp: Effort & Inspection: normal respiratory effort Auscultation: wheezes Cardio: Rate: regular rate Rhythm: regular rhythm Heart sounds: S1 normal heart sound present and S2 normal heart sound present GI: Auscultation: normal bowel sounds Skin: General skin exam: normal color Neuro: General: patient oriented x3 Cranial nerves: Yes Equal, round and reactive pupils present Extrem: General: normal to inspection Psych: Appearance: grossly normal Mental Status: mental status grossly normal Results Labs and Meds 05/04/24 05:26 05/04/24 05:26 Lab results: Cardiac Enzymes 05/03/24 05/03/24 05/03/24 Range/Units 11:00 13:40 17:03 AST 31 (14-36) U/L Troponin I < 0.012 0.017 D 0.028 D (0.000-0.034) ng/mL Coagulation 05/03/24 Range/Units 11:00 PT 13.4 (11.1-14.7) Seconds APTT 28.5 (22.3-36.8) Seconds CBC 05/03/24 05/04/24 Range/Units 11:00 05:26 WBC 4.8 5.5 (4.5-10.0) K/mm3 RBC 3.79 L 3.50 L (4.2-5.4) M/mm3 Hgb 13.7 12.9 (12.0-15.0) g/dL Hct 40.0 37.1 (37.0-47.0) % Plt Count 128 L 107 L (150-375) k/mm3 Lymph # (Auto) 1.12 (0.9-3.2) K/mm3 [place] # (Auto) 0.5 (0.1-0.6) K/mm3 Eos # (Auto) 0.1 (0-0.3) K/mm3 Baso # (Auto) 0.1 (0.0-0.1) K/mm3 Comprehensive Metabolic Panel 05/03/24 05/04/24 Range/Units 11:00 05:26 Sodium 140 136 L (137-145) mmol/L Potassium 3.5 3.4 (3.4-5.0) mmol/L Chloride 103 104 (98-107) mmol/L Carbon Dioxide 30 28 (22-30) mmol/L BUN 21 H 18 H (7-17) mg/dL Creatinine 1.20 H 1.00 (0.7-1.0) mg/dL Glucose 122 H 83 (65-110) mg/dL Calcium 9.7 9.2 (8.4-10.2) mg/dL AST 31 (14-36) U/L ALT 12 (6-35) U/L Alkaline Phosphatase 108 (38-126) U/L Total Protein 8.0 (6.3-8.2) g/dL Albumin 4.6 (3.5-5.1) g/dL Patient Weight 05/04/24 23:59 Weight 59.5 kg
[2024-05-04] MEDS: BISACODYL 5 MG TABLET EC 20 MG PO (11:46)
--- NOTE | 2024-05-04 13:29 | PM.IMPN ---
Progress Note: A&P Assessment and Plan (1) Chest pain: Code(s): R07.9 - Chest pain, unspecified Status: Acute (2) Dysphagia: Qualifiers: Dysphagia type: other dysphagia Qualified Code(s): R13.19 - Other dysphagia Code(s): R13.10 - Dysphagia, unspecified Status: Acute (3) Hypertension: Code(s): I10 - Essential (primary) hypertension Status: Acute (4) Peripheral vascular disease: Code(s): I73.9 - Peripheral vascular disease, unspecified Status: Acute (5) Weight loss: Code(s): R63.4 - Abnormal weight loss Status: Acute (6) Combined systolic and diastolic cardiac dysfunction: Code(s): I51.89 - Other ill-defined heart diseases Status: Acute Plan CAD in [place] artery: Code(s): I25.10 - Atherosclerotic heart disease of [place] coronary artery without angina pectoris Status: Acute Assessment and Plan: Patient has no chest pain now Troponin negative EKG shows sinus rhythm no specific ST T-wave changes continue with ASA, plavix, statin, Imdur. Appreciate cardiology consultation Combined systolic and diastolic cardiac dysfunction: Code(s): I51.89 - Other ill-defined heart diseases Status: Acute Assessment and Plan: compensated heart failure. Essential (primary) hypertension: Code(s): I10 - Essential (primary) hypertension Status: Chronic Assessment and Plan: Blood pressure is at goal. Continue current medical regimen. Dysphagia, epigastric pain abnormal imaging digestive: Patient is a smoker, has dysphagia with solid food painful swallowing with stuck sensation in her throat Patient also has epigastric pain Possible Esophageal dysmotility vs stricture vs ring vs reflux vs eosinophilic esophagitis Continue Protonix IV Clear diet Appreciate GI consultation, plans EGD tomorrow Constipation/hematochezia/personal Hx of colon polyps/weight loss: Last colonoscopy 08/14/2020 with polyps removed and 3 year repeat colonoscopy was recommended, patient overdue. Chronic constipation weight loss stating that over the past 9 years her weight , slowly decreased from her previous baseline weight of 145 lbs, Colonoscopy tomorrow per GI Chronic anemia Plans EGD colonoscopy Follow-up CBC Subjective Date/time seen: 05/04/24 13:29 Interval history: I saw exam patient today, patient still has trouble with swallowing with solid fluid, patient feels food stuck in her throat, patient also has epigastric pain. Patient denies constipation. Patient also denies chest pain shortness breast today Exam Narrative: GENERAL: Pleasant, in no acute distress. Well-nourished. - EYES: EOMI. Anicteric. - HENT: Moist mucous membranes. - LUNGS: Clear to auscultation bilaterally, no wheezing, rhonchi, or rales. - CARDIOVASCULAR: Regular rate and rhythm. No murmur. No JVD. - ABDOMEN: Soft, non-tender and non-distended. No palpable masses. - EXTREMITIES: No edema. Peripheral pulses 2+. Non-tender. - NEUROLOGIC: No focal neurological deficits. CN II-XII grossly intact. - PSYCHIATRIC: Awake, Alert and oriented x 3. Appropriate mood and affect. - SKIN: No rashes or lesions. Warm. - LYMPH: No cervical lymphadenopathy. Objective Data Vital Signs Vital Signs: Vital Signs - 24 hr 05/03/24 14:01 05/03/24 14:13 05/03/24 14:31 Temperature 96.3 F L Pulse Rate 77 76 68 Respiratory Rate 17 22 H 18 Blood Pressure 172/107 H 164/106 H 169/104 H Pulse Oximetry 96 Oxygen Delivery 05/03/24 15:31 05/03/24 16:01 05/03/24 16:30 Temperature Pulse Rate 65 60 64 Respiratory Rate 20 17 17 Blood Pressure 176/110 H 172/95 H 167/100 H Pulse Oximetry 94 Oxygen Delivery 05/03/24 17:01 05/03/24 17:31 05/03/24 20:01 Temperature Pulse Rate 64 64 65 Respiratory Rate 23 H 17 18 Blood Pressure 149/86 H 159/94 H 158/105 H Pulse Oximetry 96 Oxygen Delivery 05/03/24 20:31 05/03/24 21:01 05/04/24 01:06 Temperature Pulse Rate 67 66 62 Respiratory Rate 17 20 16 Blood Pressure 146/100 H 162/84 H 152/104 H Pulse Oximetry 95 Oxygen Delivery 05/04/24 01:30 05/04/24 01:30 05/04/24 01:30 Temperature 97.8 F Pulse Rate 62 62 64 Respiratory Rate 16 20 Blood Pressure 183/103 H Pulse Oximetry 95 94 Oxygen Delivery Room Air 05/04/24 02:00 05/04/24 08:00 05/04/24 12:00 Temperature 98.3 F 97.7 F Pulse Rate 67 71 78 Respiratory Rate 12 20 Blood Pressure 167/84 H 129/83 Pulse Oximetry 95 91 Oxygen Delivery Meds/Results Medications: Active Medications Generic Name Dose Route Start Last Admin Trade Name Freq PRN Reason Stop Dose Admin Acetaminophen 650 mg 05/03/24 22:51 Acetaminophen 325 Mg Tablet PO Q6H PRN Mild Pain (1-3) or Fever Albuterol 2 puff 05/04/24 00:02 Albuterol Sulfate (*Sp) Aerosol 1 Puff INHALATION Q4-6H PRN Shortness Of Breath Albuterol/Ipratropium 3 ml 05/04/24 00:02 Ipratropium 0.5 Mg/Albuterol Sulfate 2.5 Mg Ampul.Neb 3 Ml INHALATION Q4HRT PRN shortness of breath or wheezing Amlodipine Besylate 10 mg 05/04/24 02:00 05/04/24 02:40 Amlodipine Besylate 10 Mg Tablet PO 10 mg DAILY KANE Administration Carvedilol 12.5 mg 05/04/24 02:00 05/04/24 02:40 Carvedilol 12.5 Mg Tablet PO 12.5 mg Q12HR KANE Administration Ezetimibe 10 mg 05/04/24 09:00 05/04/24 08:56 Ezetimibe 10 Mg Tablet PO 10 mg DAILY KANE Administration Famotidine 20 mg 05/03/24 21:00 05/04/24 08:57 Famotidine 20 Mg/2 Ml Vial IV PUSH 20 mg Q12HR KANE Administration Hydralazine HCl 10 mg 05/04/24 01:59 Hydralazine Hcl 20 Mg/Ml Vial IV PUSH Q4HR PRN Blood Pressure - High Hydrochlorothiazide 12.5 mg 05/04/24 00:02 Hydrochlorothiazide 12.5 Mg Capsule PO DAILY PRN edema Isosorbide Mononitrate 60 mg 05/04/24 09:00 05/04/24 08:57 Isosorbide Mononitrate 60 Mg Tab.Er.24h PO 60 mg DAILY KANE Administration Losartan Potassium 100 mg 05/04/24 09:00 05/04/24 08:57 Losartan Potassium 100 Mg Tablet PO 100 mg DAILY KANE Administration Magnesium Citrate 300 ml 05/05/24 02:00 Magnesium Citrate 300 Ml Btl PO 05/05/24 02:01 ONCE ONE Ondansetron HCl 4 mg 05/03/24 14:45 05/04/24 09:08 Ondansetron Inj 4 Mg/2 Ml Vial IV PUSH 4 mg Q6H PRN Administration Nausea And Vomiting Pantoprazole Sodium 40 mg 05/04/24 09:00 05/04/24 08:57 Pantoprazole Sodium Iv 40 Mg Vial IV PUSH 40 mg Q12HR KANE Administration Pantoprazole Sodium 40 mg 05/04/24 21:00 Pantoprazole 40 Mg Tablet PO HS [facility] Polyethylene Glycol 238 gm 05/04/24 16:00 Polyethylene Glycol 3350 238 Gm Bottle PO 05/04/24 16:01 ONCE ONE Rosuvastatin Calcium 40 mg 05/04/24 09:00 05/04/24 08:56 Rosuvastatin 20 Mg Tablet PO 40 mg DAILY KANE Administration Spironolactone 25 mg 05/04/24 09:00 05/04/24 08:56 Spironolactone 25 Mg Tablet PO 25 mg DAILY KANE Administration Tramadol HCl 50 mg 05/04/24 00:02 Tramadol Hcl (*Crx) 50 Mg Tablet PO QHS PRN pain Umeclidinium/Vilanterol 1 puff 05/04/24 08:00 05/04/24 08:40 Umeclidinium/Vilanterol 62.5-25 Mcg Ellipta INHALATION 1 puff DAILYRT KANE Administration Radiology Results: ITS Impressions Chest X-Ray 05/03/24 11:21 IMPRESSION: No acute cardiopulmonary pathology. Chest/Abdomen/Pelvis CTA 05/03/24 12:36 IMPRESSION: CHEST: 1. No evidence of aneurysm or dissection. 2. No acute cardiopulmonary pathology. 3. Dilated esophagus with fluid content suggestive of reflux. ABDOMEN/PELVIS: 1. No evidence of appendicitis, diverticulitis or intestinal obstruction. 2. Constipation. 3. Thin cortex seen in the left kidney upper pole suggestive of vascular versus infectious process. 4. 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 Bifemoral shunt is also noted. 5. Slight dilatation of the proximal left femur with thrombosed pseudoaneurysm or hematoma seen in the area of the left common femoral artery measuring 5 x 5.5 cm.. Labs Labs: Laboratory Results - last 24 hr 05/03/24 05/03/24 05/04/24 13:40 17:03 05:26 WBC 5.5 RBC 3.50 L Hgb 12.9 Hct 37.1 MCV 106.0 H MCH 36.9 H MCHC 34.8 RDW 13.8 Plt Count 107 L MPV 10.1 Sodium 136 L Potassium 3.4 Chloride 104 Carbon Dioxide 28 Anion Gap 4 BUN 18 H Creatinine 1.00 Estim Creat Clear Calc 46 Estimated GFR 55 L Glucose 83 Calcium 9.2 Magnesium 2.3 Troponin I 0.017 D 0.028 D
[2024-05-04] MEDS: polyethylene glycoL 3350 238 GM BOTTLE PO (16:21)
[2024-05-04] MEDS: traMADol HCL (*CRX) 50 MG TABLET PO (20:30)
[2024-05-05] VITALS (13 sets, daily range): BP systolic 101–149; BP diastolic 43–93; PULSE 48–71; RESP 13–19; TEMP 36.2–36.6; O2SAT 92–100
[2024-05-05] MEDS: MAGNESIUM CITRATE 300 ML BTL PO (01:24)
[2024-05-05] MEDS: UMECLIDINIUM/VILANTEROL 62.5-25 MCG ELLIPTA 1 PUFF INHALATION (07:38)
[2024-05-05] MEDS: LACTATED RINGERS 1,000 ML 150 ML IV CONT (09:19)
--- NOTE | 2024-05-05 09:26 | SUR.PREOP ---
Spoke with Dr Hubbard- no antibiotics prior to EGD/Colonoscopy.
--- NOTE | 2024-05-05 09:39 | P.PNIM_ITS ---
Progress Note: A&P Assessment and Plan (1) Chest pain: Code(s): R07.9 - Chest pain, unspecified Status: Acute (2) Dysphagia: Qualifiers: Dysphagia type: other dysphagia Qualified Code(s): R13.19 - Other dysphagia Code(s): R13.10 - Dysphagia, unspecified Status: Acute (3) Hypertension: Code(s): I10 - Essential (primary) hypertension Status: Acute (4) Peripheral vascular disease: Code(s): I73.9 - Peripheral vascular disease, unspecified Status: Acute (5) Weight loss: Code(s): R63.4 - Abnormal weight loss Status: Acute (6) Combined systolic and diastolic cardiac dysfunction: Code(s): I51.89 - Other ill-defined heart diseases Status: Acute Plan CAD in [place] artery: Code(s): I25.10 - Atherosclerotic heart disease of [place] coronary artery without angina pectoris Status: Acute Assessment and Plan: Patient has no chest pain now Troponin negative EKG shows sinus rhythm no specific ST T-wave changes continue with ASA, plavix, statin, Imdur. Appreciate cardiology consultation Combined systolic and diastolic cardiac dysfunction: Code(s): I51.89 - Other ill-defined heart diseases Status: Acute Assessment and Plan: compensated heart failure. Essential (primary) hypertension: Code(s): Essential (primary) hypertension Status: Chronic Assessment and Plan: Blood pressure is at goal. Continue current medical regimen. Dysphagia, epigastric pain abnormal imaging digestive: Patient is a smoker, has dysphagia with solid food painful swallowing with stuck sensation in her throat Patient also has epigastric pain Possible Esophageal dysmotility vs stricture vs ring vs reflux vs eosinophilic esophagitis Continue Protonix IV Advance test Appreciate GI consultation, Patient underwent EGD and colonoscopy today: Basically normal EGD biopsy p erformed, colonoscopy performed, patient was found have a internal hemorrhoid, colonic polyps that was removed Constipation/hematochezia/personal Hx of colon polyps/weight loss: Last colonoscopy 08/14/2020 with polyps removed and 3 year repeat colonoscopy was recommended, patient overdue. Chronic constipation weight loss stating that over the past 9 years her weight , slowly decreased from her previous baseline weight of 145 lbs, Colonoscopy tomorrow per GI Subjective Date/time seen: 05/05/24 09:39 Interval history: I saw exam patient today, patient feels better today, patient tolerated diet well. Patient also has mild epigastric pain. Patient denies constipation. Patient also denies chest pain shortness breath, she vomiting. Patient is afebrile, blood pressure stable Exam Narrative: GENERAL: Pleasant, in no acute distress. Well-nourished. - EYES: EOMI. Anicteric. - HENT: Moist mucous membranes. - LUNGS: Clear to auscultation bilateral ly, no wheezing, rhonchi, or rales. - CARDIOVASCULAR: Regular rate and rhyth m. No murmur. No JVD. - ABDOMEN: Soft, non-tender and non-dist ended. No palpable masses. - EXTREMITIES: No edema. Peripheral puls es 2+. Non-tender. - NEUROLOGIC: No focal neurological defi cits. CN II-XII grossly intact. - PSYCHIATRIC: Awake, Alert and oriented x 3. Appropriate mood and affect. - SKIN: No rashes or lesions. Warm. - LYMPH: No cervical lymphadenopathy. Objective Data Vital Signs Vital Signs: Vital Signs - 24 hr 05/04/24 10:00 05/04/24 12:00 05/04/24 12:00 Temperature 97.7 F Pulse Rate 87 78 78 Respiratory Rate 20 20 Blood Pressure 129/83 Pulse Oximetry 91 91 Oxygen Delivery Room Air 05/04/24 12:00 05/04/24 14:00 05/04/24 16:00 Temperature 98.5 F Pulse Rate 81 71 73 Respiratory Rate 12 Blood Pressure 146/71 H Pulse Oximetry 91 Oxygen Delivery 05/04/24 16:00 05/04/24 16:00 05/04/24 18:00 Temperature Pulse Rate 73 70 64 Respiratory Rate 12 Blood Pressure Pulse Oximetry 91 Oxygen Delivery Room Air 05/04/24 20:00 05/04/24 20:00 05/04/24 20:30 Temperature Pulse Rate 93 93 84 Respiratory Rate 16 Blood Pressure Pulse Oximetry 93 Oxygen Delivery Room Air 05/04/24 21:18 05/04/24 22:00 05/05/24 00:00 Temperature 97.9 F Pulse Rate 64 58 L 65 Respiratory Rate 16 16 Blood Pressure 149/89 H Pulse Oximetry 93 93 Oxygen Delivery Room Air 05/05/24 00:00 05/05/24 00:21 05/05/24 02:00 Temperature 97.9 F Pulse Rate 65 60 64 Respiratory Rate 16 Blood Pressure 139/93 H Pulse Oximetry 93 Oxygen Delivery 05/05/24 03:46 05/05/24 03:46 05/05/24 04:43 Temperature 97.8 F Pulse Rate 70 70 71 Respiratory Rate 16 16 Blood Pressure 149/81 H Pulse Oximetry 96 93 Oxygen Delivery Room Air 05/05/24 06:00 05/05/24 07:43 05/05/24 08:00 Temperature 97.6 F Pulse Rate 48 L 56 L Respiratory Rate 18 Blood Pressure 143/75 H Pulse Oximetry 93 93 Oxygen Delivery Room Air 05/05/24 09:24 Temperature 97.2 F L Pulse Rate 54 L Respiratory Rate 16 Blood Pressure 119/88 Pulse Oximetry 95 Oxygen Delivery Room Air Intake/Output Intake/Output: Intake & Output 05/02/24 05/03/24 05/04/24 05/05/24 23:59 23:59 23:59 23:59 Intake Total 1080 550 Output Total 100 200 Balance 980 350 Meds/Results Medications: Active Medications Generic Name Dose Route Start Last Admin Trade Name Freq PRN Reason Stop Dose Admin Acetaminophen 650 mg 05/03/24 22:51 Acetaminophen 325 Mg Tablet PO Q6H PRN Mild Pain (1-3) or Fever Albuterol 2 puff 05/04/24 00:02 Albuterol Sulfate (*Sp) Aerosol 1 Puff INHALATION Q4-6H PRN Shortness Of Breath Albuterol/Ipratropium 3 ml 05/04/24 00:02 Ipratropium 0.5 Mg/Albuterol Sulfate 2.5 Mg Ampul.Neb 3 Ml INHALATION Q4HRT PRN shortness of breath or wheezing Amlodipine Besylate 10 mg 05/04/24 02:00 05/04/24 02:40 Amlodipine Besylate 10 Mg Tablet PO 10 mg DAILY KANE Administration Carvedilol 12.5 mg 05/04/24 02:00 05/04/24 20:30 Carvedilol 12.5 Mg Tablet PO 12.5 mg Q12HR KANE Administration Ezetimibe 10 mg 05/04/24 09:00 05/04/24 08:56 Ezetimibe 10 Mg Tablet PO 10 mg DAILY KANE Administration Famotidine 20 mg 05/03/24 21:00 05/04/24 20:31 Famotidine 20 Mg/2 Ml Vial IV PUSH 20 mg Q12HR KANE Administration Hydralazine HCl 10 mg 05/04/24 01:59 Hydralazine Hcl 20 Mg/Ml Vial IV PUSH Q4HR PRN Blood Pressure - High Hydrochlorothiazide 12.5 mg 05/04/24 00:02 Hydrochlorothiazide 12.5 Mg Capsule PO DAILY PRN edema Lactated Ringer's 1,000 mls @ 150 mls/hr 05/05/24 09:15 05/05/24 09:19 Lr - Lactated Ringers Iv IV CONT 150 mls/hr .Q6H40M KANE Administration Isosorbide Mononitrate 60 mg 05/04/24 09:00 05/04/24 08:57 Isosorbide Mononitrate 60 Mg Tab.Er.24h PO 60 mg DAILY KANE Administration Losartan Potassium 100 mg 05/04/24 09:00 05/04/24 08:57 Losartan Potassium 100 Mg Tablet PO 100 mg DAILY KANE Administration Ondansetron HCl 4 mg 05/03/24 14:45 05/04/24 09:08 Ondansetron Inj 4 Mg/2 Ml Vial IV PUSH 4 mg Q6H PRN Administration Nausea And Vomiting Pantoprazole Sodium 40 mg 05/04/24 09:00 05/04/24 20:31 Pantoprazole Sodium Iv 40 Mg Vial IV PUSH 40 mg Q12HR KANE Administration Pantoprazole Sodium 40 mg 05/04/24 21:00 05/04/24 20:31 Pantoprazole 40 Mg Tablet PO Not Given HS KANE Rosuvastatin Calcium 40 mg 05/04/24 09:00 05/04/24 08:56 Rosuvastatin 20 Mg Tablet PO 40 mg DAILY KANE Administration Spironolactone 25 mg 05/04/24 09:00 05/04/24 08:56 Spironolactone 25 Mg Tablet PO 25 mg DAILY KANE Administration Tramadol HCl 50 mg 05/04/24 00:02 05/04/24 20:30 Tramadol Hcl (*Crx) 50 Mg Tablet PO 50 mg QHS PRN Administration pain Umeclidinium/Vilanterol 1 puff 05/04/24 08:00 05/05/24 07:38 Umeclidinium/Vilanterol 62.5-25 Mcg Ellipta INHALATION 1 puff DAILYRT KANE Administration Radiology Results: ITS Impressions Chest X-Ray 05/03/24 11:21 IMPRESSION: No acute cardiopulmonary pathology. Chest/Abdomen/Pelvis CTA 05/03/24 12:36 IMPRESSION: CHEST: 1. No evidence of aneurysm or dissection. 2. No acute cardiopulmonary pathology. 3. Dilated esophagus with fluid content suggestive of reflux. ABDOMEN/PELVIS: 1. No evidence of appendicitis, diverticulitis or intestinal obstruction. 2. Constipation. 3. Thin cortex seen in the left kidney upper pole suggestive of vascular versus infectious process. 4. 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 Bifemoral shunt is also noted. 5. Slight dilatation of the proximal left femur with thrombosed pseudoaneurysm or hematoma seen in the area of the left common femoral artery measuring 5 x 5.5 cm..
--- NOTE | 2024-05-05 09:53 | P.PNAN_ITS ---
Anes - Initial Pre Proc Eval Procedure: Operation Date: 05/05/24 15:00 Proposed Procedures p Esophagogastroduodenoscopy & Colonoscopy - Austin Gonzalez MD Date/Time: 05/05/24 09:53 Surgeon: Ke Zapata MD Pre Op Diagnosis: Chest Pain Patient Data Age: 68 Gender: F Height: 1.7 m Weight: 59.5 kg Last Vital Signs Temp 36.2 C L 05/05/24 09:24 Pulse 54 L 05/05/24 09:24 Resp 16 05/05/24 09:24 BP 119/88 05/05/24 09:24 Pulse Ox 95 05/05/24 09:24 O2 Del Method Room Air 05/05/24 09:24 Allergies Allergy/AdvReac Type Severity Reaction Status Date / Time Penicillins Allergy Severe SOB Verified 05/05/24 09:22 prednisone Allergy Severe Dyspnea / Verified 05/05/24 09:22 SOB adhesive tape Allergy Intermediate blisters Verified 05/05/24 09:22 latex Allergy Intermediate BLISTERS Verified 05/05/24 09:22 mushroom Allergy Mild Hives Verified 05/05/24 09:22 warfarin Allergy Unknown HEMMRHAGE Verified 05/05/24 09:22 ibuprofen AdvReac Intermediate SHAKY Verified 05/05/24 09:22 NSAIDS (Non-Steroidal AdvReac Intermediate Unknown Verified 05/05/24 09:22 Anti-Inflamma Home Medications ?Medication ?Instructions ?Recorded ?Confirmed ?Type clopidogrel 75 mg tablet 75 mg PO DAILY 12/26/20 05/05/24 History carvedilol 12.5 mg tablet 12.5 mg PO BID 12/24/21 05/03/24 History rosuvastatin 40 mg tablet 40 mg PO DAILY 12/24/21 05/03/24 History aspirin 81 mg tablet,delayed 81 mg PO QAM #90 tabs 11/18/22 05/03/24 Rx release doxycycline monohydrate 100 mg 100 mg PO BID #20 caps 11/24/23 05/03/24 Rx capsule amlodipine 10 mg tablet 10 mg PO DAILY #90 tabs 12/16/23 05/03/24 Rx guaifenesin 600 mg tablet, 1,200 mg (2 x 600 mg) PO BID #120 12/25/23 05/03/24 Rx extended release 12 hr tabs umeclidinium 62.5 mcg-vilanterol 1 inh inhalation DAILY #60 ea 12/26/23 05/03/24 Rx 25 mcg/actuation powdr for inhalation hydrochlorothiazide 12.5 mg tablet 12.5 mg PO DAILY PRN edema #90 tabs 03/09/24 05/03/24 Rx albuterol sulfate 90 mcg/actuation 2 inh inhalation Q4-6H PRN SOB 03/22/24 05/03/24 Rx aerosol inhaler #8.5 grams benzonatate 100 mg capsule 100 mg PO BID PRN Cough 03/22/24 05/03/24 History ipratropium 0.5 mg-albuterol 3 mg 3 ml inhalation Q4H PRN shortness 03/22/24 05/03/24 Rx (2.5 mg base)/3 mL nebulization of breath or wheezing #180 mL soln tramadol 50 mg tablet 50 mg PO QHS PRN pain #90 tabs 03/22/24 05/03/24 Rx ezetimibe 10 mg tablet 10 mg PO DAILY 05/03/24 05/03/24 History isosorbide mononitrate 60 mg 60 mg PO DAILY 05/03/24 05/04/24 History tablet,extended release 24 hr losartan 100 mg tablet 100 mg PO DAILY 05/03/24 05/03/24 History spironolactone 25 mg tablet 25 mg PO DAILY 05/03/24 05/04/24 History pantoprazole 40 mg tablet,delayed 40 mg PO HS 05/04/24 05/03/24 History release Patient hx anesthesia problems: none Family hx anesthesia problems: none Results Review: All pre-operative results and documents have been reviewed as part of the pre- operative evaluation. [facility] Past Medical History Medical History Combined systolic and diastolic cardiac dysfunction Patent foramen ovale Tobacco dependence Peripheral vascular disease Coronary artery disease Hydrocephalus Osteopenia Overactive bladder Vitamin D deficiency Cerebrovascular accident (CVA) Cerebral aneurysm Chronic obstructive pulmonary disease (COPD) Depression Dyslipidemia Essential (primary) hypertension Lumbar spondylosis Right renal artery stenosis Surgical History Surgical History History of coronary artery stent placement History of ventriculoperitoneal shunting (2016) History of aorto-femoral bypass (08/2017) History of cerebral aneurysm repair (10/2016) Femoral-femoral bypass graft thrombosis, left (06/1997) History of appendectomy History of hysterectomy 1980s History of coronary artery bypass graft (1994) History of aortic valve replacement 1994 and 1997 Family History Family History Mother Diabetes mellitus CAD (coronary artery disease) Family history of coronary artery disease Sibling CAD (coronary artery disease) Sibling Diabetes mellitus Sibling Cerebrovascular accident Son Alcoholism in family Social History Social History Social History: Surrogate medical decision maker: Saeid Keita, spouse. Code status: Full code. Smoking packs per day: 0.25 Smoking cigarettes per day: 5.0 Years smoked: 50 Smoking pack-years: 12.50 Smoking status: Current every day smoker Second hand tobacco smoke exposure: Yes Additional smoking assessment comments: CURRENTLY SMOKES 2-3 A DAY DEPENDING ON HOW DEPRESSED SHE IS Alcohol intake: never Substance use: never Substance use type: does not use Do You Feel Safe in your Home?: Yes Lack of Transportation: YES Lack of Food: Never True Current Housing: I Have Housing Concerned About Future Housing: No Difficulty Paying Gas/Electric Bills: No Difficulty Paying for Meds: YES Currently Unemployed: No Education: Decline to Answer Difficulty w/ Childcare or Family Care: YES Living arrangements: with family Occupation/Education: retired Spiritual care concerns: No Anes - Eval Final PreProcedure Day of Procedure 05/05/24 09:53 Patient weight: normal Heart: regular rate and rhythm Lungs: decreased breath sounds Airway: Mallampati scale class II Neurological: alert and oriented Last oral intake: >/= 8 hours ASA classification: IV Emergent: no Anesthetic plan: proceed Anesthesia type and monitoring: general GIVS and standard monitoring Results Review: All pre-operative results and documents have been reviewed as part of the pre- operative evaluation. Informed Consent: The patient's anesthetic plan and its attendant risks and benefits were di scussed with the patient/family/POA. Questions were solicited and answers provided to the satisfaction of the patient/family/POA.
[2024-05-05] MEDS: PANTOPRAZOLE SODIUM IV 40 MG VIAL IV PUSH (11:24)
[2024-05-05] MEDS: FAMOTIDINE 20 MG/2 ML VIAL IV PUSH (11:24)
[2024-05-05] MEDS: ROSUVASTATIN 20 MG TABLET 40 MG PO (11:25)
[2024-05-05] MEDS: carvediloL 12.5 MG TABLET PO (11:25)
[2024-05-05] MEDS: SPIRONOLACTONE 25 MG TABLET PO (11:26)
[2024-05-05] MEDS: EZETIMIBE 10 MG TABLET PO (11:26)
[2024-05-05] MEDS: LOSARTAN POTASSIUM 100 MG TABLET PO (11:26)
[2024-05-05] MEDS: ISOSORBIDE MONONITRATE 60 MG TAB.ER.24H PO (11:26)
[2024-05-05] MEDS: amLODIPine BESYLATE 10 MG TABLET PO (11:26)
--- NOTE | 2024-05-05 12:04 | PM.DS ---
DS: Admitting Diagnosis Discharge Date 05/05 Admitting Diagnosis (1) Chest pain: Code(s): R07.9 - Chest pain, unspecified Status: Acute (2) Dysphagia: Qualifiers: Dysphagia type: other dysphagia Qualified Code(s): R13.19 - Other dysphagia Code(s): R13.10 - Dysphagia, unspecified Status: Acute (3) Hypertension: Code(s): I10 - Essential (primary) hypertension Status: Acute (4) Peripheral vascular disease: Code(s): I73.9 - Peripheral vascular disease, unspecified Status: Acute (5) Weight loss: Code(s): R63.4 - Abnormal weight loss Status: Acute (6) Combined systolic and diastolic cardiac dysfunction: Code(s): I51.89 - Other ill-defined heart diseases Status: Acute DS: Discharge Diagnosis Discharge Diagnosis (1) Chest pain: Code(s): R07.9 - Chest pain, unspecified Status: Acute (2) Dysphagia: Qualifiers: Dysphagia type: other dysphagia Qualified Code(s): R13.19 - Other dysphagia Code(s): R13.10 - Dysphagia, unspecified Status: Acute (3) Hypertension: Code(s): I10 - Essential (primary) hypertension Status: Acute (4) Peripheral vascular disease: Code(s): I73.9 - Peripheral vascular disease, unspecified Status: Acute (5) Weight loss: Code(s): R63.4 - Abnormal weight loss Status: Acute (6) Combined systolic and diastolic cardiac dysfunction: Code(s): I51.89 - Other ill-defined heart diseases Status: Acute DS: Summary Hospital Course Hospital Course: Per H&P: This is pleasant 68-year-old female smoker with history of stroke, cerebral aneurysm, 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 The patient provides the following history. Shortly after waking from sleep at about 06:30 she developed a squeezing sensation throughout the upper chest up into the left side of the neck associated with mild shortness of breath, nausea, and chills. The squeezing sensation did radiates somewhat through to the back. She went to the kitchen and tried to take her medications however she was unable to get them down as she began vomiting. With further questioning she reports having occasional heartburn and more recently she has been having difficulties swallowing breads and meats, feeling as though it gets stuck sometimes. It sounds as though she has had this before and possible esophageal dilatation. She denies syncope, near syncope, exertional chest pain, cough, abdominal pain, bloating, belching, hematemesis, melena, hematochezia, diarrhea, edema, calf pain, orthopnea, and paroxysmal nocturnal dyspnea. Of note, the patient has steadily lost weight without trying but reports having quite a bit of stress caring for her with Parkinson's and dementia.In the ED: Blood pressures have been running in the 160s 170 systolic but again she was unable to take her blood pressure medications this morning. The remainder of her vital signs are stable. Labs were significant for WBC count of 4.8, hemoglobin 13.7, MCV 105.5, BUN 21, creatinine 1.20, glucose 122, troponin less than 0.012, proBNP 4470, total protein 8.0, albumin 4.6. CTA of the chest, abdomen, and pelvis showed dilated esophagus with fluid content suggestive of reflux and constipation and other chronic findings were noted. She was given famotidine, morphine, ondansetron, and a GI cocktail and she is being admitted in this setting for further observation and workup. The following med issues have been addressed during hospitalization CAD in [place] artery: Code(s): I25.10 - Atherosclerotic heart disease of [place] coronary artery without angina pectoris Status: Acute Assessment and Plan: Patient has no chest pain now Troponin negative EKG shows sinus rhythm no specific ST T-wave changes continue with ASA, plavix, statin, Imdur. Appreciate cardiology consultation no chest pain during hospitalization Combined systolic and diastolic cardiac dysfunction: Code(s): I51.89 - Other ill-defined heart diseases Status: Acute Assessment and Plan: compensated heart failure. Continue home medications Essential (primary) hypertension: Code(s): Essential (primary) hypertension Status: Chronic Assessment and Plan: Blood pressure is at goal. Continue home medications Dysphagia, epigastric pain abnormal imaging digestive: Patient is a smoker, has dysphagia with solid food painful swallowing with stuck sensation in her throat Patient also has epigastric pain Possible Esophageal dysmotility vs stricture vs ring vs reflux vs eosinophilic esophagitis Continue Protonix IV Advance test Appreciate GI consultation, Patient underwent EGD and colonoscopy today: Basically normal EGD biopsy performed, colonoscopy performed, patient was found have a internal hemorrhoid, colonic polyps that was removed Constipation/hematochezia/personal Hx of colon polyps/weight loss: Last colonoscopy 08/14/2020 with polyps removed and 3 year repeat colonoscopy was recommended, patient overdue. Chronic constipation weight loss stating that over the past 9 years her weight , slowly decreased from her previous baseline weight of 145 lbs, Colonoscopy down today, no malignancies were found polyps were removed Time Spent with Patient Time attestation: Total time spent providing and/or coordinating discharge services: Exam Narrative: GENERAL: Pleasant, in no acute distress. Well-nourished. - EYES: EOMI. Anicteric. - HENT: Moist mucous membranes. - LUNGS: Clear to auscultation bilaterally, no wheezing, rhonchi, or rales. - CARDIOVASCULAR: Regular rate and rhythm. No murmur. No JVD. - ABDOMEN: Soft, non-tender and non-distended. No palpable masses. - EXTREMITIES: No edema. Peripheral pulses 2+. Non-tender. - NEUROLOGIC: No focal neurological deficits. CN II-XII grossly intact. - PSYCHIATRIC: Awake, Alert and oriented x 3. Appropriate mood and affect. - SKIN: No rashes or lesions. Warm. - LYMPH: No cervical lymphadenopathy. DS: Data Data Completed and Pending Pending studies at discharge: Pending at discharge 05/05/24 10:17 Surgical [PTH] Routine 05/05/24 10:36 Surgical [PTH] Routine Discharge Plan Discharge Attending physician on discharge: Mehran Ramos Consulting providers: Jameson Kohler; Austin Gonzalez Discharging Clinician: Mehran Ramos Anticipated Discharge Date/Time: 05/05/24 13:05 Patient Disposition: Home, Self-Care Activity: as tolerated Diet: as tolerated and heart healthy Patient Instructions: Antibiotic Form, Rivaroxaban (By mouth), Pain Management (DC), Colorectal Polyps (GEN), Colonoscopy (DC) Patient Language: Maltese Stand Alone Forms: General Discharge Information Follow-up/Referrals: Jean Miguel MD [Primary Care Provider] - (Patient needs to see primary care doctor in 1 week) Discharge Medications: Continued clopidogrel 75 mg tablet 75 mg PO DAILY carvedilol 12.5 mg tablet 12.5 mg PO BID rosuvastatin 40 mg tablet 40 mg PO DAILY benzonatate 100 mg capsule 100 mg PO BID PRN (Reason: Cough) albuterol sulfate 90 mcg/actuation HFA aerosol inhaler 2 inh inhalation Q4-6H PRN (Reason: SOB) Qty: 8.5 6RF ipratropium-albuterol 0.5 mg-3 mg(2.5 mg base)/3 mL solution for nebulization 3 ml inhalation Q4H PRN (Reason: shortness of breath or wheezing) Qty: 180 6RF guaifenesin 600 mg tablet extended release 12hr 1,200 mg PO BID Qty: 120 3RF umeclidinium-vilanterol 62.5-25 mcg/actuation blister with device 1 inh inhalation DAILY Qty: 60 6RF doxycycline monohydrate 100 mg capsule 100 mg PO BID Qty: 20 0RF spironolactone 25 mg tablet 25 mg PO DAILY isosorbide mononitrate 60 mg tablet extended release 24 hr 60 mg PO DAILY losartan 100 mg tablet 100 mg PO DAILY ezetimibe 10 mg tablet 10 mg PO DAILY aspirin 81 mg tablet,delayed release (DR/EC) 81 mg PO QAM Qty: 90 1RF amlodipine 10 mg tablet 10 mg PO DAILY Qty: 90 1RF hydrochlorothiazide 12.5 mg tablet 12.5 mg PO DAILY PRN (Reason: edema) Qty: 90 1RF tramadol 50 mg tablet 50 mg PO QHS PRN (Reason: pain) Qty: 90 1RF Changed pantoprazole 40 mg tablet,delayed release (DR/EC) 40 mg PO HS Qty: 30 0RF Date of admission: 05/03/24 14:01 Primary Care Provider: Jean Miugel Admitting Provider: Helio Zapata Attending physician on admission: Helio Zapata Condition: Stable
== END 2024-05-05 13:15 | disposition home or self-care (01) ==
LOC: ANHED 14:17 → ANHIMU 05-04 00:04
PROVIDERS: Emergency Medicine; Internal Medicine Gastroenterology; Physician Assistant; Admitting Provider Internal Medicine; Emergency Provider Student in an Organized Health Care Education/Training Program; PCP Family Medicine; Visit Provider Hospitalist
PROC: 0DJ08ZZ Inspection of Upper Intestinal Tract, Via Natural or Artificial Opening Endoscopic (ICD-10-PCS; CPT 43235; principal; 2024-05-05 15:00)
DX: R13.19 Other dysphagia (principal); R10.13 Epigastric pain; K29.50 Unspecified chronic gastritis without bleeding; D12.2 Benign neoplasm of ascending colon; D12.3 Benign neoplasm of transverse colon; D12.5 Benign neoplasm of sigmoid colon; K64.8 Other hemorrhoids; Z86.0100 Personal history of colon polyps, unspecified; I25.10 Atherosclerotic heart disease of native coronary artery without angina pectoris; I11.0 Hypertensive heart disease with heart failure; I50.9 Heart failure, unspecified; I25.5 Ischemic cardiomyopathy; J44.9 Chronic obstructive pulmonary disease, unspecified; I73.9 Peripheral vascular disease, unspecified; R63.4 Abnormal weight loss; R93.3 Abnormal findings on diagnostic imaging of other parts of digestive tract; K59.04 Chronic idiopathic constipation; R11.14 Bilious vomiting; F32.A Depression, unspecified; N32.81 Overactive bladder; F17.210 Nicotine dependence, cigarettes, uncomplicated; I72.8 Aneurysm of other specified arteries; M85.80 Other specified disorders of bone density and structure, unspecified site; M47.896 Other spondylosis, lumbar region; D64.9 Anemia, unspecified; Z98.2 Presence of cerebrospinal fluid drainage device; Z79.82 Long term (current) use of aspirin; Z79.02 Long term (current) use of antithrombotics/antiplatelets; Z79.51 Long term (current) use of inhaled steroids; Z79.84 Long term (current) use of oral hypoglycemic drugs; Z79.899 Other long term (current) drug therapy; Z95.1 Presence of aortocoronary bypass graft; Z95.2 Presence of prosthetic heart valve; Z86.73 Personal history of transient ischemic attack (TIA), and cerebral infarction without residual deficits; Z95.820 Peripheral vascular angioplasty status with implants and grafts; Z98.890 Other specified postprocedural states
CPT/HCPCS: 43239; 45385; 36415; 71046; 71275; 74174; 80048; 80053; 83690; 83735; 83880; 84484; 85025; 85027; 85055; 85610; 85730; 88305; 93005; 94640; 96374; 96375; 99285; A9270; G0378; J2003; J2270; J2405; J2470; J2704; J7030; J7120; Q9967

== ENCOUNTER 2024-07-26 09:59 | Outpatient (CLI) | payer MEDICARE, SELFPAY ==
[2024-07-26 14:19] LABS: Add Urine Microscopic? YES; Appearance Urine Clear (Clear); Bacteria Urine None Seen /hpf; Bilirubin Urine Negative (Negative); Blood Urine Negative (Negative); Color Urine Yellow (Yellow); Glucose Urine UA Negative (Negative); Ketones Urine Negative (Negative); Leukocyte Esterase Ur Negative LEU/UL (Negative); Nitrate Urine Negative (Negative); Non Pathogenic Casts 0-2; Protein Urine 1+ mg/dL (Negative); RBC Urine 0-2 /hpf (0-2); Specific Grav Ur 1.018 (1.001-1.035); Squamous Epithelial Cell Urine None Seen /hpf (Few); Urobilinogen Urine 0.2 mg/dL (<2.0); WBC Urine 0-5 /hpf (0-3); pH Urine 5.5 (5.0-9.0)
== END 2024-07-26 10:00 | disposition home or self-care (01) ==
PROVIDERS: PCP Family Medicine; Visit Provider Family Medicine
DX: N39.0 Urinary tract infection, site not specified (principal)
CPT/HCPCS: 81001; 87086

== ENCOUNTER 2024-09-27 14:59 | Outpatient (CLI) | payer MEDICARE, SELFPAY ==
--- OUTSIDE RECORDS SUMMARY | 2024-09-27 15:38 | XMS_ITS | Clinical Summary ---
Author Organization [facility] [place] [address] Address [address] [place] [address] Care Team Providers Care Director Design Name Role Phone Hilary Miguel MD Primary Care Provider Allergies Active Allergy Reactions Criticality Noted Date Comments Adhesive Tape-Silicones Blisters High 01/16/2017 Albuterol Unknown,Shortness of breath High 02/15/2016 Can only tolerate very little dose of albuterol Albuterol Sulfate Other (See comments),Shortness of breath High 02/15/2016 Can only tolerate very little dose of albuterol Latex Blisters High 01/16/2017 Mushroom Shortness of breath High 02/15/2016 Cream of mushroom soup/ throat swells Mushroom Flavor Shortness of breath High 02/15/2016 Cream of mushroom soup/ throat swells Penicillins Rash Medium 01/16/2017 Itching, rash, face turned red Prednisone Shortness of breath High 02/15/2016 Prednisone Acetate Shortness of breath High 02/15/20 16 Warfarin Other (See comments) Low 02/15/2016 bleeding Medications INCRUSE ELLIPTA 62.5 mcg/actuation blister with device Inhale 1 puff nightly 11/11/19 18 Active sertraline (ZOLOFT) 50 mg tablet Take 50 mg by mouth daily 1 09/16/19 19 Active cholecalciferol (VITAMIN D-3) 2000 unit tablet Take 2,000 Units by mouth daily Active amLODIPine (NORVASC) 10 mg tablet Take 1 tablet (10 mg total) by mouth daily Active umeclidinium-radha nteroL (ANORO ELLIPTA) 62.5-25 mcg/actuation blister with device Inhale 1 puff daily Active pantoprazole DR (PROTONIX) 40 mg EC tablet Take 1 tablet (40 mg total) by mouth nightly 02/13/20 Active varenicline tartrate (CHANTIX) 1 mg tabletIndications :Smoking Cessation Take 1 tablet (1 mg total) by mouth 2 (two) times a day Take with full glass of water. 60 tablet 3 06/05/19 Active Additional Information Patient not taking.Reported on 02/12/2023 ipratropium-albut Richard (DUO-NEB) 0.5-2.5 mg/3 mL nebulizer solutionIndicatio ns:Chronic Obstructive Pulmonary Disease with Bronchospasms Take by nebulization every 6 (six) hours Active aspirin 81 mg enteric coated tablet Take 1 tablet (81 mg total) by mouth daily 90 tablet 1 02/16/20 Active albuterol HFA (PROVENTIL HFA,VENTOLIN HFA,PROAIR HFA) 90 mcg/actuation inhaler 03/22/20 Active hydroCHLOROthiazi de 12.5 mg tablet 03/24/20 Active doxycycline hyclate 100 mg capsule 03/16/20 Active losartan (COZAAR) 100 mg tablet Take 1 tablet (100 mg total) by mouth daily 30 tablet 03/24/20 Active spironolactone (ALDACTONE) 25 mg tablet Take 1 tablet (25 mg total) by mouth daily 30 tablet 03/24/20 24 Active ezetimibe (ZETIA) 10 mg tablet Take 1 tablet (10 mg total) by mouth daily 30 tablet 03/24/20 24 Active clopidogreL (PLAVIX) 75 mg tablet TAKE 1 TABLET BY MOUTH DAILY 30 tablet 06/18/19 Active rosuvastatin (CRESTOR) 40 mg tablet TAKE 1 TABLET BY MOUTH DAILY 30 tablet 06/18/19 Active carvediloL (COREG) 12.5 mg tablet TAKE 1 TABLET BY MOUTH TWICE DAILY WITH MEALS 60 tablet 07/19/19 25 Active isosorbide mononitrate ER (IMDUR) 60 mg 24 hr tabletIndications :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 TAKE 1 TABLET BY MOUTH DAILY 30 tablet 07/19/19 Active Active Problems Problem Noted Date Diagnosed Date Protein-calorie malnutrition, moderate 2 CAD S/P percutaneous coronary angioplasty 2021 Hx of CABG 01/29/2022 Overview (01/29/2022): Added automatically from request for surgery [id number] Coronary artery disease invo lving coronary bypass graft of red devil heart 01/29/2022 Overview (01/29/2022): Added automatically from request for surgery [id number] Chest pain 12/19/2021 Overview (12/19/2021): Added automatically from request for surgery [id number] Abnormal stress test 12/19/2021 Overview (12/19/2021): Added automatically from request for surgery [id number] Heart attack H/O angioplasty Encounters Date Type Department Care Team Description 08/18/2024 Results Follow-Up [facility] Card[facility] [address] [facility] [address] Kali Cabrera RN 08/17/2024 9:15 AM CDT Ancillary Procedure [facility] Cardiology [address] [facility] [address] [place] [id number] History of aortic valve replacement with bioprosthetic valve from Last 3 Months Surgical History Surgery Date Site/Laterality Comments CORONARY ARTERY BYPASS GRAFT CORONARY ANGIOPLASTY FEMORAL BYPASS Bilateral AORTIC VALVE REPLACEMENT OTHER SURGICAL HISTORY shunt right side of brain INTRACRANIAL ANEURYSM REPAIR HYSTERECTOMY APPENDECTOMY AUGMENTATION MAMMOPLASTY Medical History Medical History Date Comments Hypertension Heart attack (HCC) H/O angioplasty Heart murmur Aortic valve disease COPD (chronic obstructive pulmonary disease) (HC C) CAD (coronary artery disease) GERD (gastroesophageal reflux disease) Stroke (HCC) Depression HL (hearing loss) Full dentures uppers and lower s Anxiety Family History Medical History Relation Name Comments Coronary artery disease Brother Heart failure Brother Heart disease Father Heart attack Maternal Grandfather Heart disease Maternal Grandmother Heart attack Mother Heart disease Mother Coronary artery disease Mother's Sister Diabetes Mother's Sister Heart attack Sister Relation Name Status Comments Brother Father Maternal Grandfather Maternal Grandmother Mother Mother's Sister Sister Social History Tobacco Use Types Packs/Day Years Used Date Smoking Tobacco: Some Days Cigarettes Smokeless Tobacco: Never Tobacco Cessation:Ready to Q uit: Not Asked; Counseling Given: Not Answered Comments:Counseling given. Reach out to PCP for assistance with quitting. Alcohol Use Standard Drinks/Week Comments No 0 (1 standard drink = 0.6 oz pur e alcohol) AUDIT-C Answer Date Recorded Q1: How often do you have a drink containing alc ohol? Never 01/11/2022 Average Number of Drinks Not on file 022 Frequency of Binge Drinking Not on file 12/24 Comments Unknown Sex and Gender Information Value Date Recorded Sex Assigned at Not on file Legal Sex Female 3:26 PM TRANSFORMATION SPECIALIST Gender Identity Not on file Sexual Orientation Not on file Obstetrics History Last Filed Vital Signs Vital Sign Reading Time Taken Comments Blood Pressure 136/80 03/24/2024 1:04 PM CDT Pulse 69 03/24/2024 1:04 PM CDT Temperature 37.1 C (98.8 F) 03/01/2022 11:32 AM CDT Respiratory Rate 16 03/01/2022 11:32 AM CDT Oxygen Saturation 95% 03/24/2024 1:04 PM CDT Inhaled Oxygen Concentration - - Weight 44.5 kg (98 lb 3.2 oz) 03/24/2024 1:04 PM CDT Height 170.2 cm (5' 7 ) 03/24/2024 1:04 PM CDT Body Mass Index 15.38 03/24/2024 1:04 PM CDT Plan of Treatment Health Maintenance Due Date Last Done Comments Breast Cancer Screening-Mammogram 1955 Colon Cancer Screening-Colonoscopy 1955 Depression Screening 1955 Hepatitis C Screening 1955 Osteoporosis Screening-Bone Density Scan 1955 DTaP/Tdap/Td Vaccine (1 - Tdap) 1968 Hepatitis B Screening 08/09/1975 Zoster Vaccine (1 of 2) 08/09/2007 Pneumococcal vaccine 65+ (2 of 2 - PCV) 02/20/2017 02/21/2016 Well Visit 65+ 2022 Fall Risk Assessment 03/01/2023 03/01/2022, 12/08/2019, 09/24/2017 Influenza Vaccine (Season Ended) 2025 05/25/2021, 02/14/2020, 03/05/2019, Additional history exists Medical Devices Implanted Type Area Testing Tech Device Identifier Shelf Expiration Date Model / Serial / Lot [employer] Resolute Adis Ux 3.0x18mm Cheo Stent [id number] - [id number] Implanted:Qty: 1 on 02/28/2022 by Franky Neff MD at [facility] [employer] 09/28/2024 [id number] X / / [id number] [employer] Resolute Adis 3mm 2.1-2.7fr 34mm 140cm Rapid Exchange Radiopaque [id number] - [id number] Implanted:Qty: 1 on 02/28/2022 by Franky Neff MD at [facility] [employer] 08/31/2024 [id number] X / / [id number] [employer] Vickey Stent Drug Eluting S Megatron Us Mr 4.47b02cy [id number] - [id number] Implanted:Qty: 1 on 02/28/2022 by Franky Neff MD at [facility] [employer] 09/11/2022 [id number] / / [id number] Procedures Procedure Name Priority Date/Time Associated Diagnosis Comments TRANSTHORACIC ECHO (TTE) COMPLETE W DOPPLER/CF WO CONTRAST Routine 08/17/2024 10:02 AM CDT History of aortic valve replacement with bioprosthetic valve from Last 3 Months Results * TRANSTHORACIC ECHO (TTE) COMPLETE W DOPPLER/CF WO CONTRAST (08/17/2024 10:02 AM CDT) Anatomical Region Laterality Modality Ultrasound 08/17/2024 9:32 AM CDT Narrative 08/17/2024 10:38 AM CDT [facility] Cardiology [address], [place] [address] P:[phone] P:[phone] Echocardiographic Report Patient Name: FRANTZ KEITA : 1955 Study Date: 08/17/2024 9:32:37 AM Gender: F Tech: Location: [facility] Provider: FRANKY NEFF Height(Cm): 170 BSA: 1.45 Weight(Kg): 44.5 Heart Rate: 52 BP: 136 / 80 Quality: Good Order Provider: FRANKY NEFF PROCEDURES: Echocardiographic Report: Transthoracic echocardiogram with complete 2D, M-Mode, and color Doppler examination. With Strain Analysis. INDICATIONS: Aortic Valve Replacement. MEASUREMENTS: 2D/MM Value Range Doppler Value Range EF Mod BP 43 % [ 54 - 74 ] CATALINA Vmax 1.67 cm2 [ 2.00 - 4.00 ] EF Teich MM 40 % [ 54 - 74 ] AV Mean PG 13 mmHg LVIDd 2D 4.80 cm [ 3.80 - 5.20 ] AV Peak Richard 2.49 m/s [ 1.00 - 1.70 ] LVIDd MM 4.59 cm [ 3.80 - 5.20 ] AV Peak PG 25 mmHg LVIDs 2D 3.92 cm [ 2.20 - 3.50 ] AV VTI 52.65 cm LVIDs MM 3.71 cm [ 2.20 - 3.50 ] LVOT Diam 1.89 cm [ 1.70 - 2.10 ] LVPWd 2D 0.81 cm [ 0.60 - 0.90 ] LVOT Peak Richard 1.48 m/s [ 0.70 - 1.10 ] LVPWd MM 0.98 cm [ 0.60 - 0.90 ] LVOT VTI 31.34 cm IVSd 2D 0.99 cm [ 0.60 - 0.90 ] MV E Peak Richard 0.89 m/s [ 0.60 - 1.30 ] IVSd MM 0.83 cm [ 0.60 - 0.90 ] MV A Peak Richard 0.95 m/s [ 1.00 - 1.20 ] LA Dimension MM 3.30 cm [ 2.70 - 3.80 ] MV Decel Time 141 msec [ 104 - 258 ] AoR Diam MM 2.38 cm [ 2.70 - 3.70 ] PV Peak Richard 0.79 m/s [ 0.40 - 0.80 ] LA Volume Index 30 cc/m2 [ 16 - 34 ] TR Peak Richard 2.82 m/s [ 1.00 - 2.80 ] TR Peak PG 32 mmHg RVSP 40.00 mmHg [ 10.00 - 36.00 ] Lateral E` 0.07 m/s [ 0.10 - 0.15 ] E` 0.03 m/s E/E` 14 2D/MM Value Range Doppler Value Range - FINDINGS: Interpretation Site: Exam was interpreted at [facility]. Left Ventricle: Ejection fraction is measured at 43 %. Global Longitudinal Strain is -12 %. The left ventricle is normal in size with mildly reduced global systolic function. The left ventricular ejection fraction is visually estimated to be 40-45%. There is paradoxical septal motion abnormality possibly secondary to previous cardiac surgery. Right Ventricle: Normal right ventricular size. Normal right ventricular systolic function. Left Atrium: The left atrium is normal in size. Right Atrium: The right atrium is normal in size. Atrial Septum: The atrial septum is not well visualized. Mitral Valve: The mitral valve leaflets open well. The posterior leaflet appears restricted with subsequent posteriorly directed eccentric mitral regurgitation that is at least mild. Aortic Valve: Peak Velocity of 2.49 m/s. Peak gradient of 25.0 mmHg. Mean gradient of 13.0 mmHg. Valve area of 1.7 cm2. There is a well-seated bioprosthesis in the aortic position with normal gradients across the valve. Normal function bioprosthesis. Tricuspid Valve: Estimated peak RVSP is 40 mmHg. The tricuspid valve opens well. There is mild tricuspid regurgitation. Pulmonic Valve: The pulmonic valve is grossly normal. There is no color Doppler evidence of pulmonic valve regurgitation in his study. Pericardium: Normal pericardium with no significant pericardial effusion. Aorta: Aortic root not well visualized. IVC: Normal size and normal respiratory collapse consistent with normal right atrial pressure (<5 mmHg). CONCLUSIONS: Ejection fraction is measured at 43 %. Global Longitudinal Strain is -12 %. The left ventricle is normal in size with mildly reduced global systolic function. The left ventricular ejection fraction is visually estimated to be 40-45%. There is paradoxical septal motion abnormality possibly secondary to previous cardiac surgery. The mitral valve leaflets open well. The posterior leaflet appears restricted with subsequent posteriorly directed eccentric mitral regurgitation that is at least mild. Peak Velocity of 2.49 m/s. Peak gradient of 25.0 mmHg. Mean gradient of 13.0 mmHg. Valve area of 1.7 cm2. There is a well-seated bioprosthesis in the aortic position with normal gradients across the valve. Normal function bioprosthesis. Electronically Signed By: Dr. Jameson Kohler 08/17/2024 10:37:01 AM CDT Procedure Note Jameson Kohler MD - 08/17/2024 [facility] Cardiology [address], [address], [place] [address] P:[phone] P:[phone] Echocardiographic Report Patient Name: FRANTZ KEITA : 1955 Study Date: 08/17/2024 9:32:37 AM Gender: F Tech: Location: [facility] Provider: FRANKY NEFF Height(Cm): 170 BSA: 1.45 Weight(Kg): 44.5 Heart Rate: 52 BP: 136 / 80 Quality: Good Order Provider: FRANKY NEFF PROCEDURES: Echocardiographic Report: Transthoracic echocardiogram with complete 2D, M-Mode, and color Dopplerexamination. With Strain Analysis. INDICATIONS: Aortic Valve Replacement. MEASUREMENTS: 2D/MM Value Range Doppler ValueRange EF Mod BP 43 % [ 54 - 74 ] CATALINA Vmax 1.67cm2 [ 2.00 - 4.00 ] EF Teich MM 40 % [ 54 - 74 ] AV Mean PG 13mmHg LVIDd 2D 4.80 cm [ 3.80 - 5.20 ] AV Peak Richard 2.49m/s [ 1.00 - 1.70 ] LVIDd MM 4.59 cm [ 3.80 - 5.20 ] AV Peak PG 25mmHg LVIDs 2D 3.92 cm [ 2.20 - 3.50 ] AV VTI 52.65cm LVIDs MM 3.71 cm [ 2.20 - 3.50 ] LVOT Diam 1.89 cm[ 1.70 - 2.10 ] LVPWd 2D 0.81 cm [ 0.60 - 0.90 ] LVOT Peak Richard 1.48m/s [ 0.70 - 1.10 ] LVPWd MM 0.98 cm [ 0.60 - 0.90 ] LVOT VTI 31.34cm IVSd 2D 0.99 cm [ 0.60 - 0.90 ] MV E Peak Richard 0.89m/s [ 0.60 - 1.30 ] IVSd MM 0.83 cm [ 0.60 - 0.90 ] MV A Peak Richard 0.95m/s [ 1.00 - 1.20 ] LA Dimension MM 3.30 cm [ 2.70 - 3.80 ] MV Decel Time 141msec [ 104 - 258 ] AoR Diam MM 2.38 cm [ 2.70 - 3.70 ] PV Peak Richard 0.79m/s [ 0.40 - 0.80 ] LA Volume Index 30 cc/m2 [ 16 - 34 ] TR Peak Richard 2.82m/s [ 1.00 - 2.80 ] TR Peak PG 32 mmHg RVSP 40.00 mmHg [ 10.00 - 36.00 ] Lateral E` 0.07 m/s [ 0.10 - 0.15 ] E` 0.03 m/s E/E` 14 2D/MM Value Range Doppler ValueRange - FINDINGS: Interpretation Site: Exam was interpreted at [facility]. Left Ventricle: Ejection fraction is measured at 43 %. Global Longitudinal Strain is -12%. The left ventricle is normal in size with mildly reduced global systolic function.The left ventricular ejection fraction is visually estimated to be 40-45%. There isparadoxical septal motion abnormality possibly secondary to previous cardiacsurgery. Right Ventricle: Normal right ventricular size. Normal right ventricular systolicfunction. Left Atrium: The left atrium is normal in size. Right Atrium: The right atrium is normal in size. Atrial Septum: The atrial septum is not well visualized. Mitral Valve: The mitral valve leaflets open well. The posterior leaflet appearsrestricted with subsequent posteriorly directed eccentric mitral regurgitation that is atleast mild. Aortic Valve: Peak Velocity of 2.49 m/s. Peak gradient of 25.0 mmHg. Mean gradient of13.0 mmHg. Valve area of 1.7 cm2. There is a well-seated bioprosthesis in the aorticposition with normal gradients across the valve. Normal function bioprosthesis. Tricuspid Valve: Estimated peak RVSP is 40 mmHg. The tricuspid valve opens well. There ismild tricuspid regurgitation. Pulmonic Valve: The pulmonic valve is grossly normal. There is no color Doppler evidenceof pulmonic valve regurgitation in his study. Pericardium: Normal pericardium with no significant pericardial effusion. Aorta: Aortic root not well visualized. IVC: Normal size and normal respiratory collapse consistent with normal rightatrial pressure (<5 mmHg). CONCLUSIONS: Ejection fraction is measured at 43 %. Global Longitudinal Strain is -12%. The left ventricle is normal in size with mildly reduced global systolic function.The left ventricular ejection fraction is visually estimated to be 40-45%. There isparadoxical septal motion abnormality possibly secondary to previous cardiacsurgery. The mitral valve leaflets open well. The posterior leaflet appearsrestricted with subsequent posteriorly directed eccentric mitral regurgitation that is atleast mild. Peak Velocity of 2.49 m/s. Peak gradient of 25.0 mmHg. Mean gradient of13.0 mmHg. Valve area of 1.7 cm2. There is a well-seated bioprosthesis in the aorticposition with normal gradients across the valve. Normal function bioprosthesis. Electronically Signed By: Dr. Jameson Kohler 08/17/2024 10:37:01 AM CDT Franky Neff MD CV ECHO PROCEDURES Final Result from Last 3 Months Insurance [facility] MEDICARE ADVANTAGE [facility] Address: [address] [address] [facility] Address: [address] [address] [facility] Address: [address] [address] Advance Directives For more information, please contact: [phone] * Full Code (Latest Code Status on File) Date Activated Date Inactivated Comments 02/28/2022 2:12 PM 03/01/2022 7:44 PM Care Teams Director Design Relationship Specialty Start Date End Date Hilary Miguel MD PCP - General Family Practice 07/30/17
--- OUTSIDE RECORDS SUMMARY | 2024-09-27 15:38 | XMS_ITS | Clinical Summary ---
Author Organization [facility] [employer] Address [address] [place] [address] Care Team Providers Care Sales Associate Name Role Phone Hilary Miguel MD Primary Care Provider Source Comments [facility],non-owned Affiliates and Associated Physician Practices is amultiple site organization consisting of ambulatory clinics and hospital sitesin [place], [place] and [place]. This disclosure is being madepursuant to the Care Everywhere program and may not contain all information available regarding this patient. Last updated 18.[facility] [employer] Allergies Active Allergy Reactions Criticality Noted Date Comments Albuterol Shortness of Breath,Other High 02/15/2016 Can only tolerate very little dose of albuterol Mushroom Extract Complex Shortness of Breath High 02/15/2016 Cream of mushroom soup/ throat swells Penicillins Skin Reactions,Shortness of Breath High 02/15/2016 Prednisone Shortness of Breath High 02/15/2016 Warfarin Bleeding 02/15/2016 Medications * Be aware that medications may not be up to date on this document. Alwaysverify current medications with the patient. simvastatin (ZOCOR) 80 MG tablet 7 Active losartan (COZAAR) 25 MG tablet Take 25 mg by mouth DAILY. 7 Active primidone (MYSOLINE) 50 MG tablet Take 50 mg by mouth DAILY. 120 tablet 3 6 Active clopidogrel (PLAVIX) 75 MG tablet Take 75 mg by mouth DAILY. 6 Active cilostazol (PLETAL) 100 MG tablet Take 100 mg by mouth 2 times daily Active metoclopramide (REGLAN) 1 mg/ml SOLN by Intravenous route once Active Metoprolol-hydr oCHLOROthiazide (METOPROLOL-HCT Z ER PO) Active sertraline (ZOLOFT) 50 MG tablet Take 50 mg by mouth 2 times daily 0 Active Active Problems Problem Noted Date Diagnosed Date Hydrocephalus 04/19/2020 AAA (abdominal aortic aneurysm) without rupture 04/18/2020 Bicuspid aortic valve 04/18/2020 Overview (04/18/2020): s/p replacement in 1994 and 2007 Bilateral carotid artery stenosis 04/18/2020 CAD (coronary artery disease) 04/18/2020 Overview (04/18/2020): s/p CABG x2 in 2002 COPD (chronic obstructive pulmonary disease) Dyslipidemia 04/18/2020 H/O angioplasty 04/18/2020 PAD (peripheral artery disease) 04/18/2020 Non-ST elevation (NSTEMI) myocardial infarction 12/17/2016 Mild protein-calorie malnutrition 12/12/2016 Acute pulmonary insufficiency following nonthora cic surgery 12/12/2016 Acute posthemorrhagic anemia 12/12/2016 Other acute postprocedural pain 12/12/2016 Essential (primary) hypertension 12/12/2016 Nonruptured cerebral aneurysm 02/16/2016 Essential tremor 02/16/2016 Cerebral infarction 02/16/2016 Anesthesia of skin 02/15/2016 Immunizations Immunization Administration Dates Next Due FLU VACCINE TRI IIV3 SPLIT PF IM (FLUVIRIN) 01/25 INFLUENZA VACCINE, QUADR. (F LUZONE; FLULAVAL; FLUARIX; AFLURIA QUADRIVALENT; 6MO+), 0.5 ML (IIV4) 02/14/2020 PNEUMOCOCCAL PPSV23 02/21/2016 Family History Medical History Relation Name Comments Cardiomyopathy Brother 1 Kee Drug Abuse Brother 1 Kee Status: d Other - Cardiac Brother 1 Kee Peripheral-a rterial disease with stenting. Cardiomyopathy Brother 2 Boris by hear t attack. Drug Abuse Brother 2 Boris Status: d Cancer - Skin, Melanoma Brother 3 Christian Unce rtain if melanoma. Cardiomyopathy Brother 3 Christian Status: Alive CAD (Coronary Artery Disease) Father by heart attack.; Status: Hyperlipidemia Father Hypertension Father CAD (Coronary Artery Disease) Mother by heart attack.; Status: Diabetes - Type 2 Mother Glaucoma Mother Hyperlipidemia Mother Hypertension Mother CVA Sister 1 Stacey . Drug Abuse Sister 1 Stacey Status: d CAD (Coronary Artery Disease) Sister 2 Jemima Status: Alive Other - Cardiac Sister 2 Jemima Carotid-patience ry stenosis. Other - Endocrine Sister 2 Jemima Elevated h emoglobin A1c without diabetes. Other - Cardiac Sister 3 Suzan Peripheral-a rterial disease.; Status: Alive None Known Sister 4 Krista Status: Alive Anesthesia Reaction Neg Hx Macular Degeneration Neg Hx Relation Name Status Comments Brother 1 Kee Brother 2 Boris Brother 3 Christian Father Mother Sister 1 Stacey Sister 2 Jemima Sister 3 Suzan Sister 4 Krista Social History Tobacco Use Types Packs/Day Years Used Date Smoking Tobacco: Every Day Cigarettes Smokeless Tobacco: Never Alcohol Use Standard Drinks/Week Comments No 0 (1 standard drink = 0.6 oz pur e alcohol) Comments Unknown Sex and Gender Information Value Date Recorded Sex Assigned at Not on file Legal Sex Female 5:19 PM BEAMER HAND Gender Identity Not on file Sexual Orientation Not on file Last Filed Vital Signs Vital Sign Reading Time Taken Comments Blood Pressure 140/81 04/18/2020 11:16 AM BEAMER HAND Pulse 79 04/18/2020 11:16 AM BEAMER HAND Temperature 36.3 C (97.3 F) 04/18/2020 11:16 AM BEAMER HAND Respiratory Rate 18 04/18/2020 11:16 AM BEAMER HAND Oxygen Saturation 96% 04/18/2020 11:16 AM BEAMER HAND Inhaled Oxygen Concentration - - Weight 51.3 kg (113 lb 3.2 oz) 04/18/2020 11:16 AM BEAMER HAND Height 167.6 cm (5' 6 ) 04/18/2020 11:16 AM BEAMER HAND Body Mass Index 18.27 04/18/2020 11:16 AM BEAMER HAND Plan of Treatment Health Maintenance Due Date Last Done Comments BONE DENSITY TESTING 1955 COLOGUARD (AGES 45-75) - COL ON CA SCREENING 1957 COLON MONITORING 1957 COLONOSCOPY - COLON CA SCREENING 1957 CT COLONOGRAPHY - COLON CA SCREENING 1955 Colorectal Cancer Screening 1955 FIT - COLON CA SCREENING 1955 FLEX SIG - COLON CA SCREENING 1955 MAMMOGRAM 1955 Opioid Medication Agreement - Annual 1955 HEPATITIS C SCREENING 08/04/1975 DTAP/TDAP/TD VACCINES (1 - Tdap) 1976 ZOSTER VACCINE (1 of 2) 08/09/2007 PNEUMOCOCCAL VACCINE 50+ (2 of 2 - PCV) 02/20/2017 02/21/2016 Respiratory Syncytial Virus (RSV) Vaccine Pt: or over 60 yrs (1 - Risk 60-74 years 1-dose series) 2017 COVID-19 VACCINE (1 - 2023-2 5 season) 2024 DEPRESSION SCREENING 05/26/2024 MEDICARE AWV CALENDAR YEAR 2024 INFLUENZA VACCINE (Season Ended) 2025 02/14/2020, 02/21/2016 HEPATITIS B VACCINE Aged Out No longe r eligible based on patient's age to complete this topic HIB VACCINE Aged Out No longer eligi ble based on patient's age to complete this topic HPV VACCINE Aged Out No longer eligi ble based on patient's age to complete this topic MENINGOCOCCAL (Group B) VACCINE SHARED DECISION-MAKING Aged Out No longer eligible based on patient's age to complete this topic MENINGOCOCCAL GROUPS A/C/Y/W VACCINE Aged Out No longer eligible b ased on patient's age to complete this topic Insurance [facility] MANAGED MEDICARE ADV [facility] MANAGED MEDICARE ADV Care Teams Sales Associate Relationship Specialty Start Date End Date Hilary Miguel MD [address] [place] [id number] PCP - General 08/30/20
--- OUTSIDE RECORDS SUMMARY | 2024-09-27 15:38 | XMS_ITS | Referral Summary ---
Author Organization [facility] [address] Address [address] [place] [address] Care Team Providers Care Cruise Staff Member Name Role Phone Hilary Miguel MD Primary Care Provider Encounters Date Type Department Care Team Description 08/18/2024 Results Follow-Up [facility] Cardiology [address] [phone] Kali Cabrera RN 08/17/2024 9:15 AM CDT Ancillary Procedure [facility] Medical [facility] Cardiology [address] [place] [address] History of aortic valve replacement with bioprosthetic valve from Last 3 Months Allergies Active Allergy Reactions Criticality Noted Date [...] (40 mg total) by mouth nightly 02/13/20 22 Active varenicline tartrate (CHANTIX) 1 mg tabletIndications :Smoking Cessation Take 1 tablet (1 mg total) by mouth 2 (two) times a day Take with full glass of water. 60 tablet 3 06/05/19 23 Active Additional Information Patient not taking.Reported on 02/12/2023 ipratropium-albut Richard (DUO-NEB) 0.5-2.5 mg/3 mL nebulizer solutionIndicatio ns:Chronic Obstructive Pulmonary Disease with Bronchospasms Take by nebulization every 6 (six) hours Active aspirin 81 mg enteric coated tablet Take 1 tablet (81 mg total) by mouth daily 90 tablet 1 02/16/20 24 Active albuterol HFA (PROVENTIL HFA,VENTOLIN HFA,PROAIR HFA) 90 mcg/actuation inhaler 03/22/20 24 Active hydroCHLOROthiazi de 12.5 mg tablet 03/24/20 24 Active doxycycline hyclate 100 mg capsule 03/16/20 24 Active losartan (COZAAR) 100 mg tablet Take 1 tablet (100 mg total) by mouth daily 30 tablet 11 03/24/20 24 Active spironolactone (ALDACTONE) 25 mg tablet Take 1 tablet (25 mg total) by mouth daily 30 tablet 11 03/24/20 24 Active ezetimibe (ZETIA) 10 mg tablet Take 1 tablet (10 mg total) by mouth daily 30 tablet 11 03/24/20 24 Active clopidogreL (PLAVIX) 75 mg tablet TAKE 1 TABLET BY MOUTH DAILY 30 tablet 10 06/18/19 25 Active rosuvastatin (CRESTOR) 40 mg tablet TAKE 1 TABLET BY MOUTH DAILY 30 tablet 06/18/19 25 Active carvediloL (COREG) 12.5 mg tablet TAKE 1 TABLET BY MOUTH TWICE DAILY WITH MEALS 60 tablet 07/19/19 25 Active isosorbide mononitrate ER (IMDUR) 60 mg 24 hr tabletIndications :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 TAKE 1 TABLET BY MOUTH DAILY 30 tablet 07/19/19 25 Active Active Problems Problem Noted Date Diagnosed Date Protein-calorie malnutrition, moderate CAD S/P percutaneous coronary angioplasty 2021 Hx of CABG 01/29/2022 Overview (01/29/2022): Added automatically from request for surgery [id number] Coronary artery disease invo lving coronary bypass graft of sycuan heart 01/29/2022 Overview (01/29/2022): Added automatically from request for surgery [id number] Chest pain 12/19/2021 Overview (12/19/2021): Added automatically from request for surgery [id number] Abnormal stress test 12/19/2021 Overview (12/19/2021): Added automatically from request for surgery [id number] Heart attack H/O angioplasty Social History Tobacco Use Types Packs/Day Years [...] on file 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 Gender Identity Not on file Sexual Orientation [...] 03/24/2024 1:04 PM CDT Plan of Treatment Not on file Medical Devices Implanted Type Area Steam Gigger Device Identifier Shelf Expiration Date Model / Serial / Lot [employer] Resolute Adis Ux 3.0x18mm Cheo Stent [id number] - [id number] Implanted:Qty: 1 on 02/28/2022 by Prashanth Neff MD at [facility] [employer] 09/28/2024 [id number] / / [id number] [employer] Resolute Jackson 3mm 2.1-2.7fr 34mm 140cm Rapid Exchange Radiopaque [id number] - [id number] Implanted:Qty: 1 on 02/28/2022 by Prashanth Neff MD at [facility] [employer] 08/31/2024 [id number] / / [id number] [employer] Vickey Stent Drug Eluting S Megatron Mr 4.44d98ql [id number] - [id number] Implanted:Qty: 1 on 02/28/2022 by Prashanth Neff MD at [facility] [employer]key 09/11/2022 [id number] / / [id number] Procedures Procedure Name Priority Date/Time Associated Diagnosis Comments TRANSTHORACIC ECHO (TTE) COMPLETE W DOPPLER/CF WO CONTRAST Routine 08/17/2024 10:02 AM CDT History of aortic valve replacement with bioprosthetic valve from Last 3 Months Results * TRANSTHORACIC ECHO (TTE) COMPLETE W DOPPLER/CF WO CONTRAST (08/17/2024 10:02 AM CDT) Anatomical Region Laterality Modality Ultrasound 08/17/2024 9:32 AM CDT Narrative 08/17/2024 10:38 AM CDT [facility] Cardiology [address], [address], [place] [address] P:[phone] P:[phone] Echocardiographic Report Patient Name: FRANTZ KEITA : 1955 Study Date: 08/17/2024 9:32:37 AM Gender: F Tech: Location: [place] Ref Provider: PRASHANTH NEFF Height(Cm): 170 BSA: 1.45 Weight(Kg): 44.5 Heart Rate: 52 BP: 136 / 80 Quality: Good Order Provider: PRASHANTH NEFF PROCEDURES: Echocardiographic Report: Transthoracic echocardiogram with [...] FINDINGS: Interpretation Site: Exam was interpreted at [facility]. Left Ventricle: Ejection fraction is measured at [...] Procedure Note Jameson Kohler MD - 08/17/2024 [facility] Cardiology [address], [address], [place] [address] P:[phone] P:[phone] Echocardiographic Report Patient Name: FRANTZ KEITA : 1955 Study Date: 08/17/2024 9:32:37 AM Gender: F Tech: Location: [facility] Provider: PRASHANTH NEFF Height(Cm): 170 BSA: 1.45 Weight(Kg): 44.5 Heart Rate: 52 BP: 136 / 80 Quality: Good Order Provider: PRASHANTH NEFF PROCEDURES: Echocardiographic Report: Transthoracic echocardiogram with [...] FINDINGS: Interpretation Site: Exam was interpreted at [facility]. Left Ventricle: Ejection fraction is measured at [...] Dr. Jameson Kohler 08/17/2024 10:37:01 AM CDT Prashanth Neff MD CV ECHO PROCEDURES Final Result from Last 3 Months Insurance [id number] [id number] MED[employer] [employer] Advance Directives For more information, please contact: [phone] * Full Code (Latest Code Status on File) Date Activated Date Inactivated Comments 02/28/2022 2:12 PM 03/01/2022 7:44 PM Care Teams Cruise Staff Member Relationship Specialty Start Date End Date Hilary Miguel MD PCP - General Family Practice 07/30/17
--- OUTSIDE RECORDS SUMMARY | 2024-09-27 15:38 | XMS_ITS | Encounter Summary ---
Author Organization [facility] Healthcare Address [address] [place] [address] Care Team Providers Care Hydroelectric Machinery Mechanic Name Role Phone Hilary Miguel MD Primary Care Provider Encounter Details Date Type Department Care Team (Late st Contact Info) Description 08/18/2024 Results Follow-Up [facility] Cardiology [address] [place] [phone] Kali Cabrera RN Social History Tobacco Use Types Packs/Day Years Used Date Smoking Tobacco: Some Days Cigarettes Smokeless Tobacco: Never Comments:Counseling given. R each out to PCP for assistance with quitting. 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
--- OUTSIDE RECORDS SUMMARY | 2024-09-27 15:38 | XMS_ITS | Clinical Summary ---
Author Organization [facility] Address [address] [place] [address] Care Team Providers Care Wardrobe Specialist Name Role Phone Ariel Briceño MD Unavailable Hilary Miguel MD Primary Care Provider Allergies Active Allergy Reactions Criticality Noted Date Comments Albuterol Unknown,Other (see comment),Shortness of Breath High 02/15/2016 Can only tolerate very little dose of albuterol Can only tolerate very little dose of albuterol Latex Unknown 01/16/2017 Mushroom Extract Complex (Obsolete) Shortness of Breath,Unknown High 05/15/2015 Cream of mushroom soup/ throat swells Penicillins Unknown 12/22/2015 Prednisone Shortness of Breath High 02/15/2016 Warfarin Other (see comment),Unknown 02/15/2016 Medications CLOPIDOGREL 75 MG tablet TAKE 1 TABLET BY MOUTH ONCE DAILY CALL TO MAKE AN APPOINTMENT 10 tablet 8 Active ipratropium (ATROVENT HFA) 17 MCG/ACT inhaler Inhale 2 puffs into the lungs. 6 Active aspirin EC (ADULT ASPIRIN EC LOW STRENGTH) 81 MG tablet Adult Aspirin EC Low Strength 81 MG Oral Tablet Delayed [id number] Active albuterol (PROVENTIL) (2.5 MG/3ML) 0.083% nebulizer solution Inhale 1 Units into the lungs. 6 Active Active Problems Problem Noted Date Diagnosed Date Myocardial infarction ([facility]) 12/12/19 23 Hydrocephalus ([facility]) 04/19/2020 H/O angioplasty 04/18/2020 Acute posthemorrhagic anemia 12/12/2016 Acute pulmonary insufficiency following nonthora cic surgery 12/12/2016 Mild protein-calorie malnutrition ([facility]) 11/24 Other acute postprocedural pain 12/12/2016 Aneurysm, cerebral, nonruptured ([facility]) 2015 Cerebral infarction ([facility]) 02/16/2016 S/P AVR (aortic valve replacement) 07/12/2015 Upper respiratory infection 07/03/2015 Hyperglycemia 06/06/2015 GERD (gastroesophageal reflux disease) 5 Hyperlipidemia 05/15/2015 Injury of artery of left upper extremity 015 Tobacco abuse disorder Essential hypertension Dyslipidemia PAD (peripheral artery disease) CAD (coronary artery disease) Overview (05/09/2016): s/p CABG x2 in 2002 Bicuspid aortic valve Overview (05/09/2016): s/p replacement in 1994 and 2007 COPD (chronic obstructive pu lmonary disease) ([facility]) AAA (abdominal aortic aneurysm) without rupture Carotid stenosis, bilateral Resolved Problems Problem Noted Date Diagnosed Date Resolved Date Cerebrovascular accident (CV A) due to thrombosis of cerebral artery ([facility]) 02/16/2016 07/22/2016 Benign essential tremor 02/16/201606/27 Carotid stenosis 07/17/2016 CAD (coronary artery disease) 05/09/2016 Overview (12/28/2015): s/p CABG in 2007 Bicuspid aortic valve 2015 Overview (12/28/2015): s/p replacement in 1994 and 2007 Immunizations Immunization Administration Dates Next Due Influenza (Generic) 02/21/2016,05/15/2015 Influenza Adult (Generic) 05/25/2021,02/14/2020 Pneumococcal (Pneumovax 23) 02/21/2016 Family History Medical History Relation Comments Heart Attack Mother Relation Status Comments Mother Social History Tobacco Use Types Packs/Day Years Used Date Smoking Tobacco: Smoker, Current Status Unknown Cigarettes 0.5 12 Alcohol Use Standard Drinks/Week Comments No 0 (1 standard drink = 0.6 oz pur e alcohol) Comments Unknown Sex and Gender Information Value Date Recorded Sex Assigned at Not on file Legal Sex Female 9:42 PM CDT Gender Identity Female 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 Straight 08/01/2021 10 :09 AM GARDEN CENTER MANAGER Occupation Industry Job Start Date Job End Date Not on file Not on file Not on file Not on file Not on file Not on file Not on file Not on file Last Filed Vital Signs Vital Sign Reading Time Taken Comments Blood Pressure 115/77 03/15/2021 12:30 PM CDT Pulse 58 03/15/2021 12:30 PM CDT Temperature - - Respiratory Rate 15 03/15/2021 12:30 PM CDT Oxygen Saturation 96% 03/15/2021 12:30 PM CDT Inhaled Oxygen Concentration - - Weight 47.4 kg (104 lb 8 oz) 03/15/2021 7:02 AM CDT Height 170.2 cm (5' 7 ) 03/15/2021 7:00 AM CDT Body Mass Index 16.37 03/15/2021 7:00 AM CDT Plan of Treatment Health Maintenance Due Date Last Done Comments ASCVD Statin 1955 Colorectal Cancer Screening Colonoscopy (10 Years) 1955 Hepatitis C 08/09/1975 DTaP, Tdap and Td Vaccines ( 1 - Tdap) 1976 Mammogram Screening 1997 Zoster Vaccines (1 of 2) 08/09/2007 ASCVD LDL 06/02/2016 06/02/2015, 06/02/2015 Pneumococcal Vaccine: 50+ Years (2 of 2 - PCV) 02/20/2017 02/21/2016 RSV Immunization or 60+ Years (1 - Risk 60-74 years 1-dose series) 2017 Annual Medicare Wellness Visit 2022 Dexa Scan (General) 2022 COVID-19 Vaccine (2 - 2023-2 5 season) 2024 05/25/2021 Meningococcal B Vaccine Aged Out No l onger eligible based on patient's age to complete this topic Meningococcal Vaccine Aged Out No brayan kimberli eligible based on patient's age to complete this topic RSV Immunizations Under 20 Months Aged Out No longer eligible b ased on patient's age to complete this topic Procedures Procedure Name Priority Date/Time Associated Diagnosis Comments LIPID PANEL Routine 06/02/2015 12:00 AM GARDEN CENTER MANAGER from Last 3 Months or Most Recently Relevant to Health Maintenance Results * LIPID PANEL (06/02/2015 12:00 AM GARDEN CENTER MANAGER) TRIGLYCERIDES 65 0 - 150 mg/dl [employer] TO EPIC CONVERSION CHOLESTEROL 159 0 - 200 mg/dl [employer] TO EPIC CONVERSION HDL 64 40 - 59 mg/dl [employer] TO EPIC CONVERSION LDL CONVERSION 82 0 - 100 mg/dl [employer] TO EPIC CONVERSION 06/02/2015 06/02/2015 us Generic Conversion Md [facility] Final R esult MEDINFORMATIX TO EPIC CONVERSION from Last 3 Months or Most Recently Relevant to Health Maintenance Insurance MED REPLACE [facility] MED COMPLETE [facility] Advance Directives * Full Code (Latest Code Status on File) Date Activated Date Inactivated Comments 03/15/2021 9:49 AM 03/15/2021 3:22 PM Care Teams Wardrobe Specialist Relationship Specialty Start Date End Date Hilary Miguel MD [address] [place] [address] PCP - General FAMILY PRACTICE 01/18/21 Ariel Briceño MD [address] [address] [place] President Celebrity [employer] CARDIOVASCULAR DISEASE 12/25/15
[2024-09-27 19:39] LABS: Basophils Absolute Auto 0.1 K/mm3 (0.0-0.1); Basophils Percent Auto 1.2 % (0.2-1.2); Eosinophils Absolute Auto 0.2 K/mm3 (0-0.3); Eosinophils Percent Auto 3.7 % (0-4.4); Hematocrit 34.9 % (37.0-47.0); Hemoglobin 11.2 g/dL (12.0-15.0); Immature Granulocyte Absolute 0.01 K/mm3 (0.00-0.031); Immature Granulocyte Percent A 0.2 % (0-0.5); Lymphocytes Absolute Auto 1.77 K/mm3 (0.9-3.2); Lymphocytes Percent Auto 34.7 % (18.3-44.2); Mean Corpuscular HGB Conc 32.1 g/dl (32-36); Mean Corpuscular Hemoglobin 34.9 pg (26-34); Mean Corpuscular Volume 108.7 fl (80-100); Mean Platelet Volume 9.8 fl (7.4-10.4); Monocytes Absolute Auto 0.6 K/mm3 (0.1-0.6); Monocytes Percent Auto 10.8 % (2.6-8.5); Neutrophils Absolute Auto 2.5 K/mm3 (1.3-6.7); Neutrophils Percent Auto 49.4 % (45.5-73.1); Platelet Count Result 114 k/mm3 (150-375); Red Blood Count 3.21 M/mm3 (4.2-5.4); Red Cell Distribution Width 14.7 % (11.5-14.5); White Blood Count 5.1 K/mm3 (4.5-10.0)
[2024-09-27 19:48] LABS: Alanine Aminotransferase 26 U/L (6-35); Albumin Level 4.1 g/dL (3.5-5.1); Alkaline Phosphatase 96 U/L (38-126); Anion Gap 9 mmol/L (4-12); Aspartate Amino Transferase 44 U/L (14-36); Bilirubin,Total 0.4 mg/dL (0.2-1.3); Blood Urea Nitrogen 23 mg/dL (7-17); Calcium 9.3 mg/dL (8.4-10.2); Carbon Dioxide 23 mmol/L (22-30); Chloride 103 mmol/L (98-107); Cholesterol 115 mg/dL (0-200); Estimated Glomerular Filt Rate 29; Glucose 121 mg/dL (65-110); HDL Direct 55 mg/dL; Potassium 5.5 mmol/L (3.4-5.0); Sodium 135 mmol/L (137-145); Triglycerides 79 mg/dL (<150)
[2024-09-27 19:49] LABS: Iron 113 ug/dL (37-170)
[2024-09-27 19:59] LABS: LDL Cholesterol Direct 34 mg/dL
[2024-09-27 20:04] LABS: Percent Iron Saturation 35 % (20-50)
[2024-09-27 20:13] LABS: Platelet Estimate Decreased (Adequate)
[2024-09-27 20:14] LABS: Anisocytosis 1+; Macrocytosis 1+ (NORMAL); Ovalocytes 1+; Schistocytes None Seen
[2024-09-27 22:53] LABS: Free T4 Free Thyroxine Reflex 1.61 ng/dL (0.78-2.19)
[2024-09-27 23:37] LABS: Total Triiodothyronine (T3) 0.87 NG/ML (0.97-1.69)
== END 2024-09-27 15:00 | disposition home or self-care (01) ==
LOC: ANHGOSHLAB 14:59
PROVIDERS: PCP Family Medicine; Visit Provider Nurse Practitioner Family
DX: D64.9 Anemia, unspecified (principal); I10 Essential (primary) hypertension; E78.5 Hyperlipidemia, unspecified
CPT/HCPCS: 36415; 80053; 80061; 82607; 82728; 83540; 83550; 84439; 84443; 84480; 85025

== ENCOUNTER 2024-10-31 17:10 | Emergency (ER) | payer MEDICARE, SELFPAY ==
[2024-10-31 17:10] VITALS: BP 149/99; PULSE 67; RESP 28; TEMP 36.3; O2SAT 95
--- NOTE | 2024-10-31 17:46 | ECG_ITS ---
Test Date: 2024-10-31 18:01:39 Measurements Intervals [place] Rate: 62 P: 85 [place]: 140 QRS: 59 QRSD: 109 T: 114 QT: 458 QTc: 467 Interpretive Statements SINUS RHYTHM POSSIBLE LEFT ATRIAL ENLARGEMENT ST-T WAVE ABNORMALITY IN LAT/HIGH LAT LEADS- CONSIDER ISCHEMIA BASELINE ARTIFACT- I, II, III, AVR, AVL, AVF, V1-V6 ABNORMAL ECG Compared to ECG 05/03/2024 13:52:08 NO SIGNIFICANT CHANGE Electronically Signed On 10-31-2024 20:48:03 CDT by Conrad Fritz D.O.
--- NOTE | 2024-10-31 17:46 | ED.GENADULT ---
HPI - General Adult General Chief complaint: Unspecified Stated complaint: difficulty ambulating Time Seen by Provider: 10/31/24 17:45 Source: patient Mode of arrival: EMS Limitations: no limitations History of Present Illness HPI narrative: 69 YEARS OLD WHITE FEMALE CAME TO THE ED FROM HOME BY AMBULANCE COMPLAINING OF LEFT FOOT DARKER THAN BEFORE 2 WEEKS AGO, INTERMITTENT NUMBNESS OVER 1 YEAR, COLD AND PAIN. ALSO COMPLAINING OF SWELLING OF THE RIGHT FOOT FOR A WHILE. HISTORY OF HYPERTENSION HYPERLIPIDEMIA COPD CORONARY STENTS CVA WITHOUT RESIDUAL FINDINGS TOBACCO DEPENDENT. PATIENT DENIES ANY FEVER, CHILLS, NAUSEA, VOMITING, CHEST PAIN, SHORTNESS OF BREATH. Related Data Home Medications ?Medication ?Instructions ?Recorded ?Confirmed ?Last Taken ?Type clopidogrel 75 mg tablet 75 mg PO DAILY 12/26/20 09/27/24 05/04/24 History carvedilol 12.5 mg tablet 12.5 mg PO BID 12/24/21 09/27/24 02/10/22 09:00 History ezetimibe 10 mg tablet 10 mg PO DAILY 05/03/24 09/27/24 Unknown History isosorbide mononitrate 60 mg 60 mg PO DAILY 05/03/24 09/27/24 Unknown History tablet,extended release 24 hr losartan 100 mg tablet 100 mg PO DAILY 05/03/24 09/27/24 Unknown History spironolactone 25 mg tablet mg PO 09/27/24 09/27/24 Unknown History Allergies Allergy/AdvReac Type Severity Reaction Status Date / Time Penicillins Allergy Severe SOB Verified 10/31/24 17:49 prednisone Allergy Severe Dyspnea / Verified 10/31/24 17:49 SOB adhesive tape Allergy Intermediate blisters Verified 10/31/24 17:49 latex Allergy Intermediate BLISTERS Verified 10/31/24 17:49 mushroom Allergy Mild Hives Verified 10/31/24 17:49 warfarin Allergy Unknown HEMMRHAGE Verified 10/31/24 17:49 ibuprofen AdvReac Intermediate SHAKY Verified 10/31/24 17:49 NSAIDS (Non-Steroidal AdvReac Intermediate Unknown Verified 10/31/24 17:49 Anti-Inflamma Review of Systems Review of Systems: All systems reviewed & are unremarkable except as noted in HPI and below PMFSH Past Medical History Medical History GERD without esophagitis Colon polyps Combined systolic and diastolic cardiac dysfunction Patent foramen ovale Tobacco dependence Peripheral vascular disease Coronary artery disease Hydrocephalus Osteopenia Overactive bladder Vitamin D deficiency Cerebrovascular accident (CVA) Cerebral aneurysm Chronic obstructive pulmonary disease (COPD) Depression Dyslipidemia Essential (primary) hypertension Lumbar spondylosis Right renal artery stenosis Surgical History Surgical History History of coronary artery stent placement History of ventriculoperitoneal shunting (2016) History of aorto-femoral bypass (08/2017) History of cerebral aneurysm repair (10/2016) Femoral-femoral bypass graft thrombosis, left (06/1997) History of appendectomy History of hysterectomy 1980s History of coronary artery bypass graft (1994) History of aortic valve replacement 1994 and 1997 Family History Family History Mother Diabetes mellitus CAD (coronary artery disease) Family history of coronary artery disease Sibling CAD (coronary artery disease) Sibling Diabetes mellitus Sibling Cerebrovascular accident Son Alcoholism in family Social History Social History Social History: Surrogate medical decision maker: Saeid Keita, spouse. Code status: Full code. Smoking packs per day: 0.25 Smoking cigarettes per day: 5.0 Years smoked: 50 Smoking pack-years: 12.50 Smoking status: Current every day smoker Second hand tobacco smoke exposure: Yes Additional smoking assessment comments: CURRENTLY SMOKES 2-3 A DAY DEPENDING ON HOW DEPRESSED SHE IS Alcohol intake: never Substance use: never Substance use type: does not use Do You Feel Safe in your Home?: Yes Lack of Transportation: YES Lack of Food: Never True Current Housing: I Have Housing Concerned About Future Housing: No Difficulty Paying Gas/Electric Bills: No Difficulty Paying for Meds: YES Currently Unemployed: No Education: Decline to Answer Difficulty w/ Childcare or Family Care: YES Living arrangements: with family Occupation/Education: retired Spiritual care concerns: No Exam Narrative: GENERAL APPEARANCE: WELL-DEVELOPED, WELL-NOURISHED SKIN: NORMAL COLOR HEAD: NORMOCEPHALIC, NONTRAUMATIC EYES: CLEAR CONJUNCTIVA ENT: OROPHARYNX NORMAL, EARS NORMAL, NOSE NORMAL NECK: SUPPLE, NONTENDER CHEST AND RESPIRATORY: AIRWAY PATENT, NO RESPIRATORY DISTRESS, NO ACCESSORY MUSCLE USE HEART: REGULAR RATE/RHYTHM ABDOMEN: SOFT, NONTENDER, NO ORGANOMEGALY, QUIET BOWEL SOUNDS VASCULAR: ABSENT PEDAL PULSE AND TIBIALIS POSTERIOR. GROIN PULSATING GRAFTS BILATERALLY MUSCULOSKELETAL: LEFT FOOT EXAMINATION SHOWED COLD, DARKER REDDISH COLOR, NEUROLOGIC: ALERT AND ORIENTED ?3, MARKER SHIPMENTS IS NORMAL TESTED, NO GROSS MOTOR DEFICIT Course Consultations Consultation #1: DR. CALDWELL, VASCULAR SURGEON AT [facility] Date: 10/31/24 Consultation #2: DR. HENRY, EMERGENCY ROOM PHYSICIAN AT [facility] Date: 10/31/24 Vital Signs Vital signs: Vital Signs Temperature 36.3 C L 10/31/24 17:10 Pulse Rate 67 10/31/24 17:10 Respiratory Rate 28 H 10/31/24 17:10 Blood Pressure 149/99 H 10/31/24 17:10 Pulse Oximetry 95 10/31/24 17:10 Temperature 36.3 C L 10/31/24 17:10 Pulse Rate 68 10/31/24 18:33 Respiratory Rate 20 10/31/24 18:33 Blood Pressure 136/93 H 10/31/24 18:33 Pulse Oximetry 97 10/31/24 18:33 Medical Decision Making MDM Narrative Medical decision making narrative: DIFFERENTIAL DIAGNOSIS INCLUDE ACUTE ARTERIAL OCCLUSION OF THE LEFT LOWER LEG. HEPARIN STARTED, CTA ABDOMEN AORTA RUNOFF ORDERED PATIENT IS ACCEPTED FOR TRANSFERRED TO [facility] DISCUSSED WITH DR. CALDWELL/THE VASCULAR SURGEON ON-CALL WHO REQUESTED TO NOT TO GET CT SCAN IN MY FACILITY. AND SINCE THE PATIENT ED TO ED PATIENT ACCEPTED FOR TRANSFER TO THE ED OF [facility] DISCUSSED WITH DR. HENRY. Differential Diagnosis Differential Diagnosis: ACUTE ARTERIAL OCCLUSION Vital Signs Vital Signs: Vital Signs Temperature 36.3 C L 10/31/24 17:10 Pulse Rate 67 10/31/24 17:10 Respiratory Rate 28 H 10/31/24 17:10 Blood Pressure 149/99 H 10/31/24 17:10 Pulse Oximetry 95 10/31/24 17:10 Temperature 36.3 C L 10/31/24 17:10 Pulse Rate 68 10/31/24 18:33 Respiratory Rate 20 10/31/24 18:33 Blood Pressure 136/93 H 10/31/24 18:33 Pulse Oximetry 97 10/31/24 18:33 Lab Data 10/31/24 17:50 10/31/24 17:50 Labs: Lab Results 10/31/24 Range/Units 17:50 WBC 5.7 (4.5-10.0) K/mm3 RBC 3.42 L (4.2-5.4) M/mm3 Hgb 12.3 (12.0-15.0) g/dL Hct 35.8 L (37.0-47.0) % MCV 104.7 H (80-100) fl MCH 36.0 H (26-34) pg MCHC 34.4 (32-36) g/dl RDW 13.7 (11.5-14.5) % Plt Count 126 L (150-375) k/mm3 MPV 9.2 (7.4-10.4) fl Immature Gran % (Auto) 0.4 (0-0.5) % Neut % (Auto) 60.4 (45.5-73.1) % Lymph % (Auto) 22.4 (18.3-44.2) % Hart % (Auto) 12.5 H (2.6-8.5) % Eos % (Auto) 3.4 (0-4.4) % Baso % (Auto) 0.9 (0.2-1.2) % Lymph # (Auto) 1.27 (0.9-3.2) K/mm3 Hart # (Auto) 0.7 H (0.1-0.6) K/mm3 Eos # (Auto) 0.2 (0-0.3) K/mm3 Baso # (Auto) 0.1 (0.0-0.1) K/mm3 Abs Immat Gran (auto) 0.02 (0.00-0.031) K/mm3 Absolute Neuts (auto) 3.4 (1.3-6.7) K/mm3 Absolute Nucleated RBC 0.000 (0.0-0.012) K/mm3 Nucleated RBC % 0.0 (0.0-0.2) % PT 15.0 H (11.1-14.7) Seconds INR 1.2 APTT 32.7 (22.3-36.8) Seconds Sodium 127 L (137-145) mmol/L Potassium 4.8 (3.4-5.0) mmol/L Chloride 95 L (98-107) mmol/L Carbon Dioxide 19 L (22-30) mmol/L Anion Gap 13 H (4-12) mmol/L BUN 19 H (7-17) mg/dL Creatinine 1.52 H (0.7-1.0) mg/dL Estim Creat Clear Calc 24 ml/min Estimated GFR 34 L (59 - ) Glucose 113 H (65-110) mg/dL Calcium 9.7 (8.4-10.2) mg/dL Total Bilirubin 0.7 (0.2-1.3) mg/dL AST 42 H (14-36) U/L ALT 25 (6-35) U/L Alkaline Phosphatase 101 (38-126) U/L Troponin I < 0.012 (0.000-0.034) ng/mL Total Protein 7.8 (6.3-8.2) g/dL Albumin 4.4 (3.5-5.1) g/dL Critical Care Time Critical Care Time Critical Care Time: Yes Total Critical Care Time: 30 Discharge Plan Discharge Clinical Impression: Acute occlusion of artery of lower extremity Patient Disposition: Acute Care Hospital Condition: Serious Patient Language: Citizen Of [place] Prescriptions: No Action clopidogrel 75 mg tablet 75 mg PO DAILY carvedilol 12.5 mg tablet 12.5 mg PO BID albuterol sulfate 90 mcg/actuation HFA aerosol inhaler 2 inh inhalation Q4-6H PRN (Reason: SOB) Qty: 8.5 6RF ipratropium-albuterol 0.5 mg-3 mg(2.5 mg base)/3 mL solution for nebulization 3 ml inhalation Q4H PRN (Reason: shortness of breath or wheezing) Qty: 180 6RF spironolactone 25 mg tablet PO benzonatate 100 mg capsule 100 mg PO BID PRN (Reason: Cough) Qty: 60 0RF umeclidinium-vilanterol 62.5-25 mcg/actuation blister with device 1 inh inhalation DAILY Qty: 60 6RF isosorbide mononitrate 60 mg tablet extended release 24 hr 60 mg PO DAILY losartan 100 mg tablet 100 mg PO DAILY ezetimibe 10 mg tablet 10 mg PO DAILY aspirin 81 mg tablet,delayed release (DR/EC) 81 mg PO QAM Qty: 90 1RF hydrochlorothiazide 12.5 mg tablet 12.5 mg PO DAILY PRN (Reason: edema) Qty: 90 1RF amlodipine 10 mg tablet 10 mg PO DAILY Qty: 90 1RF pantoprazole 40 mg tablet,delayed release (DR/EC) 40 mg PO QAM Qty: 90 1RF rosuvastatin 40 mg tablet 40 mg PO DAILY Qty: 90 1RF tramadol 50 mg tablet 50 mg PO QHS PRN (Reason: pain) Qty: 90 1RF Follow-up/Referrals: Jean Miguel MD [Primary Care Provider] -
--- OUTSIDE RECORDS SUMMARY | 2024-10-31 17:58 | XMS_ITS | Clinical Summary ---
Author Organization [facility] [employer] Address [address] [place] [address] Care Team Providers Care Embedded Nurse Name Role Phone Hilary Miguel MD Primary Care Provider Source Comments [facility],non-owned Affiliates and Associated Physician Practices is amultiple site organization consisting of ambulatory clinics and hospital sitesin [place], [place], [place] and [place]. This disclosure is being madepursuant to the Care Everywhere program and may not contain all information available regarding this patient. Last updated 18.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 Gender Identity Not on file Sexual Orientation Not on file Last Filed Vital Signs Vital Sign Reading Time Taken Comments Blood Pressure 140/81 04/18/2020 11:16 AM STEAM BRUSH 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 Pulse 79 04/18/2020 11:16 AM STEAM BRUSH OPERATOR Temperature 36.3 C (97.3 F) 04/18/2020 11:16 AM STEAM BRUSH OPERATOR Respiratory Rate 18 04/18/2020 11:16 AM STEAM BRUSH OPERATOR Oxygen Saturation 96% 04/18/2020 11:16 AM STEAM BRUSH OPERATOR Inhaled Oxygen Concentration - - Weight 51.3 kg (113 lb 3.2 oz) 04/18/2020 11:16 AM STEAM BRUSH OPERATOR Height 167.6 cm (5' 6) 04/18/2020 11:16 AM STEAM BRUSH OPERATOR Body Mass Index 18.27 04/18/2020 11: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
--- OUTSIDE RECORDS SUMMARY | 2024-10-31 17:58 | XMS_ITS | Clinical Summary ---
Author Organization [facility] [place] [address] Address [address] [address] Care Team Providers Care Water Purifier Name Role Phone Hilary Miguel MD Primary [...] 24 hr tabletIndications :Coronary artery disease of [place] artery of [place] heart with stable angina pectoris TAKE 1 TABLET BY MOUTH DAILY 30 tablet 07/19/19 Active Active Problems Problem Noted Date Diagnosed Date Protein-calorie malnutrition, moderate 2 CAD S/P percutaneous coronary angioplasty 2021 Hx of CABG 01/29/2022 Overview (01/29/2022): Added automatically from request for surgery [id number] Coronary artery disease invo lving coronary bypass graft of [place] heart 01/29/2022 Overview (01/29/2022): Added automatically from request for surgery [id number] Chest pain 12/19/2021 Overview (12/19/2021): Added automatically from request for surgery [id number] Abnormal stress test 12/19/2021 Overview (12/19/2021): Added automatically from request for surgery [id number] Heart attack H/O angioplasty Encounters Date Type Department Care Team Description 08/18/2024 Results Follow-Up 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 [employer] 09/28/2024 [id number] X / / [id number] Med[employer]onic Inc Resolute Adis 3mm 2.1-2.7fr 34mm 140cm Rapid Exchange Radiopaque [id number] - [id number] Implanted:Qty: 1 on 02/28/2022 by Prashanth Neff MD at [facility] [employer] 08/31/2024 [id number] / / [id number] [employer] Vickey Stent Drug Eluting S Megatron Us Mr 4.59u85pr [id number] - [id number] Implanted:Qty: 1 on 02/28/2022 by Prashanth Neff MD at [facility] [employer] 09/11/2022 [id number] / / [id number] Procedures Procedure Name Priority Date/Time Associated Diagnosis Comments TRANSTHORACIC ECHO (TTE) COMPLETE W DOPPLER/CF WO CONTRAST Routine 08/17/2024 10:02 AM CDT History of aortic valve replacement with bioprosthetic valve from Last 3 Months Results * TRANSTHORACIC ECHO (TTE) COMPLETE W DOPPLER/CF WO CONTRAST (08/17/2024 10:02 AM CDT) Anatomical Region Laterality Modality Ultrasound 08/17/2024 9:32 AM CDT Narrative 08/17/2024 10:[address] [facility] Cardiology [address], [address], [place] [address] P:[phone] P:[phone] Echocardiographic Report Patient Name: FRANTZ KEITA : 1955 Study Date: 08/17/2024 9:32:37 AM Gender: F Tech: Location: [place] Ref Provider: PRASHANTH NEFF Height(Cm): 170 BSA: [...] FINDINGS: Interpretation Site: Exam was interpreted at [facility]. Left Ventricle: Ejection fraction is measured at [...] Procedure Note Jameson Kohler MD - 08/17/2024 [facility] Cardiology [address], [address], [place] [address] P:[phone] P:[phone] Echocardiographic Report Patient Name: FRANTZ KEITA : 1955 Study Date: 08/17/2024 9:32:37 AM Gender: F Tech: Location: [facility] Provider: PRASHNATH NEFF Height(Cm): 170 BSA: 1.45 Weight(Kg): 44.5 [...] FINDINGS: Interpretation Site: Exam was interpreted at [facility]. Left Ventricle: Ejection fraction is measured at [...] Final Result from Last 3 Months Insurance [facility] MEDICARE [facility] Address: [address] [address] [place] [id number] MEDICARE AD[facility] Address: [address] [place] [id number] MEDICARE AD[facility] Address: [address] [place] [id number] Advance Directives For more information, please contact: [phone] * Full Code (Latest Code Status on File) Date Activated Date Inactivated Comments 02/28/2022 2:12 PM 03/01/2022 7:44 PM Care Teams Water Purifier Relationship Specialty Start Date End Date Hilary Miguel MD PCP - General Family Practice 07/30/17
--- OUTSIDE RECORDS SUMMARY | 2024-10-31 17:58 | XMS_ITS | Referral Summary ---
Author Organization [facility] [place] [address] Address [address] [place] [address] Care Team Providers Care Vice President Of Operations Name Role Phone Hilary Miguel MD Primary Care Provider Encounters Date Type Department Care Team Description 08/18/2024 Results Follow-Up [facility] [address] [facility] [address] [address] Kali Cabrera RN Transthoracic Echo (TTE) Complete W Doppler/CF 08/17/2024 9:15 AM CDT Ancillary Procedure [facility] Cardiology [address] [place] [address] History of aortic valve replacement [...] TABLET BY MOUTH DAILY 30 tablet 10 24/20 25 Active rosuvastatin (CRESTOR) 40 mg tablet TAKE 1 TABLET BY MOUTH DAILY 30 tablet 06/18/19 Active carvediloL (COREG) 12.5 mg tablet TAKE 1 TABLET BY MOUTH TWICE DAILY WITH MEALS 60 tablet 07/19/19 Active isosorbide mononitrate ER (IMDUR) 60 mg 24 hr tabletIndications :Coronary artery disease of [place] artery of [place] heart with stable angina pectoris TAKE 1 TABLET BY MOUTH DAILY 30 tablet 07/19/19 25 Active Active Problems Problem Noted Date Diagnosed Date Protein-calorie malnutrition, moderate CAD S/P percutaneous coronary angioplasty 2021 Hx of CABG 01/29/2022 Overview (01/29/2022): Added automatically from request for surgery [id number] Coronary artery disease invo lving coronary bypass graft of [place] heart 01/29/2022 Overview (01/29/2022): Added automatically from request for surgery [id number] Chest pain 12/19/2021 Overview (12/19/2021): Added automatically from request for surgery [id number] Abnormal stress test 12/19/2021 Overview (12/19/2021): Added automatically from request for surgery [id number] Heart attack H/O angioplasty Social History Tobacco [...] on file 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 [employer] 09/28/2024 [id number] / / [id number] Med[employer] Inc Resolute Adis 3mm 2.1-2.7fr 34mm 140cm Rapid Exchange Radiopaque [id number] - [id number] Implanted:Qty: 1 on 02/28/2022 by Prashanth Neff MD at [facility] [employer] 08/31/2024 [id number] X / / [id number] [employer] Vickey Stent Drug Eluting S Megatron Mr 4.57v50zs [id number] - [id number] Implanted:Qty: 1 on 02/28/2022 by Prashanth Neff MD at [facility] [employer] 09/11/2022 [id number] / / [id number] Procedures Procedure Name Priority Date/Time Associated Diagnosis Comments TRANSTHORACIC ECHO (TTE) COMPLETE W DOPPLER/CF WO CONTRAST Routine 08/17/2024 10:02 AM CDT History of aortic valve replacement with bioprosthetic valve from Last 3 Months Results * TRANSTHORACIC ECHO (TTE) COMPLETE W DOPPLER/CF WO CONTRAST (08/17/2024 10:02 AM CDT) Anatomical Region Laterality Modality Ultrasound 08/17/2024 9:32 AM CDT Narrative 08/17/2024 10:38 AM CDT [facility] Medical Group Cardiology [address], [address], [place] [address] P:[phone] P:[phone] Echocardiographic Report Patient Name: FRANTZ KEITA : 1955 Study Date: 08/17/2024 9:32:37 AM Gender: F Tech: Location: [facility] Provider: PRASHANTH NEFF Height(Cm): 170 BSA: [...] FINDINGS: Interpretation Site: Exam was interpreted at [facility]. Left Ventricle: Ejection fraction is measured at [...] Procedure Note Jameson Kohler MD - 08/17/2024 [facility] Medical Group Cardiology [address], [address], [place] [address] P:[phone] P:[phone] Echocardiographic Report Patient Name: FRANTZ KEITA : 1955 Study Date: 08/17/2024 9:32:37 AM Gender: F Tech: Location: [place] Ref Provider: PRASHANTH NEFF Height(Cm): 170 BSA: [...] FINDINGS: Interpretation Site: Exam was interpreted at [facility]. Left Ventricle: Ejection fraction is measured at [...] Final Result from Last 3 Months Insurance [facility] MEDIC[facility] Address: [place] [address] [employer] MEDICARE ADVANTAGE [facility] MED[facility] Address: [place] [id number] MEDIC[facility] AD[facility]ANT[facility] Address: [facility] [address] [place] [address] Advance Directives For more information, please contact: [phone] * Full Code (Latest Code Status on File) Date Activated Date Inactivated Comments 02/28/2022 2:12 PM 03/01/2022 7:44 PM Care Teams Vice President Of Operations Relationship Specialty Start Date End Date Hilary Miguel MD PCP - General Family Practice 07/30/17
[2024-10-31 18:00] LABS: Basophils Absolute Auto 0.1 K/mm3 (0.0-0.1); Basophils Percent Auto 0.9 % (0.2-1.2); Eosinophils Absolute Auto 0.2 K/mm3 (0-0.3); Eosinophils Percent Auto 3.4 % (0-4.4); Hematocrit 35.8 % (37.0-47.0); Hemoglobin 12.3 g/dL (12.0-15.0); Immature Granulocyte Absolute 0.02 K/mm3 (0.00-0.031); Immature Granulocyte Percent A 0.4 % (0-0.5); Lymphocytes Absolute Auto 1.27 K/mm3 (0.9-3.2); Lymphocytes Percent Auto 22.4 % (18.3-44.2); Mean Corpuscular HGB Conc 34.4 g/dl (32-36); Mean Corpuscular Volume 104.7 fl (80-100); Mean Platelet Volume 9.2 fl (7.4-10.4); Monocytes Absolute Auto 0.7 K/mm3 (0.1-0.6); Monocytes Percent Auto 12.5 % (2.6-8.5); Neutrophils Absolute Auto 3.4 K/mm3 (1.3-6.7); Neutrophils Percent Auto 60.4 % (45.5-73.1); Platelet Count Result 126 k/mm3 (150-375); Red Blood Count 3.42 M/mm3 (4.2-5.4); Red Cell Distribution Width 13.7 % (11.5-14.5); White Blood Count 5.7 K/mm3 (4.5-10.0)
--- NOTE | 2024-10-31 18:05 | PC.NURSE ---
Dr. Kierra TRACY to administer heparin IVP bolus and administer heparin drip. Pharmacy made aware.
[2024-10-31 18:09] LABS: Alanine Aminotransferase 25 U/L (6-35); Albumin Level 4.4 g/dL (3.5-5.1); Alkaline Phosphatase 101 U/L (38-126); Anion Gap 13 mmol/L (4-12); Aspartate Amino Transferase 42 U/L (14-36); Bilirubin,Total 0.7 mg/dL (0.2-1.3); Blood Urea Nitrogen 19 mg/dL (7-17); Calcium 9.7 mg/dL (8.4-10.2); Carbon Dioxide 19 mmol/L (22-30); Chloride 95 mmol/L (98-107); Estimated CRCL calculation 24 ml/min; Estimated Glomerular Filt Rate 34; Glucose 113 mg/dL (65-110); Potassium 4.8 mmol/L (3.4-5.0); Sodium 127 mmol/L (137-145); Total Protein 7.8 g/dL (6.3-8.2)
[2024-10-31 18:11] LABS: INR 1.2
[2024-10-31 18:12] LABS: Partial Thromboplastin Time 32.7 Seconds (22.3-36.8)
[2024-10-31 18:20] LABS: Troponin I < 0.012 ng/mL (0.000-0.034)
[2024-10-31] MEDS: HEPARIN SODIUM 5,000 UNITS/ML VIAL 4000 UNITS IV PUSH (18:25)
[2024-10-31] MEDS: HEPARIN SOD/D5W 100 UNITS/ML 25,000 UNITS/250 ML BAG 8 UNITS IV CONT (18:25)
[2024-10-31 18:33] VITALS: BP 136/93; PULSE 68; RESP 20; O2SAT 97
== END 2024-10-31 19:05 | disposition short-term general hospital (02) ==
PROVIDERS: Emergency Provider Emergency Medicine; PCP Family Medicine
DX: I77.1 Stricture of artery (principal); I50.40 Unspecified combined systolic (congestive) and diastolic (congestive) heart failure; I25.10 Atherosclerotic heart disease of native coronary artery without angina pectoris; I73.9 Peripheral vascular disease, unspecified; E55.9 Vitamin D deficiency, unspecified; I11.0 Hypertensive heart disease with heart failure; E78.49 Other hyperlipidemia; J44.9 Chronic obstructive pulmonary disease, unspecified; K21.9 Gastro-esophageal reflux disease without esophagitis; F17.210 Nicotine dependence, cigarettes, uncomplicated
CPT/HCPCS: 36415; 80053; 84484; 85025; 85610; 85730; 93005; 96365; 99285; J1644